=== PATIENT | female | born 1970 | race Caucasian/White ===

== ENCOUNTER 2018-09-30 16:06 | Emergency (ER) | payer SELFPAY ==
[2018-09-30 16:09] VITALS: BP 135/90; PULSE 75; RESP 16; TEMP 36.2; O2SAT 100; BMI 31.1
[2018-09-30] MEDS: Meclizine HCl 25 MG Tablet PO (16:42)
--- NOTE | 2018-09-30 17:28 | ED.VISSUMM ---
- ER Visit Summary Date of Service: 09/30/18 Chief Complaint: Dizzy History of Present Illness: The patient is a 47 F with a history of peripheral vertigo. She states she started noting vertigo-like symptoms 8 days ago. Symptoms are worse by lying down and with head movement. She is also noted sinus pressure and some left ear pressure over the past couple of days. She has not had fever. Physical Examination: Vital signs are unremarkable. Patient sitting in a bedside chair. She is in no acute distress. Head neck examination reveals pupils to be equal and reactive. TMs are clear bilaterally. She does have reproducible tenderness of the frontal and maxillary sinuses bilaterally. Heart is regular rate and rhythm. Lung sounds are clear. Abdomen is soft nontender. Neuro exam reveals normal strength and sensation throughout. Test Results: [] Emergency Department Course and Treatment: Patient was given Antivert here. On repeat evaluation she does feel improved. We talked about the possibility of sinusitis contributing to her symptoms. We will write her a prescription for Zithromax, but she will wait 3 more days to see if her symptoms improve without requiring antibiotic. Treatment Plan: [] Disposition: Discharge Impression: 1. Benign positional vertigo 2. Sinusitis This note was generated with [employer] dictation software. It may contain incorrect words, spelling, and punctuation that were not noted in review of the chart prior to signing ED Disposition - Plan for ED Patient: Chief Complaint: Dizziness Referrals: Wendy Nieves, AIR TRAFFIC CONTROL MANAGER-C [Primary Care Provider] -
--- NOTE | 2018-09-30 17:30 | ED.DEP ---
ED Disposition - Plan for ED Patient: Disposition: Home or Assisted Living Chief Complaint: Dizziness Instructions: ED Vertigo Unspecified, ED Sinusitis Abx Tx Prescriptions: Azithromycin [Zithromax Z-Jake] 250 mg PO UD #1 box Meclizine HCl [Antivert] 25 mg PO 4X/DAY PRN PRN #20 tablet PRN Reason: Dizziness Referrals: Wendy Nieves, CLEARANCE COORDINATOR-C [Primary Care Provider] - 1 Week
--- NOTE | 2018-09-30 17:47 | ED.DEP ---
ED Disposition - Plan for ED Patient: Disposition: Home or Assisted Living Chief Complaint: Dizziness Instructions: ED Sinusitis Abx Tx, ED Vertigo Unspecified Prescriptions: proMETHazine tablet [Phenergan] 25 mg PO Q6H PRN PRN #10 tab PRN Reason: Nausea Azithromycin [Zithromax Z-Jake] 250 mg PO UD #1 box Meclizine HCl [Antivert] 25 mg PO 4X/DAY PRN PRN #20 tablet PRN Reason: Dizziness Referrals: Wendy Nieves NP-C [Primary Care Provider] - 1 Week
[2018-09-30 17:55] VITALS: RESP 18
== END 2018-09-30 17:56 | disposition home or self-care (01) ==
PROVIDERS: Emergency Provider Emergency Medicine; Family Provider Nurse Practitioner; PCP Nurse Practitioner
DX: H81.10 Benign paroxysmal vertigo, unspecified ear (principal); J32.9 Chronic sinusitis, unspecified; K21.9 Gastro-esophageal reflux disease without esophagitis
CPT/HCPCS: 99282

== ENCOUNTER → 2019-06-18 16:39 | Outpatient (CLI) | payer SELFPAY ==
--- NOTE | 2019-06-18 16:43 | RAD_ITS ---
STUDY: X-RAY - LEFT ELBOW REASON FOR EXAM: Female, 48 years old. Elbow injury 6 weeks ago, now complains of pain and swelling TECHNIQUE: 3 view(s) of the elbow. COMPARISON: None. FINDINGS: Normal visualized humerus, radius and ulna. Normal radiocapitellar and ulnotrochlear articulations. There is soft tissue swelling posterior to the olecranon process. RAD/Elbow min 3 Views IMPRESSION: The osseous structures and articular surfaces appear normal. There is soft tissue swelling posterior to the olecranon process consistent with olecranon bursitis. Electronically Signed: Cal Lau MD at 23:59 EDT , Service support ,
== END ==
LOC: MTLAB 16:41 → MTRAD 17:19
PROVIDERS: Family Provider Nurse Practitioner; PCP Nurse Practitioner; Referring Provider Nurse Practitioner; Visit Provider Nurse Practitioner
DX: M25.522 Pain in left elbow (principal)
CPT/HCPCS: 73080

== ENCOUNTER → 2019-06-19 11:52 | Outpatient (CLI) | payer SELFPAY ==
[2019-06-20 16:42] LABS: HPV Reflexed? NOT INDICATED
== END ==
PROVIDERS: Family Provider Nurse Practitioner; PCP Nurse Practitioner; Referring Provider Nurse Practitioner; Visit Provider Nurse Practitioner
DX: Z01.419 Encounter for gynecological examination (general) (routine) without abnormal findings (principal)
CPT/HCPCS: 88175; G0145

== ENCOUNTER 2019-10-09 18:30 | Outpatient (RCR) | payer SELFPAY ==
--- NOTE | 2019-10-02 19:19 | HP.PTEVAL ---
Patient's Visit Information TARA HATHAWAY is a 48 year old F referred to Physical Therapy by DEREK Goldberg with a diagnosis of vertigo. Date of Evaluation: 10/02/19 Physical Therapist: BRIANNA Cordero - Visit Plan Frequency: 1x/Week Duration: 6 Weeks Plan: 1X/ week for 6 weeks for habituation exercises, VOR exercises, possible re-test of hallpike with HEP and balance exercises - Subjective Findings: Pt reportst that last year at this time she woke up super dizzy and she was throwing up a lot. She was told that it was vertigo from a slight ear infection. It got a little better but not completely and she can not lay on her L side. If she is on her R side she can slowly roll to her L side by laying on her back first. If she was to lay on her L side she would have the room spin for about 10 seconds. It is also that she can not look up.... she can not move her head up but she can move her eyes up. Looking down is ok... No sudden movments. When it happens if she lets it settle it is ok. At time she has episodes where she wakes up really dizzy..... Laying to standing position she is unbalanced. 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 Pt states that sometimes she has episodes where the room will spin for a long time and she gets sick.... she has not seen a neurologist. SHe reports that her father of a brain tumor and wonders if she should get a scan since this has been a year.... instructed her to talk to Wendy Nieves about it. - Pain RIOS Pain Intensity (Out of 10): 6 - Objective -Hallpike to the R for nystagmus and dizziness. -Hallpike for nystagmus to the L but pt did feel a slight dizzy feeling and there fore we treated with L Eply. Pt felt a little better with the L Hallpike on second attempt and tried L Eply one additional time..... Gait: Walks with a normal gait pattern. VOR X 1 horizontal ( good pursuit but did make her feel stomach flip and a little off). VOR X 1 vertical ( good pursuit and no dizziness and not stomach flip). smooth pursuit was normal vertical and horizotnal. CATSIB 90. FGA: 23 - Balance Scores Functional Gait Assessment Score: 22 % Disability: 26.6700 CATSIB Score (Max score 120 seconds): 90 - Goals Goal 1:: I HEP Goal Time Frame: 2 Weeks Goal 2:: Increase CATSIB by 20 points to increase balance Goal Time Frame: 4-6 Weeks Goal 3:: Be able to complete 60 seconds of VOR X 1 horizontal and vertical in standing without dizziness or stomach flips Goal Time Frame: 4-6 Weeks Goal 4:: Decrease subjective dizziness by 50% Goal Time Frame: 4-6 Weeks Goal 5:: Be able to roll to L side in bed without having dizziness Goal Time Frame: 4-6 Weeks - Rehabilitation Potential Rehabilitation Potential: Good - Anticipated Interventions Patient/Client Instruction: Educate patient on: Condition, Plan of Care For the Purpose of:: To improve muscle performance and motor function, To improve ability to perform ADL's, To increase tolerance to activity/condition/position, To improve performance and independence with ADL's, To improve ability of physical actions for home/community/work/leisure Therapeutic Exercise to Include: Strength training, Balance training, Coordination, Body mechanics, Gait and locomotor training, Neuromotor development For the Purpose of:: To improve nutrient delivery to tissue, To improve muscle performance and motor function, To improve ability to perform ADL's, To increase tolerance to activity/condition/position, To improve performance and independence with ADL's, To decrease level of supervision to perform tasks, To improve ability of physical actions for home/community/work/leisure, To improve balance, To improve safety with gait Functional Training to Include: Gait training For the Purpose of:: To improve gait and locomotor functions, To improve balance, To improve safety with gait Thank you for the opportunity to evaluate your patient. For Medicare and Medicare HMO plans, please review the plan of care and approve it. It will need to be FAXED BACK to us at [phone] for Medicare purposes. For Medicare only, by signing this I certify the plan of care. Please let me know if there are questions or concerns regarding this plan of care. Physician Signature: Date:
--- NOTE | 2019-12-16 16:26 | HP.PT.NRP ---
ATRA HATHAWAY was seen in my office for initial evaluation on 10/02/19. The following Plan of Care was established for this patient: Initial Frequency: 1x/Week Initial Duration: 6 Weeks Patient/Client Instruction: Educate patient on: Condition, Plan of Care For the Purpose of:: To improve muscle performance and motor function, To improve ability to perform ADL's, To increase tolerance to activity/condition/position, To improve performance and independence with ADL's, To improve ability of physical actions for home/community/work/leisure Therapeutic Exercise to Include: Strength training, Balance training, Coordination, Body mechanics, Gait and locomotor training, Neuromotor development For the Purpose of:: To improve nutrient delivery to tissue, To improve muscle performance and motor function, To improve ability to perform ADL's, To increase tolerance to activity/condition/position, To improve performance and independence with ADL's, To decrease level of supervision to perform tasks, To improve ability of physical actions for home/community/work/leisure, To improve balance, To improve safety with gait Functional Training to Include: Gait training For the Purpose of:: To improve gait and locomotor functions, To improve balance, To improve safety with gait This patient was last seen in our office 10/09/19. Pertinent comments regarding their Physical therapy will appear below: DC PT At this point I will be discontinuing this patient from physical therapy. I would be happy to see this patient again in the future if found appropriate by the physician. Thank you! BRIANNA Cordero
== END 2019-10-09 19:00 | disposition home or self-care (01) ==
LOC: PT 18:30
PROVIDERS: Family Provider Nurse Practitioner; PCP Nurse Practitioner; Referring Provider Nurse Practitioner; Visit Provider Nurse Practitioner
DX: R42 Dizziness and giddiness (principal)
CPT/HCPCS: 97110; 97162

== ENCOUNTER → 2019-11-22 17:53 | Outpatient (CLI) | payer SELFPAY ==
--- NOTE | 2019-11-22 18:00 | CT_ITS ---
HISTORY: Migraine and vertigo 1 year COMPARISON: None. TECHNIQUE: Helical CT axial images are obtained from the base of skull through the vertex without and with 50mL [id number]-370 intravenous contrast. Multiplanar reconstruction. A radiation dose optimization technique was used for this scan. # of images incl. paperwork: [id number] FINDINGS: BRAIN: No parenchymal hemorrhage, infarct, intra-axial mass, mass effect, or midline shift. No abnormal extra-axial fluid collections. No abnormal enhancing parenchymal or dural based masses. VENTRICLES: Ventricles are normal in size and configuration. No hydrocephalus. CALVARIUM: Bone windows show no skull fracture or calvarial lesions. PARANASAL SINUSES AND MASTOIDS: Visualized paranasal sinuses are clear. Visualized mastoid air cells are clear. CT/Brain/Head W/WO Contrast IMPRESSION: 1. Negative pre- and postcontrast CT examination of brain. Individualized dose optimization techniques were used for this CT. at 1635 Reported and signed by: Stalin Khan MD Electronically Signed: Stalin Khan MD at 16:33 EST Tel , Service support ,
== END ==
PROVIDERS: PCP Nurse Practitioner; Referring Provider Nurse Practitioner; Visit Provider Nurse Practitioner
DX: G43.109 Migraine with aura, not intractable, without status migrainosus (principal)
CPT/HCPCS: 70470; Q9967

== ENCOUNTER → 2020-03-05 17:44 | Outpatient (CLI) | payer SELFPAY ==
[2020-03-05 15:33] VITALS: BMI 34.2
--- NOTE | 2020-03-05 17:49 | US_ITS ---
STUDY: ULTRASOUND OF THE FEMALE PELVIS - COMPLETE REASON FOR EXAM: Female, 49 years old. IRREG MENSES LMP: 01/20/2020 TECHNIQUE: Transabdominal and Transvaginal TECHNICAL QUALITY: Adequate. COMPARISON: None. FINDINGS: The uterus is anteverted and is in a midline position. The uterus measures 9.9 x 7.3 x 5.4 cm. There is a Nabothian cyst of the cervix. The endometrium measures 6 mm in thickness, and is hyperechoic. There is no demonstrated endometrial mass. Multiple uterine fibroids. This includes a posterior lesion measuring 2.5 x 2.3 x 1.9 cm, a right-sided lesion measuring 2.3 x 1.9 x 1.8 cm, and an anterior lesion measuring 1.2 x 1.1 x 0.9 cm. I.U.D. - The patient does not have an I.U.D. The right ovary is not seen. The left ovary is visualized. The left ovary measures 4.1 x 2.9 x 2.2 cm. Left ovary cyst measuring 2.8 x 2.4 x 1.9 cm. There is no visualized left adnexal mass or complex lesion. There is normal arterial and normal venous vascularity. There is no fluid in the cul-de-sac. The pre void volume of the bladder was 78.26 ml. US/Pelvic (Non ) IMPRESSION: Multiple uterine fibroids. Left ovary cyst measuring 2.8 x 2.4 x 1.9 cm. Electronically Signed: [place] Blanc MD at 19:13 EDT Tel , Service support ,
--- NOTE | 2020-03-05 18:20 | US_ITS ---
STUDY: ULTRASOUND OF THE FEMALE PELVIS - COMPLETE REASON FOR EXAM: Female, 49 years old. IRREG MENSES LMP: 01/20/2020 TECHNIQUE: Transabdominal and Transvaginal TECHNICAL QUALITY: Adequate. COMPARISON: None. FINDINGS: The uterus is anteverted and is in a midline position. The uterus measures 9.9 x 7.3 x 5.4 cm. There is a Nabothian cyst of the cervix. The endometrium measures 6 mm in thickness, and is hyperechoic. There is no demonstrated endometrial mass. Multiple uterine fibroids. This includes a posterior lesion measuring 2.5 x 2.3 x 1.9 cm, a right-sided lesion measuring 2.3 x 1.9 x 1.8 cm, and an anterior lesion measuring 1.2 x 1.1 x 0.9 cm. I.U.D. - The patient does not have an I.U.D. The right ovary is not seen. The left ovary is visualized. The left ovary measures 4.1 x 2.9 x 2.2 cm. Left ovary cyst measuring 2.8 x 2.4 x 1.9 cm. There is no visualized left adnexal mass or complex lesion. There is normal arterial and normal venous vascularity. There is no fluid in the cul-de-sac. The pre void volume of the bladder was 78.26 ml. US/Transvaginal Non- IMPRESSION: Multiple uterine fibroids. Left ovary cyst measuring 2.8 x 2.4 x 1.9 cm. Electronically Signed: Bay Blanc MD at 19:13 EDT Tel , Service support ,
== END ==
PROVIDERS: PCP Nurse Practitioner; Referring Provider Nurse Practitioner Women's Health; Visit Provider Nurse Practitioner Women's Health
DX: N92.6 Irregular menstruation, unspecified (principal)
CPT/HCPCS: 76830; 76856

== ENCOUNTER → 2020-03-05 | Outpatient (CLI) | payer SELFPAY ==
--- NOTE | 2020-03-05 | EMB_PTH ---
PATIENT: TARA HATHAWAY LOC: [facility] U#:[id number] AGE/SX: 49/F ROOM: RE03/05/[address]: DEREK Singleton : 1970 BED: DIS: 03/05/2020 SPEC #: [id number] RECD: 03/05/20 15:00 STATUS: RAYRAY RALF #: [id number] DILAN: 03/05/20 00:[address]: Quyen Kilpatrick NP DEPT: SURGICAL PATHOLOGY RECD BY: Kathy Mancera ENTERED: 03/06/20 09:27 SP TYPE: ENDOM BX/C SARTHAK DR: DEREK Goldberg Tissues: Endometrium, NOS Procedures: Surgery Specimen Level IV HEADER OPERATION: Endometrial biopsy PRE-OP DIAGNOSIS: Abnormal uterine bleeding TISSUE SUBMITTED: Endometrial lining MICROSCOPIC DIAGNOSIS Endometrial biopsy: Dyssynchronous endometrium consisting predominantly of disordered proliferative endometrium and focal area of secretory endometrium with extensive glandular and stromal breakdown. FAYE:mayi 03/09/20 COMMENT Case has been reviewed in consultation with Dr. Craig who concurs with the above diagnosis. IDC:AM MICROSCOPIC DESCRIPTION Slides are reviewed. GROSS DESCRIPTION Received is one container labeled with the patient's name and not further designated. The specimen consists of multiple fragments of hemorrhagic soft tissue that in aggregate measure 3 x 2.5 x 0.3 cm. The entire specimen is submitted in one cassette. / FAYE:mayi 03/06/20 TC:5 CPT: 97270
[2020-03-05 15:33] VITALS: BMI 34.2
[2020-03-05 16:40] LABS: Absolute Lymphocyte Count 2.71 X10^3/uL (0.83-4.51); Absolute Neutrophil Count 6.6 X10^3/uL (2.0-7.7); Basophil# 0.04 X10^3/uL; Basophil% 0.4 % (0-1); Eosinophils% 1.9 % (0-5); Hematocrit 35.8 % (37-47); Hemoglobin 11.2 g/dL (12.0-15.0); Lymphocyte # 2.71 X10^3/ul (4.0); Mean Corp Hgb Conc 31.3 g/dL (32-36); Mean Corpuscular Hgb 29.2 pg (27.0-32.0); Mean Corpuscular Volume 93.5 fL (81-99); Mean Platelet Vol. 10.7 fl (6.2-12.0); Monocyte# 0.81 X10^3/uL; Monocyte% 7.8 % (0-10); NRBC Flagged by Analyzer 0 % (0-5); Neutrophil # 6.61 X10^3/uL (2.7-7.7); Neutrophil % 63.5 % (47-70); Platelet Count 354 K/mm3 (150-450); RBC Distribution Width CV 13.8 % (11.6-14.6); RBC Distribution Width SD 46.5 fl (35.1-43.9); Red Blood Count 3.83 M/mm3 (4.2-5.4); White Blood Count 10.4 K/mm3 (4.4-11.0)
[2020-03-05 17:10] LABS: Thyroid Stim Hormone (TSH) 2.24 uIU/mL (0.358-3.74)
== END | disposition home or self-care (01) ==
PROVIDERS: PCP Nurse Practitioner; Referring Provider Nurse Practitioner Women's Health; Visit Provider Nurse Practitioner Women's Health
DX: N93.9 Abnormal uterine and vaginal bleeding, unspecified (principal)
CPT/HCPCS: 36415; 84443; 85025; 88305

== ENCOUNTER 2020-04-14 10:18 | Day surgery (SDC) | payer SELFPAY ==
[2020-03-11 11:03] VITALS: BMI 34.2
[2020-03-30 08:03] VITALS: BMI 34.5
--- NOTE | 2020-04-06 03:41 | HP.PCM_ITS ---
- Problem List (1) Abnormal uterine bleeding Status: Acute Comment: enlarged 10 cm multiple fibroid uterus. recommend [facility] BS combo case with Jasson for sling. nl EMB (2) Enlarged uterus Status: Acute History and Physical Date of Admission: 04/14/20 Intake Vital Signs 03/30/20 Height 5 ft 2 in 03/30/20 Weight: 189 lb 03/30/20 BMI 34.5 03/30/20 BP 116/70 03/30/20 BMI 34.2 Intake Visit Reasons: pre op Oncology Physician Required: No Is patient in pain?: No Allergies Penicillins [PCN] Adverse Reaction (Verified 03/30/20 08:03) Hives CILLINS Adverse Reaction (Uncoded 03/11/20 10:34) Hives Medications cholecalciferol (vitamin D3) 50 mcg (2,000 unit) capsule 50 mcg PO DAILY 03/05/20 [History Confirmed 03/30/20] evening primrose oil 500 mg capsule 500 mg PO TID 03/05/20 [History Confirmed 03/30/20] ferrous sulfate 325 mg (65 mg iron) tablet 325 mg PO DAILY 03/05/20 [History Confirmed 03/30/20] multivitamin 1 tab PO DAILY 03/05/20 [History Confirmed 03/30/20] norethindrone acetate 5 mg tablet 5 mg PO .COMPLEX #45 tab 03/05/20 [Rx Confirmed 03/30/20] omeprazole 20 mg capsule,delayed release 20 mg PO DAILY 03/05/20 [History Confirmed 03/30/20] Is last menstrual period known: No Post menopausal: No Patient : No : No PFSH Surgical History Admission for tubal ligation (Acute) H/O LEEP (Acute) Family History Father Cancer brain tumor Unknown Diabetes Social History (Updated 03/31/20 @ 05:[address] Kathy Robles MD) Smoking Status: Never smoker alcohol intake: never substance use type: does not use caffeine: Yes what type of physical activity do you participate in: walking seatbelt use: always do you feel safe at home: Yes HPI pre op: Details: TARA HATHAWAY is a 49 year old who presents for preoperative visit. she is going to have an LAV BS for enlarged uterus with AUB, combo case with Dr Spaulding for sling for KELBY. Female Reproductive History Cycle Length: 21-35 Bleeding Duration: 14 Questions: Metorrhagia: No, Sexually active: Yes, Dyspareunia: No Menopausal Symptoms: Yes hot flashes, Yes night sweats Pregancy History 3 Elective abortions Hx Para 3 Spontaneous abortions Hx # Term Pregnancies Ectopic pregnancies Hx # Pregnancies Multiple births # of living children Past Pregnancies Del. Date Name GA/Weeks Outcome Route Bth Weight Infant Gen Labor Lgth Anesthesia Del Locatn Provider FOB Unknown 1989 Erasmo Unknown 1993 Alba Unknown 1997 Anisha ROS Const Constitutional: Reports night sweats; denies fatigue, fever(s), headache(s), increased appetite, poor appetite, weight gain or weight loss ENT ENT: Denies dizziness or dry mouth Cardio Card: Denies chest pain Resp Resp: Denies cough or dyspnea GI GI: Reports as per HPI; denies abdominal pain, constipation, nausea or vomiting : Reports as per HPI, hot flashes and urinary incontinence (KELBY); denies difficulty urinating, painful urination, nipple discharge, urinary frequency, urinary hesitancy, urinary urgency, vaginal discharge, vaginal dryness, vaginal odor or vaginal itching Musc Musc: Denies joint pain, back pain or muscle weakness Skin Skin/Breast: Denies nipple discharge Neuro Neuro: Denies dizziness Psych Psych: Denies anxiety or depression Endo Endo: Denies cold intolerance, excessive sweating, heat intolerance or increased thirst Manjeet/Lymph Hematologic/Lymphatic: Denies easy bleeding, Denies easy bruising, Denies enlarged lymph nodes Exam Const General: cooperative, healthy appearing, comfortable, no acute distress, well developed Nutritional Appearance: average body habitus Orientation: alert [facility] Head: normal to inspection, normocephalic Ears: hearing grossly normal bilaterally, external ears normal Nose: external nose normal, nares normal Face and sinus: normal facial exam Neck Neck: normal visual inspection, trachea midline Thyroid: thyroid normal Chest Chest palpation & inspection: normal inspection of the chest Resp Effort & Inspection: normal respiratory effort Auscultation: clear to auscultation bilaterally Cardio Rate: regular rate Rhythm: regular rhythm Heart Sounds: S1 normal, S2 normal GI Inspection: normal to inspection, non-distended Palpation: soft, no hepatosplenomegaly General: bladder normal to palpation External Female Exam: normal external appearance, normal appearance of the urethra Urethra: normal appearance of the urethra Speculum Exam - Vagina: normal appearance of the vagina, normal vaginal discharge Speculum Exam - Cervix: normal appearance of the cervix, nontender Bimanual Exam- Vagina & Uterus: bladder normal to palpation, No cervical tenderness Bimanual Exam- Adnexa, other: normal adnexae, adnexae mobile, no adnexal masses, pelvic support normal (redundant posterior tissue at introitus) Pelvic Support: normal (redundant posterior tissue at introitus) Musc Cervical Spine: other Other: gross motor intact no deficits, full bilateral strength Skin General: no rashes or lesions noted Neuro General: alert, awake, moves all extremities, no focal motor deficits Motor: muscle tone normal throughout Extrem General: normal to inspection, no pedal edema Psych Appearance: grossly normal Mental Status: mental status grossly normal Affect: normal affect Speech and Movement: speech and movement normal Assessment & Plan Problems 1. Abnormal uterine bleeding N93.9 enlarged 10 cm multiple fibroid uterus. recommend [facility] combo case with Jasson for sling. nl EMB 2. Enlarged uterus N85.2 Plan After discussing the patient's diagnosis and treatment plan options, patient wishes to proceed with surgical management. I have discussed with the patient the risks, benefits, and alternatives of the procedure which include but are not limited to risks of anesthesia, bleeding, infection, possible damage to bowel, bladder, or surrounding vasculature which could lead to additional surgery to evaluate any complications. Patient agrees to procedure and wishes to proceed. ACOG/uptodate references given for additional information regarding procedure. Coding Level of Care Code No Charge Diagnoses Abnormal uterine bleeding N93.9 Enlarged uterus N85.2
[2020-04-09 17:22] LABS: Hematocrit 40.2 % (37-47); Hemoglobin 12.8 g/dL (12.0-15.0); Mean Corp Hgb Conc 31.8 g/dL (32-36); Mean Corpuscular Hgb 28.7 pg (27.0-32.0); Mean Corpuscular Volume 90.1 fL (81-99); Mean Platelet Vol. 10.8 fl (6.2-12.0); Platelet Count 328 K/mm3 (150-450); RBC Distribution Width SD 42.5 fl (35.1-43.9); Red Blood Count 4.46 M/mm3 (4.2-5.4); White Blood Count 10.2 K/mm3 (4.4-11.0)
--- NOTE | 2020-04-09 17:41 | EKG12_ITS ---
Test Reason : PRE OP Blood Pressure : / mmHG Vent. Rate : 078 BPM Atrial Rate : 078 BPM P-R Int : 130 ms QRS Dur : 086 ms QT Int : 404 ms P-R-T Axes : 068 052 064 degrees QTc Int : 460 ms Normal sinus rhythm Septal infarct , age undetermined Abnormal ECG Confirmed by FAHAD JOHNS, ANNA ([id number]), research editor COLLIN RHOADES ([id number] on 04/14/2020 12:43:34 PM Referred By: Kathy Robles Confirmed By:ANNA VÁSQUEZ MD
[2020-04-09 17:44] LABS: Partial Thromboplast Time 29.6 Seconds (24.1-36.2); Prothrombin Time (Protime)PT. 12.6 SECONDS (11.7-14.9)
[2020-04-14] VITALS (14 sets, daily range): BP systolic 100–142; BP diastolic 55–81; PULSE 71–87; RESP 15–18; TEMP 36.3–37.2; O2SAT 95–100; BMI 33.9; BMI 33.8
--- NOTE | 2020-04-14 | HYST_PTH ---
PATIENT: TARA HATHAWAY LOC: [facility] U#:[id number] AGE/SX: 49/F ROOM: RE04/14/[address]: Dr. Kathy Robles MD : [id number] BED: DIS: 04/15/2020 SPEC #: [id number] RECD: 04/14/20 14:58 STATUS: RAYRAY REDajuan #: [id number] DILAN: 04/14/20 00:[address]: Kathy Robles DEPT: SURGICAL PATHOLOGY RECD BY: Fermin Fernández ENTERED: 04/15/20 08:12 SP TYPE: HYSTERECT OTHR DR: MD Wendy Guerrero, J2EE ARCHITECT-C Tissues: Uterus, NOS Procedures: Surgery Specimen Level V HEADER OPERATION: Hysterectomy, LAVH, salpingectomy PRE-OP DIAGNOSIS: Abnormal uterine bleeding; enlarged uterus TISSUE SUBMITTED: Uterus, cervix and bilateral fallopian tubes MICROSCOPIC DIAGNOSIS Uterus, hysterectomy: Cervix - nabothian cysts and mild chronic inflammation. Endometrium - secretory endometrium with breakdown and exogenous hormonal change. Myometrium - leiomyomas and adenomyosis. Right and left fallopian tube - endometriosis. AM:mayi 04/16/20 COMMENT Case has been reviewed in consultation with Dr. Deutsch who concurs with the above diagnosis. IDC:SJ MICROSCOPIC DESCRIPTION Slides are reviewed. GROSS DESCRIPTION Received in fixative is one container labeled with the patient's name and designated uterus, cervix and bilateral fallopian tubes. The specimen consists of a hysterectomy specimen consisting of uterus with cervix, attached portion of left fallopian tube and detached portion of fallopian tube, most likely portion of left fallopian tube and detached right fallopian tube. The uterus with cervix weighs 250 gm and measures 11.5 x 8 x 6 cm. The serosal surface is castillo, glistening. The ectocervical mucosa is unremarkable. The external os is oval in contour. The endocervical canal measures 4 cm in length and the endocervical mucosa is unremarkable. The triangular endometrial cavity measures 5.5 cm in length and up to 4 cm in width. The endometrium is castillo, glistening without any mass lesion and measures up to 0.5 cm in thickness. Sections of the uterine wall reveal multiple intramural nodular masses. The largest mass measures 2.5 cm in greatest dimension. Sections of these masses reveal castillo whorled cut surfaces without areas of hemorrhage, necrosis or cystic degeneration. The uninvolved uterine wall measures up to 3 cm in thickness. The detached right fallopian tube measures 8 cm in length and 0.5 cm in diameter. The proximal portion of the fallopian tube is dilated and measures up to 1 cm in diameter. A Filshie clip is noted at the proximal end which appears intact. The fimbrial end is identified. Sections of the right fallopian tube proximal to Filshie clip reveal thickened fallopian tube wall. The attached portion of left fallopian tube measures 3.5 cm in length and 0.5 to 0.7 cm in diameter. It is interrupted in the middle consistent with previous tubal occlusion. Section of the proximal portion of the fallopian tube shows the lumen filled with a small amount of clot and bloody fluid. The smaller detached portion of the fallopian tube, most likely portion of left fallopian tube measures 1.5 cm in length and 0.5 cm in diameter. The fimbrial end is identified. Sections reveal unremarkable cut surfaces. Chair Installer sections are submitted in 12 cassettes as follows: 1 - anterior cervix, 2 - posterior cervix, 3 & 4 - anterior uterine wall, 5 & 6 - posterior uterine wall, 7 - largest nodular mass, 8 - second largest nodular mass, 9 - smaller nodular masses, 10 - right fallopian tube, 11 - right fallopian tube proximal to the Filshie clip with thickened fallopian tube wall, 12 - left fallopian tube. / FAYE:mayi 04/15/20 TC:5 CPT: 70452
[2020-04-14] MEDS: Lactated Ringers 1,000 ML 70 ML IV (10:44)
[2020-04-14 10:50] LABS: Bedside Glucose 72 mg/dL (70-110)
[2020-04-14 10:56] LABS: Internal QC Validated? YES +Cl - CLEAR BKGD
[2020-04-14] MEDS: Acetaminophen 500 MG Tablet 1000 MG PO ×2 (10:57→17:13)
[2020-04-14] MEDS: Scopolamine 1mg/72hr Patch 1 PATCH TRANSDERM. (10:58)
--- NOTE | 2020-04-14 10:58 | OP.PCM_ITS ---
Problem List (1) Abnormal uterine bleeding Status: Acute Comment: enlarged 10 cm multiple fibroid uterus. recommend LAVH BS combo case with Jasson for sling. 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 Patient was taken back to the operating room and placed in the dorsal lithotomy position. General anesthesia was induced and patient was prepped and draped in normal sterile fashion. Uterine manipulator was placed inside the uterus and Kaplan catheter placed in the bladder. The umbilicus was grasped with towel clamps and an intraumbilical incision was made after injecting with quarter percent Marcaine and a Veress needle entered into the abdomen confirmed to be intra-abdominal with a low opening pressure. Abdomen was insufflated with CO2 gas and the Veress needle removed and the 5 mm trocar was placed under direct visualization without complication. Right and left lower quadrants were transilluminated and injected with quarter percent Marcaine and 5 mm ports placed under direct visualization. Pelvis was well visualized see operative findings for additional information. Bilateral fallopian tubes were identified and transected with the LigaSure device across the mesosalpinx to the level of the utero-ovarian ligament which was also transected with the LigaSure device. The broad ligament was opened up by transecting the round ligament bilaterally and skeletonizing the uterine vessels bilaterally and creating a bladder flap using the LigaSure device. The uterine arteries were transected bilaterally with good visualization of the bladder and the ureters were seen to be inferior lateral to the operative area. Attention was then paid to the vaginal portion of the procedure and the cervix was grasped with Maurice clamps and circumferentially injected with dilute vasopressin. A circumferential incision was made and the vaginal mucosa was mobilized off posteriorly and the cul-de-sac entered into sharply and a longneck speculum placed. The anterior cul-de-sac was then identified and entered into sharply. The uterosacral ligaments were clamped cut and suture ligated with 0 Monocryl bilaterally followed by the cardinal ligaments which were clamped cut and suture ligated bilaterally with 0 Monocryl. The uterus serially descended and was removed without difficulty with minimal morcellation. Pelvic sidewall pedicles were checked and noted to have excellent hemostasis. The vaginal mucosa was reapproximated incorporating the posterior peritoneum. This was reapproximated using 0 Vicryl [id number] sutures. Excellent hemostasis was noted. The cystoscopy was then performed and bilateral ureteral strong spray was noted and the bladder was noted to have no abnormality or lesions seen. Kaplan catheter was replaced and then attention paid to the abdominal portion of the procedure again. The pelvis and cul-de-sac was well visualized and no significant active bleeding noted but some raw areas were seen on the peritoneum and therefore Juan Carlos was applied. Pressure was taken down and the areas visualized and noted of excellent hemostasis. All ports were removed under direct visualization without complication and the abdomen was desufflated of air. The instruments removed from the abdomen and the vagina vaginal sweep was negative. Port sites on the abdomen were closed with 4-0 Monocryl interrupted sutures and Steri's and windows were applied. see dr munoz's note regarding additional operative procedure. She was awoken and taken recovery in stable condition. Grafts/Implants Used: see urogyn note - Complications none - Admit VTE Documentation VTE Present on Admission: No VTE Mechan Device Prophylaxis: SCD's Multi Select Codes - Urinary/Genital Urinary/Genital CPT Codes: 74672 LAVH+BS/O <250gr Uterus
[2020-04-14] MEDS: Gabapentin 600 MG Tablet PO (10:59)
[2020-04-14 11:01] LABS: Pregnancy, Urine Negative Negative
[2020-04-14] MEDS: Celecoxib 200 MG Capsule 400 MG PO (11:01)
[2020-04-14] MEDS: Lactated Ringers 1,000 ML 40 ML IV (11:01)
[2020-04-14 11:03] LABS: Anion Gap 3 (5-15); BUN 10 mg/dL (7-18); BUN/Creat Ratio 11.9 RATIO (10-20); Calcium,Total 8.5 mg/dL (8.5-10.1); Chloride 109 mmol/L (98-107); Creatinine, Serum 0.84 mg/dL (0.55-1.02); EST Glomerular Filtration Rate 76 mL/min (>60); Est Glom Filt Rate - Afr Amer 92 mL/min (>60); Estimated Creatinine Clearance 62.67 ml/min; Glucose 82 mg/dL (74-106); Magnesium 2.3 mg/dL (1.6-2.6); Potassium 3.7 mmol/L (3.5-5.1); Sodium Level 140 mmol/L (136-145)
--- NOTE | 2020-04-14 11:03 | DCINST_ITS ---
Discharge Diet: No Restrictions Discharge Activity: Return to Normal Activity, May Not Drive, May Shower May resume sexual activity in: 6-8 weeks Call your doctor if your incision/area has: Continuous Slow Oozing, Sudden Increased Bleeding, Increased Pain/ Swelling, Increased Redness, Foul Smelling Discharge Call your doctor if you observe: Fever of 101 or Higher, Inability to urinate, Inability to have a bowel movement, Using more than one pad per hour Allergies/Adverse Reactions: Allergies Penicillins [PCN] Adverse Reaction (Verified 04/14/20 10:23) Hives CILLINS Adverse Reaction (Uncoded 04/14/20 10:23) Hives Medications to take at Discharge cholecalciferol (vitamin D3) 50 mcg (2,000 unit) capsule 50 mcg PO DAILY 03/05/20 ferrous sulfate 325 mg (65 mg iron) tablet 325 mg PO DAILY 03/05/20 multivitamin 1 tab PO QWEEK 03/05/20 omeprazole 20 mg capsule,delayed release 20 mg PO DAILY 03/05/20 Naproxen [Naprosyn] 250 - 500 mg PO Q8H PRN PRN #30 tab 04/14/20 Oxycodone HCl/Acetaminophen [Percocet 5-325] 1 - 2 tablet PO Q6H PRN PRN 7 Days #15 tablet 04/14/20 The following prescriptions were given: Naproxen [Naprosyn] 250 - 500 mg PO Q8H PRN PRN #30 tab PRN Reason: MILD PAIN Transmission Status: Pending to [facility] Oxycodone HCl/Acetaminophen [Percocet 5-325] 1 - 2 tablet PO Q6H PRN PRN 7 Days #15 tablet PRN Reason: Pain Transmission Status: Sent to [facility] Orders to be completed after discharge: Type & Screen - PAT ONLY Time Frame: 04/14/20, Facility: [facility], Location: Laboratory 12 Lead EKG [CVS] Time Frame: 04/07/20, Facility: [facility], Location: Cardiovascular Services Basic Metabolic Profile (BMP) Time Frame: 04/14/20, Facility: [facility], Location: Laboratory CBC-Complete Blood Cnt No Diff Time Frame: 04/07/20, Facility: [facility], Location: Laboratory CORONAVIRUS 19, DAREK SCREEN Time Frame: 04/09/20, Facility: [facility], Location: Laboratory Magnesium Time Frame: 04/14/20, Facility: [facility], Location: Laboratory Partial Thromboplast Time Time Frame: 04/07/20, Facility: [facility], Location: Laboratory Prothrombin Time w/INR Time Frame: 04/07/20, Facility: [facility], Location: Laboratory Primary Care Physician: Wendy Nieves NP-C [Primary Care Provider] - Test Results: Test results from this visit will be discussed in further detail at your follow- up appointment, if applicable. Please Follow Up With: Kathy Robles MD - [phone]
[2020-04-14] MEDS: dexAMETHasone 10 MG/ML Vial 8 MG IV (11:06)
[2020-04-14] MEDS: Enoxaparin 40 MG/0.4 ML Syringe SC (11:07)
--- NOTE | 2020-04-14 12:25 | HP.PCM_ITS ---
Problem List (1) Stress incontinence Status: Acute (2) Urethral hypermobility Status: Acute History of Present Illness Date of Admission: 04/14/20 Chief Complaint: stress leakage The patient is a 49 year old F undergoing a hysterectomy for abnormal uterine bleeding. She came to me for concomitant mid urethral sling insertion for her stress urinary incontinence, sent to me by Dr. Robles. She was evaluated with urodynamics and office cystoscopy. After discussing the procedure and the risks associated with it, she desired to proceed. Informed consent was obtained. Past Medical History Allergies Penicillins [PCN] Adverse Reaction (Verified 04/14/20 10:23) Hives CILLINS Adverse Reaction (Uncoded 04/14/20 10:23) Hives Home Medications: Ambulatory Orders Medication Instructions Recorded cholecalciferol (vitamin D3) 50 50 mcg PO DAILY 03/05/20 mcg (2,000 unit) capsule ferrous sulfate 325 mg (65 mg 325 mg PO DAILY 03/05/20 iron) tablet multivitamin 1 tab PO QWEEK 03/05/20 omeprazole 20 mg capsule,delayed 20 mg PO DAILY 03/05/20 release Naproxen [Naprosyn] 250 - 500 mg PO Q8H PRN PRN #30 tab 04/14/20 Oxycodone HCl/Acetaminophen 1 - 2 tab PO Q6H PRN PRN 7 Days 04/14/20 [Percocet 5-325] #15 tab Surgical History: Surgical History (Last Reviewed 04/14/20 @ 12:[address] Mine Spaulding MD) Admission for tubal ligation Z30.2 H/O LEEP Z98.890 1997 Smoking Status: Never smoker Tobacco Use: Non-smoker Review of Systems Constitutional: Denies: Anorexia, Chills, Fever Eyes: Denies: Vision Change HEENT: Denies: Difficulty Swallowing, Visual Changes Cardiovascular: Denies: Chest Pain, Chest Pressure, Chest Tightness Respiratory: Denies: Cough, Shortness of Breath Gastrointestinal: Denies: Abdominal Pain, Nausea, Vomiting Genitourinary: Reports: Incontinence, Urgency. Denies: Hematuria, Retention Gynecological: Reports: Excessively long or heavy periods. Denies: Sexual concerns Musculoskeletal: Denies: Muscle pain Skin: Denies: Wounds Neurological: Denies: Difficulty swallowing VTE Information - Inpt Only VTE Present on Admission: Yes VTE Mechan Device Prophylaxis: SCD's VTE Pharm Prophylaxis ordered?: Yes Patient Problems: Active and Suspected Problems (Last Reviewed 03/30/20 @ 08:03 by Dionne Calloway) Stress incontinence (Acute) Urethral hypermobility (Acute) - Physical Exam Vitals/I&O's: Vital Signs Temp Pulse Resp BP Pulse Ox 97.4 F L 75 15 128/80 H 100 04/14/20 10:51 04/14/20 10:51 04/14/20 10:51 04/14/20 10:51 04/14/20 10:51 Oxygen Delivery Method Room Air Weight: 84.1 kg Body Mass Index (BMI) 33.9 General: Alert, Oriented x3, Cooperative, No apparent distress HEENT: Atraumatic, Normocephalic Oral: Moist Mucosa Neck: Supple, Trachea Midline Lungs: Normal air movement, No wheeze Cardiovascular: Regular rate, Regular Rhythm Abdomen: Soft, Non Tender, Non-Distended Extremities: No cyanosis Skin: No rashes Musculoskeletal: No Muscle Wasting Neurological: Cranial nerves II-XII grossly intact, Neuro grossly intact Psych/Mental Status: Normal Affect, Alert and oriented to time, place, person, mood and affect Laboratory Results 04/14/20 10:40: Sodium 140, Potassium 3.7, Chloride 109 H, Carbon Dioxide 28.0, Anion Gap 3 L, BUN 10, Creatinine 0.84, Estim Creat Clear Calc 62.67, Est GFR (MDRD) Af Amer 92, Est GFR (MDRD) Non-Af 76, BUN/Creatinine Ratio 11.9, Glucose 82, Calcium 8.5, Magnesium 2.3 04/14/20 10:40: Blood Type A POSITIVE, Antibody Screen NEGATIVE 04/14/20 10:47: POC Glucose 72 04/14/20 10:53: Urine Test Negative Current Medications Lactated Ringer's () 1,000 mls @ 40 mls/hr IV .Q25H LANDY Last Admin: 04/14/20 11:01 Dose: 40 mls/hr Documented by: Lactated Ringer's () 1,000 mls @ 70 mls/hr IV .[id number] [facility] Insulin Human Lispro (Humalog Kwikpen (Bkc)) 0 unit SC Q4H PRN PRN; Protocol PRN Reason: BG >/= 180, SEE PROTOCOL Assessment/Plan All Active Problems (Last Reviewed 03/30/20 @ 08:03 by Dionne Calloway) Stress incontinence (Acute) Urethral hypermobility (Acute) Enlarged uterus (Acute) Abnormal uterine bleeding (Acute) midurethral sling insertion, cystoscopy
--- NOTE | 2020-04-14 12:29 | DCINST_ITS ---
Discharge Diet: No Restrictions Discharge Activity: May Not Drive, May Shower May resume sexual activity in: 6-8 weeks Additional Activity Instructions:: No exercise, no strenuous activity, no vacuuming, no lifting over 5 pounds, no intercourse, no swimming, no tub bathing, no hot tubs. Call your doctor if your incision/area has: Continuous Slow Oozing, Sudden Increased Bleeding, Increased Pain/ Swelling, Increased Redness, Foul Smelling Discharge Call your doctor if you observe: Fever of 101 or Higher, Inability to urinate, Inability to have a bowel movement, Using more than one pad per hour Allergies/Adverse Reactions: Allergies Penicillins [PCN] Adverse Reaction (Verified 04/14/20 10:23) Hives CILLINS Adverse Reaction (Uncoded 04/14/20 10:23) Hives Medications to take at Discharge cholecalciferol (vitamin D3) 50 mcg (2,000 unit) capsule 50 mcg PO DAILY 03/05/20 ferrous sulfate 325 mg (65 mg iron) tablet 325 mg PO DAILY 03/05/20 multivitamin 1 tab PO QWEEK 03/05/20 omeprazole 20 mg capsule,delayed release 20 mg PO DAILY 03/05/20 Naproxen [Naprosyn] 250 - 500 mg PO Q8H PRN PRN #30 tab 04/14/20 Oxycodone HCl/Acetaminophen [Percocet 5-325] 1 - 2 tab PO Q6H PRN PRN 7 Days #15 tab 04/14/20 The following prescriptions were given: Naproxen [Naprosyn] 250 - 500 mg PO Q8H PRN PRN #30 tab PRN Reason: MILD PAIN Transmission Status: Received by [facility] Oxycodone HCl/Acetaminophen [Percocet 5-325] 1 - 2 tab PO Q6H PRN PRN 7 Days #15 tab PRN Reason: Pain Transmission Status: Received by [facility] Orders to be completed after discharge: 12 Lead EKG [CVS] Time Frame: 04/07/20, Facility: [facility], Location: Cardiovascular Services CBC-Complete Blood Cnt No Diff Time Frame: 04/07/20, Facility: [facility], Location: Laboratory CORONAVIRUS 19, DAREK SCREEN Time Frame: 04/09/20, Facility: [facility], Location: Laboratory Partial Thromboplast Time Time Frame: 04/07/20, Facility: [facility], Location: Laboratory Prothrombin Time w/INR Time Frame: 04/07/20, Facility: [facility], Location: Laboratory Primary Care Physician: Wendy Nieves NP-C [Primary Care Provider] - Test Results: Test results from this visit will be discussed in further detail at your follow- up appointment, if applicable. Please Follow Up With: Mine Spaulding MD When: call office for appt
--- NOTE | 2020-04-14 12:37 | PCM.OPRPT ---
Problem List (1) Stress incontinence Status: Acute (2) Urethral hypermobility Status: Acute Report of Operation Date of Procedure: 04/14/20 Pre-Operative Diagnosis: Stress incontinence and urethral hypermobility Post-Operative Diagnosis: Same Surgery/Procedure Performed:: Mid urethral sling insertion, cystoscopy Type of Anesthesia:: General Estimated Blood Loss (mL): 25cc Description of Procedure: The patient is a 49-year-old female undergoing a hysterectomy for abnormal uterine bleeding. She presented to the office requesting management for her stress urinary incontinence. She was evaluated with urodynamics and cystoscopy and informed consent was obtained. Patient was taken to the operating room and placed on the operating room table. Anesthesia monitored the head, neck, airway, IV access and vital signs throughout the case. Once anesthesia was apparently administered the patient was prepped and draped in usual sterile fashion and Dr. Trino Fox performed her portion of the case. At this time she is placed into dorsal lithotomy position and Trendelenburg. Her mid urethra was identified and the submucosa was injected with vasopressin for hydrostatic dissection and hemostatic control. A midline vertical incision was made and sharp and blunt dissection was performed on either side of the urethra with care being taken to avoid entrance into the urethra itself. At this time using the trochars, the alto's mid urethral sling was inserted into the trans-obturator complexes bilaterally. The sling lay flat against the urethra without tension. The tensioning suture was cut. The incision was closed using running interlocking 2-0 Vicryl. A cystourethroscopy was performed by inserting the cystoscope through the urethra under direct visualization. There were no injuries to the urinary bladder or the urethra. There were no foreign objects within the bladder or urethra. Bilateral ureteral jets were observed. Patient's bladder was then emptied, the kaplan catheter was replaced, and vaginal packing was inserted. She was awakened and taken to the recovery room in good condition. Grafts/Implants Used: Altis midurethral sling - Complications none - Admit VTE Documentation VTE Present on Admission: Yes VTE Mechan Device Prophylaxis: SCD's VTE Pharm Prophylaxis ordered?: Yes
[2020-04-14] MEDS: Bupivacaine 0.25% 30 ML Vial (12:40)
[2020-04-14] MEDS: Vasopressin 20 UNITS/ML Vial (13:07)
[2020-04-14] MEDS: Ondansetron 4 MG/2 ML Vial IV (13:30)
[2020-04-14] MEDS: Ketorolac 30 MG/ML Syringe IV (15:47)
[2020-04-14] MEDS: oxyCODONE 5 MG Tablet PO (17:13)
[2020-04-14] MEDS: Docusate Sodium 100 MG Capsule PO (20:53)
[2020-04-15] MEDS: Ketorolac 30 MG/ML Syringe IV ×3 (00:39→11:59)
[2020-04-15] MEDS: Acetaminophen 500 MG Tablet 1000 MG PO ×3 (00:40→11:59)
[2020-04-15 00:44] VITALS: BP 105/66; PULSE 87; RESP 18; TEMP 36.9; O2SAT 97
[2020-04-15 05:24] VITALS: BP 111/68; PULSE 84; RESP 18; TEMP 37.1; O2SAT 97
[2020-04-15 05:39] LABS: Hemoglobin 11.9 g/dL (12.0-15.0); Mean Corp Hgb Conc 32.2 g/dL (32-36); Mean Corpuscular Hgb 28.5 pg (27.0-32.0); Mean Corpuscular Volume 88.5 fL (81-99); Mean Platelet Vol. 11.1 fl (6.2-12.0); Platelet Count 316 K/mm3 (150-450); RBC Distribution Width CV 13.1 % (11.6-14.6); RBC Distribution Width SD 42.3 fl (35.1-43.9); Red Blood Count 4.18 M/mm3 (4.2-5.4); White Blood Count 13.1 K/mm3 (4.4-11.0)
[2020-04-15 06:50] VITALS: RESP 16; O2SAT 97
--- NOTE | 2020-04-15 07:51 | PCM.PN.OB ---
Patient Problems: Active and Suspected Problems (Last Reviewed 03/30/20 @ 08:03 by Dionne Calloway) Stress incontinence (Acute) Urethral hypermobility (Acute) Subjective: Pain controlled. No CP, SOB. Doing well. Taking PO well. Has been up at bedside. - Physical Exam Vitals/I&O's: Vital Signs Temp Pulse Resp BP Pulse Ox 98.7 F 84 16 111/68 97 04/15/20 05:24 04/15/20 05:24 04/15/20 06:50 04/15/20 05:24 04/15/20 06:50 Oxygen Flow Rate (L/min) 6 Oxygen Delivery Method Room Air Weight: 185 lb Body Mass Index (BMI) 33.8 Intake and Output for Last 24 Hours 04/13/20 04/14/20 04/15/20 23:59 23:59 23:59 Intake Total 1269 / 1269 1522.67 / 1522.67 Output Total 650 / 650 2750 / 2750 Balance 619 / 619 -1227.33 / -1227.33 General: Alert, Oriented x3 Abdomen: Soft, Non-Distended, - - Dressings dry and intact. Laboratory Results 04/14/20 10:40: Sodium 140, Potassium 3.7, Chloride 109 H, Carbon Dioxide 28.0, Anion Gap 3 L, BUN 10, Creatinine 0.84, Estim Creat Clear Calc 62.67, Est GFR (MDRD) Af Amer 92, Est GFR (MDRD) Non-Af 76, BUN/Creatinine Ratio 11.9, Glucose 82, Calcium 8.5, Magnesium 2.3 04/14/20 10:40: Blood Type A POSITIVE, Antibody Screen NEGATIVE 04/14/20 10:47: POC Glucose 72 04/14/20 10:53: Urine Test Negative 04/15/20 05:24: WBC 13.1 H, RBC 4.18 L, Hgb 11.9 L, Hct 37.0, MCV 88.5, MCH 28.5, MCHC 32.2, RDW Std Deviation 42.3, RDW Coeff of Lian 13.1, Plt Count 316, MPV 11.1 Current Medications Acetaminophen (Tylenol) 1,000 mg PO Q6 LANDY Last Admin: 04/15/20 05:13 Dose: 1,000 mg Documented by: Docusate Sodium (Colace) 100 mg PO BID [facility] Last Admin: 04/14/20 20:53 Dose: 100 mg Documented by: Enoxaparin Sodium (Lovenox) 40 mg SC DAILY [facility] Ketorolac Tromethamine (Toradol (Bkc)) 30 mg IV Q6 LANDY Stop: 04/16/20 00:01 Last Admin: 04/15/20 05:13 Dose: 30 mg Documented by: Magnesium Oxide (Mag-Ox 400) 400 mg PO DAILY PRN PRN PRN Reason: Constipation Nutritional Formula (Lactose Free) (Ensure Enlive) 120 ml PO TIDCM [facility] Ondansetron HCl (Zofran Odt) 4 mg PO Q6H PRN PRN PRN Reason: NAUSEA Oxycodone HCl (Oxyir) 5 - 10 mg PO Q4H PRN PRN PRN Reason: Pain Score 4-10/10 Last Admin: 04/14/20 17:13 Dose: 5 mg Documented by: Pantoprazole Sodium (Protonix) 20 mg PO DAILY [facility] Sodium Chloride () 10 - 40 ml IV UD PRN PRN Reason: SALINE FLUSH Medical Necessity - Tobacco Use Smoking Status: Never smoker Tobacco Use: Non-smoker Assessment/Plan All Active Problems (Last Reviewed 03/30/20 @ 08:03 by Dionne Calloway) Stress incontinence (Acute) Urethral hypermobility (Acute) Enlarged uterus (Acute) Abnormal uterine bleeding (Acute) ALFREDO BS cyto with combination case Dr. Spaulding. Postop day #1 Routine care. See visit note and orders per Dr. Spaulding for further management Plans home today
--- NOTE | 2020-04-15 08:16 | PCM.PN.BLA ---
Progress Note Patient is post-op day #1 from hysterectomy and sling. Up in bed, no issues over night. Vitals are good. Abdomen soft, urine clear. Jones and packing removed. Trial of void, ambulate, home later today. STROKE Vital Signs/Narrative: Vital Signs Temp Pulse Resp BP Pulse Ox 04/15/20 06:50 16 97 04/15/20 05:24 98.7 F 84 18 111/68 97
[2020-04-15 08:45] VITALS: BP 119/76; PULSE 88; RESP 16; TEMP 36.8; O2SAT 99
[2020-04-15] MEDS: Enoxaparin 40 MG/0.4 ML Syringe SC (08:46)
[2020-04-15] MEDS: Pantoprazole Sodium 20 MG Tablet PO (08:46)
[2020-04-15] MEDS: Docusate Sodium 100 MG Capsule PO (08:47)
[2020-04-15] MEDS: 0.9% Saline Lock 10 ML Syringe IV (11:59)
== END 2020-04-15 13:20 | disposition home or self-care (01) ==
LOC: SDC 10:20 → AC 10:22 → MS3 13:13
PROVIDERS: Urology; PCP Nurse Practitioner; Referring Provider Obstetrics & Gynecology; Visit Provider Obstetrics & Gynecology
PROC: 0UT9FZZ Resection of Uterus, Via Natural or Artificial Opening With Percutaneous Endoscopic Assistance (ICD-10-PCS; CPT 58552; principal; 2020-04-14 12:05)
PROC: 0TJB8ZZ Inspection of Bladder, Via Natural or Artificial Opening Endoscopic (ICD-10-PCS; CPT 57288; 2020-04-14 12:05)
DX: D25.9 Leiomyoma of uterus, unspecified (principal); N39.46 Mixed incontinence; N36.41 Hypermobility of urethra; N80.0 Endometriosis of uterus; N80.2 Endometriosis of fallopian tube; N88.8 Other specified noninflammatory disorders of cervix uteri; N72 Inflammatory disease of cervix uteri; D64.9 Anemia, unspecified; Z79.1 Long term (current) use of non-steroidal anti-inflammatories (NSAID); Z79.3 Long term (current) use of hormonal contraceptives; Z79.899 Other long term (current) drug therapy; Z88.0 Allergy status to penicillin
CPT/HCPCS: 00860; 57288; 58552; 36415; 80048; 81025; 82962; 83735; 85027; 85610; 85730; 86850; 86900; 86901; 87635; 88307; 93005; 99251; G2023; J7050; J7120; A4216; G0463; J2405; U0003

== ENCOUNTER → 2020-05-12 08:57 | Outpatient (CLI) | payer SELFPAY ==
[2020-04-30 11:03] VITALS: BMI 33.8
--- NOTE | 2020-05-12 08:58 | VDLE_ITS ---
Reason For Study: Left knee pain Procedure LEFT Exam performed in department. GSV is normal. A preliminary report was called and/or faxed CFV is compressible, spontaneous, phasic, to Margaret. competent, and demonstrates normal augmentation. FV is compressible, spontaneous, phasic, competent and demonstrates normal augmentation. POP V is compressible, spontaneous, phasic, competent and demonstrates normal augmentation. T/P Trunk is compressible. PTV is compressible. LT PerV is compressible. Interpretation Summary There is no evidence of left lower extremity deep vein thrombosis. Left great saphenous vein appears patent and compressible segmentally. Ordering Physician: Kathy Robles Referring Physician: Wendy Nieves Performed By: Sindy Chen RVT
== END ==
PROVIDERS: PCP Nurse Practitioner; Referring Provider Obstetrics & Gynecology; Visit Provider Obstetrics & Gynecology
DX: M25.562 Pain in left knee (principal)
CPT/HCPCS: 93971

== ENCOUNTER → 2020-06-09 15:19 | Outpatient (CLI) | payer SELFPAY ==
[2020-04-30 11:03] VITALS: BMI 33.8
--- NOTE | 2020-06-09 15:24 | RAD_ITS ---
STUDY: X-RAY - LEFT KNEE REASON FOR EXAM: Female, 49 years old. Left knee pain, patient states her patella feels as if it dislocates TECHNIQUE: 4 view(s) of the knee. COMPARISON: None. FINDINGS: Normal visualized distal femur. Normal visualized proximal tibia and fibula. Normal proximal tibiofibular articulation. Normal medial femorotibial compartment. Normal lateral femorotibial compartment. Normal patellofemoral articulation. Small joint effusion. RAD/Knee 4 or More Views IMPRESSION: Small joint effusion. Electronically Signed: Slade Rosa, at 15:25 EDT , Service support ,
== END ==
PROVIDERS: PCP Nurse Practitioner; Referring Provider Nurse Practitioner; Visit Provider Nurse Practitioner
DX: M25.562 Pain in left knee (principal)
CPT/HCPCS: 73564

== ENCOUNTER → 2020-06-12 15:09 | Outpatient (CLI) | payer SELFPAY ==
[2020-04-30 11:03] VITALS: BMI 33.8
--- NOTE | 2020-06-12 15:18 | VDLE_ITS ---
Reason For Study: Pain RIGHT LEFT GSV is normal. GSV is normal. CFV is compressible, spontaneous, phasic, CFV is compressible, spontaneous, phasic, competent and demonstrates normal competent, and demonstrates normal augmentation. augmentation. FV is compressible, spontaneous, phasic, FV is compressible, spontaneous, phasic, competent and demonstrates normal competent and demonstrates normal augmentation. augmentation. POP V is compressible, spontaneous, phasic, POP V is compressible, spontaneous, phasic, competent and demonstrates normal competent and demonstrates normal augmentation. augmentation. T/P Trunk is compressible. T/P Trunk is compressible. PTV is compressible. PTV is compressible. RT PerV is compressible. LT PerV is compressible. Procedure Exam performed in department. A preliminary report was called and/or faxed to [facility]. Interpretation Summary Deep veins of the lower extremities are bilaterally patent and compressible segmentally. There is no evidence of deep vein thrombosis on either side. Valvular competence appears intact within the proximal deep venous systems bilaterally. The great saphenous veins appear bilaterally patent and compressible segmentally. Ordering Physician: Wendy Nieves Referring Physician: Wendy Nieves Performed By: Sindy Chen RVT
== END ==
PROVIDERS: PCP Nurse Practitioner; Referring Provider Nurse Practitioner; Visit Provider Nurse Practitioner
DX: M79.606 Pain in leg, unspecified (principal)
CPT/HCPCS: 93970

== ENCOUNTER → 2020-07-02 16:55 | Outpatient (CLI) | payer SELFPAY ==
[2020-04-30 11:03] VITALS: BMI 33.8
--- NOTE | 2020-07-02 17:04 | US_ITS ---
HISTORY: THYROMEGALY COMPARISON: 09/12/2011 TECHNIQUE: Grayscale and color Doppler sonography of the thyroid gland. FINDINGS: RIGHT LOBE: 5.7 x 1.7 x 2.4 cm LEFT LOBE: 7.3 x 2.1 x 2.9 cm ISTHMUS: 1.6 mm Diffusely heterogeneous thyroid. Unremarkable vascularity. Multiple bilateral thyroid nodules, largest as follows: Right mid thyroid lobe mixed solid and cystic nodule measuring 2.2 x 1.6 x 1.2 cm, previously 1.6 x 0.8 x 1.3 cm and appeared spongiform on previous. Solid components are primarily isoechoic, margins are smooth, wider than tall and no calcifications. Nodule is borderline spongiform on current exam. TIRADS 2. Right mid thyroid lobe nodule measuring 1.0 x 0.8 x 0.8 cm (previously 5 x 3 x 5 mm) is spongiform. Left mid thyroid lobe nodule measures 2.3 x 2.2 x 2.5 cm (previously 1.0 x 0.7 x 1.0 cm and is mixed solid and cystic with solid components being primarily isoechoic, smooth margins, wider than tall in no calcifications. TIRADS 2. Mixed solid and cystic, slightly hypoechoic area along the posterior aspect of the left thyroid lobe measuring 1.5 x 1.3 x 1.6 cm. This appears to represent exophytic thyroid nodule rather than parathyroid nodule on the provided images. TIRADS 3. US/Thyroid IMPRESSION: Multiple thyroid nodules, as described. Follow-up thyroid ultrasound recommended in 1 year. at 2300 Reported and signed by: Kathrine Michelle MD Electronically Signed: Kathrine Michelle MD at 23:00 EDT Tel , Service support ,
== END ==
PROVIDERS: PCP Nurse Practitioner; Referring Provider Nurse Practitioner; Visit Provider Nurse Practitioner
DX: E04.9 Nontoxic goiter, unspecified (principal)
CPT/HCPCS: 76536

== ENCOUNTER → 2020-07-07 09:16 | Outpatient (CLI) | payer SELFPAY ==
[2020-04-30 11:03] VITALS: BMI 33.8
[2020-07-07 11:02] LABS: Lyme Ab Screen Interpretation REF LAB
[2020-07-07 12:42] LABS: Color, Urine Yellow (Yellow); Glucose, Dipstick Normal (Normal); Ketone-Dipstick Negative (Negative); Leukocyte Esterase-Dipstick 25 /ul (Negative); Nitrite-Dipstick Negative (Negative); Occult Blood-Urine Negative /ul (Negative); Protein-Dipstick Negative (Negative); Specific Gravity, Urine 1.015 (1.002-1.030); Urine Bilirubin Dipstick Negative (Negative); Urine Clarity Clear (Clear); Urine Urobilinogen Normal (Normal); Urine pH 6.5 (5.0 - 8.0)
[2020-07-08 16:11] LABS: Lyme Scn Total Ab w/Rflx <0.91 ISR (0.00-0.90)
== END ==
PROVIDERS: PCP Nurse Practitioner; Referring Provider Internal Medicine; Visit Provider Internal Medicine
DX: R60.0 Localized edema (principal); R42 Dizziness and giddiness
CPT/HCPCS: 36415; 81002; 83880; 86618

== ENCOUNTER → 2020-07-14 14:00 | Outpatient (CLI) | payer SELFPAY ==
[2020-04-30 11:03] VITALS: BMI 33.8
--- NOTE | 2020-07-14 14:03 | ECHOD_ITS ---
Reason For Study: SOB Procedure This was a 2D Doppler, Color Flow transthoracic echocardiogram. The study was technically difficult. Exam performed in department. Left Ventricle Normal LV size. Left ventricular systolic function is normal. The estimated ejection fraction is 60 %. Diastolic function is indeterminate. No regional wall motion abnormalities noted. Right Ventricle Normal RV size. Normal systolic function. Atria Normal left atrium. Normal right atrium. No doppler evidence for ASD. Mitral Valve There is no mitral annular calcification. Normal mitral valve. Trivial mitral valve insufficiency. Tricuspid Valve Normal tricuspid valve. Trivial tricuspid valve insufficiency. Unable to estimate RV systolic pressure/pulmonary artery pressure due to technically difficult study. Aortic Valve The aortic valve is not well visualized. Pulmonic Valve The pulmonic valve is not well visualized. Great Vessels Normal sized aortic root. Pericardium/Pleural No pericardial effusion. MMode/2D Measurements & Calculations LVIDd: 4.2 cm IVSd: 1.1 cm Ao root diam: 3.3 cm LVIDs: 2.7 cm LVPWd: 1.1 cm RVDd: 2.6 cm FS: 36.1 % LAV(MOD-bp): 41.4 ml LA A4 area: 14.1 cm2 LA dimension(2D): 3.5 cm LAV(MOD-bp) Indexed: 23.0 ml/m2 LAV(MOD-sp2): 42.2 ml LAV(MOD-sp4): 36.6 ml RA A4 area: 10.9 cm2 Time Measurements MV dec time: 0.21 sec Doppler Measurements & Calculations MV E max mani: 87.3 cm/sec Lat Peak E' Mani: 8.2 cm/sec Med Peak E' Mani: 5.7 cm/sec MV A max mani: 68.5 cm/sec E/E' lat: 10.6 E/E' med: 15.4 MV E/A: 1.3 Ao V2 max: 143.1 cm/sec LV V1 max: 111.0 cm/sec PA V2 max: 89.9 cm/sec Ao max P.2 mmHg LV V1 max P.9 mmHg Interpretation Summary The study was technically difficult. Left ventricular systolic function is normal. The estimated ejection fraction is 60 %. Trivial mitral valve insufficiency. Trivial tricuspid valve insufficiency. Unable to estimate RV systolic pressure/pulmonary artery pressure due to technically difficult study. Diastolic function is indeterminate. Ordering Physician: Mdadie Gallegos Referring Physician: Maddie Gallegos Performed By: Mercy Lau, NICHOLAS, RVT
--- NOTE | 2020-07-14 14:03 | CDU_ITS ---
Reason For Study: Dizziness Rt. Velocities/BP Lt. Velocities/BP Prox CCA 93/23.9 cm/sec. Prox CCA 109.7/29.8 cm/sec. Mid CCA 83.9/27.8 cm/sec. Mid CCA 92.5/29.8 cm/sec. Dist CCA 72.1/27.8 cm/sec. Dist CCA 71.6/24.9 cm/sec. Prox ICA 64.3/20 cm/sec. Prox ICA 54.4/24.9 cm/sec. Mid ICA 78.6/27.8 cm/sec. Mid ICA 82.7/36 cm/sec. Dist ICA 83.8/38.2 cm/sec. Dist ICA 70.4/31.1 cm/sec. Rt. ICA/CCA = 1.00. Lt. ICA/CCA = 0.89. Prox ECA 94.3/14.7 cm/sec. Prox ECA 71.6/12.6 cm/sec. Rt. Vert. 35.2/13.5 cm/sec. Lt. Vert. 54.4/23.7 cm/sec. Right Extracranial There is intimal thickening but no significant atherosclerotic plaque noted in the right common carotid artery. There is intimal thickening but no significant atherosclerotic plaque noted in the right internal carotid artery. There is no significant atherosclerotic plaque noted in the right external carotid artery. Antegrade flow is noted in the right vertebral artery. Left Extracranial There is intimal thickening but no significant atherosclerotic plaque noted in the left common carotid artery. There is intimal thickening but no significant atherosclerotic plaque noted in the left internal carotid artery. There is intimal thickening but no significant atherosclerotic plaque noted in the left external carotid artery. Antegrade flow is noted in the left vertebral artery. Procedure Carotid Duplex 75057. This is a Carotid Duplex examination using B-mode, color flow and specral Doppler. Exam performed in department. Interpretation Summary No significant atherosclerotic plaque or stenosis noted in the internal carotid arteries bilaterally. Flow within the vertebral arteries is antegrade bilaterally. Ordering Physician: Maddie Gallegos Referring Physician: Wendy Nieves Performed By: Sindy Chen RVT
== END ==
PROVIDERS: PCP Nurse Practitioner; Referring Provider Internal Medicine; Visit Provider Internal Medicine
DX: R42 Dizziness and giddiness (principal); R06.02 Shortness of breath; R35.8 Other polyuria
CPT/HCPCS: 87086; 87088; 93306; 93880

== ENCOUNTER → 2020-07-24 07:42 | Outpatient (CLI) | payer SELFPAY ==
[2020-07-17 08:12] VITALS: BMI 34.4
--- NOTE | 2020-07-24 07:50 | RAD_ITS ---
STUDY: X-RAY CHEST REASON FOR EXAM: Female, 49 years old. Pt. having SOB, Swelling in legs TECHNIQUE: PA and lateral views of the chest. COMPARISON: None. FINDINGS: The lungs are clear and expanded. Scattered calcified granulomas. There is no demonstrated pleural abnormality. Normal size heart. Normal mediastinum and ellyn. Normal visualized pulmonary arteries. Normal visualized aortic arch and descending thoracic aorta. Normal visualized thoracic spine. Normal visualized ribs, clavicles, and shoulders. There is no demonstrated abnormality of the visualized soft tissue structures of the upper abdomen. RAD/Chest PA and Lateral IMPRESSION: Normal x-ray examination of the chest. Electronically Signed: Slade Rosa, at 8:05 EDT , Service support ,
--- NOTE | 2020-07-24 08:00 | ASPS_PTH ---
PATIENT: TARA HATHAWAY LOC: [facility] U#:[id number] AGE/SX: 54/F ROOM: RE07/24/[address]: Dr. Maddie Gallegos DO : 1970 BED: DIS: SPEC #: [id number] RECD: 07/24/20 10:15 STATUS: RAYRAY REDajuan #: [id number] DILAN: 07/24/20 08:[address]: Carlton Naranjo DEPT: CYTOLOGY RECD BY: Kathy Mancera ENTERED: 07/24/20 10:32 SP TYPE: ASPIRATION OTHR DR: Dr. Maddie Gallegos [facility], [facility] Tissues: A - Thyroid gland, NOS B - Thyroid gland, NOS Procedures: Special Stain Group II Cytology Other Comments: @ Ordering doctor for SSII edited from to DR.DPEABO Michelle by KIRK at 07/24/20 1208 @ Ordering doctor for CYOTHER edited from to DR.DPEABO Michelle by KIRK at 07/24/20 1208 @ Submitting doctor edited from to DR.DPEABO Michelle by KIRK at 07/24/20 1208 HEADER OPERATION: Ultrasound guided fine needle aspiration, bilateral thyroid PRE-OP DIAGNOSIS: Non-toxic multinodular goiter, E04.2 TISSUE SUBMITTED: A. Fine needle aspiration, left thyroid, B. Fine needle aspiration, right thyroid DIAGNOSIS CYTOLOGY A. Left thyroid nodule, ultrasound-guided FNA (smears): Consistent with benign follicular/colloid nodule with cystic changes. Adequate for evaluation. B. Right thyroid nodule, ultrasound-guided FNA (smears): Consistent with benign follicular/colloid nodule. Adequate for evaluation. FAYE:mayi 07/24/20 COMMENT Immediate cytologic evaluation to determine adequacy is not applicable. Correlation with clinical, radiologic findings and appropriate follow up are necessary. CYTOLOGY STUDY Slides are reviewed. CYTOLOGY GROSS A. Received are 12 smears labeled with the patient's name and designated per the requisition as left thyroid. Submitted for staining. B. Received are 12 smears labeled with the patient's name and designated per the requisition as right thyroid. Submitted for staining. / cc 07/24/20 TC:5 CPT: 56529 x2
== END ==
PROVIDERS: PCP Nurse Practitioner; Referring Provider Internal Medicine; Visit Provider Internal Medicine
DX: R06.02 Shortness of breath (principal); E04.2 Nontoxic multinodular goiter
CPT/HCPCS: 71046; 88161; 88313

== ENCOUNTER → 2020-08-13 06:58 | Outpatient (CLI) | payer SELFPAY ==
[2020-08-04 13:51] VITALS: BMI 34.2
--- NOTE | 2020-08-14 15:55 | STRESSREP ---
Stress Test Report Date: 08/13/2020 Procedure: Exercise tolerance test/imaging study Indications: Chest pain Consent: Per the patient Procedure: The patient exercised on a Soy protocol for 5 minutes and 30 seconds achieving a peak heart rate of 155 bpm (91% predicted maximal heart rate) with a peak blood pressure 150/72 mmHg and a peak MET capacity of 7 METs. The baseline ECG demonstrated normal sinus rhythm, possible prior anteroseptal CO. The peak exercise ECG demonstrated tachycardia with no significant ischemic changes. EKG during recovery revealed no significant ischemic changes [There were no cardiac dysrhythmias pretest, during exercise, or recovery]. The functional capacity was considered borderline for age. There was [no complaint of chest discomfort during exercise or recovery]. The examination was discontinued secondary to dyspnea. Impression: 1. Technically adequate (percent predicted maximal heart rate greater than 85%) exercise tolerance test 2. Stress test is negative for exercise-induced EKG changes of ischemia 3. The test test is negative for exercise-induced chest pain 4. Functional capacity is borderline for age 5. Nuclear images pending Myocardial perfusion imaging study: Technique: The patient was injected with 14.8 mCi of technetium 99m Cardiolite and subsequently rest SPECT Cardiolite nuclear imaging was obtained in the horizontal long, vertical long, and short axis views. The patient exercised on a Soy protocol. Please see above for details. The patient was injected with 44.3 mCi of technetium 99m Cardiolite and subsequently stress SPECT Cardiolite nuclear imaging was obtained in the horizontal long, vertical long, and short axis views. A gated Cardiolite study at peak stress was obtained. Interpretation: Rest and stress SPECT Cardiolite nuclear imaging status post realignment, normalization, and attenuation correction, demonstrates mildly decreased radioisotope uptake in the anterior wall prior to attenuation correction. After intervention correction there is normal myocardial radioisotope uptake. These findings are suggestive of breast attenuation artifact. There is no evidence of significant ischemia or infarction. The gated Cardiolite study demonstrates no significant regional wall motion abnormalities. The reported LVEF is 61%. Impression: 1. There is no evidence of significant ischemia or infarction. 2. The gated Cardiolite study reports an LVEF of 61%. This note was generated with [employer] software. It may contain incorrect words, spelling, and punctuation that were not noted in checking the note before signing.
== END ==
PROVIDERS: PCP Nurse Practitioner; Referring Provider Internal Medicine; Visit Provider Internal Medicine
DX: R07.9 Chest pain, unspecified (principal)
CPT/HCPCS: 78452; 93017; A9500; A4216

== ENCOUNTER → 2020-11-09 15:19 | Outpatient (CLI) | payer SELFPAY ==
[2020-08-04 13:51] VITALS: BMI 34.2
== END ==
PROVIDERS: PCP Nurse Practitioner; Referring Provider Internal Medicine Gastroenterology; Visit Provider Internal Medicine Gastroenterology
DX: Z11.59 Encounter for screening for other viral diseases (principal)
CPT/HCPCS: 87635; C9803; U0005; U0003

== ENCOUNTER → 2020-12-25 09:34 | Outpatient (CLI) | payer SELFPAY ==
[2020-08-04 13:51] VITALS: BMI 34.2
--- NOTE | 2020-12-25 09:37 | US_ITS ---
STUDY: ABDOMINAL ULTRASOUND - RIGHT UPPER QUADRANT REASON FOR VISIT: Female, 50 years old NAUSEA . Intermittent nausea and right upper quadrant pain. TECHNIQUE: Ultrasound evaluation of the right upper quadrant was performed with real-time and static tao-scale imaging. TECHNICAL QUALITY: Adequate. COMPARISON: None. FINDINGS: Liver: The liver is enlarged and measures 19.8 cm. There is increased echogenicity consistent with fatty infiltration. The bile ducts are within normal limits. There is hepatic color flow. The direction of portal flow is hepatopetal. There is no demonstrated mass lesion. Gallbladder: Normal distended gallbladder. The gallbladder wall measures 1 mm. There is a negative sonographic King''s sign. There is no pericholecystic fluid. There are no gallstones. Common Bile Duct (C.B.D.): The common bile duct measures 4 mm. Pancreas: Normal size of the head, body and tail of the pancreas. There is normal echogenicity of the pancreas. There is no demonstrated pancreatic mass or cyst. Right Kidney: Normal size of the right kidney. The right kidney measures 4.8 cm x 4.8 cm x 4.3 cm. Normal renal cortex. The right cortex measures 1.5 cm. There is no demonstrated renal mass or cyst. There is no right hydronephrosis. US/Gallbladder IMPRESSION: Hepatomegaly and fatty infiltration of the liver. Electronically Signed: Slade Rosa MD at 14:40 EDT , Service support ,
== END ==
PROVIDERS: PCP Nurse Practitioner; Referring Provider Nurse Practitioner; Visit Provider Nurse Practitioner
DX: R11.0 Nausea (principal)
CPT/HCPCS: 76705

== ENCOUNTER → 2021-06-22 08:09 | Outpatient (CLI) | payer SELFPAY ==
[2021-06-22 09:54] LABS: Absolute Lymphocyte Count 1.67 X10^3/uL (0.83-4.51); Absolute Neutrophil Count 5.8 X10^3/uL (2.0-7.7); Basophil# 0.04 X10^3/uL; Basophil% 0.5 % (0-1); Eosinophil# 0.16 X10^3/uL; Eosinophils% 1.9 % (0-5); Hematocrit 39.9 % (37-47); Hemoglobin 12.7 g/dL (12.0-15.0); Lymphocyte # 1.67 X10^3/ul (0.83-4.51); Lymphocyte % 20.3 % (19-41); Mean Corp Hgb Conc 31.8 g/dL (32-36); Mean Corpuscular Hgb 29.3 pg (27.0-32.0); Mean Corpuscular Volume 91.9 fL (81-99); Mean Platelet Vol. 11.2 fl (6.2-12.0); Monocyte# 0.55 X10^3/uL; Monocyte% 6.7 % (0-10); NRBC Flagged by Analyzer 0 % (0-5); Neutrophil % 70.4 % (47-70); Platelet Count 308 K/mm3 (150-450); RBC Distribution Width CV 13.4 % (11.6-14.6); RBC Distribution Width SD 45.3 fl (35.1-43.9); Red Blood Count 4.34 M/mm3 (4.2-5.4); White Blood Count 8.2 K/mm3 (4.4-11.0)
[2021-06-22 10:28] LABS: Anion Gap 10 (5-15); BUN 9 mg/dL (7-18); BUN/Creat Ratio 11.8 RATIO (10-20); Calcium,Total 8.8 mg/dL (8.5-10.1); Chloride 102 mmol/L (98-107); Creatinine, Serum 0.76 mg/dL (0.55-1.02); EST Glomerular Filtration Rate 84 mL/min (>60); Est Glom Filt Rate - Afr Amer 102 mL/min (>60); Glucose 88 mg/dL (74-106); Sodium Level 139 mmol/L (136-145)
== END ==
PROVIDERS: PCP Nurse Practitioner; Referring Provider Student in an Organized Health Care Education/Training Program; Visit Provider Student in an Organized Health Care Education/Training Program
DX: Z01.818 Encounter for other preprocedural examination (principal)
CPT/HCPCS: 36415; 80048; 85025

== ENCOUNTER → 2022-06-24 | Outpatient (CLI) | payer SELFPAY ==
--- NOTE | 2022-06-24 07:23 | BI_ITS ---
MAMMOGRAPHY - BILATERAL SCREENING REASON FOR EXAM: Female, 51 years old. Routine annual screening examination. PERTINENT HISTORY: Non-contributory. TECHNIQUE: Digital bilateral breast bautista (3D mammographic acquisition) in the CC and MLO projections. 2-D mediolateral oblique (MLO) and craniocaudad (CC) views of both breasts were obtained. CAD: Full Field Digital Mammography with Computer Added Detection was performed. COMPARISON: Comparison is made with prior chest examination dated 06/19/2019. FINDINGS: Breast Composition: The breasts are heterogeneously dense, which may obscure small masses. There are no dominant masses or suspicious calcifications. Stable small benign-appearing bilateral axillary lymph nodes. No other significant abnormalities are identified. There has been no significant change since the prior study. BI/SCRN MAMM (CAD)W/BAUTISTA BILAT IMPRESSION: Stable bilateral screening mammogram. Yearly follow-up mammogram recommended. (A) ASSESSMENT CATEGORY: BIRADS Category 2: Benign. A letter regarding these results will be sent to the patient by the facility within 30 days. Approximately 10% of breast cancers are not detected by mammography. A normal mammogram should not delay biopsy of a clinically suspicious abnormality. [id number] Electronically Signed: Slade Rosa MD at 9:05 EDT ,
--- NOTE | 2022-06-24 07:43 | US_ITS ---
STUDY: ABDOMINAL ULTRASOUND - RIGHT UPPER QUADRANT REASON FOR VISIT: Female, 51 years old fatty liver TECHNIQUE: Ultrasound evaluation of the right upper quadrant was performed with real-time and static tao-scale imaging. TECHNICAL QUALITY: Adequate. COMPARISON: Comparison is made with prior study 12/25/2020. FINDINGS: Liver: The liver is mildly enlarged and measures 17.9 cm. There is increased echogenicity consistent with fatty infiltration. The bile ducts are within normal limits. There is hepatic color flow. The direction of portal flow is hepatopetal. There is no demonstrated mass lesion. Gallbladder: Normal distended gallbladder. The gallbladder wall measures 1 mm. There is a negative sonographic King''s sign. There is no pericholecystic fluid. There are no gallstones. Common Bile Duct (C.B.D.): The common bile duct measures 4 mm. Pancreas: Normal size of the head, body and tail of the pancreas. There is normal echogenicity of the pancreas. There is no demonstrated pancreatic mass or cyst. Right Kidney: Normal size of the right kidney. The right kidney measures 12.1 cm x 5.8 cm x 4.1 cm. Normal renal cortex. The right cortex measures 1.3 cm. There is no demonstrated renal mass or cyst. There is no right hydronephrosis. US/Abdomen Limited IMPRESSION: Mild hepatomegaly and fatty infiltration of the liver. Electronically Signed: Slade Rosa MD at 12:34 EDT ,
--- NOTE | 2022-06-24 07:48 | US_ITS ---
STUDY: ABDOMINAL ULTRASOUND - ELASTOGRAPHY REASON FOR VISIT: Female, 51 years old. Fatty infiltration of the liver. TECHNIQUE: Liver stiffness measurements were obtained on a [employer] RS 85 ultrasound machine using a CA 1-7 probe following the SRU guidelines. 3 measurements were obtained using a 2-D-SWE method. The IQR/M was 11% suggesting a quality data set. TECHNICAL QUALITY: Adequate. COMPARISON: Comparison is made with prior study done earlier in the day. FINDINGS: Liver: Fatty infiltration of the liver. Median liver stiffness measured 9.8 kPa. US/Elastography Parenchyma/Organ IMPRESSION: Liver stiffness measures 9.8 kPa compatible with F2-F3 (Mild to moderate liver fibrosis) Metavir score. Electronically Signed: Slade Rosa MD at 12:35 EDT ,
--- NOTE | 2022-06-24 07:54 | US_ITS ---
STUDY: THYROID ULTRASOUND REASON FOR EXAM: Female, 51 years old. MULTIPLE THYROID NODULES TECHNIQUE: Ultrasound evaluation of the thyroid was performed with real-time and static tao-scale imaging. COMPARISON: Comparison is made with prior examination dated 07/02/2020. FINDINGS: RIGHT LOBE: The right lobe of the thyroid gland is enlarged and measures 5.1 cm x 2 cm x 1.6 cm. There is a heterogeneous echotexture. There is a 2 cm x 1.4 cm x 1.2 cm complex and solid nodule in the inferior pole of the right lobe. This is essentially unchanged. Smaller hypoechoic nodules are once again seen as well. LEFT LOBE: The left lobe of the thyroid gland is enlarged and measures 5.9 cm x 2.7 cm x 2.3 cm. There is a heterogeneous echotexture. There is a dominant 2.4 cm x 2.2 cm x 1.9 cm solid and cystic nodule in the midpole. This is essentially unchanged. There is also evidence of several small isoechoic nodules. ISTHMUS: The isthmus measures 2 mm. The regional lymph nodes are normal. US/Thyroid IMPRESSION: Thyroid enlargement. Diffuse bilateral heterogeneous echotexture with the dominant nodules in both lobes. There has been essentially no change. Electronically Signed: Slade Rosa MD at 12:17 EDT ,
== END | disposition home or self-care (01) ==
PROVIDERS: PCP Internal Medicine; Referring Provider Internal Medicine; Visit Provider Internal Medicine
DX: Z12.31 Encounter for screening mammogram for malignant neoplasm of breast (principal); K76.0 Fatty (change of) liver, not elsewhere classified; E04.2 Nontoxic multinodular goiter
CPT/HCPCS: 76536; 76705; 76981; 77063; 77067

== ENCOUNTER → 2024-11-11 | Outpatient (CLI) | payer SELFPAY ==
--- NOTE | 2024-11-11 09:11 | NM_ITS ---
PROCEDURE: HEPATOBILLIARY IMG W/PHARM INT REASON FOR EXAM: Right upper quadrant pain. TECHNIQUE: Intravenous Choletec with planar imaging of the abdomen. 1.46 mcg Kinevac intravenously approximately 60 minutes after the radiopharmaceutical with additional anterior imaging and a region of interest drawn around the gallbladder to calculate a time-activity curve. RADIOPHARMACEUTICAL: 5.5 mCi of technetium labeled mebrofenin COMPARISON: None. FINDINGS: There is good uptake of the radiopharmaceutical by the liver. Normal gallbladder visualization with the gallbladder identified by 30 minutes. Gallbladder Ejection Fraction: 12 % (Normal is >35%) NM/Hepatobilliary Img w/Pharm Int IMPRESSION: Abnormal gallbladder ejection fraction. Reading Location: [place] [id number]
--- NOTE | 2024-11-11 09:19 | US_ITS ---
PROCEDURE: TRANSVAGINAL NON- REASON FOR EXAM: Pelvic pain. TECHNIQUE: Transabdominal and transvaginal pelvic ultrasound COMPARISON: None. FINDINGS: The patient is status post hysterectomy. The ovaries were not visualized. TRANSVAGINAL: The patient is status post hysterectomy. Right ovary: Not visualized. Left ovary: Not visualized. Other adnexal findings: None. Cul-de-sac: No free intraperitoneal fluid identified. No tenderness. US/Transvaginal Non- IMPRESSION: Status post hysterectomy. The ovaries were not visualized. Reading Location: [id number]
== END | disposition home or self-care (01) ==
PROVIDERS: PCP Internal Medicine; Referring Provider Internal Medicine; Visit Provider Internal Medicine
DX: R10.11 Right upper quadrant pain (principal)
CPT/HCPCS: 76830; 78227; A9537; J2805

== ENCOUNTER → 2025-01-10 | Outpatient (CLI) | payer SELFPAY ==
--- NOTE | 2025-01-10 15:08 | CT_ITS ---
PROCEDURE: ABDOMEN/PELVIS W IV CONT ONLY 01/10/2025 REASON FOR EXAM: ABDOMINAL PAIN TECHNIQUE: Abdomen and pelvis CT with intravenous contrast. Coronal and Sagittal reconstruction series were provided. PATIENT PREPARATION: Per protocol ORAL CONTRAST TYPE: None. AMOUNT: mL CONTRAST: Isovue-300 VOLUME: 98 mL One or more dose reduction techniques were used (e.g., Automated exposure control, adjustment of the mA and/or kV according to patient size, use of iterative reconstruction technique. RADIATION DOSE SUMMARY: CTDlvol: 9.97+ 12.10 mGy DLP: 602.07 mGycm COMPARISON: 11/11/2024 FINDINGS: Lung bases: 4 mm posterior subpleural LEFT lower lobe nodule. Additional 2 mm bilateral lower lobe nodules. Fissural intrapulmonary lymph node in the RIGHT lung base. Liver: Single surgical clip interposed between the anterior LEFT hepatic lobe and anterior abdominal wall. Spleen: Unremarkable. Gallbladder: Interval cholecystectomy. Trace ill-defined fluid and stranding in the gallbladder fossa. No organized fluid collection. Pancreas: Unremarkable. Adrenals: Indeterminate 2.3 x 1.4 cm LEFT adrenal nodule.. Kidneys: Unremarkable. Bowel: Unremarkable. Normal caliber appendix. Lymph nodes: Unremarkable. Vasculature: Unremarkable. Peritoneum: As above. Bladder: Unremarkable. Reproductive Organs: Hysterectomy. Body Wall: Tiny fat containing umbilical hernia.. Bones: Bilateral L5 pars defects with mild grade [address]/Abdomen/Pelvis W IV Cont ONLY IMPRESSION: 1. Interval cholecystectomy with trace ill-defined fluid and stranding in the g allbladder fossa, nonspecific and potentially postoperative. Correlate for early surgical site infection. No organized flui d collection. 2. Indeterminate 2.3 cm LEFT adrenal nodule. Recommend adrenal protocol CT per ACR recommendations. 3. Tiny bibasilar pulmonary nodules up to 4 mm, statistically benign and requir ing no specific follow-up in a low risk patient. Otherwise, recommend follow-up CT chest in one year per the Fleischner society recommendations for pulmonary nodule follow-up, presuming no history of malignancy or known immunosuppression. 4. Additional description as above. Note comparison with any available outside imaging may be helpful to establish stability of indeterminate findings in #2-3 above. Reading Location: [id number]
--- NOTE | 2025-01-10 15:15 | RAD_ITS ---
PROCEDURE: LUMBAR SPINE 2 OR 3 VIEWS 01/10/2025 REASON FOR EXAM: CHRONIC LOWER BACK PAIN RIGHT SIDE TECHNIQUE: 3 view(s) of the lumbar spine COMPARISON: None FINDINGS: Vertebrae: Lumbar vertebral body heights are preserved. No acute fracture. Discs: Severe narrowing of L5-S1 intervertebral disc space. Suspected anterolisthesis of L5 on S1. Alignment: Unremarkable Other: RAD/Lumbar Spine 2 or 3 Views IMPRESSION: No acute fracture. Suspected anterolisthesis of L5 on S1. Severe narrowing of L5-S1 intervertebral disc space. MRI of the lumbar spine may be helpful for further characterization. Reading Location: [facility]
== END | disposition home or self-care (01) ==
LOC: CT 15:07
PROVIDERS: PCP Internal Medicine
DX: R10.9 Unspecified abdominal pain (principal); M54.50 Low back pain, unspecified; G89.29 Other chronic pain
CPT/HCPCS: 72100; 74177; Q9967

== ENCOUNTER → 2025-02-19 | Outpatient (CLI) | payer SELFPAY ==
--- NOTE | 2025-02-19 17:56 | CT_ITS ---
PROCEDURE: ABDOMEN W/WO IV CONTRAST 02/19/2025 REASON FOR EXAM: LEFT ADRENAL GLAND NODULE TECHNIQUE: Abdomen CT with intravenous contrast. Multiplanar and multisequence images were obtained. One or more dose reduction techniques were used (e.g., Automated exposure control, adjustment of the mA and/or kV according to patient size, use of iterative reconstruction technique. PATIENT PREPARATION: Per protocol ORAL CONTRAST TYPE: None. CONTRAST: Isovue 350 VOLUME: 100 mL Gauge IV RADIATION DOSE SUMMARY: CTDlvol: 23.6 mGy DLP: 2139 mGycm COMPARISON: CT scan on 01/10/2025. FINDINGS: Technique: Axial CT scan images with intravenous contrast. Reformatted coronal and sagittal images. One or more dose reduction techniques were used (e.g., Automated exposure control, adjustment of the mA and/or kV according to patient size, use of iterative reconstruction technique. Findings: Prior cholecystectomy. Well-defined 2.3 cm left adrenal nodule. Precontrast density 9 Hounsfield units. Early postcontrast density 60 Hounsfield units. Delayed post contrast density 21 Hounsfield units. Absolute washout 76.5%. Relative washout 65%. Findings are suggestive of benign adenoma. Unchanged bilateral scattered pulmonary nodules with the largest measuring 4 mm. Mild diffuse spondylosis. Grade 1 anterolisthesis of L5 on S1. Fat containing umbilical hernia without incarceration. Normal liver. Normal extrahepatic biliary system. Normal spleen. Normal pancreas. Normal right adrenal glands. Normal size of the right kidney. There is no right renal mass. There are no right renal calculi. There is no right hydronephrosis. Normal visualized right ureter. Normal size of the left kidney. There is no left renal mass. There are no left renal calculi. There is no left hydronephrosis. Normal visualized left ureter. Normal visualized stomach. Normal small intestine. Normal colon. There is no demonstrated peritoneal fluid. Normal abdominal aorta. Normal inferior vena cava. Normal retroperitoneum. CT/Abdomen W/WO IV Contrast IMPRESSION: 1. Prior cholecystectomy. 2. Well-defined 2.3 cm left adrenal nodule. Precontrast density 9 Hounsfield u nits. Early postcontrast density 60 Hounsfield units. Delayed post contrast density 21 Hounsfield units. Absolute washout 76 .5%. Relative washout 65%. Findings are suggestive of benign adenoma. 3. Unchanged bilateral scattered pulmonary nodules with the largest measuring 4 mm. 4. Mild diffuse spondylosis. 5. Grade 1 anterolisthesis of L5 on S1. 6. Fat containing umbilical hernia without incarceration. Reading Location[facility]
== END | disposition home or self-care (01) ==
LOC: CT 17:53
PROVIDERS: PCP Internal Medicine
DX: D35.02 Benign neoplasm of left adrenal gland (principal)
CPT/HCPCS: 74170; Q9967

== ENCOUNTER → 2025-05-21 | Outpatient (CLI) | payer SELFPAY | END | disposition home or self-care (01) | LOC: SL 20:14 | PROVIDERS: PCP Internal Medicine | DX: G47.10 Hypersomnia, unspecified (principal); R06.83 Snoring | CPT/HCPCS: 95810 ==

== ENCOUNTER → 2025-06-10 | Outpatient (CLI) | payer SELFPAY ==
[2025-06-10 18:05] LABS: Barbiturate Urine NEGATIVE (< 200 ng/mL); Benzodiazepine Urine NEGATIVE (< 200 ng/mL); PCP Urine NEGATIVE (< 25 ng/mL); THC Urine NEGATIVE (< 50 ng/mL)
--- OUTSIDE RECORDS SUMMARY | 2025-06-10 22:58 | XMS RPT_ITS | CCD ---
Author Organization [facility] Care Team Providers Care Publication Manager Name Role Phone Finesse CLINICAL PSYCHOLOGIST LICENSED, Quyen Rod Unavailable Mamta Castaneda Unavailable Unavailable Finesse RUIZ, Quyen Rod Unavailable Wendy Vega Unavailable Carlton Serna Unavailable Yan Bruce Unavailable Michelle Gant Unavailable Unavailable Jonathon Montez Unavailable Unavailable Slacaryn, Yaquelin Unavailable Unavailable Unavailable Unavailable Alexys Verde Unavailable Angus Gillis Unavailable Jonathon Montez Unavailable Unavailable Unavailable Unavailable Deon Santana Unavailable Jonathon Andrew Unavailable Unavailable Samantha Tilley Unavailable Unavailable Carlton Naranjo III Unavailable ManLorrie morrisonsea Unavailable Unavailable Fast, Maddie A Unavailable Unavailable Unavailable Carlton Naranjo III Unavailable Carlton Serna Unavailable Wendy Vega CNP Unavailable Jose A JAQUEZ MD Carlton Unavailable Carlton Serna MD Unavailable Deon Santana Unavailable Dr. Yan Bruce Unavailable Angus Gillis MD Unavailable Dr. Alexys Verde MD Unavailable Ross JOHNS, Dr. Johanna Almanza Unavailable Jarek BOILING HOUSE OILER, Samantha Unavailable Unavailable Vasiliyius CONTRACT DESIGN AGENT, Radha Unavailable Unavailable Kamran BOILING HOUSE OILER, Jonathon Unavailable Unavailable Mali Jeffries DO Unavailable Ashli CONTRACT DESIGN AGENT, Christy Unavailable Unavailable Unavailable Unavailable Mali Jeffries DO Unavailable Ciesa 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, Faby Unavailable Daphne JOHNS, Carlton Devine Unavailable Slarb BOILING HOUSE OILER, Yaquelin Unavailable Unavailable Unavailable Unavailable [facility] Primary Care Physician [phone] Mali Jeffries DO Unavailable Ciesa, Wendy Unavailable Fast DO, Maddie A Referring Unavailable Mali Jeffries DO Attending Unavailable Mali Jeffries DO Consulting Unavailable Robotham, Esther Unavailable [place] CONTRACT DESIGN AGENT, Kayela Unavailable Unavailable Christine BOILING HOUSE OILER, Mony Unavailable Unavailable Ciesa Wendy Unavailable Dr. Cam Story Attending Provider Dr. Mali Jeffries Primary Care Provider [phone] DO Mali Jeffries Referring Provider Unavailab reyes Friend, Dr. Amado Unavailable [facility] Unavailable NESHA SHERMAN, DR SAMSON Attending Unavailab reyes [facility] Unavailable REFERRING, NIKO FLYNN Attending Unavailable Nesha SHERMAN, Dr. Samson Primary Care Provider Dr. Mali Jeffries DO Referring Provider [phone] Tonya Becerra CNM Attending Provider Dr. Mali Jeffries DO Attending Provider RUDY LIMA Attending Provider RUDY LIMA Referring Provider [phone] MALI JEFFRIES Primary Care Unavailable RUDY LIMA Attending Unavailable MALI JEFFRIES Primary Care Unavailable SYSTEM, PROVIDER NOT IN Referring Unavaila ble SYSTEM, PROVIDER NOT IN Attending Unavaila ble MALI JEFFRIES Primary Care Unavailable SYSTEM, PROVIDER NOT IN Referring Unavaila ble SYSTEM, PROVIDER NOT IN Attending Unavaila ble CALVIN KNOX Attending Provider [phone] CALVIN KNOX Referring Provider Dr. Mali Jeffries DO Primary Care Provider [phone] CALVIN KNOX Attending Provider CALVIN KNOX Referring Provider DE LA CRUZ, TONEY Referring Unavailable Nesha, Mali Primary Care Unavailable DE LA CRUZ, TONEY Attending Unavailable Nesha, Mali Primary Care Unavailable Nesha, Mali Attending Unavailable Nesha, Mali Referring Unavailable Bashir, Tonya Attending Unavailable BashirTonya Referring Unavailable Nesha, Mali Primary Care Unavailable DE LA CRUZ, TONEY Referring Unavailable Nesha, Mali Primary Care Unavailable DE LA CRUZ, TONEY Attending Unavailable Nesha, Mail Primary Care Unavailable Tonya Becerra Attending Unavailable Nesha, Mali Referring Unavailable DE LA CRUZ, TONEY Referring Unavailable Nesha, Mali Primary Care Unavailable DE LA CRUZ, TONEY Attending Unavailable Nesha, Mali Primary Care Unavailable Nesha, Mali Attending Unavailable Nesha, Mali Referring Unavailable Allergies Allergy Classification Reported Allergen(s) Allergy Type Date of Onset Reaction(s) Facility Penicillins (antibiotic) (2 sources) Penicillins; Translations: [Penicillins] Drug Allergy Rash [facility]; [facility] Work Phone: Comment on above: Hives (6 sources) penicillin v; Translations: [penicillin] drug allergy [address] [facility] (20 sources) Penicillins; Translations: [Penicillins] allergy to substance 6 Rash [facility] Work Phone: (20 sources) Penicillins; Translations: [Allergy to Penicillins (Renamed from Penicillins)] allergy to substance [facility] Work Phone: Comment on above: Hives (1 source) CILLINS Propensity to adverse reactions [facility] Work Phone: Medications Current Medications Medication Drug Class(es) Dates Sig (Normalized) Sig (Original) benzonatate 100 mg oral capsule (1 source) Non-narcotic Antitussive Start: 12-30-2021 benzonatate 100 mg oral capsule Dose : 100 mg = 1 cap(s), Oral, TID, PRN as needed for cough Start Date: 12/30/21 Status: Ordered cetirizine hydrochloride 10 mg oral tablet (1 source) Histamine-1 Receptor Antagonist Start: 12-30-2021 cetirizine 10 mg oral tablet Dose : 10 mg = 1 tab(s), Oral, qDay Start Date: 12/30/21 Status: Ordered furosemide 20 mg oral tablet (16 sources) Loop Diuretic Start: 11-08-2024 take 1 tablet by mouth once daily Furosemide 20 mg tablet Active 20 mg PO daily November 08, 2024 1:00am Start: 12-30-2020 End: 01-09-2021 take 1 tablet by mouth once daily Lasix 20 MG Oral Tablet 1 (one) Tablet daily for 10 days Quantity: 30 {Tablet} Refills: 0 Ordered: 30-Dec-2020 Wendy Vega Start : 30-Dec-2020 End : 09-Jan-2021 Inactive ipratropium bromide 0.042 mg/actuat metered dose nasal spray (1 source) Anticholinergic Start: 12-30-2021 ipratropium 42 mcg/inh (0.06%) nasal spray Dose = 1 spray(s), Nasal, TID Start Date: 12/30/21 Status: Ordered Multivitamin preparation (20 sources) Start: 03-05-2020 take 1 tablet by mouth every week Multivitamin Active 1 TABLET PO EVERY WEEK March 05, 2020 12:00am take 1 tablet by mouth once zaid y MULTIVITAMIN (PO Tab) 1 tab qd for 0 days Refills: 0 Ordered: 27-Aug-2009 Harriet Linares Active Multivitamin tablet (3 sources) Start: 03-05-2020 Multivitamin t ablet Active 1 {tbl} PO EVERY WEEK March 05, 2020 12:00am ondansetron 4 mg oral tablet (1 source) Serotonin-3 Receptor Antagonist Start: 12-30-2021 End: 01-02-2022 Zofran 4 mg oral tablet Dose : 4 mg = 1 tab(s), Oral, q6h, PRN As needed for nausea and vomiting, X 3 day(s), # 12 tab(s), 0 Refill(s), 01/02/22 11:01:00 EDT Start Date: 12/30/21 Stop Date: 01/02/22 Status: Ordered SUMAtriptan 100 mg oral tablet (20 sources) Serotonin-1b and Serotonin-1d Receptor Agonist Start: 08-02-2021 Imitrex 100 MG Oral Tablet 1 (one) Tablet at onset of corbin for 0 days Quantity: 30 {Tablet} Refills: 0 Ordered: 02-Aug-2021 Wendy Vega Start : 02-Aug-2021 Active Comments: january repeat x1 Start: 07-17-2020 End: 11-08-2024 take 1 tablet by mouth once as needed Sumatriptan Succinate (Imitrex) 100 mg tablet Active 100 mg PO ONCE as needed November 08, 2024 2:57pm Start: 06-24-2020 Imitrex 100 MG Oral Tablet 1 (one) Tablet at onset of corbin for 0 days Quantity: 30 {Tablet} Refills: 3 Ordered: 24-Jun-2020 Jonathon Andrew LPN Start : 24-Jun-2020 Active Comments: january repeat x1 Start: 03-24-2020 Imitrex 100 MG Oral Tablet 1 (one) Tablet at onset of corbin for 0 days Quantity: 30 {Tablet} Refills: 3 Ordered: 24-Mar-2020 Wendy Vega CNP, CNP, Mary E Start : 24-Mar-2020 Active Comments: january repeat x1 Start: 05-01-2017 IMITREX 50 MG TABS Take one tablet by mouth at onset of headache SUMATRIPTAN SUCCINATE [id number] Quyen Kilpatrick CLINICAL PSYCHOLOGIST LICENSED Start: 04-25-2017 Imitrex 100 MG Oral Tablet 1 (one) Tablet at onset of corbin for 0 days Quantity: 30 {Tablet} Refills: 3 Ordered: 18-Jun-2019 Wendy Vega CNP, CNP, Mary E Start : 18-Jun-2019 Active Comments: january repeat x1 Comment on above: january repeat x1 thyroid (long term) 60 mg oral tablet (3 sources) Start: 11-08-2024 take 1 tablet by mouth once daily Thyroid (Pork) (Last Ironer Thyroid) 60 mg tablet Active 60 mg PO daily November 08, 2024 1:00am Completed/Discontinued Medications Medication Drug Class(es) Dates Sig (Normalized) Sig (Original) acetaminophen 325 mg / oxyCODONE hydrochloride 5 mg oral tablet (4 sources) Opioid Agonist Start: 04-14-2020 End: 04-21-2020 Oxycodone-Acetaminoph en 1 TABLET tablet Discontinued 1 - 2 {tbl} PO EVERY 6 HOURS NEEDED as needed for Pain April 14, 2020 April 20, 2020 12:00am April 21, 2020 12:03am Other acute postprocedural pain Start: 04-14-2020 End: 04-21-2020 take 1 tablet by mouth every six hours as needed Oxycodone-Acetaminophen Discontinued 1 - 2 TABLET PO EVERY 6 HOURS NEEDED 08 04April 14, 2020 April 21, 2020 12:03am amitriptyline hydrochloride 10 mg oral tablet (20 sources) Tricyclic Antidepressant Start: 06-24-2020 End: 11-08-2024 take 1 tablet by mouth at bedtime Amitriptyline 10 mg tablet Discontinued 10 mg PO AT BEDTIME July 17, 2020 12:00am November 08, 2024 2:58pm Start: 03-24-2020 take 1 tablet by geraldo th once daily at bedtime as needed Amitriptyline HCl 10 MG Oral Tablet 1 (one) Tablet qhs, prn for 0 days Quantity: 90 {Tablet} Refills: 3 Ordered: 24-Mar-2020 Wendy Vega CNP, CNP, Mary E Start : 24-Mar-2020 Active Start: 05-01-2017 AMITRIPTYLINE HCL 25 MG TABS Take one tablet by mouth as needed AMITRIPTYLINE HCL [id number] Quyen Kilpatrick CLINICAL PSYCHOLOGIST LICENSED Start: 04-25-2017 take 1 tablet by geraldo th once daily at bedtime as needed Amitriptyline HCl 10 MG Oral Tablet 1 (one) Tablet qhs, prn for 0 days Quantity: 90 {Tablet} Refills: 3 Ordered: 18-Jun-2019 Wendy Vega CNP, CNP, Mary E Start : 18-Jun-2019 Active azithromycin 250 mg oral tablet (20 sources) Macrolide Antimicrobial Start: 09-30-2018 End: 03-05-2020 take 2 tablets by mouth once daily, then take 1 tablet by mouth once daily Azithromycin 250 MG tablet Discontinued 250 mg PO DIRECTED September 30, 2018 1:00am March 05, 2020 8:55am TAKE 2 TABLETS 1ST DAY THEN 1 TABLET DAILY FOR NEXT 4 DAYS. Start: 04-16-2013 End: 06-11-2014 ZITHROMAX Z-PRITESH, 250MG (Oral Tablet) 1 Tablet TAD for 0 days Quantity: 1 {Package(s)} Refills: 0 Ordered: 11-Jun-2014 Kristin Campuzano RN Start : 16-Apr-2013 End : 11-Jun-2014 Inactive b complex (20 sources) b complex 1 QD Inactive cholecalciferol 0.05 mg oral capsule (4 sources) Vitamin D Start: End: take 1 capsule by mouth once daily Cholecalciferol (Vitamin D3) 50 mcg (2,000 unit) capsule Discontinued 50 ug PO DAILY March 05, 2020 12:00am April 30, 2020 11:02am cidar vigar (20 sources) cidar vigar 1 [place] N Inactive clarithromycin 500 mg oral tablet (20 sources) Macrolide Antimicrobial Start: End: take 1 tablet by mouth twice daily Clarithromycin 500 MG Oral Tablet 1 (one) Tablet bid for 0 days Quantity: 20 {Tablet} Refills: 0 Ordered: 21-Dec-2020 Jonathon Andrew LPN Start : 06-Aug-2020 End : 21-Dec-2020 Inactive Start: 08-04-2020 take 1 tablet by geraldo twice daily Clarithromycin 500 MG Oral Tablet 1 (one) Tablet bid for 0 days Quantity: 20 {Tablet} Refills: 0 Ordered: 04-Aug-2020 Maddie Gallegos DO Start : 04-Aug-2020 Active cyclobenzaprine hydrochloride 10 mg oral tablet (15 sources) Muscle Relaxant Start: 12-22-2020 take 1 tablet by mouth three times daily as needed for muscle spasms Cyclobenzaprine HCl 10 MG Oral Tablet 1 (one) Tablet tid prn muscle spasm for 0 days Quantity: 30 {Tablet} Refills: 0 Ordered: 22-Dec-2020 Jonathon Andrew LPN Start : 22-Dec-2020 Active ergocalciferol 1.25 mg oral capsule (20 sources) Provitamin D2 Compound Start: 03-01-2012 End: 04-16-2013 take 1 capsule by mouth two times weekly ERGOCALCIFEROL, [id number] (Oral Capsule) 1 Capsule twice weekly for 0 days Quantity: 24 {Capsule} Refills: 0 Ordered: 16-Apr-2013 Kristine Bhatia LPN Start : 01-Mar-2012 End : 16-Apr-2013 Inactive ferrous sulfate 325 mg oral tablet (4 sources) Start: 03-05-2020 End: 04-30-2020 take 1 tablet by mouth once daily Ferrous Sulfate 325 mg (65 mg iron) tablet Discontinued 325 mg PO DAILY March 05, 2020 12:00am April 30, 2020 11:02am fexofenadine hydrochloride 180 mg oral tablet (20 sources) Histamine-1 Receptor Antagonist Start: 06-11-2014 End: 02-15-2016 take 1 tablet by mouth once daily PAULINE ALLERGY, 180MG (Oral Tablet) 1 Tablet daily for 0 days Quantity: 30 {Tablet} Refills: 0 Ordered: 15-Feb-2016 Yaquelin Deleon LPN Start : 11-Jun-2014 End : 15-Feb-2016 Discontinued fluticasone propionate 0.05 mg/actuat metered dose nasal spray (20 sources) Corticosteroid Start: 07-17-2020 End: 11-08-2024 take 50 ug nasal route once daily Fluticasone Propionate (Flonase Allergy Relief) 50 mcg/actuation spray,suspension Discontinued 1 NMA INTRANASAL DAILY July 17, 2020 12:00am November 08, 2024 2:57pm administer into each nostril Start: 07-17-2020 take 1 spray(s) nasa l route once daily Fluticasone Propionate (Flonase Allergy Relief) 50 mcg/actuation spray,suspension Active 1 SPRAY INTRANASAL DAILY July 17, 2020 12:00am administer into each nostril Start: 06-18-2019 take 2 puff(s) by in halation once daily Flonase Allergy Relief 50 MCG/ACT Nasal Suspension 2 (two) Puff daily as directed for 0 days Quantity: 1 {Inhalation} Refills: 0 Ordered: 20-Nov-2019 Jonathon Andrew LPN Start : 18-Jun-2019 Active meclizine hydrochloride 25 mg chewable tablet (20 sources) Antiemetic Start: 08-02-2021 take 1 tablet by mouth every eight hours as needed Meclizine HCl 25 MG Oral Tablet Chewable 1 (one) Tablet q8hr prn for 0 days Quantity: 30 {Tablet} Refills: 3 Ordered: 02-Aug-2021 Mali Jeffries DO, DO Mali Start : 02-Aug-2021 Active Start: 07-17-2020 End: 11-08-2024 take 1 tablet by mouth once daily Meclizine 25 mg tablet Discontinued 25 mg PO DAILY July 17, 2020 12:00am November 08, 2024 2:57pm Start: 06-24-2020 take 1 tablet by geraldo th every eight hours as needed Meclizine HCl 25 MG Oral Tablet Chewable 1 (one) Tablet q8hr prn for 0 days Quantity: 30 {Tablet} Refills: 3 Ordered: 24-Jun-2020 Jonathon Andrew LPN Start : 24-Jun-2020 Active Start: 11-20-2019 take 1 tablet by geraldo th every eight hours as needed Meclizine HCl 25 MG Oral Tablet Chewable 1 (one) Tablet q8hr prn for 0 days Quantity: 30 {Tablet} Refills: 3 Ordered: 20-Nov-2019 Jonathon Andrew LPN Start : 20-Nov-2019 Active Start: 09-30-2018 End: 03-05-2020 take 1 tablet by mouth four times daily as needed for dizziness Meclizine 25 MG tablet Discontinued 25 mg PO 4 TIMES DAILY NEEDED as needed for Dizziness September 30, 2018 1:00am March 05, 2020 8:55am meloxicam 15 mg oral tablet (12 sources) Nonsteroidal Anti-inflammatory Drug Start: 04-01-2021 take 1 tablet by mouth once daily Meloxicam 15 MG Oral Tablet 1 (one) Tablet qd for 0 days Quantity: 30 {Tablet} Refills: 1 Ordered: 01-Apr-2021 Mony King LPN Start : 01-Apr-2021 Active naproxen 250 mg oral tablet (4 sources) Nonsteroidal Anti-inflammatory Drug Start: 04-14-2020 End: 04-30-2020 take 250-500 mg by mouth every eight hours as needed for pain Naproxen 250 MG tablet Discontinued 250 - 500 mg PO EVERY 8 HOURS NEEDED as needed for MILD PAIN 24 10April 14, 2020 12:00am April 30, 2020 11:02am omeprazole 40 mg delayed release oral capsule (20 sources) Proton Pump Inhibitor Start: 06-13-2022 Omeprazole 40 MG Oral Capsule Delayed Release [address] daily for 90 days Quantity: 90 {Tablet} Refills: 3 Ordered: 13-Jun-2022 Mali Jeffries DO, DO, Kathleen Start : 13-Jun-2022 Active Start: 12-30-2021 omeprazole 40 mg oral delayed release capsule Dose : 40 mg = 1 cap(s), Oral, qDay Start Date: 12/30/21 Status: Ordered Start: 08-02-2021 Omeprazole 40 MG Oral Capsule Delayed Release [address] daily for 90 days Quantity: 90 {Tablet} Refills: 3 Ordered: 02-Aug-2021 Mali Jeffries DO, DO, Kathleen Start : 02-Aug-2021 Active Start: 06-24-2020 Omeprazole 40 MG Oral Capsule Delayed Release [address] daily for 90 days Quantity: 90 {Tablet} Refills: 3 Ordered: 24-Jun-2020 Jonathon Andrew LPN Start : 24-Jun-2020 Active Start: 03-24-2020 Omeprazole 40 MG Oral Capsule Delayed Release [address] daily for 30 days Quantity: 90 {Tablet} Refills: 3 Ordered: 24-Mar-2020 Wendy Vega CNP, CNP, Mary E Start : 24-Mar-2020 Active Start: 03-05-2020 take 1 capsule by mo [facility] once daily Omeprazole 20 mg capsule,delayed release(DR/EC) Active 20 mg PO DAILY March 05, 2020 12:00am Start: 06-18-2019 Omeprazole 40 MG Oral Capsule Delayed Release [address] daily for 30 days Quantity: 90 {Tablet} Refills: 3 Ordered: 18-Jun-2019 Wendy Vega CNP, CNP, Mary E Start : 18-Jun-2019 Active Start: 04-25-2017 take 1 tablet by geraldo once daily OMEPRAZOLE 40 MG CPDR One tablet by mouth daily OMEPRAZOLE [id number] Quyen Kilpatrick NP Start: 06-22-2015 End: 07-22-2015 take 1 tablet by mouth once daily OMEPRAZOLE, 20MG (Oral Tablet Delayed Release) 1 (one) Tablet DR qd for 30 days Quantity: 30 {Tablet} Refills: 0 Ordered: 22-Jun-2015 Maddie Gallegos DO Start : 22-Jun-2015 End : 22-Jul-2015 Inactive Comments: no more till apt Start: 08-14-2010 End: 05-26-2017 OMEPRAZOLE TBEC OMEPRAZOLE TBEC [id number] Mamta Castaneda Start: 08-14-2010 OMEPRAZOLE TBE C OMEPRAZOLE TBEC [id number] Tonya Mendez CNP Comment on above: no more till apt pantoprazole 40 mg delayed release oral tablet (20 sources) Proton Pump Inhibitor Start: 09-14-20 11 End: 04-16-20 13 PROTONIX, 40MG (Oral Tablet Delayed Release) [address] daily for 0 days Quantity: 30 {Tablet_DR} Refills: 3 Ordered: 16-Apr-2013 Kristine Bhatia LPN Start : 14-Sep-2011 End : 16-Apr-2013 Inactive parsley leaf (20 sources) parsley leaf 1 t ab QD Inactive phentermine hydrochloride 37.5 mg oral tablet (13 sources) Sympathomimetic Amine Anorectic Start: 07-01-20 take 1 tablet by mouth once daily Phentermine HCl 37.5 MG Oral Tablet 1 (one) Tablet qd for 0 days Quantity: 30 {Tablet} Refills: 0 Ordered: 01-Jul-2022 Mali Jeffries DO, DO, Kathleen Start : 01-Jul-2022 Active Comments: BMI 31wt 171.5dx fatty liver- K760.0pull oars and reviewedwt 167.8BMI 30 Start: 06-13-2022 take 1 tablet by geraldo th once daily Phentermine HCl 37.5 MG Oral Tablet 1 (one) Tablet qd for 0 days Quantity: 30 {Tablet} Refills: 0 Ordered: 13-Jun-2022 Mali Jeffries DO, DO, Kathleen Start : 13-Jun-2022 Active Comments: BMI 29wt 160 dx fatty liver- K760.0pull oars and reviewedjgravius, rag shredder called to [facility] 06/13/22 Start: 12-30-2021 phentermine 37 .5 mg oral tablet Dose : 37.5 mg = 1 tab(s), Oral, Daily, 68.2 Start Date: 12/30/21 Status: Ordered Start: 05-13-2021 End: 12-22-2021 take 1 tablet by mouth once daily Phentermine HCl 37.5 MG Oral Tablet 1 (one) Tablet qd for 0 days Quantity: 30 {Tablet} Refills: 0 Ordered: 22-Dec-2021 Jonathon Andrew LPN Start : 13-May-2021 End : 22-Dec-2021 Inactive Comments: BMI 29wt 160 dx fatty liver- K760.0pull oars and reviewedjgravius, rag shredder called to [facility] 05/13/21 Start: 04-01-2021 take 1 tablet by geraldo once daily Phentermine HCl 37.5 MG Oral Tablet 1 (one) Tablet qd for 0 days Quantity: 30 {Tablet} Refills: 0 Ordered: 01-Apr-2021 Mali Jeffries DO Start : 01-Apr-2021 Active Comments: BMI 31wt 170 dx fatty liver- K760.0pull oars and reviewed Comment on above: BMI 31wt 170 dx fatt y liver- K760.0pull oars and reviewed BMI 29wt 160 dx fatt y liver- K760.0pull oars and reviewedjgravius, rag shredder called to [facility] 05/13/21 BMI 29wt 160 dx fatt y liver- K760.0pull oars and reviewedjgravius, rag shredder called to [facility] 06/13/22 BMI 31wt 171.5dx fat ty liver- K760.0pull oars and reviewedwt 167.8BMI 30 potassium chloride 20 meq extended release oral tablet (13 sources) Start: 12-30-2020 take 7 tablets by mouth once daily Potassium Chloride ER 20 MEQ Oral Tablet Extended Release 1 (one) Tablet daily while on lasix for 0 days Quantity: 30 {Tablet} Refills: 0 Ordered: 30-Dec-2020 Samantha Tilley LPN Start : 30-Dec-2020 Active predniSONE 20 mg oral tablet (20 sources) Start: 05-13-2021 End: 12-22-2021 take 1 tablet by mouth once daily in the morning predniSONE 20 MG Oral Tablet 1 (one) Tablet qam for 0 days Quantity: 4 {Tablet} Refills: 0 Ordered: 22-Dec-2021 Jonathon Andrew LPN Start : 13-May-2021 End : 22-Dec-2021 Inactive Start: 02-15-2016 End: 02-22-2016 take 3 tablets by mouth once daily at mealtime PREDNISONE, 10MG (Oral Tablet) 3 (three) Tablet daily for 7 days Quantity: 21 {Tablet} Refills: 0 Ordered: 15-Feb-2016 Wendy Vega Start : 15-Feb-2016 End : 22-Feb-2016 Inactive Comments: with food Comment on above: with food promethazine hydrochloride 25 mg oral tablet (4 sources) Phenothiazine Start: 09-30-19 End: 03-05-20 20 take 1 tablet by mouth every six hours as needed for nausea Promethazine 25 MG tablet Discontinued 25 mg PO EVERY 6 HOURS NEEDED as needed for Nausea 10 0 September 30, 2018 1:00am March 05, 2020 8:55am [facility] (20 sources) [facility] 1 tab QD Inactive sulfamethoxazole 800 mg / trimethoprim 160 mg oral tablet (20 sources) Dihydrofolate Reductase Inhibitor Antibacterial, Sulfonamide Antimicrobial Start: 02-15-20 16 End: 02-22-20 16 take 1 tablet by mouth twice daily BACTRIM DS, 800-160MG (Oral Tablet) 1 (one) Tablet bid for 7 days Quantity: 14 {Tablet} Refills: 0 Ordered: 15-Feb-2016 Wendy Vega Start : 15-Feb-2016 End : 22-Feb-2016 Inactive Start: 08-14-2010 End: 08-24-2010 take 1 tablet by mouth twice daily BACTRIM DS 800-160 MG TABS take one tabl et po twice daily for 10 days SULFAMETHOXAZOLE-TRIMETHOPRIM [id number] Tonya Mendez CNP Start: 08-14-2010 End: 08-24-2010 take 1 tablet by mouth twice daily BACTRIM DS 800-160 MG TABS take one tabl et po twice daily for 10 days SULFAMETHOXAZOLE-TRIMETHOPRIM [id number] Tonya Mendez 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 Problems Active Problems Problem Classification Problem Date Documented Da te Episodic/Chronic Administrative/social admission (20 sources) Patient encounter status; Translations: [Nutritional counseling] 04-01-2021 Episodic Biliary tract disease (2 sources) Other specified diseases of gallbladder; Translations: [Other specified diseases of gallbladder] Onset: 5 Episodic Conditions associated with dizziness or vertigo (20 sources) Vertigo; Translations: [Dizziness] 06-18-2019 Episodic Comment on above: has tried PT not hel ping > 1yr she has seen ent and chiroractor -had carotiddoppler an dhead scan- we encouraged her to do the exercises she was given more routinely and if not help back to ent Esophageal disorders (20 sources) Gastroesophageal reflux disease; Translations: [Gastro-esophageal reflux disease without esophagitis] 08-14-2010 Chronic Comment on above: chronic stable-susan nue present regimen Gastroduodenal ulcer (except hemorrhage) (20 sources) Peptic ulcer; Translations: [Peptic ulcer disease] 04-25-2017 Chronic Gastrointestinal hemorrhage (20 sources) Rectal hemorrhage; Translations: [Rectal bleeding] Resolved: 1 08-11-2015 Episodic Genitourinary symptoms and ill-defined conditions (4 sources) Genuine stress incontinence; Translations: [Stress incontinence (female) (male)] 07-17-2020 Chronic Genitourinary symptoms and ill-defined conditions (20 sources) Polyuria; Translations: [Polyuria] 07-08-2020 Episodic Headache; including migraine (20 sources) Migraine with aura; Translations: [Migraine with aura and without status migrainosus, not intractable] 04-25-2017 Chronic Comment on above: chronic stable-susan nue present regimen these are better but has what sounds more like sinus headahce she will bump up her amityrptyline to 10 mg to see how does Headache; including migraine (20 sources) Tension-type headache; Translations: [Tension headache] 04-25-2017 Episodic Comment on above: chronic stable-susan nue present regimen try the amitryptylin e- i think she may be triggering migraine with tension- and also discussed rebound headache better with amitrypt yline these are better but has what sounds more like sinus headahce she will bump up her amityrptyline to 10 mg to see how does Malaise and fatigue (20 sources) Fatigue; Translations: [Fatigue] 04-25-2017 Episodic Comment on above: Sister has Alice s disease Menopausal disorders (20 sources) Menopausal flushing; Translations: [Hot flashes, menopausal] 12-22-2021 Chronic Comment on above: did get better with hrt- pellets Mood disorders (20 sources) Dysthymia; Translations: [Dysthymic] 04-25-2017 Chronic Comment on above: chronic stable-susan nue present regimen Mood disorders (20 sources) Mood disorders Nausea and vomiting (20 sources) Nausea and vomiting; Translations: [Nausea] Resolved: 1 04-25-2017 Episodic Comment on above: after a meal after a meal will co ntinue omeprazole Nonspecific chest pain (20 sources) Chest pain; Translations: [Chest pain] 08-04-2020 Episodic Nutritional deficiencies (20 sources) Vitamin D deficiency; Translations: [Vitamin D deficiency, unspecified] 04-25-2017 Chronic Other connective tissue disease (20 sources) Pain in lower limb; Translations: [Leg pain] 06-12-2020 Episodic Comment on above: bilateral Other connective tissue disease (20 sources) Swelling of lower limb; Translations: [Leg swelling symptom] 12-28-2020 Episodic Other connective tissue disease (20 sources) Pain in bilateral legs; Translations: [Leg pain, bilateral] Resolved: 2 04-01-2021 Episodic Other diseases of bladder and urethra (4 sources) Urethral hypermobility; Translations: [Hypermobility of urethra] 07-17-2020 Episodic Other eye disorders (20 sources) Eye / vision finding; Translations: [Visual changes] 11-20-2019 Episodic Other female genital disorders (19 sources) Dysfunctional uterine bleeding; Translations: [Uterine bleeding, dysfunctional] 06-18-2019 Chronic Other female genital disorders (20 sources) Abnormal uterine bleeding; Translations: [Uterine bleeding, dysfunctional] 11-20-2019 Chronic Comment on above: enlarged 10 cm multi ple fibroid uterus. recommend ALFREDO HENRY combo case with Jasson for sling. nl EMB Other female genital disorders (4 sources) Enlarged uterus; Translations: [Hypertrophy of uterus] 07-17-2020 Episodic Other gastrointestinal disorders (20 sources) Heartburn; Translations: [Heartburn] 11-20-2019 Episodic Other liver diseases (20 sources) Steatosis of liver; Translations: [Fatty liver] 04-01-2021 Chronic Comment on above: fibrosis F2-F3- seei ng GI Other lower respiratory disease (20 sources) Dyspnea; Translations: [SOB (shortness of breath)] 07-07-2020 Episodic Comment on above: btnp normal ekg and echo normal- will have her do chest xray get stress test has had echo and cxr ok Other non-traumatic joint disorders (20 sources) Pain in elbow; Translations: [Elbow pain, left] 06-18-2019 Episodic Other non-traumatic joint disorders (20 sources) Pain in right knee; Translations: [Knee pain, bilateral] 04-01-2021 Episodic Comment on above: one that got drained is doing great. the opposiste knee is popping /locking etc Other non-traumatic joint disorders (3 sources) Pain in left knee; Translations: [Knee pain, left] 04-01-2021 Episodic Comment on above: 3 weeks after hyster ectomy developed left knee pain and bilateral leg pain and swelling. Had doppler and neg, points to one spot in knee Other non-traumatic joint disorders (20 sources) Pain of right wrist; Translations: [Wrist pain, right] 04-01-2021 Episodic Comment on above: try cock up splint Other non-traumatic joint disorders (20 sources) Effusion of joint of left knee; Translations: [Effusion of left knee] 05-13-2021 Episodic Other non-traumatic joint disorders (19 sources) Pain in left knee; Translations: [Knee pain, left] 12-22-2021 Episodic Comment on above: 3 weeks after hyster ectomy developed left knee pain and bilateral leg pain and swelling. Had doppler and neg, points to one spot in knee Other nutritional; endocrine; and metabolic disorders (20 sources) Body mass index 30+ - obesity; Translations: [BMI 31.0-31.9,adult] Resolved: 1 06-18-2019 Chronic Other nutritional; endocrine; and metabolic disorders (7 sources) Body mass index 25-29 - overweight; Translations: [BMI 29.0-29.9,adult] Resolved: 2 05-13-2021 Episodic Other nutritional; endocrine; and metabolic disorders (20 sources) Weight gain; Translations: [Weight gain] 06-13-2022 Episodic Comment on above: reviewed giovany intake and IF, Other nutritional; endocrine; and metabolic disorders (20 sources) Overweight in adulthood with body mass index of 25 or more but less than 30; Translations: [BMI 29.0-29.9,adult] Resolved: 2 06-13-2022 Episodic Other screening for suspected conditions (not mental disorders or infectious disease) (20 sources) Electrocardiogram abnormal; Translations: [Elevated C-reactive protein] Resolved: 9 08-10-2015 Episodic Comment on above: Echo mild segmental systolic dysfunction, EF 40% Other skin disorders (20 sources) Eruption; Translations: [Facial rash] 04-25-2017 Episodic Comment on above: ? insect vs poison i vy triple Other upper respiratory disease (20 sources) Allergic rhinitis; Translations: [Allergic rhinitis] 04-25-2017 Chronic Other upper respiratory infections (20 sources) Chronic maxillary sinusitis; Translations: [Sinusitis] Onset: 0 08-14-2010 Chronic Other upper respiratory infections (20 sources) Sinusitis; Translations: [Acute sinusitis] 04-25-2017 Episodic Collette-; endo-; and myocarditis; cardiomyopathy (except that caused by tuberculosis or sexually transmitted disease) (20 sources) Primary cardiomyopathy; Translations: [Other primary cardiomyopathies] 04-25-2017 Chronic Comment on above: chronic stable-susan nue present regimen get echo echo looked good echo looked good, st ress test done EF 61% on 08-14-20 no ischemia Residual codes; unclassified (1 source) Hypersomnia, unspecified; Translations: [Hypersomnia, unspecified] Onset: 5 Chronic Residual codes; unclassified (20 sources) Edema; Translations: [Edema] Episodic Comment on above: support hose Residual codes; unclassified (20 sources) Swelling - edema - symptom; Translations: [Edema] 04-25-2017 Episodic Comment on above: support hose Residual codes; unclassified (20 sources) Insomnia; Translations: [Insomnia] 04-25-2017 Episodic Residual codes; unclassified (20 sources) Family history of neoplasm of brain; Translations: [Family history of brain tumor] 11-20-2019 Episodic Comment on above: Father Residual codes; unclassified (20 sources) Edema of lower extremity; Translations: [Leg edema] 07-07-2020 Episodic Comment on above: heart kidney liver w orkup all negative- and electrolytens normal thyroid function normal not anemic- asked her to get support hose and do food diary so we can identify if overdoing the salt - better venous insufficiency -- varicose vieinssuport stocking swt lss venous insufficiency -- varicose vieinssuport stockingswt lss Residual codes; unclassified (20 sources) Body mass index 20-24 - normal; Translations: [BMI 22.0-22.9, adult] 04-01-2021 Episodic Residual codes; unclassified (20 sources) Non-smoker; Translations: [Nonsmoker] 04-01-2021 Episodic Skin and subcutaneous tissue infections (20 sources) Cellulitis; Translations: [Cellulitis] 04-25-2017 Episodic Comment on above: of rt arm, ? seconda ry to infection from rash from plant or insect will treat antibiotic Spondylosis; intervertebral disc disorders; other back problems (20 sources) Backache; Translations: [Back pain] 12-22-2020 Episodic Thyroid disorders (20 sources) Thyroid nodule; Translations: [Goiter] 04-25-2017 Chronic Comment on above: 1.6cm x1.3 cm on rt , 1cm x.7cm left sister has alice s' requesting further work up for herself getting biopsy biopsy negative repe at us 1 year us 07-16- stable Unclassified (2 sources) Gynecologic examination ; Translations: [Encounter for gynecological examination (general) (routine) without abnormal findings] Onset: 7 05-01-2017 Unclassified (2 sources) Screening mammography ; Translations: [Encounter for screening mammogram for malignant neoplasm of breast] Onset: 7 05-01-2017 Unclassified (20 sources) Wrist pain, right Unclassified (20 sources) Unclassified (20 sources) Cardiomyopathies (425.4) Unclassified (20 sources) Facial rash Unclassified (20 sources) Headache,Migraine (346.00) Unclassified (5 sources) Depression/Anxiety (300.4) Urinary tract infections (5 sources) Recurrent urinary tract infection; Translations: [Urinary tract infection, site not specified] 11-08-2024 Episodic Varicose veins of lower extremity (20 sources) Varicose veins of lower extremity; Translations: [Varicose vein of leg] 04-01-2021 Episodic Comment on above: dopplers done couple yrs ago and had varicose and venous insufficiency Past or Other Problems Problem Classification Problem Date Documented Date Episodic/Chronic Abdominal pain (10 sources) Pain in pelvis; Translations: [Pelvic and perineal pain] Onset: 10-21-2024 11-08-2024 Episodic Conditions associated with dizziness or vertigo (20 sources) Conditions associated with dizziness or vertigo Headache; including migraine (20 sources) Headache; including migraine Other and unspecified benign neoplasm (1 source) Benign neoplasm of left adrenal gland; Translations: [Benign neoplasm of left adrenal gland] Onset: 02-24-2025 Episodic Other connective tissue disease (1 source) Pain in bilateral legs; Translations: [Leg pain, bilateral] 12-30-2020 Other non-traumatic joint disorders (20 sources) Pain of right wrist; Translations: [Wrist pain, right] 04-25-2017 Comment on above: try cock up splint Other non-traumatic joint disorders (17 sources) Pain in left knee; Translations: [Knee pain, left] 06-09-2020 Comment on above: 3 weeks after hyster ectomy developed left knee pain and bilateral leg pain and swelling. Had doppler and neg, points to one spot in knee Other screening for suspected conditions (not mental disorders or infectious disease) (20 sources) Elevated C-reactive protein; Translations: [CRP elevated] 04-25-2017 Residual codes; unclassified (4 sources) History of vaginal hysterectomy; Translations: [Acquired absence of both cervix and uterus] Onset: 09-25-2019 07-17-2020 Episodic Comment on above: w/sling Unclassified (20 sources) Abnormal EKG(794.31) Unclassified (20 sources) Deliveries (Parity); Translations: [Deliveries (Parity)] 06-18-2019 Comment on above: 3, Term Unclassified (20 sources) Non-smoker; Translations: [Nonsmoker] 06-18-2019 Unclassified (20 sources) Not Currently (Renamed from Status): Not Currently ; Translations: [Not Currently (Renamed from Status): Not Currently ] 06-18-2019 Unclassified (20 sources) Pregnancies (); Translations: [Pregnancies ()] 06-18-2019 Comment on above: 3 Unclassified (20 sources) rectal tear (Renamed from Cholecystectomy (Gall Bladder Removal)); Translations: [rectal tear (Renamed from Cholecystectomy (Gall Bladder Removal))] 04-25-2017 Unclassified (20 sources) Thyromegaly (240.9) Unclassified (20 sources) DEFICIENCY, VITAMIN D NOS (268.9) Unclassified (20 sources) Elevated CRP (790.95) Unclassified (20 sources) Tubal Ligation - Laproscopic; Translations: [Tubal Ligation - Laproscopic] 04-25-2017 Unclassified (20 sources) Unspecified Diagnosis 04-25-2017 Unclassified (20 sources) Patient encounter status; Translations: [Well woman exam (Renamed from Encounter for well woman exam)] 06-18-2019 Unclassified (20 sources) Allergy to Penicillins (Renamed from Penicillins); Translations: [Allergy to Penicillins (Renamed from Penicillins)] Resolved: 03-21-2011 03-21-2011 Unclassified (20 sources) BMI 22.0-22.9, adult; Translations: [Body mass index 20-24 - normal] 06-18-2019 Unclassified (20 sources) Migraine with aura and without status migrainosus, not intractable Unclassified (20 sources) Rash Unclassified (20 sources) BMI 32.0-32.9,adult Unclassified (20 sources) Uterine bleeding, dysfunctional Unclassified (20 sources) Elbow pain, left Unclassified (20 sources) Encounter for screening mammogram for breast cancer (Renamed from Encounter for screening mammogram for malignant neoplasm of breast) Unclassified (20 sources) Encounter for screening for lipid disorder (Renamed from Screening for lipid disorders) Unclassified (20 sources) BMI 33.0-33.9,adult Unclassified (20 sources) Visual changes Unclassified (20 sources) Family history of brain tumor Unclassified (20 sources) BMI 34.0-34.9,adult Unclassified (20 sources) Knee pain, left Unclassified (19 sources) Thyromegaly Unclassified (20 sources) Multiple thyroid nodules Unclassified (4 sources) Leg pain, bilateral Unclassified (5 sources) BMI 31.0-31.9,adult Unclassified (3 sources) Varicose vein of leg Unclassified (7 sources) Knee pain, bilateral Unclassified (3 sources) Nutritional counseling Unclassified (2 sources) BMI 29.0-29.9,adult Unclassified (3 sources) Non-smoker Unclassified (2 sources) Effusion of joint of left knee Unclassified (1 source) BMI 28.0-28.9,adult Unclassified (1 source) Hot flashes, menopausal Unclassified (4 sources) follicular/colloid thyroid nodule 04-20-2022 Unclassified (4 sources) history thyroid biopsy Onset: 06-25-2020 04-20-2022 Results Test Name Value Interpretation Reference Range Facility Abdomen W/WO IV Contraston 0 02-19-2025 Abdomen W/WO IV Contrast [facility] [address] [place] [address] Abdomen W/WO IV Contrast MR#: [id number] Acct: [id number] Name: TRACEY HATHAWAY Rep #: [id number] : 1970 F 54 From: Juni roberts MD PCP: Dr. Mali Jeffries, DO Status: REG CLI Study: Abdomen W/WO IV Contrast Date of Exam: 5 Exam# [id number] Ordering Dr: Ilia Strauss,Out o. PROCEDURE: ABDOMEN W/WO IV CONTRAST 02/19/2025 REASON FOR EXAM: LEFT ADRENAL GLAND NODULE TECHNIQUE: Abdomen CT with intravenous contrast. Multiplanar and multisequence images were obtained. One or more dose reduction techniques were used (e.g., Automated exposure control, adjustment of the mA and/or kV according to patient size, use of iterative reconstruction technique. PATIENT PREPARATION: Per protocol ORAL CONTRAST TYPE: None. CONTRAST: Isovue 350 VOLUME: 100 mL Gauge IV RADIATION DOSE SUMMARY: CTDlvol: 23.6 mGy DLP: 2139 mGycm COMPARISON: CT scan on 01/10/2025. FINDINGS: Technique: Axial CT scan images with intravenous contrast. Reformatted coronal and sagittal images. One or more dose reduction techniques were used (e.g., Automated exposure control, adjustment of the mA and/or kV according to patient size, use of iterative reconstruction technique. Findings: Prior cholecystectomy. Well-defined 2.3 cm left adrenal nodule. Precontrast density 9 Hounsfield units. Early postcontrast density 60 Hounsfield units. Delayed post contrast density 21 Hounsfield units. Absolute washout 76.5%. Relative washout 65%. Findings are suggestive of benign adenoma. Unchanged bilateral scattered pulmonary nodules with the largest measuring 4 mm. Mild diffuse spondylosis. Grade 1 anterolisthesis of L5 on S1. Fat containing umbilical hernia without incarceration. Normal liver. Normal extrahepatic biliary system. Normal spleen. Normal pancreas. Normal right adrenal glands. Normal size of the right kidney. There is no right renal mass. There are no right renal calculi. There is no right hydronephrosis. Normal visualized right ureter. Normal size of the left kidney. There is no left renal mass. There are no left renal calculi. There is no left hydronephrosis. Normal visualized left ureter. Normal visualized stomach. Normal small intestine. Normal colon. There is no demonstrated peritoneal fluid. Normal abdominal aorta. Normal inferior vena cava. Normal retroperitoneum. CT/Abdomen W/WO IV Contrast IMPRESSION: 1. Prior cholecystectomy. 2. Well-defined 2.3 cm left adrenal nodule. Precontrast density 9 Hounsfield units. Early postcontrast density 60 Hounsfield units. Delayed post contrast density 21 Hounsfield units. Absolute washout 76.5%. Relative washout 65%. Findings are suggestive of benign adenoma. 3. Unchanged bilateral scattered pulmonary nodules with the largest measuring 4 mm. 4. Mild diffuse spondylosis. 5. Grade 1 anterolisthesis of L5 on S1. 6. Fat containing umbilical hernia without incarceration. Reading Location: [place] [address] CC: CALVIN KNOX; Dr. Mali Jeffries DO Director Of Nuclear Medicine: Signed Normal [facility] Abdomen/Pelvis W IV Cont ONL Yon 01-10-2025 Abdomen/Pelvis W IV Cont ONLY [facility] [place], [place] [id number] Abdomen/Pelvis W IV Cont ONLY MR#: [id number] Acct: [id number] Name: TRACEY HATHAWAY Rep #: [id number] : 1970 F 54 From: Trino Payne MD PCP: Dr. Mali Jeffries DO Status: REG CLI Study: Abdomen/Pelvis W IV Cont ONLY Date of Exam: Exam# [id number] Ordering Dr: RUDY LIMA PROCEDURE: ABDOMEN/PELVIS W IV CONT ONLY 01/10/2025 REASON FOR EXAM: ABDOMINAL PAIN TECHNIQUE: Abdomen and pelvis CT with intravenous contrast. Coronal and Sagittal reconstruction series were provided. PATIENT PREPARATION: Per protocol ORAL CONTRAST TYPE: None. AMOUNT: mL CONTRAST: Isovue-300 VOLUME: 98 mL One or more dose reduction techniques were used (e.g., Automated exposure control, adjustment of the mA and/or kV according to patient size, use of iterative reconstruction technique. RADIATION DOSE SUMMARY: CTDlvol: 9.97+ 12.10 mGy DLP: 602.07 mGycm COMPARISON: 11/11/2024 FINDINGS: Lung bases: 4 mm posterior subpleural LEFT lower lobe nodule. Additional 2 mm bilateral lower lobe nodules. Fissural intrapulmonary lymph node in the RIGHT lung base. Liver: Single surgical clip interposed between the anterior LEFT hepatic lobe and anterior abdominal wall. Spleen: Unremarkable. Gallbladder: Interval cholecystectomy. Trace ill-defined fluid and stranding in the gallbladder fossa. No organized fluid collection. Pancreas: Unremarkable. Adrenals: Indeterminate 2.3 x 1.4 cm LEFT adrenal nodule.. Kidneys: Unremarkable. Bowel: Unremarkable. Normal caliber appendix. Lymph nodes: Unremarkable. Vasculature: Unremarkable. Peritoneum: As above. Bladder: Unremarkable. Reproductive Organs: Hysterectomy. Body Wall: Tiny fat containing umbilical hernia.. Bones: Bilateral L5 pars defects with mild grade [address]/Abdomen/Pelvis W IV Cont ONLY IMPRESSION: 1. Interval cholecystectomy with trace ill-defined fluid and stranding in the gallbladder fossa, nonspecific and potentially postoperative. Correlate for early surgical site infection. No organized fluid collection. 2. Indeterminate 2.3 cm LEFT adrenal nodule. Recommend adrenal protocol CT per ACR recommendations. 3. Tiny bibasilar pulmonary nodules up to 4 mm, statistically benign and requiring no specific follow-up in a low risk patient. Otherwise, recommend follow-up CT chest in one year per the Fleischner society recommendations for pulmonary nodule follow-up, presuming no history of malignancy or known immunosuppression. 4. Additional description as above. Note comparison with any available outside imaging may be helpful to establish stability of indeterminate findings in #2-3 above. Reading Location: [id number] CC: RUDY LIMA; Dr. Mali Jeffries DO Director Of Nuclear Medicine: Signed Normal [facility] Lumbar Spine 2 or 3 Viewson 01-10-2025 Lumbar Spine 2 or 3 Views [facility] [address] [place] [address] Lumbar Spine 2 or 3 Views MR#: [id number] Acct: [id number] Name: TRACEY HATHAWAY Rep #: [id number] : 1970 F 54 From: Zoraida Reed DO PCP: Dr. Mali Jeffries DO Status: REG CLI Study: Lumbar Spine 2 or 3 Views Date of Exam: Exam# [id number] Ordering Dr: CALVIN KNOX PROCEDURE: LUMBAR SPINE 2 OR 3 VIEWS 01/10/2025 REASON FOR EXAM: CHRONIC LOWER BACK PAIN RIGHT SIDE TECHNIQUE: 3 view(s) of the lumbar spine COMPARISON: None FINDINGS: Vertebrae: Lumbar vertebral body heights are preserved. No acute fracture. Discs: Severe narrowing of L5-S1 intervertebral disc space. Suspected anterolisthesis of L5 on S1. Alignment: Unremarkable Other: RAD/Lumbar Spine 2 or 3 Views IMPRESSION: No acute fracture. Suspected anterolisthesis of L5 on S1. Severe narrowing of L5-S1 intervertebral disc space. MRI of the lumbar spine may be helpful for further characterization. [facility] CC: CALVIN KNOX; Dr. Mali Jeffries DO Director Of Nuclear Medicine: Signed Normal [facility] .Auto Diffon 12-23-2024 Basophil, Absolute 0.1 10 3/mcL Normal 0.0-0.2 [facility] [place] Comment on above: Performed By: #### A DIFF, GFR, ANEU, CMP, MARIELY, CBC #### [place] [address] [place], [place] [address] Basophils/100 WBC (Bld) 0.8 % Normal 0.0-2.5 [facility] Comment on above: Performed By: #### A DIFF, GFR, ANEU, CMP, MARIELY, CBC #### [place] [address] [place], [place] [address] Eosinophil, Absolute 0.2 10 3/mcL Normal 0.0-0.7 [facility] Comment on above: Performed By: #### A DIFF, GFR, ANEU, CMP, MARIELY, CBC #### [address] [address] Eosinophils/100 WBC (Bld) 3.0 % Normal 0.0-7.0 [facility] Comment on above: Performed By: #### A DIFF, GFR, ANEU, CMP, MARIELY, CBC #### [address] [address] Lymphocyte, Absolute 1.4 10 3/mcL Normal 0.9-4.3 [facility] Comment on above: Performed By: #### A DIFF, GFR, ANEU, CMP, MARIELY, CBC #### [address] [address] Lymphocytes/100 WBC (Bld) 21.0 % Normal 20.0-40.0 [facility] Comment on above: Performed By: #### A DIFF, GFR, ANEU, CMP, MARIELY, CBC #### [address] [address] Monocyte, Absolute 0.5 10 3/mcL Normal 0.1-1.4 [facility] Comment on above: Performed By: #### A DIFF, GFR, ANEU, CMP, MARIELY, CBC #### [address] [address] Monocytes/100 WBC (Bld) 6.7 % Normal 2.0-13.0 [facility] Comment on above: Performed By: #### A DIFF, GFR, ANEU, CMP, MARIELY, CBC #### [address] [address] Neutrophils/100 WBC (Bld) 68.5 % Normal 50.0-75.0 [facility] Comment on above: Performed By: #### A DIFF, GFR, ANEU, CMP, MARIELY, CBC #### [address] [address] .GFRon 12-23-2024 Estimated Glomerular Filtration Rate 76 ml/min/1.73sqm Normal [facility] Comment on above: Result Comment: Stages of Chronic Kidney Disease (CKD) Stage Description eGFR(ml/min/1.73 sq.m.) CKD 1 Normal kidney function or >=90 normal kindney function with possible kidney damage (ex. Proteinuria) CKD 2 Kidney damage with mild loss 60-89 of kidney function CKD 3a Mild to moderate loss of kidney 45-59 function CKD 3b Moderate to severe loss of 30-44 of kindey function CKD 4 Severe loss of kidney function 15-29 CKD 5 Kidney failure <15 Note: (go live 2024) the eGFR calculation was updated to the 2020 CKD-EPI creatinine equation without a race factor to calculate the eGFR results. Performed By: #### A DIFF, GFR, ANEU, CMP, MARIELY, CBC #### [address] [address] .NEUABSon 12-23-2024 Neutrophil, Absolute 4.7 10 3/mcL Normal 2.3-8.1 [facility] Comment on above: Performed By: #### A DIFF, GFR, ANEU, CMP, MARIELY, CBC #### [address] [address] AMYon 12-23-2024 Amylase [Catalytic activity/Vol] 71 U/L Normal 25-115 [facility] Comment on above: Performed By: #### A DIFF, GFR, ANEU, CMP, MARIELY, CBC #### [address] [address] CBCon 12-23-2024 Erythrocyte distribution width (RBC) [Ratio] 13.6 % Normal 11.5-15.5 [facility] Comment on above: Performed By: #### A DIFF, GFR, ANEU, CMP, MARIELY, CBC #### [address] [address] Hematocrit (Bld) [Volume fraction] 43.5 % Normal 34.0-46.0 [facility] Comment on above: Performed By: #### A DIFF, GFR, ANEU, CMP, MARIELY, CBC #### [address] [address] Hgb 14.6 G/dL Normal 12.0-16.0 [facility] Comment on above: Performed By: #### A DIFF, GFR, ANEU, CMP, MARIELY, CBC #### [address] [address] MCH (RBC) [Entitic mass] 29.7 pg Normal 27.0-33.0 [facility] Comment on above: Performed By: #### A DIFF, GFR, ANEU, CMP, MARIELY, CBC #### [place] [address] MCHC 33.6 G/dL Normal 32.0-36.0 [facility] Comment on above: Performed By: #### A DIFF, GFR, ANEU, CMP, MARIELY, CBC #### [address] [address] MCV (RBC) [Entitic vol] 88.4 fL Normal 80.0-99.0 [facility] Comment on above: Performed By: #### A DIFF, GFR, ANEU, CMP, MARIELY, CBC #### [place] [address] Platelet 293 10 3/mcL Normal 150-450 [facility] Comment on above: Performed By: #### A DIFF, GFR, ANEU, CMP, MARIELY, CBC #### [address] [address] Platelet mean volume (Bld) [Entitic vol] 9.6 fL Normal 6.6-10.5 [facility] Comment on above: Performed By: #### A DIFF, GFR, ANEU, CMP, MARIELY, CBC #### [address] [address] RBC 4.93 10 6/mcL Normal 4.10-5.30 [facility] Comment on above: Performed By: #### A DIFF, GFR, ANEU, CMP, MARIELY, CBC #### [address] [address] WBC 6.8 10 3/mcL Normal 4.5-10.8 [facility] Comment on above: Performed By: #### A DIFF, GFR, ANEU, CMP, MARIELY, CBC #### [address] [address] CMPon 12-23-2024 Albumin Level 4.0 G/dL Normal 3.5-5.0 [facility] Comment on above: Performed By: #### A DIFF, GFR, ANEU, CMP, MARIELY, CBC #### [address] [address] Albumin/Globulin [Mass ratio] 1.2 {ratio} Normal 1.1-2.5 [facility] Comment on above: Performed By: #### A DIFF, GFR, ANEU, CMP, MARIELY, CBC #### [place] [id number] ALP [Catalytic activity/Vol] 72 U/L Normal 40-135 [facility] Comment on above: Performed By: #### A DIFF, GFR, ANEU, CMP, MARIELY, CBC #### [place] [address] ALT [Catalytic activity/Vol] 23 U/L Normal 14-59 [facility] Comment on above: Performed By: #### A DIFF, GFR, ANEU, CMP, MARIELY, CBC #### [place] [address] AST [Catalytic activity/Vol] 16 U/L Normal 10-40 [facility] Comment on above: Performed By: #### A DIFF, GFR, ANEU, CMP, MARIELY, CBC #### [address] [address] Bili Total 0.3 mg/dL Normal 0.2-1.0 [facility] Comment on above: Result Comment: Use of this assay is not recommended for patients undergoing treatment with eltrombopag due to the potential for falsely elevated results. Performed By: #### A DIFF, GFR, ANEU, CMP, MARIELY, CBC #### [address] [address] BUN/Creatinine Ratio 11 ratio Normal 7-27 [facility] Comment on above: Performed By: #### A DIFF, GFR, ANEU, CMP, MARIELY, CBC #### [place] [address] Calcium [Mass/Vol] 9.0 mg/dL Normal 8.4-10.2 [facility] Comment on above: Performed By: #### A DIFF, GFR, ANEU, CMP, MARIELY, CBC #### [place] [address] Chloride [Moles/Vol] 103 mmol/L Normal 98-107 [facility] [place] Comment on above: Performed By: #### A DIFF, GFR, ANEU, CMP, MARIELY, CBC #### [place] [address] CO2 [Moles/Vol] 31 mmol/L High 22-29 [facility] Comment on above: Performed By: #### A DIFF, GFR, ANEU, CMP, MARIELY, CBC #### [place] [address] Creatinine [Mass/Vol] 0.89 mg/dL Normal 0.55-1.02 [facility] Comment on above: Result Comment: Test ing performed on Siemens Dimension EXL analyzer using a modified kinetic Jessee technique. Performed By: #### A DIFF, GFR, ANEU, CMP, MARIELY, CBC #### [place] [address] Electrolyte Balance 7.0 mEq/L Normal 4.0-15.0 [facility] Comment on above: Performed By: #### A DIFF, GFR, ANEU, CMP, MARIELY, CBC #### [place] [address] Globulin 3.2 G/dL Normal 1.5-3.8 [facility] Comment on above: Performed By: #### A DIFF, GFR, ANEU, CMP, MARIELY, CBC #### [place] [address] Glucose [Mass/Vol] 94 mg/dL Normal 70-105 [facility] Comment on above: Performed By: #### A DIFF, GFR, ANEU, CMP, MARIELY, CBC #### [place] [address] Potassium [Moles/Vol] 4.6 mmol/L Normal 3.5-5.1 [facility] Comment on above: Performed By: #### A DIFF, GFR, ANEU, CMP, MARIELY, CBC #### [place] [address] [place], [place] [address] Sodium [Moles/Vol] 141 mmol/L Normal 136-145 [facility] Comment on above: Performed By: #### A DIFF, GFR, ANEU, CMP, MARIELY, CBC #### [place] [address] [place], [place] [address] Total Protein 7.2 G/dL Normal 6.4-8.2 [facility] Comment on above: Performed By: #### A DIFF, GFR, ANEU, CMP, MARIELY, CBC #### [place] [address] [place], [place] [address] Urea nitrogen [Mass/Vol] 10 mg/dL Normal 7-18 [facility] Comment on above: Performed By: #### A DIFF, GFR, ANEU, CMP, MARIELY, CBC #### [place] [address] [place], [place] [address] TISSUE EXAMon 12-06-2024 TISSUE EXAM Surgical Pathology R eport Case: [id number] Authorizing Provider: Rudy Lima MD Collected: 12/06/2024 01:00 PM Ordering Location: [facility] Received: 12/06/2024 10:25 PM Hospital Lab Pathologist: Jos Hwang MD Specimen: Gallbladder Gallbladder, cholecystectomy: - Chronic cholecystitis. at 1516 EDT K82.8 Received in formalin labeled Tracey Hathaway and designated gallbladder is an intact gallbladder, measuring 7.7 x 2.5 x 2.4 cm. Serosa is smooth castillo bile-stained green. Cystic duct is patent. Lumen contents reveal dark green viscous bile. No calculi are identified. Mucosa is castillo bile-stained green and velvety. Cystic wall measures 0.1 to 0.2 cm. Cassette Summary: A1- three customer loyalty representative sections of the gallbladder along with the cystic duct margin 4/1. ARJ/NLS Gross examination performed at: [facility] - [address] [place] [address] Microscopic examination is performed. Normal [facility] Comment on above: Performed By: #### 4 7015 #### [facility] [address] [place] [address] King Baxter M.D. [id number] [facility] [address] [place] [address] Chacho Torres M.D. [id number] Hepatobilliary Img w/Pharm I nton 11-11-2024 Hepatobilliary Img w/Pharm Int [facility] [address] [place], [place] [id number] Hepatobilliary Img w/Pharm Int MR#: [id number] Acct: [id number] Name: TRACEY HATHAWAY Rep #: [id number] : 1970 F 54 From: Slade kauffman MD PCP: Dr. Mali Jeffries DO Status: REG CLI Study: Hepatobilliary Img w/Pharm Int Date of Exam: 0 11/11/24 Exam# [id number] Ordering Dr: Mali Jeffries DO PROCEDURE: HEPATOBILLIARY IMG W/PHARM INT REASON FOR EXAM: Right upper quadrant pain. TECHNIQUE: Intravenous Choletec with planar imaging of the abdomen. 1.46 mcg Kinevac intravenously approximately 60 minutes after the radiopharmaceutical with additional anterior imaging and a region of interest drawn around the gallbladder to calculate a time-activity curve. RADIOPHARMACEUTICAL: 5.5 mCi of technetium labeled mebrofenin COMPARISON: None. FINDINGS: There is good uptake of the radiopharmaceutical by the liver. Normal gallbladder visualization with the gallbladder identified by 30 minutes. Gallbladder Ejection Fraction: 12 % (Normal is >35%) NM/Hepatobilliary Img w/Pharm Int IMPRESSION: Abnormal gallbladder ejection fraction. Reading Location: [place] [address] CC: Dr. Mali Jeffries DO Director Of Nuclear Medicine: Signed Normal [facility] Transvaginal Non-on 11-11-2024 Transvaginal Non- [facility] [address] [place] [address] Transvaginal Non- MR#: [id number] Acct: [id number] Name: TRACEY HATHAWAY Rep #: [id number] : 1970 F 54 From: Slade kauffman MD PCP: Dr. Mali Jeffries DO Status: REG CLI Study: Transvaginal Non- Date of Exam: Exam# [id number] Ordering Dr: Tonya Becerra CNM PROCEDURE: TRANSVAGINAL NON- REASON FOR EXAM: Pelvic pain. TECHNIQUE: Transabdominal and transvaginal pelvic ultrasound COMPARISON: None. FINDINGS: The patient is status post hysterectomy. The ovaries were not visualized. TRANSVAGINAL: The patient is status post hysterectomy. Right ovary: Not visualized. Left ovary: Not visualized. Other adnexal findings: None. Cul-de-sac: No free intraperitoneal fluid identified. No tenderness. US/Transvaginal Non- IMPRESSION: Status post hysterectomy. The ovaries were not visualized. Reading Location: [id number] CC: CARLY Bceerra; Dr. Mali Jeffries DO Director Of Nuclear Medicine: Signed Normal [facility] Laboratory - Chemistry and C hemistry - challengeOrdered By: Tonya Becerra on 11-08-2024 Bilirubin Ql (U) Negative [facility] Glucose Ql (U) Negative [facility] Ketones Ql (U) Moderate (40+) [facility] pH (U) 5 [pH] [facility] Specific gravity (U) [Rel density] 1.[address] [facility] Urobilinogen (U) [Mass/Vol] Negative [facility] Laboratory - Hematology and Cell countsOrdered By: Tonya Becerra on 11-08-2024 Hemoglobin Ql (U) Trace [facility] Laboratory - Specimen inform ationOrdered By: Tonya Becerra on 11-08-2024 Clarity (U) Clear [facility] Color (U) YELLOW [facility] Laboratory - UrinalysisOrder ed By: Tonya Becerra on 11-08-2024 Nitrite Ql (U) Negative [facility] Protein Ql (U) Negative [facility] No Panel InformationOrdered By: Tonya Becerra on 11-08-2024 Urine Leukocytes Negatve [facility] Urine Non-Hemolyzed Blood [facility] [employer] Office Visit Reporton 11-08-2024 Seafood [employer]man Office Visit Report [facility] [address], [address] [place] [address] OFFICE VISIT Date of Service: 11/08/24 MR#: [id number] Acct: [id number] Name: TRACEY HATHAWAY Rep #: [id number] : 1970 Provider: CARLY Carpenter ams Age/Sex: 54/F Location: [facility] Status: Signed Intake Vital Signs 08/04/20 13:51 11/08/24 13:50 Height 5 ft 2 in 5 ft 2 in Weight: 168 lb BMI 30.7 BP 139/76 H Intake Visit Reasons: ABN BLOATING AND CRAMPING Chief Complaint: ABD pain, cramping, bloating Is patient in pain?: No Allergies Penicillins (PCN) Adverse Reaction (Verified 11/08/24 14:05) Hives Medications ???Medication ???Instructions ???Recorded ???Confirmed ???Type multivitamin 1 tab PO QWEEK 03/05/20 11/08/24 H istory omeprazole 20 mg capsule,delayed 20 mg PO DAILY 03/05/20 11/08/24 H istory release amitriptyline 10 mg tablet 10 mg PO QHS PRN 11/08/24 11/08/24 History furosemide 20 mg tablet 20 mg PO QDAY 11/08/24 11/08/24 Hi story sumatriptan succinate 100 mg 100 mg PO ONCE PRN 11/08/24 History tablet (Imitrex) thyroid (pork) 60 mg tablet (CLINICAL PSYCHOLOGIST LICENSED 60 mg PO QDAY 11/08/24 11/08/24 Hi story Thyroid) PFSH Medical History Fatty liver follicular/colloid thyroid nodule GERD (gastroesophageal reflux disease) Migraines Tinnitus Urethral hypermobility Stress incontinence Enlarged uterus Abnormal uterine bleeding Surgical History history thyroid biopsy ( 07/24/20) History of LAVH H/O bilateral salpingectomy ( 03/2020) History of LAVH ( 03/2020) H/O LEEP Admission for tubal ligation Family History Father Cancer brain tumor Unknown Diabetes Social History Smoking Status: Never smoker alcohol intake: never substance use type: does not use caffeine: Yes what type of physical activity do you participate in: walking seatbelt use: always do you feel safe at home: Yes additional social history: S/O [place] HPI ABN BLOATING AND CRAMPING Details: TRACEY HATHAWAY is a 54 year old who presents for abdominal cramping and bloating and pressure in vagina. Started in july. Has had hysterectomy by and bladder sling by Dr Jasson nunez 4 years ago. Had 2 UTIs recently. One in JUL and one in SEP that were treated by [facility]. denies discharge and odor and concerns with STIs. Cousin was just dx with stage 3 cancer. Female Reproductive History Questions: sexually active: Yes, dyspareunia: No and PCB: No History 3 Elective abortions Hx Para 3 Spontaneous abortions Hx # Term Pregnancies Ectopic pregnancies Hx # Pregnancies Multiple births # of living children Past Pregnancies Del. Date Name GA/Weeks Outcome Route Bth Weight Gen [facility] FOB Unknown 1989 Erasmo Unknown 1993 Alba Unknown 1997 Anisha ROS Const Constitutional: Reports system reviewed and no additional complaints, except as documented Cardio Card: Reports system reviewed and no additional complaints, except as documented Resp Resp: Reports system reviewed and no additional complaints, except as documented GI GI: Reports system reviewed and no additional complaints, except as documented; Denies abdominal pain, change in stool character or fecal incontinence : Reports system reviewed and no additional complaints, except as documented; Denies difficulty voiding, dysuria, urinary frequency, urinary incontinence or vaginal discharge Skin Skin/Breast: Reports system reviewed and no additional complaints, except as documented Neuro Neuro: Reports system reviewed and no additional complaints, except as documented Psych Psych: Reports system reviewed and no additional complaints, except as documented; Denies suicidal ideation Endo Endo: Reports system reviewed and no additional complaints, except as documented Exam Const General: cooperative, healthy appearing, comfortable and no acute distress Orientation: alert, awake and oriented x3 Neck Neck: normal visual inspection and full ROM Resp Effort Inspection: normal respiratory effort and able to speak in complete sentences GI Inspection: normal to inspection Palpation: soft Rectal Exam: visual inspection normal and normal sphincter tone External Female Exam: normal external appearance and normal appearance of the urethra Urethra: normal appearance of the urethra Speculum Exam - Vagina: normal appearance of the vagina Speculum Exam - Cervix: absent Bimanual Exam- Vagina Uterus: uterus absent Bimanual Exam- Adnexa, other: normal Pelvic Support: normal (more content not included)... Normal [facility] [id number] ([id number])Ordered By: Administrative Support Technician on 06-13-2022 AFP.tumor marker [Mass/Vol] 1.9 ng/mL Normal 0.0-9.2 [facility]; [facility] Work Phone: Comment on above: [facility] El ectrochemiluminescence Immunoassay (ECLIA) .Values obtained with different assay methods or kits cannot beused interchangeably. Results cannot be interpreted as absoluteevidence of the presence or absence of malignant disease. .This test is not interpretable in females. PATIENT NOT FASTINGP ERFORMED BY: [id number] [employer] [place] [id number] BNTP ([id number])Ordered By: Syst em Coupler on 06-13-2022 Natriuretic peptide B (Bld) [Mass/Vol] 25.9 pg/mL Normal 0.0-100.0 [facility]; [facility] Work Phone: Comment on above: PATIENT NOT FASTINGP ERFORMED BY: [id number] [employer] [place] [id number] CALCIFEDIOL ([id number])Ordered B y: Administrative Support Technician on 06-13-2022 25-hydroxyvitamin D [Mass/Vol] 38.3 ng/mL Normal 30.0-100.0 [facility]; [facility] Work Phone: Comment on above: Vitamin D deficiency has been defined by the [place] and an Endocrine Society practice guideline as alevel of serum 25-OH vitamin D less than 20 ng/mL (1,2).The Endocrine Society went on to further define vitamin Dinsufficiency as a level between 21 and 29 ng/mL (2).1. IOM ([place] of [employer]). 2010. Dietary reference intakes for calcium and D. [place]: The National Academies Press.2. She MF, Willie YEH, Romelia CORBIN, et al. Evaluation, treatment, and prevention of vitamin D deficiency: an Endocrine Society clinical practice guideline. JCEM. 2010; 96(7):1911-30. PATIENT NOT FASTINGP ERFORMED BY: CB [facility] Hqyctm[address] [place] [id number] LIPID PANEL (18210)Ordered B y: Administrative Support Technician on 06-13-2022 Cholesterol [Mass/Vol] 208 mg/dL Abnormal 100-199 [facility]; [facility] Work Phone: Comment on above: PATIENT NOT FASTINGP ERFORMED BY: CB [facility] [id number] [place] [id number] Cholesterol in HDL [Mass/Vol] 57 mg/dL Normal [facility]; [facility] Work Phone: Comment on above: PATIENT NOT FASTINGP ERFORMED BY: CB [facility] Tuvaws67[address] [place] [id number] Triglyceride [Mass/Vol] 88 mg/dL Normal 0-149 [facility]; [facility] Work Phone: Comment on above: PATIENT NOT FASTINGP ERFORMED BY: CB [facility] [id number] [address] [place] [id number] LIPID PANEL (42582) 16 mg/dL Normal 5-40 [facility]pr [facility]; [facility] Work Phone: Comment on above: PATIENT NOT FASTINGP ERFORMED BY: CB [facility] Glqqgu9838 [address] [place] [id number] LIPID PANEL (77195) 135 mg/dL Abnormal 0-99 [facility]pr [facility]; [facility] Work Phone: Comment on above: PATIENT NOT FASTINGP ERFORMED BY: [employer] Dist[employer] CoNew Bridge Medical CenterGfvlsc3937 [facility] [id number] LIPID PANEL (50170) 2.4 {ratio} Normal 0.0-3.2 [facility]; [facility] Work Phone: Comment on above: LDL/HDL Ratio Men Wo men 1/2 Avg.Risk 1.0 1.5 Avg.Risk 3.6 3.2 2X Avg.Risk 6.2 5.0 3X Avg.Risk 8.0 6.1 PATIENT NOT FASTINGP ERFORMED BY: [employer] Dist[employer] CoNew Bridge Medical CenterAmbdra7189 [facility] [id number] T3, FREE (TRIDOTHYRONINE) ([id number] [id number])Ordered By: Administrative Support Technician on 06-13-2022 Free T3 [Mass/Vol] 4.1 pg/mL Normal 2.0-4.4 [facility]; [facility] Work Phone: Comment on above: PATIENT NOT FASTINGP ERFORMED BY: [employer] Dist[employer] CoNew Bridge Medical CenterVvwzzt9981 [facility] [id number] T4, FREE (THYROXINE) ([id number]) Ordered By: Administrative Support Technician on 06-13-2022 Free T4 [Mass/Vol] 1.12 ng/dL Normal 0.82-1.77 [facility]; [facility] Work Phone: Comment on above: PATIENT NOT FASTINGP ERFORMED BY: [employer] Dist[employer] CoNew Bridge Medical CenterLkbjzb8464 [facility] [id number] TSH ([id number])Ordered By: [employer] Coupler on 06-13-2022 TSH Qn 0.349 {uIU/mL} Abnormal 0.450-4.50 0 [facility]; [facility] Work Phone: Comment on above: PATIENT NOT FASTINGP ERFORMED BY: [employer] Dist[employer] CoNew Bridge Medical CenterQinykw5338 [facility] [id number] CBC & PLATELETS (AUTO) ([id number])Ordered By: Administrative Support Technician on 12-22-2021 Erythrocyte distribution width (RBC) [Ratio] 13.2 % Normal 11.7-15.4 [facility]; [facility] Work Phone: Comment on above: PATIENT NOT FASTINGP ERFORMED BY: CB [facility] Snjjsl9700 [address]Dublin [place] [id number] Hematocrit (Bld) [Volume fraction] 43.4 % Normal 34.0-46.6 [facility]; [facility] Work Phone: Comment on above: PATIENT NOT FASTINGP ERFORMED BY: CB [facility] Eahkky8[address] [place] [id number] Hemoglobin (Bld) [Mass/Vol] 14.0 g/dL Normal 11.1-15.9 [facility]; [facility] Work Phone: Comment on above: PATIENT NOT FASTINGP ERFORMED BY: CB [facility] Sjzugg8314 [address] [place] [id number] MCH (RBC) [Entitic mass] 29.5 pg Normal 26.6-33.0 [facility]; [facility] Work Phone: Comment on above: PATIENT NOT FASTINGP ERFORMED BY: CB [facility] Dwthnc6604 [address] [place] [id number] MCHC (RBC) [Mass/Vol] 32.3 g/dL Normal 31.5-35.7 [facility]; [facility] Work Phone: Comment on above: PATIENT NOT FASTINGP ERFORMED BY: CB [facility] Iutzza90[address] [place] [id number] MCV (RBC) [Entitic vol] 92 fL Normal 79-97 [facility]; [facility] Work Phone: Comment on above: PATIENT NOT FASTINGP ERFORMED BY: CB [facility] Fzuhkr1088 [address]Dublin [place] [id number] Platelets (Bld) [#/Vol] 356 10*3/uL Normal 150-450 [facility]; [facility] Work Phone: Comment on above: PATIENT NOT FASTINGP ERFORMED BY: CB [facility] Efhftx4133 [address]Dublin [place] [id number] RBC (Bld) [#/Vol] 4.74 10*6/uL Normal 3.77-5.28 Compr ehens[facility]; [facility] Work Phone: Comment on above: PATIENT NOT FASTINGP ERFORMED BY: JG [facility] Ffdzay2482 [facility] [id number] WBC (Bld) [#/Vol] 8.6 10*3/uL Normal 3.4-10.8 Compre hens[facility]; [facility] Work Phone: Comment on above: PATIENT NOT FASTINGP ERFORMED BY: JG [facility] Ibvmgk1337 [facility] [id number] GONADOTROPIN-FSH ([id number])Orde red By: Administrative Support Technician on 12-22-2021 Follitropin Qn 66.8 m[IU]/mL Normal Compreh ensive [facility]; [facility] Work Phone: Comment on above: Adult Female: Follic ular phase 3.5 - 12.5 Ovulation phase 4.7 - 21.5 Luteal phase 1.7 - 7.7 Postmenopausal 25.8 - 134.8 PATIENT NOT FASTINGP ERFORMED BY: JG [facility] Vilwgq4853 [facility] [id number] GONADOTROPIN-LH ([id number])Order ed By: Administrative Support Technician on 12-22-2021 Lutropin Qn 38.3 m[IU]/mL Normal Comprehens [facility]; [facility] Work Phone: Comment on above: Adult Female: Follic ular phase 2.4 - 12.6 Ovulation phase 14.0 - 95.6 Luteal phase 1.0 - 11.4 Postmenopausal 7.7 - 58.5 PATIENT NOT FASTINGP ERFORMED BY: JG [facility] [id number] [facility] [id number] TSH (THYROID STIMULATING HOR BRETT) ([id number])Ordered By: Administrative Support Technician on 12-22-2021 TSH Qn 2.230 {uIU/mL} Normal 0.450-4.50 0 [facility]; [facility] Work Phone: Comment on above: PATIENT NOT FASTINGP ERFORMED BY: JG [facility] [address] [place] [id number] XR FOOT MINIMUM 3 VIEWS LEFT on 06-04-2021 XR FOOT MINIMUM 3 VIEWS LEFT ORIGINAL EXAMINATION: THREE XRAY VIEWS OF THE LEFT FOOT 06/04/2021 5:44 pm COMPARISON: None. HISTORY: ORDERING SYSTEM PROVIDED HISTORY: Reason for Exam: puncture wound pain FINDINGS: The underlying osseous structures appear well mineralized without evidence of fracture or dislocation. The ankle mortise is well maintained. There is no significant soft tissue swelling. No radiopaque foreign body is seen. IMPRESSION: No acute process visualized. No radiopaque foreign body is noted. Interpreted by: Cj Rodriguez Preliminary Report By: Cj Rodriguez Electronically signed By Cj Rodriguez Dictated Date: 06/04/2021 5:48:28 PM Prelim Date: 06/04/2021 5:49:23 PM Sign Date: 06/04/2021 5:49:23 PM Ordering Provider: PILAR CAMACHO [facility], [facility] ([place]) CNOVon 04-20-2021 CNOV Office Visit (AGCARD VEIN) ----- TRACEY HATHAWAY ([id number]) 1970 F NFR Date Time Provider Department 04/20/21 3:15 PM JEROME HAWKINSVECHEL During your visit today, we recorded the following information about you: Weight 74.8 kg Deepthi Tristan RDMS, RVT 04/20/2021 3:34 PM Signed Patient is here today with concerns of pain and swelling in the legs. Patient has tried over the counter compression stockings. Patient walk regularly. Deepthi Tristan RDMS, RVT Jerome Hawkins MD 04/20/2021 3:57 PM Signed Tracey Hathaway is a 50 year old female here for bilateral lower extremity leg swelling. HPI: This is a very pleasant 50-year-old female who presents with several years of bilateral lower extremity leg swelling. She states that she noticed that it began to get worse after she had her hysterectomy done a year or so ago. At this point in time the patient has complaints of bilateral lower extremity swelling with heaviness and occasional cramping in the lower extremities as well. She has no evidence of any significant varicosities but she does complain of discomfort and pain in the legs in general. She does have a lot of spider varicosities but none of these in particular painful is more the lower part of the leg but gets heavy and swollen and as she says feels like she is carrying around a ton of bricks. She has had no sores or ulcerations although she does state that the skin does get dry in the lower extremity and cracks. She does not really have any claudication symptoms. She has no other arterial insufficiency symptomatology such as rest pain or tissue loss. Primarily the patient's situation is one of bilateral lower extremity leg swelling with discomfort heaviness and pain. MEDICATIONS: Current Outpatient Medications Medication Sig Dispense Refill - Omeprazole 40 mg capsule - oxyCODONE-acetaminophen (PERCOCET) 5-325 mg tablet Take 1 tablet by mouth every 4 hours as needed. 45 tablet 0 - COMPOUNDED PRESCRIPTION 1 application by RECTAL route as directed. Nifedipine 2% in 60grams vaseline 1 Container 2 No current facility-administered medications for this visit. ALLERGIES Allergen Reactions - Amoxicillin Rash - Penicillins Rash Wt 165 lb (74.8kg) LMP 06/17/2015 PHYSICAL EXAM: Well-developed well-nourished female alert and oriented person place and time in no acute distress the time of the examination. Bilaterally her legs are mildly swollen at the level of the mid calf to ankle level. Above the mid calf by palpation there is minimal swelling of the tissues. She does have spider varicosities in the lower extremities bilaterally the worst being laterally in the left thigh. None of these in particular are tender or sore. She has palpable pulses in the lower extremities bilaterally that are 1+ and good capillary refill. On palpation of the superficial venous system medially in the thigh to the calf to the ankle there are no palpable cords or phlebitic veins. ASSESSMENT: I feel this lady has primary chronic venous insufficiency and at this point in time really do not feel the need for testing. The testing is going to be somewhat irrelevant in terms of the fact that if it is positive we will recommend the same therapy as it we will recommend if it is not positive. Overall she still shows evidence of bilateral chronic venous insufficiency and with the stigmata of swelling and spider varicosities it is most likely that this is the etiology for her problem. At this point in time I go through a discussion with her as to how to treat this stating that compression is the primary component of treatment and discussing other treatment modalities. PLAN: My plan for the patient is to have her get into knee-high voos-uqe-bwlmzuu compression. I would like to see if she will tolerate this first before ordering any type of prescription compression and if she does tolerate it well I tell her that she can call and we can prescribe her low level prescription stockings that might help even more. I need to get her into compression first and make sure that she will tolerate it before we give her a prescription for stockings that she may not tolerate. In addition to this we talked about the dryness of the skin that it can occur with this type of issue and I talk about a good moisturizing cream that she should use 1-2 times a day especially once after shower. We also talked about leg elevation and trying to do this a couple times a day to try to get the weight of gravity off of the lower legs so that she can decompress them. Finally we talked about exercise and walking being a great exercise for venous disease. We talked about the fact that she should do this in her compression stockings and that she should try to elevate the legs for about 5 minutes at the end of any type of walk. Don (more content not included)... Normal [facility] Treva 04-02-2021 ALANNA Telephone (AGCBENJAMINI Tj) ----- TRACEY HATHAWAY ([id number]) 1970 F NFR Date Time Provider Department 04/02/21 JEROME HAWKINS During your visit today, we recorded the following information about you: Hodan Bashir Dickerson 04/02/2021 9:32 AM Signed April 02, 2021 9:31 AM Received a referral from Dr. Gallegos for venous insufficiency. Called patient to schedule and left message on machine to giovany back. Hodan Bashir Dickerson Allergies As of Date: 04/02/2021 Noted Allergy Reaction AMOXICILLIN 02/03/2006 2 - Rash PENICILLINS 02/03/2006 2 - Rash Date Reviewed: 07/15/2015 Reviewed by: Cooper Adams LPN - Fully Assessed Reason for Visit: Appointment [186] Prescriptions as of 04/02/2021 - oxyCODONE-acetaminophen (PERCOCET) 5-325 mg tablet Take 1 tablet by mouth every 4 hours as needed. - Omeprazole 40 mg capsule - COMPOUNDED PRESCRIPTION 1 application by RECTAL route as directed. 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 Fissure in ano [K60.2] 05/20/2015 PONV (postoperative nausea and vomiting) [R11.2*07/06/2015 Obese [E66.9] 07/06/2015 Rectal bleeding [K62.5] 07/15/2015 Encounter Status:Closed by HODAN BECERRA CMA on 04/02/21 Normal [facility] CBC, Platelets & Auto Diff ( [id number])Ordered By: Administrative Support Technician on 12-21-2020 Basophils (Bld) [#/Vol] 0.1 {x10E3/uL} Normal 0.0-0.2 [facility]; [facility] Work Phone: Comment on above: PATIENT NOT FASTINGP ERFORMED BY: [employer]70 [facility] [id number] Basophils (Bld) [#/Vol] 0.1 10*3/uL Normal 0.0-0.2 [facility]; [facility] Work Phone: Comment on above: PATIENT NOT FASTINGP ERFORMED BY: [employer] [place] [id number] Basophils/100 WBC (Bld) 1 % Normal [facility]; [facility] Work Phone: Comment on above: PATIENT NOT FASTINGP ERFORMED BY: CB [facility] Khjgdq6734 [address] RoadDublin [place] [id number] Eosinophils (Bld) [#/Vol] 0.3 {x10E3/uL} Normal 0.0-0.4 [facility]; [facility] Work Phone: Comment on above: PATIENT NOT FASTINGP ERFORMED BY: CB [facility] Vsaego6960 [address] RoadDublin [place] [id number] Eosinophils (Bld) [#/Vol] 0.3 10*3/uL Normal 0.0-0.4 [facility]; [facility] Work Phone: Comment on above: PATIENT NOT FASTINGP ERFORMED BY: CB [facility] Zrpmeo1574 [address] RoadDublin [place] [id number] Eosinophils/100 WBC (Bld) 3 % Normal [facility]; [facility] Work Phone: Comment on above: PATIENT NOT FASTINGP ERFORMED BY: CB [facility] Imjzqo4995 [address] RoadDublin [place] [id number] Erythrocyte distribution width (RBC) [Ratio] 13.1 % Normal 11.7-15.4 [facility]; [facility] Work Phone: Comment on above: PATIENT NOT FASTINGP ERFORMED BY: CB [facility] Ykiuzr28[address] RoadDublin [place] [id number] Hematocrit (Bld) [Volume fraction] 40.8 % Normal 34.0-46.6 [facility]; [facility] Work Phone: Comment on above: PATIENT NOT FASTINGP ERFORMED BY: CB [facility] Xzjoxh1644 [address] RoadDublin [place] [id number] Hemoglobin (Bld) [Mass/Vol] 13.6 g/dL Normal 11.1-15.9 [facility]; [facility] Work Phone: Comment on above: PATIENT NOT FASTINGP ERFORMED BY: CB [facility] Jscmkg1003 [address] RoadD[address] [place] [id number] Immature granulocytes (Bld) [#/Vol] 0.0 {x10E3/uL} Normal 0.0-0.1 [facility]; [facility] Work Phone: Comment on above: PATIENT NOT FASTINGP ERFORMED BY: JG Edgarzach BrayGmnuey3257 [address] RoadDublin [place] [id number] Immature granulocytes (Bld) [#/Vol] 0.0 10*3/uL Normal 0.0-0.1 [facility]; [facility] Work Phone: Comment on above: PATIENT NOT FASTINGP ERFORMED BY: JG JenniferVictor M BrayUveieq9524 [address] Roadblin [place] [id number] Immature granulocytes/100 WBC (Bld) 0 % Normal [facility]; [facility] Work Phone: Comment on above: PATIENT NOT FASTINGP ERFORMED BY: JG Braylin[address] [facility] [id number] Lymphocytes (Bld) [#/Vol] 2.1 {x10E3/uL} Normal 0.7-3.1 [facility]; [facility] Work Phone: Comment on above: PATIENT NOT FASTINGP ERFORMED BY: JG JenniferVictor M BrayMkwvqj[address] [facility] [place] [id number] Lymphocytes (Bld) [#/Vol] 2.1 10*3/uL Normal 0.7-3.1 [facility]; [facility] Work Phone: Comment on above: PATIENT NOT FASTINGP ERFORMED BY: JG JenniferVictor M BraySfyxuj[address] [facility] [place] [id number] Lymphocytes/100 WBC (Bld) 21 % Normal [facility]; [facility] Work Phone: Comment on above: PATIENT NOT FASTINGP ERFORMED BY: JG JenniferVictor M Pulliam6[address] [place] [id number] MCH (RBC) [Entitic mass] 29.6 pg Normal 26.6-33.0 [facility]; [facility] Work Phone: Comment on above: PATIENT NOT FASTINGP ERFORMED BY: JG Pulliam6370 [facility] [id number] MCHC (RBC) [Mass/Vol] 33.3 g/dL Normal 31.5-35.7 [facility] prehensive Internal Medicine; [facility] Work Phone: Comment on above: PATIENT NOT FASTINGP ERFORMED BY: JG Pulliam6370 [facility] [id number] MCV (RBC) [Entitic vol] 89 fL Normal 79-97 [facility]; [facility] Work Phone: Comment on above: PATIENT NOT FASTINGP ERFORMED BY: JG Braylin6370 [facility] [id number] Monocytes (Bld) [#/Vol] 1.0 {x10E3/uL} Abnormal 0.1-0.9 [facility]; [facility] Work Phone: Comment on above: PATIENT NOT FASTINGP ERFORMED BY: JG Pulliam6370 [facility] [id number] Monocytes (Bld) [#/Vol] 1.0 10*3/uL Abnormal 0.1-0.9 [facility]; [facility] Work Phone: Comment on above: PATIENT NOT FASTINGP ERFORMED BY: JG Braylin6370 [facility] [id number] Monocytes/100 WBC (Bld) 10 % Normal [facility]; [facility] Work Phone: Comment on above: PATIENT NOT FASTINGP ERFORMED BY: JG Braylin6370 [facility] [id number] Neutrophils (Bld) [#/Vol] 6.5 {x10E3/uL} Normal 1.4-7.0 [facility]; [facility] Work Phone: Comment on above: PATIENT NOT FASTINGP ERFORMED BY: JG Braylin[address] [facility] [id number] Neutrophils (Bld) [#/Vol] 6.5 10*3/uL Normal 1.4-7.0 [facility]; [facility] Work Phone: Comment on above: PATIENT NOT FASTINGP ERFORMED BY: CB [facility] Ockajg2828 [address] RoadDublin [place] [id number] Neutrophils/100 WBC (Bld) 65 % Normal [facility]; [facility] Work Phone: Comment on above: PATIENT NOT FASTINGP ERFORMED BY: CB [facility] Ilgrnk2529 [address] [place] [id number] Platelets (Bld) [#/Vol] 339 {x10E3/uL} Normal 150-450 [facility]; [facility] Work Phone: Comment on above: PATIENT NOT FASTINGP ERFORMED BY: CB [facility] Lzqpnx8[address] RoadD[address] [place] [id number] Platelets (Bld) [#/Vol] 339 10*3/uL Normal 150-450 [facility]; [facility] Work Phone: Comment on above: PATIENT NOT FASTINGP ERFORMED BY: CB [facility] Kmytiu4692 [address] RoadDublin [place] [id number] RBC (Bld) [#/Vol] 4.59 {x10E6/uL} Normal 3.77-5.[address] [facility]; [facility] Work Phone: Comment on above: PATIENT NOT FASTINGP ERFORMED BY: CB [facility] Qszkuy3686 [address] RoadDublin [place] [id number] RBC (Bld) [#/Vol] 4.59 10*6/uL Normal 3.77-5.28 [facility]; [facility] Work Phone: Comment on above: PATIENT NOT FASTINGP ERFORMED BY: CB [facility] Tnmrjl9948 [address] RoadDublin [place] [id number] WBC (Bld) [#/Vol] 9.9 {x10E3/uL} Normal 3.4-10.8 [facility]; [facility] Work Phone: Comment on above: PATIENT NOT FASTINGP ERFORMED BY: CB [facility] Mszyoc4002 [address] [place] [id number] WBC (Bld) [#/Vol] 9.9 10*3/uL Normal 3.4-10.8 [facility]; [facility] Work Phone: Comment on above: PATIENT NOT FASTINGP ERFORMED BY: JG [facility] Bjjmio10[address] RoadDublin [place] [id number] MICROALBUMINOrdered By: Syst em Coupler on 12-21-2020 Albumin DL <= 20 mg/L (U) [Mass/Vol] mg/dL Normal [facility]; [facility] Work Phone: Comment on above: Verified by repeat analysis PATIENT NOT FASTINGP ERFORMED BY: JG [facility] Nsnbql[address] [facility] [place] [id number] Albumin DL <= 20 mg/L (U) [Mass/Vol] mg/dL Normal [facility]; [facility] Work Phone: Comment on above: Verified by repeat analysis PATIENT NOT FASTINGP ERFORMED BY: JG [facility] Jujzyy[address] [facility]in [place] [id number] Albumin/Creatinine (U) [Mass ratio] <17 Normal 0-29 [facility]; [facility] Work Phone: Comment on above: Normal: 0 - 29 Moder ately increased: 30 - 300 Severely increased: >300 PATIENT NOT FASTINGP ERFORMED BY: JG [facility] Xzfzsh[address] [facility]in [place] [id number] Creatinine (U) [Mass/Vol] 17.7 mg/dL Normal [facility]; [facility] Work Phone: Comment on above: PATIENT NOT FASTINGP ERFORMED BY: JG [facility] Xzkcmu[address] [facility] [place] [id number] Metabolic Panel, Comprehensi ve ([id number])Ordered By: Administrative Support Technician on 12-21-2020 Albumin [Mass/Vol] 4.1 g/dL Normal 3.8-4.9 [facility]; [facility] Work Phone: Comment on above: PATIENT NOT FASTINGP ERFORMED BY: JG [facility] Owdsbg3637 [address] RoadDublin [place] [id number] Albumin/Globulin [Mass ratio] 1.4 {ratio} Normal 1.2-2.2 [facility]; [facility] Work Phone: Comment on above: PATIENT NOT FASTINGP ERFORMED BY: CB [facility] Gjphdy6895 [address] RoadD[address] [place] [id number] ALP [Catalytic activity/Vol] 83 [iU]/L Normal 39-117 [facility]; [facility] Work Phone: Comment on above: PATIENT NOT FASTINGP ERFORMED BY: CB [facility] Lebeby5[address] RoadDublin [place] [id number] ALP [Catalytic activity/Vol] 83 U/L Normal 39-117 [facility]; [facility] Work Phone: Comment on above: PATIENT NOT FASTINGP ERFORMED BY: JG LabCozach Gfcvhe0078 [address] RoadDublin [place] [id number] ALT [Catalytic activity/Vol] 21 [iU]/L Normal 0-32 [facility]; [facility] Work Phone: Comment on above: PATIENT NOT FASTINGP ERFORMED BY: JG [facility] Ticjiy2170 [address] RoadDublin [place] [id number] ALT [Catalytic activity/Vol] 21 U/L Normal 0-32 [facility]; [facility] Work Phone: Comment on above: PATIENT NOT FASTINGP ERFORMED BY: CB [facility] Qbzixg7512 [address] RoadDublin [place] [id number] AST [Catalytic activity/Vol] 16 [iU]/L Normal 0-40 [facility]; [facility] Work Phone: Comment on above: PATIENT NOT FASTINGP ERFORMED BY: CB [facility] Sgyjtk0452 [address] RoadD[address] [place] [id number] AST [Catalytic activity/Vol] 16 U/L Normal 0-40 [facility]; [facility] Work Phone: Comment on above: PATIENT NOT FASTINGP ERFORMED BY: CB [facility] Abuadj7563 [address]Dublin [place] [id number] Bilirubin [Mass/Vol] mg/dL Normal 0.0-1.2 Comp rehensive [facility]; [facility] Work Phone: Comment on above: PATIENT NOT FASTINGP ERFORMED BY: JG LabCozach BrayGunzxj6168 [address] RoadDublin [place] [id number] Bilirubin [Mass/Vol] mg/dL Normal 0.0-1.2 Comp rehensive [facility]; [facility] Work Phone: Comment on above: PATIENT NOT FASTINGP ERFORMED BY: CB [facility] Fdfrpn6307 [address] RoadD[address] [place] [id number] Calcium [Mass/Vol] 9.4 mg/dL Normal 8.7-10.2 [facility]; [facility] Work Phone: Comment on above: PATIENT NOT FASTINGP ERFORMED BY: [facility] Ylztww0422 [address] RoadNovant [facility] Centerin [place] [id number] Chloride [Moles/Vol] 103 mmol/L Normal 96-106 Comp rehensive [facility]; [facility] Work Phone: Comment on above: PATIENT NOT FASTINGP ERFORMED BY: CB [facility] Acpxuu2642 [address]blin [place] [id number] CO2 [Moles/Vol] 25 mmol/L Normal 20-29 [facility]; [facility] Work Phone: Comment on above: PATIENT NOT FASTINGP ERFORMED BY: CB [facility] Fyypkn1012 [address] RoadNovant [facility] Centerin [place] [id number] Creatinine [Mass/Vol] 0.84 mg/dL Normal 0.57-1.00 [facility] prehensive Internal Medicine; [facility] Work Phone: Comment on above: PATIENT NOT FASTINGP ERFORMED BY: CB [facility] Wmebfi5928 [address] Roadbl[address] [place] [id number] GFR/1.73 sq M predicted among blacks CKD-EPI (S/P/Bld) [Vol rate/Area] 92 mL/min/1.73 Normal [facility]; [facility] Work Phone: Comment on above: PATIENT NOT FASTINGP ERFORMED BY: CB [facility] Bwyjwn7414 [address] RoadDublin [place] [id number] GFR/1.73 sq M predicted among non-blacks CKD-EPI (S/P/Bld) [Vol rate/Area] 80 mL/min/1.73 Normal [facility]; [facility] Work Phone: Comment on above: PATIENT NOT FASTINGP ERFORMED BY: CB [facility] Ibnrso4786 [address] RoadDublin [place] [id number] Globulin (S) [Mass/Vol] 2.9 g/dL Normal 1.5-4.5 [facility]; [facility] Work Phone: Comment on above: PATIENT NOT FASTINGP ERFORMED BY: CB [facility] Ojitlw3054 [address] RoadDublin [place] [id number] Glucose [Mass/Vol] 94 mg/dL Normal 65-99 [facility]; [facility] Work Phone: Comment on above: PATIENT NOT FASTINGP ERFORMED BY: CB [facility] Edjriq2084 [address] RoadDublin [place] [id number] Potassium [Moles/Vol] 4.6 mmol/L Normal 3.5-5.2 [facility] prehensive Internal Medicine; [facility] Work Phone: Comment on above: PATIENT NOT FASTINGP ERFORMED BY: CB [facility] Xnkybt4138 [address] RoadDublin [place] [id number] Protein [Mass/Vol] 7.0 g/dL Normal 6.0-8.5 [facility]; [facility] Work Phone: Comment on above: PATIENT NOT FASTINGP ERFORMED BY: CB [facility] Ipxejv2583 [address] RoadDublin [place] [id number] Sodium [Moles/Vol] 139 mmol/L Normal 134-144 [facility]; [facility] Work Phone: Comment on above: PATIENT NOT FASTINGP ERFORMED BY: CB [facility] Lkmkme1351 [address] RoadDublin [place] [id number] Urea nitrogen [Mass/Vol] 13 mg/dL Normal 6-24 [facility]; [facility] Work Phone: Comment on above: PATIENT NOT FASTINGP ERFORMED BY: JG Pulliam6370 [facility] [id number] Urea nitrogen/Creatinine [Mass ratio] 15 mg/mg Normal 9-23 [facility]; [facility] Work Phone: Comment on above: PATIENT NOT FASTINGP ERFORMED BY: JG Hernández Hmofkj6146 [facility] [id number] TSH ([id number])Ordered By: [employer] Coupler on 12-21-2020 TSH Qn 2.590 {uIU/mL} Normal 0.450-4.50 0 [facility]; [facility] Work Phone: Comment on above: PATIENT NOT FASTINGP ERFORMED BY: JG Edgar Xwounq0393 [facility] [id number] Anti TPO Antibody (02212)Ord ered By: Administrative Support Technician on 06-24-2020 TPO Ab Qn [IU]/mL Normal 0-34 [facility] Work Phone: Comment on above: PATIENT NOT FASTINGP ERFORMED BY: JG Hernández Pfqfvb3872 [facility] [id number] TPO Ab Qn [IU]/mL Normal 0-34 [facility]; [facility] Work Phone: Comment on above: PATIENT NOT FASTINGP ERFORMED BY: JG [facility] Yghllx9184 [facility] [id number] T3, FREE (TRIDOTHYRONINE) (8 1966)Ordered By: Administrative Support Technician on 06-24-2020 Free T3 [Mass/Vol] 2.4 pg/mL Normal 2.0-4.4 [facility] Work Phone: Comment on above: PATIENT NOT FASTINGP ERFORMED BY: JG [facility] Xbnysx1825 [facility] [id number] T4, FREE (THYROXINE) (04001) Ordered By: Administrative Support Technician on 06-24-2020 Free T4 [Mass/Vol] 1.24 ng/dL Normal 0.82-1.77 [facility] Internal [facility] Work Phone: Comment on above: PATIENT NOT FASTINGP ERFORMED BY: JG CloudPhysicsMclaren [facility]ape[facility] Region6370 [facility] [id number] TSH ([id number])Ordered By: Justin m Coupler on 06-24-2020 TSH Qn 1.790 {uIU/mL} Normal 0.450-4.50 0 [facility] Work Phone: Comment on above: PATIENT NOT FASTINGP ERFORMED BY: JG CloudPhysicsMclaren Lape[facility] Region6370 [facility] [id number] CALCIFEDIOL ([id number])Ordered B y: Administrative Support Technician on 06-09-2020 25-Hydroxyvitamin D2+25-Hydroxyvitamin D3 [Mass/Vol] 36.3 ng/mL Normal 30.0-100.0 [facility] Work Phone: Comment on above: Vitamin D deficiency has been defined by the [place] of[place]icine and an Endocrine Society practice guideline as alevel of serum 25-OH vitamin D less than 20 ng/mL (1,2).The Endocrine Society went on to further define vitamin Dinsufficiency as a level between 21 and 29 ng/mL (2).1. IOM ([place] of [employer]). 2010. Dietary reference intakes for calcium and D. [place]: The National Academies Press.2. She MF, Willie NC, Romelia CORBIN, et al. Evaluation, treatment, and prevention of vitamin D deficiency: an Endocrine Society clinical practice guideline. JCEM. 2010; 96(7):1911-30. Test(s) 482351-Aejcj obin, Urinewas developed and its performance characteristics determinedby [employer]. It has not been cleared or approved by the Foodand Drug Administration.PATIENT WAS FASTINGPERFORMED BY: CloudPhysicsMclaren L[facility] Region6370 [facility] [id number] BY: [address] [id number] CBC, Platelets & Auto Diff ( [id number])Ordered By: Administrative Support Technician on 06-09-2020 Basophils (Bld) [#/Vol] 0.1 {x10E3/uL} Normal 0.0-0.2 [facility] Work Phone: Comment on above: Test(s) 998605-Mbypm obin, Urinewas developed and its performance characteristics determinedby [employer]. It has not been cleared or approved by the Foodand Drug Administration.PATIENT WAS FASTINGPERFORMED BY: [employer] Axupqc9016 [facility] [id number] BY: [employer] [id number] Basophils (Bld) [#/Vol] 0.1 10*3/uL Normal 0.0-0.2 [facility]; [facility] Work Phone: Comment on above: Test(s) 039763-Pvhwf obin, Urinewas developed and its performance characteristics determinedby [employer]. It has not been cleared or approved by the Foodand Drug Administration.PATIENT WAS FASTINGPERFORMED BY: ConcernTrakNew Bridge Medical CenterHngshk4966 [facility] [id number] BY: [employer] [id number] Basophils/100 WBC (Bld) 1 % Normal [facility] Work Phone: Comment on above: Test(s) 685160-Kjanv obin, Urinewas developed and its performance characteristics determinedby [employer]. It has not been cleared or approved by the Foodand Drug Administration.PATIENT WAS FASTINGPERFORMED BY: ConcernTrakNew Bridge Medical CenterTieszf4285 [facility] [id number] BY: [employer] [id number] Eosinophils (Bld) [#/Vol] 0.2 {x10E3/uL} Normal 0.0-0.4 [facility] Work Phone: Comment on above: Test(s) 743305-Xexmj obin, Urinewas developed and its performance characteristics determinedby [employer]. It has not been cleared or approved by the Foodand Drug Administration.PATIENT WAS FASTINGPERFORMED BY: [employer] [address] [facility] [id number] BY: [employer] [address] [id number] Eosinophils (Bld) [#/Vol] 0.2 10*3/uL Normal 0.0-0.4 [facility]; [facility] Work Phone: Comment on above: Test(s) 455747-Ollsb obin, Urinewas developed and its performance characteristics determinedby [employer]. It has not been cleared or approved by the Foodand Drug Administration.PATIENT WAS FASTINGPERFORMED BY: [employer]70 [facility] [id number] BY: Digly [address] [id number] Eosinophils/100 WBC (Bld) 3 % Normal [facility] Work Phone: Comment on above: Test(s) 076171-Mmnjc obin, Urinewas developed and its performance characteristics determinedby [employer]. It has not been cleared or approved by the Foodand Drug Administration.PATIENT WAS FASTINGPERFORMED BY: [employer]70 [facility] [id number] BY: Diagonal View[address] [id number] Erythrocyte distribution width (RBC) [Ratio] 13.3 % Normal 11.7-15.4 [facility] Work Phone: Comment on above: Test(s) 869517-Flxuw obin, Urinewas developed and its performance characteristics determinedby [employer]. It has not been cleared or approved by the Foodand Drug Administration.PATIENT WAS FASTINGPERFORMED BY: [employer] Jnngqa0089 [facility] [id number] BY: ConcernTrak[address] [id number] Hematocrit (Bld) [Volume fraction] 40.1 % Normal 34.0-46.6 [facility] Work Phone: Comment on above: Test(s) 332562-Ybvqe obin, Urinewas developed and its performance characteristics determinedby [employer]. It has not been cleared or approved by the Foodand Drug Administration.PATIENT WAS FASTINGPERFORMED BY: LabCo[address] [id number] BY: [place] [id number] Hemoglobin (Bld) [Mass/Vol] 13.0 g/dL Normal 11.1-15.9 [facility] Work Phone: Comment on above: Test(s) 896116-Ghnwr obin, Urinewas developed and its performance characteristics determinedby [employer]. It has not been cleared or approved by the Foodand Drug Administration.PATIENT WAS FASTINGPERFORMED BY: ConcernTrak[address] [id number] BY: [place] [id number] Immature granulocytes (Bld) [#/Vol] 0.0 {x10E3/uL} Normal 0.0-0.1 [facility] Work Phone: Comment on above: Test(s) 107049-Oyqnd obin, Urinewas developed and its performance characteristics determinedby [facility]. It has not been cleared or approved by the Foodand Drug Administration.PATIENT WAS FASTINGPERFORMED BY: ConcernTrak[address] [id number] BY: [address] [id number] Immature granulocytes (Bld) [#/Vol] 0.0 10*3/uL Normal 0.0-0.1 [facility]; [facility] Work Phone: Comment on above: Test(s) 291247-Sxprv obin, Urinewas developed and its performance characteristics determinedby [employer]. It has not been cleared or approved by the Foodand Drug Administration.PATIENT WAS FASTINGPERFORMED BY: [employer] [id number] BY: ConcernTrak[address] [id number] Immature granulocytes/100 WBC (Bld) 0 % Normal [facility] Work Phone: Comment on above: Test(s) 485920-Pykrl obin, Urinewas developed and its performance characteristics determinedby [employer]. It has not been cleared or approved by the Foodand Drug Administration.PATIENT WAS FASTINGPERFORMED BY: [employer] [address] [place] [address] [id number] BY: ConcernTrak[address] [id number] Lymphocytes (Bld) [#/Vol] 2.1 {x10E3/uL} Normal 0.7-3.1 [facility] Work Phone: Comment on above: Test(s) 788023-Kcvay obin, Urinewas developed and its performance characteristics determinedby [employer]. It has not been cleared or approved by the Foodand Drug Administration.PATIENT WAS FASTINGPERFORMED BY: ConcernTrak[address] [id number] BY: ConcernTrak[address] [id number] Lymphocytes (Bld) [#/Vol] 2.1 10*3/uL Normal 0.7-3.1 [facility]; [facility] Work Phone: Comment on above: Test(s) 441201-Yakfb obin, Urinewas developed and its performance characteristics determinedby [employer]. It has not been cleared or approved by the Foodand Drug Administration.PATIENT WAS FASTINGPERFORMED BY: Source4StyleJessica [place]ille 4791470 [facility] [id number] BY: ConcernTrak[address] [id number] Lymphocytes/100 WBC (Bld) 26 % Normal [facility] Work Phone: Comment on above: Test(s) 898922-Opxep obin, Urinewas developed and its performance characteristics determinedby [employer]. It has not been cleared or approved by the Foodand Drug Administration.PATIENT WAS FASTINGPERFORMED BY: ConcernTrakNew Bridge Medical CenterVtmkty8033 [facility] [id number] BY: [employer] [id number] MCH (RBC) [Entitic mass] 28.0 pg Normal 26.6-33.0 [facility] Internal Medicine Work Phone: Comment on above: Test(s) 493648-Dojcp obin, Urinewas developed and its performance characteristics determinedby [employer]. It has not been cleared or approved by the Foodand Drug Administration.PATIENT WAS FASTINGPERFORMED BY: [employer]70 [facility] [id number] BY: ConcernTrak[address] [id number] MCHC (RBC) [Mass/Vol] 32.4 g/dL Normal 31.5-35.7 [facility] Internal Medicine Work Phone: Comment on above: Test(s) 178502-Wmezk obin, Urinewas developed and its performance characteristics determinedby [employer]. It has not been cleared or approved by the Foodand Drug Administration.PATIENT WAS FASTINGPERFORMED BY: ConcernTrakNew Bridge Medical CenterQsvric2588 [facility] [id number] BY: ConcernTrak[address] [id number] MCV (RBC) [Entitic vol] 86 fL Normal 79-97 [facility] Internal Medicine Work Phone: Comment on above: Test(s) 975430-Qdxxk obin, Urinewas developed and its performance characteristics determinedby [employer]. It has not been cleared or approved by the Foodand Drug Administration.PATIENT WAS FASTINGPERFORMED BY: ConcernTrakNew Bridge Medical CenterTlntmf6102 [facility] [id number] BY: ConcernTrak[address] [id number] Monocytes (Bld) [#/Vol] 0.7 {x10E3/uL} Normal 0.1-0.9 [facility] Work Phone: Comment on above: Test(s) 711354-Tynnx obin, Urinewas developed and its performance characteristics determinedby [employer]. It has not been cleared or approved by the Foodand Drug Administration.PATIENT WAS FASTINGPERFORMED BY: [employer] Koljnm8699 [facility] [id number] BY: ConcernTrak[address] [id number] Monocytes (Bld) [#/Vol] 0.7 10*3/uL Normal 0.1-0.9 [facility]; [facility] Work Phone: Comment on above: Test(s) 856319-Aiquh obin, Urinewas developed and its performance characteristics determinedby [employer]. It has not been cleared or approved by the Foodand Drug Administration.PATIENT WAS FASTINGPERFORMED BY: [employer] Wsaiyn3048 [facility] [id number] BY: ConcernTrak[address] [id number] Monocytes/100 WBC (Bld) 9 % Normal [facility] Work Phone: Comment on above: Test(s) 042755-Uuwpa obin, Urinewas developed and its performance characteristics determinedby [employer]. It has not been cleared or approved by the Foodand Drug Administration.PATIENT WAS FASTINGPERFORMED BY: [employer] Zdkvfs6817 [facility] [id number] BY: [employer] [id number] Neutrophils (Bld) [#/Vol] 5.0 {x10E3/uL} Normal 1.4-7.0 [facility] Work Phone: Comment on above: Test(s) 368339-Vrmod obin, Urinewas developed and its performance characteristics determinedby [employer]. It has not been cleared or approved by the Foodand Drug Administration.PATIENT WAS FASTINGPERFORMED BY: [employer] Ztelrs6824 [facility] [id number] BY: ConcernTrak[address] [id number] Neutrophils (Bld) [#/Vol] 5.0 10*3/uL Normal 1.4-7.0 [facility]; [facility] Work Phone: Comment on above: Test(s) 805938-Iypsl obin, Urinewas developed and its performance characteristics determinedby [employer]. It has not been cleared or approved by the Foodand Drug Administration.PATIENT WAS FASTINGPERFORMED BY: [employer]70 [facility] [id number] BY: Digly [address] [id number] Neutrophils/100 WBC (Bld) 61 % Normal [facility] Work Phone: Comment on above: Test(s) 502656-Quqfs obin, Urinewas developed and its performance characteristics determinedby [employer]. It has not been cleared or approved by the Foodand Drug Administration.PATIENT WAS FASTINGPERFORMED BY: AfterCollegelin6370 [facility] [id number] BY: Diagonal View[address] [id number] Platelets (Bld) [#/Vol] 331 {x10E3/uL} Normal 150-450 [facility] Work Phone: Comment on above: Test(s) 894288-Zyizg obin, Urinewas developed and its performance characteristics determinedby [employer]. It has not been cleared or approved by the Foodand Drug Administration.PATIENT WAS FASTINGPERFORMED BY: Source4StyleNew Bridge Medical CenterVdriou9645 [facility] [id number] BY: ConcernTrak[address] [id number] Platelets (Bld) [#/Vol] 331 10*3/uL Normal 150-450 [facility]; [facility] Work Phone: Comment on above: Test(s) 367224-Uicqe obin, Urinewas developed and its performance characteristics determinedby [facility]. It has not been cleared or approved by the Foodand Drug Administration.PATIENT WAS FASTINGPERFORMED BY: [facility] Qkoksy6976 [facility] [id number] BY: LabCo[address] [id number] RBC (Bld) [#/Vol] 4.64 {x10E6/uL} Normal 3.77-5.[address] [facility] Internal Medicine Work Phone: Comment on above: Test(s) 805118-Yuwan obin, Urinewas developed and its performance characteristics determinedby [facility]. It has not been cleared or approved by the Foodand Drug Administration.PATIENT WAS FASTINGPERFORMED BY: CB [facility] Ehehwg7537 [facility] [id number] BY: [employer]Co[address] [id number] RBC (Bld) [#/Vol] 4.64 10*6/uL Normal 3.77-5.28 [facility] Internal Medicine; [facility] Internal Medicine Work Phone: Comment on above: Test(s) 458078-Ovsfs obin, Urinewas developed and its performance characteristics determinedby [facility]. It has not been cleared or approved by the Foodand Drug Administration.PATIENT WAS FASTINGPERFORMED BY: [facility] Yextnb2449 [facility] [id number] BY: [employer]Co[address] [id number] WBC (Bld) [#/Vol] 8.1 {x10E3/uL} Normal 3.4-10.8 [facility] Internal Medicine Work Phone: Comment on above: Test(s) 520546-Jasog obin, Urinewas developed and its performance characteristics determinedby [facility]. It has not been cleared or approved by the Foodand Drug Administration.PATIENT WAS FASTINGPERFORMED BY: [facility] Tbamrt6291 [facility] [id number] BY: BN [employer] [id number] WBC (Bld) [#/Vol] 8.1 10*3/uL Normal 3.4-10.8 [facility]; [facility] Work Phone: Comment on above: Test(s) 923350-Oeglw obin, Urinewas developed and its performance characteristics determinedby [employer]. It has not been cleared or approved by the Foodand Drug Administration.PATIENT WAS FASTINGPERFORMED BY: [employer]70 [facility] HospitalBiosensiaNovant Health [facility] [id number] BY: Digly [address] [id number] MYOGLOBIN (96301)Ordered By: Administrative Support Technician on 06-09-2020 Myoglobin [Mass/Vol] ng/mL Abnormal 25-58 [facility] Internal Medicine Work Phone: Comment on above: Test(s) 693354-Tfqay obin, Urinewas developed and its performance characteristics determinedby [employer]. It has not been cleared or approved by the Foodand Drug Administration.PATIENT WAS FASTINGPERFORMED BY: [employer] Highlights6[address] [facility] [id number] BY: Diagonal View[address] [id number] Myoglobin [Mass/Vol] ng/mL Abnormal 25-58 [facility]; [facility] Work Phone: Comment on above: Test(s) 982327-Xdihu obin, Urinewas developed and its performance characteristics determinedby [employer]. It has not been cleared or approved by the Foodand Drug Administration.PATIENT WAS FASTINGPERFORMED BY: [employer] Highlights6[address] [facility] [id number] BY: ConcernTrak[address] [id number] MYOGLOBIN, URINE (89548)Orde red By: Administrative Support Technician on 06-09-2020 Myoglobin (U) [Mass/Vol] <2 Normal 0-13 [facility] Work Phone: Comment on above: Test(s) 657108-Fmjfl obin, Urinewas developed and its performance characteristics determinedby [employer]. It has not been cleared or approved by the Foodand Drug Administration.PATIENT WAS FASTINGPERFORMED BY: [employer]70 [facility] [id number] BY: ConcernTrak[address] [id number] Metabolic Panel, Comprehensi ve (15794)Ordered By: Administrative Support Technician on 06-09-2020 Albumin [Mass/Vol] 4.2 g/dL Normal 3.8-4.9 [facility] Internal [facility] Work Phone: Comment on above: Test(s) 432260-Hplrc obin, Urinewas developed and its performance characteristics determinedby [employer]. It has not been cleared or approved by the Foodand Drug Administration.PATIENT WAS FASTINGPERFORMED BY: [employer] [facility] [id number] BY: ConcernTrak[address] [id number] Albumin/Globulin [Mass ratio] 1.5 {ratio} Normal 1.2-2.2 [facility] Internal Medicine Work Phone: Comment on above: Test(s) 405935-Pmmsk obin, Urinewas developed and its performance characteristics determinedby [employer]. It has not been cleared or approved by the Foodand Drug Administration.PATIENT WAS FASTINGPERFORMED BY: [employer]70 [facility] [id number] BY: ConcernTrak[address] [id number] ALP [Catalytic activity/Vol] 80 [iU]/L Normal 39-117 [facility] Work Phone: Comment on above: Test(s) 738683-Zfuvo obin, Urinewas developed and its performance characteristics determinedby [employer]. It has not been cleared or approved by the Foodand Drug Administration.PATIENT WAS FASTINGPERFORMED BY: Hail Varsity [facility] [id number] BY: [facility] Children's HospitalSynergy Biomedical[address] [id number] ALP [Catalytic activity/Vol] 80 U/L Normal 39-117 [facility]; [facility] Work Phone: Comment on above: Test(s) 658344-Bumly obin, Urinewas developed and its performance characteristics determinedby [employer]. It has not been cleared or approved by the Foodand Drug Administration.PATIENT WAS FASTINGPERFORMED BY: ConcernTrakJessica [place] 4791470 [facility] [id number] BY: ConcernTrak[address] [id number] ALT [Catalytic activity/Vol] 23 [iU]/L Normal 0-32 [facility] Work Phone: Comment on above: Test(s) 875863-Joydo obin, Urinewas developed and its performance characteristics determinedby [employer]. It has not been cleared or approved by the Foodand Drug Administration.PATIENT WAS FASTINGPERFORMED BY: ConcernTrakJess[place] 4791470 [facility] [id number] BY: ConcernTrak[address] [id number] ALT [Catalytic activity/Vol] 23 U/L Normal 0-32 [facility]; [facility] Work Phone: Comment on above: Test(s) 427305-Fdupy obin, Urinewas developed and its performance characteristics determinedby [employer]. It has not been cleared or approved by the Foodand Drug Administration.PATIENT WAS FASTINGPERFORMED BY: ConcernTrakJess[place] 4791470 [facility] [id number] BY: [address] [id number] AST [Catalytic activity/Vol] 21 [iU]/L Normal 0-40 [facility] Work Phone: Comment on above: Test(s) 906944-Hlwlg obin, Urinewas developed and its performance characteristics determinedby [facility]. It has not been cleared or approved by the Foodand Drug Administration.PATIENT WAS FASTINGPERFORMED BY: [facility] Vaolkv0707 [facility] [id number] BY: Lab[address] [id number] AST [Catalytic activity/Vol] 21 U/L Normal 0-40 [facility] Internal Medicine; [facility] Work Phone: Comment on above: Test(s) 599774-Xkuas obin, Urinewas developed and its performance characteristics determinedby [employer]Sy[employer] Biomedicalrp. It has not been cleared or approved by the Foodand Drug Administration.PATIENT WAS FASTINGPERFORMED BY: [facility] Gtvoqc1182 [facility] [id number] BY: ConcernTrak[address] [id number] Bilirubin [Mass/Vol] mg/dL Normal 0.0-1.2 [facility] Internal Medicine Work Phone: Comment on above: Test(s) 193803-Xiqgj obin, Urinewas developed and its performance characteristics determinedby [employer]. It has not been cleared or approved by the Foodand Drug Administration.PATIENT WAS FASTINGPERFORMED BY: [facility] Slqdbl6013 [facility] [id number] BY: [facility]Co[address] [id number] Bilirubin [Mass/Vol] mg/dL Normal 0.0-1.2 [facility]; [facility] Internal Medicine Work Phone: Comment on above: Test(s) 854114-Uwvwq obin, Urinewas developed and its performance characteristics determinedby [employer]. It has not been cleared or approved by the Foodand Drug Administration.PATIENT WAS FASTINGPERFORMED BY: [facility] Lwzkoj3000 [facility] [id number] BY: Lab[address] [id number] Calcium [Mass/Vol] 9.1 mg/dL Normal 8.7-10.2 [facility] Internal Medicine Work Phone: Comment on above: Test(s) 687195-Xsbtf obin, Urinewas developed and its performance characteristics determinedby [employer]Sy[employer] Biomedicalrp. It has not been cleared or approved by the Foodand Drug Administration.PATIENT WAS FASTINGPERFORMED BY: [employer] [facility] Cetdku3831 [facility] [id number] BY: ConcernTrak[address] [id number] Chloride [Moles/Vol] 101 mmol/L Normal 96-106 [facility] Work Phone: Comment on above: Test(s) 325156-Aqevb obin, Urinewas developed and its performance characteristics determinedby [employer]. It has not been cleared or approved by the Foodand Drug Administration.PATIENT WAS FASTINGPERFORMED BY: Source4Stylerp Biwend2056 [facility] [id number] BY: ConcernTrak[address] [id number] CO2 [Moles/Vol] 25 mmol/L Normal 20-29 [facility] Internal Medicine Work Phone: Comment on above: Test(s) 099199-Iybxh obin, Urinewas developed and its performance characteristics determinedby [employer]. It has not been cleared or approved by the Foodand Drug Administration.PATIENT WAS FASTINGPERFORMED BY: [employer] [facility] Vdoigx7547 [facility] [id number] BY: [employer] [id number] Creatinine [Mass/Vol] 0.99 mg/dL Normal 0.57-1.00 [facility] Internal Medicine Work Phone: Comment on above: Test(s) 186481-Omsyl obin, Urinewas developed and its performance characteristics determinedby [employer]. It has not been cleared or approved by the Foodand Drug Administration.PATIENT WAS FASTINGPERFORMED BY: [employer] [facility] Rjpnnr0695 [facility] [id number] BY: BN [facility] [address] [id number] GFR/1.73 sq M predicted among blacks CKD-EPI (S/P/Bld) [Vol rate/Area] 76 mL/min/1.73 Normal [facility] Work Phone: Comment on above: Test(s) 197301-Gdgnt obin, Urinewas developed and its performance characteristics determinedby [facility]. It has not been cleared or approved by the Foodand Drug Administration.PATIENT WAS FASTINGPERFORMED BY: [employer]70 [facility] [id number] BY: Digly [address] [id number] GFR/1.73 sq M predicted among non-blacks CKD-EPI (S/P/Bld) [Vol rate/Area] 66 mL/min/1.73 Normal [facility] Internal Medicine Work Phone: Comment on above: Test(s) 825440-Ypfum obin, Urinewas developed and its performance characteristics determinedby [employer]. It has not been cleared or approved by the Foodand Drug Administration.PATIENT WAS FASTINGPERFORMED BY: [employer]70 [facility] [id number] BY: Digly [address] [id number] Globulin (S) [Mass/Vol] 2.8 g/dL Normal 1.5-4.5 [facility] Internal Medicine Work Phone: Comment on above: Test(s) 939468-Knsdv obin, Urinewas developed and its performance characteristics determinedby [employer]. It has not been cleared or approved by the Foodand Drug Administration.PATIENT WAS FASTINGPERFORMED BY: [employer]70 [facility] [id number] BY: ConcernTrak[address] [id number] Glucose [Mass/Vol] 87 mg/dL Normal 65-99 [facility] Internal Medicine Work Phone: Comment on above: Test(s) 946188-Peuhi obin, Urinewas developed and its performance characteristics determinedby [facility]. It has not been cleared or approved by the Foodand Drug Administration.PATIENT WAS FASTINGPERFORMED BY: LabCoNew Bridge Medical CenterXazomg4638 [facility] [id number] BY: [address] [id number] Potassium [Moles/Vol] 4.5 mmol/L Normal 3.5-5.2 [facility] Internal [facility] Work Phone: Comment on above: Test(s) 720701-Oyjam obin, Urinewas developed and its performance characteristics determinedby [facility]. It has not been cleared or approved by the Foodand Drug Administration.PATIENT WAS FASTINGPERFORMED BY: ConcernTrakNew Bridge Medical CenterOcgkgf6979 [facility] [id number] BY: ConcernTrak[address] [id number] Protein [Mass/Vol] 7.0 g/dL Normal 6.0-8.5 [facility] Internal Medicine Work Phone: Comment on above: Test(s) 491388-Kijut obin, Urinewas developed and its performance characteristics determinedby [facility]. It has not been cleared or approved by the Foodand Drug Administration.PATIENT WAS FASTINGPERFORMED BY: LabSynergy BiomedicalNew Bridge Medical CenterMcusub9875 [facility] [id number] BY: [address] [id number] Sodium [Moles/Vol] 139 mmol/L Normal 134-144 [facility] Internal Medicine Work Phone: Comment on above: Test(s) 090355-Facta obin, Urinewas developed and its performance characteristics determinedby [facility]. It has not been cleared or approved by the Foodand Drug Administration.PATIENT WAS FASTINGPERFORMED BY: LabCoJessica Ville 4791470 [facility] [id number] BY: [address] [id number] Urea nitrogen [Mass/Vol] 15 mg/dL Normal 6-24 [facility] Work Phone: Comment on above: Test(s) 074510-Yehbr obin, Urinewas developed and its performance characteristics determinedby [employer]. It has not been cleared or approved by the Foodand Drug Administration.PATIENT WAS FASTINGPERFORMED BY: [employer]70 [facility]lightened LifestyleNov[facility] [id number] BY: [employer] [address] [id number] Urea nitrogen/Creatinine [Mass ratio] 15 mg/mg Normal 9-23 [facility] Work Phone: Comment on above: Test(s) 474126-Dxrxl obin, Urinewas developed and its performance characteristics determinedby [employer]. It has not been cleared or approved by the Foodand Drug Administration.PATIENT WAS FASTINGPERFORMED BY: [employer]70 SharpVidFall.comNovant Health [facility] [id number] BY: [employer] [address] [id number] TSH ([id number])Ordered By: Justin Ayala on 06-09-2020 TSH Qn 2.160 {uIU/mL} Normal 0.450-4.50 0 [facility] Work Phone: Comment on above: Test(s) 471811-Xfxgl obin, Urinewas developed and its performance characteristics determinedby [employer]. It has not been cleared or approved by the Foodand Drug Administration.PATIENT WAS FASTINGPERFORMED BY: [employer]70 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 [place] HPV HC,HGH RISK Negative Negative [facility] Office Visit: est annualon 0 05-01-2017 Documentation of current medications (procedure) Done Invalid Interpretation Code [facility] Fall risk assessment No Invalid Interpretation Code [facility] Protein mass conc Done [facility] Tobacco smoking status NHIS Never Invalid Interpretation Code [facility] Tobacco smoking status NHIS Never smoker [facility] Tobacco use CPHS Never smoker Invalid Interpretation Code [facility] Office Visit: est annualon 0 12-24-2010 MG Breast screening Normal Bilateral Invalid Interpretation Code [facility] General categories Cyto stain Interp (Cervical or vaginal smear or scraping) Normal Invalid Interpretation Code [facility] Amylase (55120)Ordered By: S ystem Coupler on 11-30-2010 Amylase [Catalytic activity/Vol] 60 U/L Normal 31-124 [facility] Work Phone: Comment on above: PATIENT WAS FASTINGP ERFORMED BY: [employer]70 [facility] [id number] CBC WITH MANUAL DIFF (56816) Ordered By: Administrative Support Technician on 11-30-2010 Basophils (Bld) [#/Vol] 0.0 {x10E3/uL} Normal 0.0-0.2 [facility] Work Phone: Comment on above: PATIENT WAS FASTINGP ERFORMED BY: [employer]icalrp Cqhcfm2870 [facility] [id number] Information: [id number] Basophils (Bld) [#/Vol] 0.0 10*3/uL Normal 0.0-0.2 [facility] Work Phone: Comment on above: PATIENT WAS FASTINGP ERFORMED BY: Source4StyleNew Bridge Medical CenterKqumtp5708 [facility] [id number] Information: 548007,[id number] Basophils/100 WBC (Bld) 0 % Normal 0-3 [facility] Work Phone: Comment on above: PATIENT WAS FASTINGP ERFORMED BY: [facility]6370 [facility] [id number] Information: [id number] Eosinophils (Bld) [#/Vol] 0.1 {x10E3/uL} Normal 0.0-0.4 [facility] Work Phone: Comment on above: PATIENT WAS FASTINGP ERFORMED BY: [address] [id number] Information: [id number],[id number] Eosinophils (Bld) [#/Vol] 0.1 10*3/uL Normal 0.0-0.4 [facility] Work Phone: Comment on above: PATIENT WAS FASTINGP ERFORMED BY: [address] [id number] Information: [id number] Eosinophils/100 WBC (Bld) 2 % Normal 0-7 [facility] Work Phone: Comment on above: PATIENT WAS FASTINGP ERFORMED BY: [address] [id number] Information: [id number] Erythrocyte distribution width (RBC) [Ratio] 13.5 % Normal 11.7-15.0 [facility] Work Phone: Comment on above: PATIENT WAS FASTINGP ERFORMED BY: [address] [id number] Information: [id number],[id number] Hematocrit (Bld) [Volume fraction] 42.1 % Normal 34.0-44.0 [facility] Work Phone: Comment on above: PATIENT WAS FASTINGP ERFORMED BY: [place] [address] [facility] [id number] Information: [id number],[id number] Hemoglobin (Bld) [Mass/Vol] 14.1 g/dL Normal 11.5-15.0 [facility] Work Phone: Comment on above: PATIENT WAS FASTINGP ERFORMED BY: [facility] [facility] [id number] Information: [id number] Immature granulocytes (Bld) [#/Vol] 0.0 {x10E3/uL} Normal 0.0-0.1 [facility] Work Phone: Comment on above: PATIENT WAS FASTINGP ERFORMED BY: [address] [id number] Information: [id number] Immature granulocytes (Bld) [#/Vol] 0.0 10*3/uL Normal 0.0-0.1 [facility] Work Phone: Comment on above: PATIENT WAS FASTINGP ERFORMED BY: [address] [id number] Information: [id number],[id number] Immature granulocytes/100 WBC (Bld) 0 % Normal 0-1 [facility] Work Phone: Comment on above: PATIENT WAS FASTINGP ERFORMED BY: [address] [id number] Information: [id number] Lymphocytes (Bld) [#/Vol] 1.8 {x10E3/uL} Normal 0.7-4.5 [facility] Work Phone: Comment on above: PATIENT WAS FASTINGP ERFORMED BY: [address] [id number] Information: [id number],G91043 Lymphocytes (Bld) [#/Vol] 1.8 10*3/uL Normal 0.7-4.5 [facility] Work Phone: Comment on above: PATIENT WAS FASTINGP ERFORMED BY: [place] [address] [facility] [id number] Information: [id number],[id number] Lymphocytes/100 WBC (Bld) 22 % Normal 14-46 [facility] Work Phone: Comment on above: PATIENT WAS FASTINGP ERFORMED BY: [place] [address] [facility] [id number] Information: [id number],[id number] MCH (RBC) [Entitic mass] 29.4 pg Normal 27.0-34.0 [facility] Work Phone: Comment on above: PATIENT WAS FASTINGP ERFORMED BY: [address] [id number] Information: 534896,[id number] MCHC (RBC) [Mass/Vol] 33.5 g/dL Normal 32.0-36.0 [facility] Internal Medicine Work Phone: Comment on above: PATIENT WAS FASTINGP ERFORMED BY: [address] [id number] Information: [id number],[id number] MCV (RBC) [Entitic vol] 88 fL Normal 80-98 [facility] Work Phone: Comment on above: PATIENT WAS FASTINGP ERFORMED BY: [address] [id number] Information: [id number] Monocytes (Bld) [#/Vol] 0.6 {x10E3/uL} Normal 0.1-1.0 [facility] Work Phone: Comment on above: PATIENT WAS FASTINGP ERFORMED BY: [address] [id number] Information: [id number] Monocytes (Bld) [#/Vol] 0.6 10*3/uL Normal 0.1-1.0 [facility] Work Phone: Comment on above: PATIENT WAS FASTINGP ERFORMED BY: [facility]6[address] [facility] [id number] Information: [id number] Monocytes/100 WBC (Bld) 8 % Normal 4-13 [facility] Work Phone: Comment on above: PATIENT WAS FASTINGP ERFORMED BY: JG Pulliam6370 [facility] [id number] Information: [id number],[id number] Neutrophils (Bld) [#/Vol] 5.4 {x10E3/uL} Normal 1.8-7.8 [facility] Work Phone: Comment on above: PATIENT WAS FASTINGP ERFORMED BY: JG Hernández Latzsl2328 [facility] [id number] Information: [id number] Neutrophils (Bld) [#/Vol] 5.4 10*3/uL Normal 1.8-7.8 [facility] Work Phone: Comment on above: PATIENT WAS FASTINGP ERFORMED BY: JG Pulliam6370 [facility] [id number] Information: [id number],[id number] Neutrophils/100 WBC (Bld) 68 % Normal 40-74 [facility] Work Phone: Comment on above: PATIENT WAS FASTINGP ERFORMED BY: JG Alexia Braylin6370 [facility] [id number] Information: 656351,[id number] Platelets (Bld) [#/Vol] 289 {x10E3/uL} Normal 140-415 [facility] Work Phone: Comment on above: PATIENT WAS FASTINGP ERFORMED BY: JG Edgar Mqvzkd4119 [facility] [id number] Information: [id number] Platelets (Bld) [#/Vol] 289 10*3/uL Normal 140-415 [facility] Work Phone: Comment on above: PATIENT WAS FASTINGP ERFORMED BY: JG Hernández Owtktc1899 [facility] [id number] Information: 662165,[id number] RBC (Bld) [#/Vol] 4.80 {x10E6/uL} Normal 3.80-5.[address] [facility] Internal Medicine Work Phone: Comment on above: PATIENT WAS FASTINGP ERFORMED BY: JG Edgar Lieeew9078 [facility] [id number] Information: 372121,H01190 RBC (Bld) [#/Vol] 4.80 10*6/uL Normal 3.80-5.10 [facility] Internal Medicine Work Phone: Comment on above: PATIENT WAS FASTINGP ERFORMED BY: JG Edgar Nrdrun1575 [facility] [id number] Information: [id number] WBC (Bld) [#/Vol] 8.0 {x10E3/uL} Normal 4.0-10.5 [facility] Internal Medicine Work Phone: Comment on above: PATIENT WAS FASTINGP ERFORMED BY: JG Edgar Ftygoa5030 [facility] [id number] Information: [id number] WBC (Bld) [#/Vol] 8.0 10*3/uL Normal 4.0-10.5 [facility] Medicine Work Phone: Comment on above: PATIENT WAS FASTINGP ERFORMED BY: JG Edgarzach Nuexpa8738 [facility] [id number] Information: 469388,P22471 LIPID PANEL (81261)Ordered B y: Administrative Support Technician on 11-30-2010 Cholesterol [Mass/Vol] 193 mg/dL Normal 100-199 [facility] Internal Medicine Work Phone: Comment on above: PATIENT WAS FASTINGP ERFORMED BY: JG JenniferResearch [facility] Rivhar5700 [facility] [id number] Cholesterol in HDL [Mass/Vol] 54 mg/dL Normal [facility] Work Phone: Comment on above: According to ATP-III Guidelines, HDL-C >59 mg/dL is considered anegative risk factor for CHD. PATIENT WAS FASTINGP ERFORMED BY: JG LabResearch [facility] Ujmvjv2554 [facility] [id number] Cholesterol in LDL [Mass/Vol] 116 mg/dL Abnormal 0-99 [facility] Work Phone: Comment on above: PATIENT WAS FASTINGP ERFORMED BY: JG LabCozach Opvukh0507 [address] RoadDublin [place] [id number] Cholesterol in LDL/Cholesterol in HDL [Mass ratio] 2.1 {ratio_units} Normal 0.0-3.2 [facility] Work Phone: Comment on above: PATIENT WAS FASTINGP ERFORMED BY: JG [facility] Kwaoud8557 Sharp RoadDublin [place] [id number] Cholesterol in VLDL [Mass/Vol] 23 mg/dL Normal 5-40 [facility] Work Phone: Comment on above: PATIENT WAS FASTINGP ERFORMED BY: JG LabCozach BrayGpknwa7275 [address] RoadDublin [place] [id number] Triglyceride [Mass/Vol] 115 mg/dL Normal 0-149 [facility] Work Phone: Comment on above: PATIENT WAS FASTINGP ERFORMED BY: JG LabCo Soexec[address] [facility]in [place] [id number] Lipase (37201)Ordered By: Sy stem Coupler on 11-30-2010 Lipase [Catalytic activity/Vol] 37 U/L Normal 0-59 [facility] Work Phone: Comment on above: PATIENT WAS FASTINGP ERFORMED BY: JG [facility] Iutdzf[address] [facility] [place] [id number] METABOLIC PANEL, COMPREHENSI VE (49376)Ordered By: Administrative Support Technician on 11-30-2010 Albumin [Mass/Vol] 4.3 g/dL Normal 3.5-5.5 [facility] Internal [facility] Work Phone: Comment on above: PATIENT WAS FASTINGP ERFORMED BY: JG [facility] Cguubg0236 Sharp RoadDublin [place] [id number] Albumin/Globulin [Mass ratio] 1.7 {ratio} Normal 1.1-2.5 [facility] Work Phone: Comment on above: PATIENT WAS FASTINGP ERFORMED BY: JG [facility] Cpcfep4040 Sharp RoadDublin [place] [id number] ALP [Catalytic activity/Vol] 82 [iU]/L Normal 25-150 [facility] Work Phone: Comment on above: PATIENT WAS FASTINGP ERFORMED BY: JG [facility] Gzhokw9155 [address] RoadDublin [place] [id number] ALP [Catalytic activity/Vol] 82 U/L Normal 25-150 [facility] Work Phone: Comment on above: PATIENT WAS FASTINGP ERFORMED BY: Lab[facility] Qttlol4112 [address] RoadDublin [place] [id number] ALT [Catalytic activity/Vol] 34 [iU]/L Normal 0-40 [facility] Work Phone: Comment on above: PATIENT WAS FASTINGP ERFORMED BY: [facility] Divcsb0288 [address] RoadDublin [place] [id number] ALT [Catalytic activity/Vol] 34 U/L Normal 0-40 [facility] Work Phone: Comment on above: PATIENT WAS FASTINGP ERFORMED BY: [facility] Cxgvph6539 [address] RoadDublin [place] [id number] AST [Catalytic activity/Vol] 24 [iU]/L Normal 0-40 [facility] Work Phone: Comment on above: PATIENT WAS FASTINGP ERFORMED BY: [facility] Kxszoc1954 [address] RoadDublin [place] [id number] AST [Catalytic activity/Vol] 24 U/L Normal 0-40 [facility] Work Phone: Comment on above: PATIENT WAS FASTINGP ERFORMED BY: [facility] Mzawan19[address] RoadDublin [place] [id number] Bilirubin [Mass/Vol] 0.3 mg/dL Normal 0.0-1.2 Comp [facility] Internal Medicine Work Phone: Comment on above: PATIENT WAS FASTINGP ERFORMED BY: [facility] Tajcop8823 [address] RoadDublin [place] [id number] Calcium [Mass/Vol] 9.3 mg/dL Normal 8.7-10.2 [facility] Internal [facility] Work Phone: Comment on above: PATIENT WAS FASTINGP ERFORMED BY: CB [facility] Vpncfa2467 [address] RoadDublin [place] [id number] Chloride [Moles/Vol] 102 mmol/L Normal 97-108 Comp rehensive Internal Medicine Work Phone: Comment on above: PATIENT WAS FASTINGP ERFORMED BY: CB [facility] Cnjryl9020 [address] RoadDublin [place] [id number] CO2 [Moles/Vol] 24 mmol/L Normal 20-32 Com[facility] Internal [facility] Work Phone: Comment on above: PATIENT WAS FASTINGP ERFORMED BY: CB [facility] Ggfufi8522 [address] RoadDublin [place] [id number] Creatinine [Mass/Vol] 0.92 mg/dL Normal 0.57-1.00 [facility] Work Phone: Comment on above: PATIENT WAS FASTINGP ERFORMED BY: CB [facility] Hhiwno6688 Sharp RoadNovant [facility] [id number] GFR/1.73 sq M predicted among blacks MDRD (S/P/Bld) [Vol rate/Area] mL/min/{1.73_m2} Normal [facility] Work Phone: Comment on above: Note: Persistent red uction for 3 months or more in an eGFR<60 mL/min/1.73 m2 defines CKD. Patients with eGFR values>/=60 mL/min/1.73 m2 may also have CKD if evidence of persistentproteinuria is present. Additional information may be found [email or web address]. PATIENT WAS FASTINGP ERFORMED BY: CB [facility] Gxjqbk3061 Sharp RoadDuin [place] [id number] GFR/1.73 sq M.predicted MDRD (S/P/Bld) [Vol rate/Area] mL/min/{1.73_m2} Normal [facility] Work Phone: Comment on above: PATIENT WAS FASTINGP ERFORMED BY: CB [facility] Ysuton9668 [address] RoadDublin [place] [id number] Globulin (S) [Mass/Vol] 2.5 g/dL Normal 1.5-4.5 [facility] Internal Medicine Work Phone: Comment on above: PATIENT WAS FASTINGP ERFORMED BY: CB [facility] Nnqctb9890 [address] RoadDublin [place] [id number] Glucose [Mass/Vol] 91 mg/dL Normal 65-99 [facility] Internal Medicine Work Phone: Comment on above: PATIENT WAS FASTINGP ERFORMED BY: CB [facility] Prrjpw9359 [address] RoadDublin [place] [id number] Potassium [Moles/Vol] 4.5 mmol/L Normal 3.5-5.2 [facility] Internal Medicine Work Phone: Comment on above: PATIENT WAS FASTINGP ERFORMED BY: CB [facility] Toqlpb3083 [address] RoadDublin [place] [id number] Protein [Mass/Vol] 6.8 g/dL Normal 6.0-8.5 [facility] Internal Medicine Work Phone: Comment on above: PATIENT WAS FASTINGP ERFORMED BY: CB [facility] Vftxdf5400 [address] RoadDublin [place] [id number] Sodium [Moles/Vol] 139 mmol/L Normal 135-145 [facility] Internal Medicine Work Phone: Comment on above: PATIENT WAS FASTINGP ERFORMED BY: JG [facility] Bhzmsr8203 [address] RoadDublin [place] [id number] Urea nitrogen [Mass/Vol] 14 mg/dL Normal 6-24 [facility] Internal Medicine Work Phone: Comment on above: PATIENT WAS FASTINGP ERFORMED BY: CB [facility] Zlihye8559 [address] RoadDublin [place] [id number] Urea nitrogen/Creatinine [Mass ratio] 15 mg/mg Normal 9-23 [facility] Internal Medicine Work Phone: Comment on above: PATIENT WAS FASTINGP ERFORMED BY: CB [facility] Htiwut6824 [address] RoadDublin [place] [id number] TSH ([id number])Ordered By: Justin Ayala on 11-30-2010 TSH Qn 2.270 {uIU/mL} Normal 0.450-4.50 0 [facility] Work Phone: Comment on above: PATIENT WAS FASTINGP ERFORMED BY: [facility]6[address] [facility] [id number] CBC WITH MANUAL DIFF ([id number]) Ordered By: Administrative Support Technician on 10-05-2009 Basophils (Bld) [#/Vol] 0.0 {x10E3/uL} Normal 0.0-0.2 [facility] Work Phone: Comment on above: PATIENT WAS FASTINGP ERFORMED BY: [address] [id number] Information: [id number] Basophils (Bld) [#/Vol] 0.0 10*3/uL Normal 0.0-0.2 [facility] Work Phone: Comment on above: PATIENT WAS FASTINGP ERFORMED BY: [address] [id number] Information: 115186,[id number] Basophils/100 WBC (Bld) 0 % Normal 0-3 [facility] Work Phone: Comment on above: PATIENT WAS FASTINGP ERFORMED BY: [address] [id number] Information: 249326,[id number] Eosinophils (Bld) [#/Vol] 0.1 {x10E3/uL} Normal 0.0-0.4 [facility] Work Phone: Comment on above: PATIENT WAS FASTINGP ERFORMED BY: [address] [id number] Information: 160910,[id number] Eosinophils (Bld) [#/Vol] 0.1 10*3/uL Normal 0.0-0.4 [facility] Work Phone: Comment on above: PATIENT WAS FASTINGP ERFORMED BY: [address] [id number] Information: 467809,[id number] Eosinophils/100 WBC (Bld) 1 % Normal 0-7 [facility] Work Phone: Comment on above: PATIENT WAS FASTINGP ERFORMED BY: [place] [address] [facility] [id number] Information: 356163,[id number] Erythrocyte distribution width (RBC) [Ratio] 13.4 % Normal 11.7-15.0 [facility] Work Phone: Comment on above: PATIENT WAS FASTINGP ERFORMED BY: [address] [id number] Information: 084944,[id number] Hematocrit (Bld) [Volume fraction] 40.7 % Normal 34.0-44.0 [facility] Work Phone: Comment on above: PATIENT WAS FASTINGP ERFORMED BY: [address] [id number] Information: 745171,[id number] Hemoglobin (Bld) [Mass/Vol] 13.6 g/dL Normal 11.5-15.0 [facility] Work Phone: Comment on above: PATIENT WAS FASTINGP ERFORMED BY: [place] [address]70 [facility] [id number] Information: 354993,[id number] Lymphocytes (Bld) [#/Vol] 1.6 {x10E3/uL} Normal 0.7-4.5 [facility] Work Phone: Comment on above: PATIENT WAS FASTINGP ERFORMED BY: [place] [address]70 [facility] [id number] Information: 007574,[id number] Lymphocytes (Bld) [#/Vol] 1.6 10*3/uL Normal 0.7-4.5 [facility] Work Phone: Comment on above: PATIENT WAS FASTINGP ERFORMED BY: [place] [address]70 [facility] [id number] Information: 252859,[id number] Lymphocytes/100 WBC (Bld) 22 % Normal 14-46 [facility] Internal Medicine Work Phone: Comment on above: PATIENT WAS FASTINGP ERFORMED BY: [address] [id number] Information: [id number],[id number] MCH (RBC) [Entitic mass] 29.7 pg Normal 27.0-34.0 [facility] Internal Medicine Work Phone: Comment on above: PATIENT WAS FASTINGP ERFORMED BY: [address] [id number] Information: 528406,[id number] MCHC (RBC) [Mass/Vol] 33.3 g/dL Normal 32.0-36.0 [facility] Internal Medicine Work Phone: Comment on above: PATIENT WAS FASTINGP ERFORMED BY: [address] [id number] Information: [id number],[id number] MCV (RBC) [Entitic vol] 89 fL Normal 80-98 [facility] Internal Medicine Work Phone: Comment on above: PATIENT WAS FASTINGP ERFORMED BY: [address] [id number] Information: [id number] Monocytes (Bld) [#/Vol] 0.5 {x10E3/uL} Normal 0.1-1.0 [facility] Internal Medicine Work Phone: Comment on above: PATIENT WAS FASTINGP ERFORMED BY: [place] [address]70 [facility] [id number] Information: [id number] Monocytes (Bld) [#/Vol] 0.5 10*3/uL Normal 0.1-1.0 [facility] Internal Medicine Work Phone: Comment on above: PATIENT WAS FASTINGP ERFORMED BY: [address] [id number] Information: [id number] Monocytes/100 WBC (Bld) 7 % Normal 4-13 [facility] Work Phone: Comment on above: PATIENT WAS FASTINGP ERFORMED BY: JG Pulliam6370 [facility] [id number] Information: 780897,[id number] Neutrophils (Bld) [#/Vol] 5.2 {x10E3/uL} Normal 1.8-7.8 [facility] Work Phone: Comment on above: PATIENT WAS FASTINGP ERFORMED BY: JG Hernández Lrbovz7390 [facility] [id number] Information: [id number] Neutrophils (Bld) [#/Vol] 5.2 10*3/uL Normal 1.8-7.8 [facility] Work Phone: Comment on above: PATIENT WAS FASTINGP ERFORMED BY: JG Edgar Esspsg5199 [facility] [id number] Information: [id number] Neutrophils/100 WBC (Bld) 70 % Normal 40-74 [facility] Work Phone: Comment on above: PATIENT WAS FASTINGP ERFORMED BY: JG Hernández Bqfasr7709 [facility] [id number] Information: [id number] Platelets (Bld) [#/Vol] 260 {x10E3/uL} Normal 140-415 [facility] Work Phone: Comment on above: PATIENT WAS FASTINGP ERFORMED BY: JG RodriguezMclaren Lapeer Region6370 [facility] [id number] Information: [id number] Platelets (Bld) [#/Vol] 260 10*3/uL Normal 140-415 [facility] Work Phone: Comment on above: PATIENT WAS FASTINGP ERFORMED BY: JG LabResearch [facility] Omgrcs6294 [facility] [id number] Information: [id number] RBC (Bld) [#/Vol] 4.57 {x10E6/uL} Normal 3.80-5.[address] [facility] Internal Medicine Work Phone: Comment on above: PATIENT WAS FASTINGP ERFORMED BY: JG JenniferVictor M BrayJjcdqd7911 [facility] [id number] Information: [id number] RBC (Bld) [#/Vol] 4.57 10*6/uL Normal 3.80-5.10 [facility] Internal Medicine Work Phone: Comment on above: PATIENT WAS FASTINGP ERFORMED BY: JG LabCoNew Bridge Medical CenterJhnqng0886 [facility] [id number] Information: [id number] WBC (Bld) [#/Vol] 7.4 {x10E3/uL} Normal 4.0-10.5 [facility] Internal Medicine Work Phone: Comment on above: PATIENT WAS FASTINGP ERFORMED BY: JG RodriguezResearch [facility] Bctvsb7698 [facility] [id number] Information: [id number] WBC (Bld) [#/Vol] 7.4 10*3/uL Normal 4.0-10.5 [facility] Internal Medicine Work Phone: Comment on above: PATIENT WAS FASTINGP ERFORMED BY: JG [facility] Tumnvk8389 [facility] [id number] Information: [id number] METABOLIC PANEL, COMPREHENSI VE ([id number])Ordered By: Administrative Support Technician on 10-05-2009 Albumin [Mass/Vol] 4.3 g/dL Normal 3.5-5.5 [facility] Work Phone: Comment on above: PATIENT WAS FASTINGP ERFORMED BY: JG LabMcl[facility]6[address] [facility] [id number] Albumin/Globulin [Mass ratio] 1.7 {ratio} Normal 1.1-2.5 [facility] Internal Medicine Work Phone: Comment on above: PATIENT WAS FASTINGP ERFORMED BY: JG LabMclaren Lape[facility] Region[address] RoadDublin [place] [id number] ALP [Catalytic activity/Vol] 79 [iU]/L Normal 25-150 [facility] Work Phone: Comment on above: PATIENT WAS FASTINGP ERFORMED BY: JG [facility] Ysnfky7[address] RoadDublin [place] [id number] ALP [Catalytic activity/Vol] 79 U/L Normal 25-150 [facility] Work Phone: Comment on above: PATIENT WAS FASTINGP ERFORMED BY: [facility] Imqlwl8972 [address] RoadDublin [place] [id number] ALT [Catalytic activity/Vol] 25 [iU]/L Normal 0-40 [facility] Work Phone: Comment on above: PATIENT WAS FASTINGP ERFORMED BY: [facility] Ifptci0[address] RoadDublin [place] [id number] ALT [Catalytic activity/Vol] 25 U/L Normal 0-40 [facility] Work Phone: Comment on above: PATIENT WAS FASTINGP ERFORMED BY: [facility] Dtpwha90[address] RoadDublin [place] [id number] AST [Catalytic activity/Vol] 21 [iU]/L Normal 0-40 [facility] Work Phone: Comment on above: PATIENT WAS FASTINGP ERFORMED BY: [facility] Jpqnyj4[address] RoadDublin [place] [id number] AST [Catalytic activity/Vol] 21 U/L Normal 0-40 [facility] Work Phone: Comment on above: PATIENT WAS FASTINGP ERFORMED BY: [facility] Zrdavw2[address]Dublin [place] [id number] Bilirubin [Mass/Vol] 0.2 mg/dL Normal 0.1-1.2 [facility] Work Phone: Comment on above: PATIENT WAS FASTINGP ERFORMED BY: [facility] Nxqcho9723 [address] RoadDublin [place] [id number] Calcium [Mass/Vol] 9.1 mg/dL Normal 8.7-10.2 [facility] Work Phone: Comment on above: PATIENT WAS FASTINGP ERFORMED BY: CB [facility] Dzecaw33[address]Dublin [place] [id number] Chloride [Moles/Vol] 105 mmol/L Normal 97-108 Comp rehensive Internal Medicine Work Phone: Comment on above: PATIENT WAS FASTINGP ERFORMED BY: CB [facility] Xmnydg7441 [address] RoadDublin [place] [id number] CO2 [Moles/Vol] 22 mmol/L Normal 20-32 Com[facility] Internal Medicine Work Phone: Comment on above: PATIENT WAS FASTINGP ERFORMED BY: CB [facility] Bvfwhw5007 [address] RoadDublin [place] [id number] Creatinine [Mass/Vol] 0.86 mg/dL Normal 0.57-1.00 [facility] Work Phone: Comment on above: PATIENT WAS FASTINGP ERFORMED BY: CB [facility] Zqntpt6900 [address] RoadNov[facility] [id number] GFR/1.73 sq M predicted among blacks MDRD (S/P/Bld) [Vol rate/Area] mL/min/{1.73_m2} Normal [facility] Work Phone: Comment on above: Note: Persistent red uction for 3 months or more in an eGFR<60 mL/min/1.73 m2 defines CKD. Patients with eGFR values>/=60 mL/min/1.73 m2 may also have CKD if evidence of persistentproteinuria is present. Additional information may be found [email or web address]. PATIENT WAS FASTINGP ERFORMED BY: CB [facility] Coqflk5148 [address] RoadDuin [place] [id number] GFR/1.73 sq M.predicted MDRD (S/P/Bld) [Vol rate/Area] mL/min/{1.73_m2} Normal [facility] Work Phone: Comment on above: PATIENT WAS FASTINGP ERFORMED BY: CB [facility] Jmtbpc5086 [address] RoadDublin [place] [id number] Globulin (S) [Mass/Vol] 2.5 g/dL Normal 1.5-4.5 [facility] Internal Medicine Work Phone: Comment on above: PATIENT WAS FASTINGP ERFORMED BY: JG [facility] Vjbhgi57[address] RoadDublin [place] [id number] Glucose [Mass/Vol] 96 mg/dL Normal 65-99 [facility] Work Phone: Comment on above: PATIENT WAS FASTINGP ERFORMED BY: CB [facility] Ypdmne3882 [address] RoadDublin [place] [id number] Potassium [Moles/Vol] 4.4 mmol/L Normal 3.5-5.2 [facility] Internal Medicine Work Phone: Comment on above: PATIENT WAS FASTINGP ERFORMED BY: JG [facility] Hcamhg2959 [address] RoadDublin [place] [id number] Protein [Mass/Vol] 6.8 g/dL Normal 6.0-8.5 [facility] Work Phone: Comment on above: PATIENT WAS FASTINGP ERFORMED BY: JG [facility] Aehsmb8330 [address] RoadDublin [place] [id number] Sodium [Moles/Vol] 141 mmol/L Normal 135-145 [facility] Work Phone: Comment on above: PATIENT WAS FASTINGP ERFORMED BY: JG [facility] Ucbliu7068 [address]rap Asp[facility] Ironwood HospitalDuin [place] [id number] Urea nitrogen [Mass/Vol] 12 mg/dL Normal 5-26 [facility] Internal Medicine Work Phone: Comment on above: PATIENT WAS FASTINGP ERFORMED BY: CB [facility] Rczepd8347 [address] RoadDublin [place] [id number] Urea nitrogen/Creatinine [Mass ratio] 14 mg/mg Normal 8-27 [facility] Internal Medicine Work Phone: Comment on above: PATIENT WAS FASTINGP ERFORMED BY: CB [facility] Tciikn50[address] RoadDublin [place] [id number] TSH ([id number])Ordered By: Justin Ayala on 10-05-2009 TSH Qn 2.020 {uIU/mL} Normal 0.450-4.50 0 [facility] Work Phone: Comment on above: Effective October 19, 2009, TSH reference interval for11 - 19 years will be changing to: 0.450 - 4.500 uIU/mLReference interval for all other ages will NOT be affected. PATIENT WAS FASTINGP ERFORMED BY: JG LabCozach BrayOiybrh0059 [address] RoadDublin [place] [id number] URINALYSIS, W/ MICRO ([id number]) Ordered By: Administrative Support Technician on 10-05-2009 Appearance (U) Clear Normal Comprehens [facility] Internal Medicine Work Phone: Comment on above: PATIENT WAS FASTINGP ERFORMED BY: JG LabVictor M BrayXwtdvn3498 [address] RoadDublin [place] [id number] Bilirubin Ql (U) Negative Normal Comprehe nsive Internal Medicine Work Phone: Comment on above: PATIENT WAS FASTINGP ERFORMED BY: JG LabCozach BrayGlfamd2[address] RoadDublin [place] [id number] Bilirubin Ql (U) Negative Normal Comprehe nsive Internal Medicine Work Phone: Comment on above: PATIENT WAS FASTINGP ERFORMED BY: JG LabCozach BrayZwvdxg7265 [address] RoadDublin [place] [id number] Color (U) Yellow Normal [facility] Work Phone: Comment on above: PATIENT WAS FASTINGP ERFORMED BY: JG LabCozach BrayHiprrw0697 [address] RoadDublin [place] [id number] Glucose Ql (U) Negative Normal Com[facility] Internal Medicine Work Phone: Comment on above: PATIENT WAS FASTINGP ERFORMED BY: JG [facility] Urenjo6923 [address] RoadDublin [place] [id number] Glucose Ql (U) Negative Normal Com[facility] Work Phone: Comment on above: PATIENT WAS FASTINGP ERFORMED BY: JG [facility] Lbwydw3813 [address] RoadDublin [place] [id number] Hemoglobin Ql (U) Negative Normal Compreh ensive Internal Medicine Work Phone: Comment on above: PATIENT WAS FASTINGP ERFORMED BY: JG [facility] Etvhfg4125 [address] RoadDublin [place] [id number] Hemoglobin Ql (U) Negative Normal Compreh ensive Internal Medicine Work Phone: Comment on above: PATIENT WAS FASTINGP ERFORMED BY: JG [facility] Bizgpp5918 [address] RoadDublin [place] [id number] Ketones Ql (U) Negative Normal [facility] Work Phone: Comment on above: PATIENT WAS FASTINGP ERFORMED BY: JG [facility] Knunmx3656 [address] RoadDublin [place] [id number] Ketones Ql (U) Negative Normal [facility] Work Phone: Comment on above: PATIENT WAS FASTINGP ERFORMED BY: JG LabCozach BrayWyewls2327 [address] RoadDublin [place] [id number] Leukocyte esterase Test strip Ql (U) Negative Normal [facility] Work Phone: Comment on above: PATIENT WAS FASTINGP ERFORMED BY: JG LabCozach BrayYlhoad3[address] RoadDublin [place] [id number] Leukocyte esterase Test strip Ql (U) Negative Normal [facility] Work Phone: Comment on above: PATIENT WAS FASTINGP ERFORMED BY: JG Braylin6[address]Dublin [place] [id number] Microscopic observation LM Nom (Urine sed) See below: Normal [facility] Work Phone: Comment on above: PATIENT WAS FASTINGP ERFORMED BY: JG [facility] Wdoezb7718 [address] RoadDublin [place] [id number] Microscopic observation LM Nom (Urine sed) MICRON Normal [facility] Work Phone: Comment on above: Microscopic follows if indicated. PATIENT WAS FASTINGP ERFORMED BY: JG [facility] Zjhlnj8985 [address] RoadDublin [place] [id number] Nitrite Ql (U) Negative Normal [facility] Work Phone: Comment on above: PATIENT WAS FASTINGP ERFORMED BY: JG [facility] Zrhdbq9368 [address] RoadDublin [place] [id number] Nitrite Ql (U) Negative Normal [facility] Work Phone: Comment on above: PATIENT WAS FASTINGP ERFORMED BY: JG [facility] Imwnik4422 [address] RoadDublin [place] [id number] pH (U) 7.5 [pH] Normal 5.0-7.5 [facility] Work Phone: Comment on above: PATIENT WAS FASTINGP ERFORMED BY: JG [facility] Jcjvno5933 [address] RoadDublin [place] [id number] Protein Ql (U) Negative Normal [facility] Work Phone: Comment on above: PATIENT WAS FASTINGP ERFORMED BY: JG [facility] Mopddr0612 [address] RoadDublin [place] [id number] Protein Ql (U) Negative Normal [facility] Work Phone: Comment on above: PATIENT WAS FASTINGP ERFORMED BY: JG [facility] Tkckab5956 [address] RoadDublin [place] [id number] Specific gravity (U) [Rel density] 1.017 1 Normal 1.005-1.03 0 [facility] Internal Medicine Work Phone: Comment on above: PATIENT WAS FASTINGP ERFORMED BY: JG [facility] Jgqhcx5[address] RoadDublin [place] [id number] Urobilinogen (U) [Mass/Vol] 0.2 mg/dL Normal 0.0-1.9 [facility] Work Phone: Comment on above: PATIENT WAS FASTINGP ERFORMED BY: [facility] Yuyeuq5595 [address] RoadDublin [place] [id number] Urobilinogen Test strip (U) [Mass/Vol] 0.2 mg/dL Normal 0.0-1.9 Comprehensi Internal Medicine Work Phone: Comment on above: PATIENT WAS FASTINGP ERFORMED BY: [facility] Ayvnao9941 [address] RoadDublin [place] [id number] Urinalysis, Office ([id number])Or dered By: Mariely Tripp on 03-24-2008 Bilirubin Ql (U) Negative Normal Comprehe nsive [facility] Medicine Work Phone: Comment on above: Neg for protein in u rine Bilirubin Ql (U) Negative Normal Compre[facility] nsive [facility] Work Phone: Comment on above: Neg for protein in u rine Glucose Test strip (U) [Mass/Vol] Negative Normal [facility] Work Phone: Comment on above: Neg for protein in u rine Glucose Test strip (U) [Mass/Vol] Negative Normal [facility] Work Phone: Comment on above: Neg for protein in u rine Hemoglobin Ql (U) Non Hemolyzed Trace Normal [facility] Work Phone: Comment on above: Neg for protein in u rine Ketones Ql (U) Negative Normal [facility] Work Phone: Comment on above: Neg for protein in u rine Ketones Ql (U) Negative Normal [facility] Work Phone: Comment on above: Neg for protein in u rine Leukocyte esterase Test strip Ql (U) Negative Normal [facility] Work Phone: Comment on above: Neg for protein in u rine Leukocyte esterase Test strip Ql (U) Negative Normal [facility] Work Phone: Comment on above: Neg for protein in u rine Nitrite Ql (U) Negative Normal [facility] Work Phone: Comment on above: Neg for protein in u rine Nitrite Ql (U) Negative Normal [facility] Work Phone: Comment on above: Neg for protein in u rine pH (U) 6.0 [pH] Normal [facility] Work Phone: Comment on above: Neg for protein in u rine Protein Ql (U) Negative Normal [facility] Work Phone: Comment on above: Neg for protein in u rine Protein Ql (U) Negative Normal [facility] Work Phone: Comment on above: Neg for protein in u rine Specific gravity (U) [Rel density] 1.020 1 Normal [facility] Work Phone: Comment on above: Neg for protein in u rine Urobilinogen (24H U) [Mass/Time] Normal Normal [facility] Work Phone: Comment on above: Neg for protein in u rine Vital Signs Date Time Vital Sign Value Performing Clinician Facility 11-08-2024 13:50-0500 Body height 157.[address] Mali Jeffries DO Work Phone: [facility] 11-08-2024 13:50-0500 Body mass index (BMI) [Ratio] 30.7 kg/m2 Dr. Mali Jeffries DO Work Phone: [facility] 11-08-2024 13:50-0500 Body weight 76.[address] Mali Jeffries DO Work Phone: [facility] 11-08-2024 13:50-0500 Diastolic blood pressure 76 mm[Hg] Dr. Mali Jeffries DO Work Phone: [facility] 11-08-2024 13:50-0500 Systolic blood pressure 139 mm[Hg] Dr. Mali Jeffries DO Work Phone: [facility] 07-01-2022 08:11-0400 Body height 157.48 cm Jonathon Andrew LPN [facility]; [facility] Work Phone: 07-01-2022 08:11-0400 Body mass index (BMI) [Ratio] 30.69 kg/m2 Jonathon Andrew LPN [facility]; [facility] Work Phone: 07-01-2022 08:11-0400 Body surface area Derived from formula 1.77 m2 Jonathon Andrew LPN [facility]; [facility] Work Phone: 07-01-2022 08:11-0400 Body temperature 97.8 [degF] Jonathon Andrew LPN [facility]; [facility] Work Phone: Comment on above: Method: Infrared 07-01-2022 08:110400 Body weight 76.11 kg Jonathon Andrew LPN [facility]; [facility] Work Phone: 07-01-2022 08:11-0400 Diastolic blood pressure 80 mm[Hg] Jonathon Andrew LPN [facility]; [facility] Work Phone: Comment on above: Patient Position: Sitting; Cuff Location : Left Arm; Cuff Size: Standard 07-01-2022 08:11-0400 Heart rate 78 /min Jonathon Andrew LPN [facility]; [facility] Work Phone: Comment on above: Pattern: Regular 07-01-2022 08:11-0400 Respiratory rate 16 /min Jonathon Andrew LPN [facility]; [facility] Work Phone: Comment on above: Pattern: Unlabored 07-01-2022 08:11-0400 SaO2% (BldA) [Mass fraction] 97 % Jonathon Andrew LPN [facility]; [facility] Work Phone: Comment on above: Room air 07-01-2022 08:11-0400 Systolic blood pressure 128 mm[Hg] Jonathon Andrew LPN [facility]; [facility] Work Phone: Comment on above: Patient Position: Sitting; Cuff Location : Left Arm; Cuff Size: Standard 06-13-2022 11:27-0400 Body height 157.48 cm Jonah [place] [facility]; [facility] Work Phone: 06-13-2022 11:27-0400 Body mass index (BMI) [Ratio] 31.37 kg/m2 Jonah Matteo [facility]; [facility] Work Phone: 06-13-2022 11:27-0400 Body surface area Derived from formula 1.79 m2 Jonah Felipe [facility]; [facility] Work Phone: 06-13-2022 11:27-0400 Body temperature 97.3 [degF] Jonah Matteo [facility]; [facility] Work Phone: 06-13-2022 11:27-0400 Body weight 77.79 kg Jonah Felipe [facility]; [facility] Work Phone: 06-13-2022 11:27-0400 Diastolic blood pressure 80 mm[Hg] Jonah Felipe [facility]; [facility] Work Phone: Comment on above: Patient Position: Sitting; Cuff Location : Left Arm; Cuff Size: Standard 06-13-2022 11:27-0400 Heart rate 67 /min [facility]; [facility] Work Phone: Comment on above: Pattern: Regular 06-13-2022 11:27-0400 Respiratory rate 16 /min [facility]; [facility] Work Phone: Comment on above: Pattern: Unlabored 06-13-2022 11:27-0400 SaO2% (BldA) [Mass fraction] 99 % [facility]; [facility] Work Phone: Comment on above: Room air 06-13-2022 11:27-0400 Systolic blood pressure 118 mm[Hg] Jonah Felipe [facility]; [facility] Work Phone: Comment on above: Patient Position: Sitting; Cuff Location : Left Arm; Cuff Size: Standard 12-30-2021 12:19-0400 Diastolic blood pressure 78 mm[Hg] GHASSAN DEE MD [facility] 12-30-2021 12:19-0400 Heart rate 77 /min GHASSAN DEE MD [facility] 12-30-2021 12:19-0400 Respiratory rate 16 /min GHASSAN DEE MD [facility] 12-30-2021 12:19-0400 Systolic blood pressure 122 mm[Hg] GHASSAN DEE MD [facility] 12-30-2021 10:43-0400 Body height 157.5 cm GHASSAN DEE MD [facility] 12-30-2021 10:43-0400 Body temperature 98.06 [degF] GHASSAN DEE MD [facility] 12-30-2021 10:43-0400 Body weight 68.2 kg GHASSAN DEE MD [facility] 12-30-2021 10:43-0400 Diastolic blood pressure 94 mm[Hg] GHASSAN DEE MD [facility] 12-30-2021 10:43-0400 Heart rate 80 /min GHASSAN DEE MD [facility] 12-30-2021 10:43-0400 Respiratory rate 18 /min GHASSAN DEE MD [facility] 12-30-2021 10:43-0400 Systolic blood pressure 164 mm[Hg] GHASSAN DEE MD [facility] 12-22-2021 14:53-0400 Body height 157.48 cm Jonathon Andrew LPN [facility]; [facility] Work Phone: 12-22-2021 14:53-0400 Body mass index (BMI) [Ratio] 28.42 kg/m2 Jonathon Andrew LPN [facility]; [facility] Work Phone: 12-22-2021 14:53-0400 Body surface area Derived from formula 1.72 m2 Jonathon Andrew LPN [facility]; [facility] Work Phone: 12-22-2021 14:53-0400 Body temperature 97.8 [degF] Jonathon Andrew LPN [facility]; [facility] Work Phone: Comment on above: Method: Infrared 12-22-2021 14:53-0400 Body weight 70.49 kg Jonathon Andrew LPN [facility]; [facility] Work Phone: 12-22-2021 14:53-0400 Diastolic blood pressure 70 mm[Hg] Jonathon Andrew LPN [facility]; [facility] Work Phone: Comment on above: Patient Position: Sitting; Cuff Location : Left Arm; Cuff Size: Standard 12-22-2021 14:53-0400 Heart rate 100 /min Jonathon Andrew LPN [facility]; [facility] Work Phone: Comment on above: Pattern: Regular 12-22-2021 14:53-0400 Respiratory rate 16 /min Jonathon Andrew LPN [facility]; [facility] Work Phone: Comment on above: Pattern: Unlabored 12-22-2021 14:53-0400 SaO2% (BldA) [Mass fraction] 98 % Jonathon Andrew LPN [facility]; [facility] Work Phone: Comment on above: Room air 12-22-2021 14:53-0400 Systolic blood pressure 112 mm[Hg] Jonathon Andrew LPN [facility]; [facility] Work Phone: Comment on above: Patient Position: Sitting; Cuff Location : Left Arm; Cuff Size: Standard 05-13-2021 07:45-0400 Body height 157.48 cm Radha Choi [facility]; [facility] Work Phone: 05-13-2021 07:45-0400 Body mass index (BMI) [Ratio] 29.31 kg/m2 Radha Choi [facility]; [facility] Work Phone: 05-13-2021 07:45-0400 Body surface area Derived from formula 1.74 m2 Radha Choi [facility]; [facility] Work Phone: 05-13-2021 07:45-0400 Body temperature 97.3 [degF] Radha Choi [employer] DESIGN AG[employer] [facility]; [facility] Work Phone: Comment on above: Method: Infrared 05-13-2021 07:45-0400 Body weight 72.69 kg Radha Choi [facility]; [facility] Work Phone: 05-13-2021 07:45-0400 Diastolic blood pressure 78 mm[Hg] Radha Choi [facility]; [facility] Work Phone: Comment on above: Patient Position: Sitting; Cuff Location : Left Arm; Cuff Size: Standard 05-13-2021 07:45-0400 Heart rate 89 /min Radha Choi [facility]; [facility] Work Phone: Comment on above: Pattern: Regular 05-13-2021 07:45-0400 Respiratory rate 18 /min Radha Choi [facility]; [facility] Work Phone: Comment on above: Pattern: Unlabored 05-13-2021 07:45-0400 SaO2% (BldA) [Mass fraction] 98 % Radha Choi [facility]; [facility] Work Phone: Comment on above: Room air 05-13-2021 07:45-0400 Systolic blood pressure 111 mm[Hg] Radha Choi [facility]; [facility] Work Phone: Comment on above: Patient Position: Sitting; Cuff Location : Left Arm; Cuff Size: Standard 04-22-2021 07:48-0400 Body height 157.48 cm Mony King LPN [facility]; [facility] Work Phone: 04-22-2021 07:48-0400 Body mass index (BMI) [Ratio] 30.04 kg/m2 Mony King [facility]; [facility] Work Phone: 04-22-2021 07:48-0400 Body surface area Derived from formula 1.76 m2 Mony King LPN [facility]; [facility] Work Phone: 04-22-2021 07:48-0400 Body temperature 97 [degF] Mony King LPN [facility]; [facility] Work Phone: Comment on above: Method: Temporal 04-22-2021 07:48-0400 Body weight 74.5 kg Mony King LPN [facility]; [facility] Work Phone: 04-22-2021 07:48-0400 Diastolic blood pressure 80 mm[Hg] Mony King LPN [facility]; [facility] Work Phone: Comment on above: Patient Position: Sitting; Cuff Location : Left Arm; Cuff Size: Standard 04-22-2021 07:48-0400 Heart rate 77 /min Mony King LPN [facility]; [facility] Work Phone: Comment on above: Pattern: Regular 04-22-2021 07:48-0400 Respiratory rate 16 /min Mony King LPN [facility]; [facility] Work Phone: Comment on above: Pattern: Unlabored 04-22-2021 07:48-0400 SaO2% (BldA) [Mass fraction] 98 % Mony King LPN [facility]; [facility] Work Phone: Comment on above: Room air 04-22-2021 07:48-0400 Systolic blood pressure 118 mm[Hg] Mony King LPN [facility]; [facility] Work Phone: Comment on above: Patient Position: Sitting; Cuff Location : Left Arm; Cuff Size: Standard 04-01-2021 08:10-0400 Body height 157.48 cm Radhachel Choi [facility]; [facility] Work Phone: 04-01-2021 08:10-0400 Body mass index (BMI) [Ratio] 31.1 kg/m2 Radha [facility]; [facility] Internal Medicine Work Phone: 04-01-2021 08:10-0400 Body surface area Derived from formula 1.78 m2 Radha Choi [facility]; [facility] Work Phone: 04-01-2021 08:10-0400 Body temperature 97.3 [degF] Radha Choi CONTRACT DESIGN AGENT [facility]; [facility] Work Phone: Comment on above: Method: Infrared 04-01-2021 08:10-0400 Body weight 77.13 kg Radha Choi [facility]; [facility] Work Phone: 04-01-2021 08:10-0400 Diastolic blood pressure 80 mm[Hg] Radha Choi [facility]; [facility] Work Phone: Comment on above: Patient Position: Sitting; Cuff Location : Left Arm; Cuff Size: Standard 04-01-2021 08:10-0400 Heart rate 95 /min Radha Choi [facility]; [facility] Work Phone: Comment on above: Pattern: Regular 04-01-2021 08:10-0400 Respiratory rate 18 /min Radha Choi [facility]; [facility] Work Phone: Comment on above: Pattern: Unlabored 04-01-2021 08:10-0400 SaO2% (BldA) [Mass fraction] 99 % Radha Choi [facility]; [facility] Work Phone: Comment on above: Room air 04-01-2021 08:10-0400 Systolic blood pressure 120 mm[Hg] Radha Choi [facility]; [facility] Work Phone: Comment on above: Patient Position: Sitting; Cuff Location : Left Arm; Cuff Size: Standard 12-28-2020 09:01-0400 BMI (Body Mass Index) 36.04 kg/m2 Jonathon Andrew LPN [facility] Internal Medicine; [facility] Work Phone: 12-28-2020 09:01-0400 Body weight 89.38 kg Jonathon Andrew LPN [facility]; [facility] Work Phone: 12-28-2020 09:010400 BSA (Body Surface Area) 1.9 m2 Jonathon Andrew LPN [facility]; [facility] Work Phone: 12-28-2020 09:01-0400 Height 157.48 cm Jonathon Andrew LPN [facility]; [facility] Work Phone: 12-21-2020 12:51-0400 BMI (Body Mass Index) 34.39 kg/m2 Wendy Ezequiel [facility]; [facility] Work Phone: 12-21-2020 12:51-0400 BMI (Body Mass Index) 36.04 kg/m2 Jonathon Andrew LPN [facility] Internal Medicine; [facility] Work Phone: 12-21-2020 12:51-0400 Body Temperature 97.5 [degF] Jonathon Andrew LPN [facility]; [facility] Work Phone: Comment on above: Method: Infrared 12-21-2020 12:51-0400 Body weight 85.28 kg Wendy Ezequiel [facility] Medicine; [facility] Work Phone: 12-21-2020 12:51-0400 Body weight 89.38 kg Jonathon Andrew LPN [facility]; [facility] Work Phone: 12-21-2020 12:51-0400 BP Diastolic 78 mm[Hg] Jonathon Andrew LPN [facility]; [facility] Work Phone: Comment on above: Patient Position: Sitting; Cuff Location : Left Arm; Cuff Size: Standard 12-21-2020 12:51-0400 BP Systolic 122 mm[Hg] Jonathon Andrew LPN [facility]; [facility] Work Phone: Comment on above: Patient Position: Sitting; Cuff Location : Left Arm; Cuff Size: Standard 12-21-2020 12:51-0400 BSA (Body Surface Area) 1.86 m2 Wendy Downs [facility]; [facility] Work Phone: 12-21-2020 12:51-0400 BSA (Body Surface Area) 1.9 m2 Jnoathon Andrew LPN [facility]; [facility] Work Phone: 12-21-2020 12:51-0400 Height 157.48 cm Jonathon Andrew LPN [facility]; [facility] Work Phone: 12-21-2020 12:51-0400 Pulse (Heart Rate) 99 /min Jonathon Andrew LPN [facility] Medicine; [facility] Work Phone: Comment on above: Pattern: Regular 12-21-2020 12:51-0400 Pulse Oximetry 99 % Wendy Vega [facility] Internal Medicine; [facility] Work Phone: Comment on above: Room air 12-21-2020 12:51-0400 Respiratory Rate 17 /min Jonathon Andrew LPN [facility]; [facility] Work Phone: Comment on above: Pattern: Unlabored 12-21-2020 12:51-0400 SaO2% (BldA) [Mass fraction] 99 % Jonathon Andrew LPN [facility]; [facility] Work Phone: Comment on above: Room air 08-04-2020 08:10-0500 BMI (Body Mass Index) 34.39 kg/m2 Christy Sampsonmeagandomonique [facility] Work Phone: 08-04-2020 08:10-0500 Body Temperature 97.1 [degF] Christy Cornelius [facility] Work Phone: Comment on above: Method: Thermal Scan 08-04-2020 08:10-0500 Body weight 85.28 kg Christy Sampsonmeagandomonique [facility] Work Phone: 08-04-2020 08:10-0500 BP Diastolic 72 mm[Hg] Christy Sampsonmeagandomonique [facility] Work Phone: Comment on above: Patient Position: Sitting; Cuff Location : Left Arm; Cuff Size: Standard 08-04-2020 08:10-0500 BP Systolic 120 mm[Hg] Christy Cornelius [facility] Work Phone: Comment on above: Patient Position: Sitting; Cuff Location : Left Arm; Cuff Size: Standard 08-04-2020 08:10-0500 BSA (Body Surface Area) 1.86 m2 Christy Cornelius [facility] Work Phone: 08-04-2020 08:10-0500 Height 157.48 cm Christy Cornelius [facility] Internal Medicine Work Phone: 08-04-2020 08:10-0500 Pulse (Heart Rate) 78 /min Christy Cornelius [facility] Internal Medicine Work Phone: Comment on above: Pattern: Regular 08-04-2020 08:10-0500 Pulse Oximetry 98 % Wendy Vega [facility] Internal Medicine Work Phone: Comment on above: Room air 08-04-2020 08:10-0500 Respiratory Rate 16 /min Christy Cornelius [facility] Internal Medicine Work Phone: Comment on above: Pattern: Unlabored 08-04-2020 08:10-0500 SaO2% (BldA) [Mass fraction] 98 % Christy Cornelius [facility] Internal Medicine; [facility] Work Phone: Comment on above: Room air 07-20-2020 20:43-0400 BMI (Body Mass Index) 34.39 kg/m2 Maddie A Fast DO Work Phone: [facility] Internal Medicine Work Phone: 07-20-2020 20:43-0400 Body Temperature 98.3 [degF] Maddie A Fast DO Work Phone: [facility] Internal Medicine Work Phone: Comment on above: Method: Oral 07-20-2020 20:43-0400 Body weight 85.28 kg Maddie A Fast DO Work Phone: [facility] Internal Medicine Work Phone: 07-20-2020 20:43-0400 BP Diastolic 78 mm[Hg] Maddie A Fast DO Work Phone: [facility] Work Phone: Comment on above: Patient Position: Sitting 07-20-2020 20:43-0400 BP Systolic 122 mm[Hg] Maddie A Fast DO Work Phone: [facility] Work Phone: Comment on above: Patient Position: Sitting 07-20-2020 20:43-0400 BSA (Body Surface Area) 1.86 m2 Maddie A Fast DO Work Phone: [facility] Work Phone: 07-20-2020 20:43-0400 Height 157.48 cm Maddie A Fast DO Work Phone: [facility] Work Phone: 07-20-2020 20:43-0400 Pulse (Heart Rate) 66 /min Maddie A Fast DO Work Phone: [facility] Work Phone: Comment on above: Pattern: Regular 07-20-2020 20:43-0400 Pulse Oximetry 98 % Wendy Vega [facility] Work Phone: Comment on above: Room air 07-20-2020 20:43-0400 Respiratory Rate 16 /min Maddie A Fast DO Work Phone: [facility] Work Phone: 07-20-2020 20:43-0400 SaO2% (BldA) [Mass fraction] 98 % Maddie A Fast DO Work Phone: [facility] Internal Medicine; [facility] Work Phone: Comment on above: Room air 07-07-2020 08:110400 BMI (Body Mass Index) 34.39 kg/m2 Christy Mccalldomonique [facility] Work Phone: 07-07-2020 08:110400 Body Temperature 97.1 [degF] Christy Sampsontamiko [facility] Internal Medicine Work Phone: Comment on above: Method: Infrared 07-07-2020 08:110400 Body weight 85.29 kg Christy Sampsontamiko [facility] Internal Medicine Work Phone: 07-07-2020 08:11-0400 BP Diastolic 80 mm[Hg] Christy Cornelius [facility] Internal Medicine Work Phone: Comment on above: Patient Position: Sitting; Cuff Location : Left Arm; Cuff Size: Standard 07-07-2020 08:11-0400 BP Systolic 120 mm[Hg] Christy Cornelius [facility] Internal Medicine Work Phone: Comment on above: Patient Position: Sitting; Cuff Location : Left Arm; Cuff Size: Standard 07-07-2020 08:11-0400 BSA (Body Surface Area) 1.86 m2 Christy Cornelius [facility] Internal Medicine Work Phone: 07-07-2020 08:11-0400 Height 157.48 cm Christy Cornelius [facility] Internal Medicine Work Phone: 07-07-2020 08:11-0400 Pulse (Heart Rate) 86 /min Christy Cornelius [facility] Internal Medicine Work Phone: Comment on above: Pattern: Regular 07-07-2020 08:11-0400 Pulse Oximetry 98 % Wendy Vega [facility] Internal Medicine Work Phone: Comment on above: Room air 07-07-2020 08:11-0400 Respiratory Rate 16 /min Christy Cornelius [facility] Internal Medicine Work Phone: Comment on above: Pattern: Unlabored 07-07-2020 08:11-0400 SaO2% (BldA) [Mass fraction] 98 % Christy Cornelius [facility] Internal Medicine; [facility] Work Phone: Comment on above: Room air 06-24-2020 13:59-0400 BMI (Body Mass Index) 34.39 kg/m2 Jonathon Andrew LPN [facility] Internal Medicine Work Phone: 06-24-2020 13:59-0400 Body Temperature 97.9 [degF] Jonathon Andrew LPN [facility] Internal Medicine Work Phone: Comment on above: Method: Infrared 06-24-2020 13:59-0400 Body weight 85.29 kg Jonathon Andrew LPN [facility] Internal Medicine Work Phone: 06-24-2020 13:59-0400 BP Diastolic 70 mm[Hg] Jonathon Andrew LPN [facility] Work Phone: Comment on above: Patient Position: Sitting; Cuff Location : Left Arm; Cuff Size: Standard 06-24-2020 13:59-0400 BP Systolic 110 mm[Hg] Jonathon Andrew LPN [facility] Internal Medicine Work Phone: Comment on above: Patient Position: Sitting; Cuff Location : Left Arm; Cuff Size: Standard 06-24-2020 13:59-0400 BSA (Body Surface Area) 1.86 m2 Jonathon Andrew LPN [facility] Work Phone: 06-24-2020 13:59-0400 Height 157.48 cm Jonathon Andrew LPN [facility] Internal Medicine Work Phone: 06-24-2020 13:59-0400 Pulse (Heart Rate) 82 /min Jonathon Andrew LPN [facility] Internal Medicine Work Phone: Comment on above: Pattern: Regular 06-24-2020 13:59-0400 Pulse Oximetry 98 % Wendy Vega [facility] Internal Medicine Work Phone: Comment on above: Room air 06-24-2020 13:59-0400 Respiratory Rate 16 /min Jonathon Andrew LPN [facility] Internal Medicine Work Phone: Comment on above: Pattern: Unlabored 06-24-2020 13:59-0400 SaO2% (BldA) [Mass fraction] 98 % Jonathon Andrew LPN [facility] Internal Medicine; [facility] Work Phone: Comment on above: Room air 06-09-2020 11:19-0400 Body height 157.48 cm Jonathon Andrew LPN [facility] Work Phone: 06-09-2020 11:19-0400 Body mass index (BMI) [Ratio] 34.58 kg/m2 Jonathon Andrew LPN [facility] Internal Medicine Work Phone: 06-09-2020 11:19-0400 Body mass index (BMI) [Ratio] 33.66 kg/m2 Jonathon Andrew LPN [facility] Internal Medicine Work Phone: 06-09-2020 11:19-0400 Body surface area Derived from formula 1.87 m2 Jonathon Kamran [employer] [facility] Work Phone: 06-09-2020 11:190400 Body surface area Derived from formula 1.85 m2 Jonathon Kamran [employer] [facility] Internal Medicine Work Phone: 06-09-2020 11:19040 Body temperature 98.4 [degF] Jonathon Kamran [employer] [facility] Internal Medicine Work Phone: Comment on above: Method: Infrared 06-09-2020 11:040 Body weight 85.75 kg oJnathon Andrew LPN [facility] Internal Medicine Work Phone: 06-09-2020 11:040 Body weight 83.49 kg Jonathon Andrew LPN [facility] Internal Medicine Work Phone: 06-09-2020 11:19040 Diastolic blood pressure 74 mm[Hg] Jonathon Andrew LPN [facility] Internal Medicine Work Phone: Comment on above: Patient Position: Sitting; Cuff Location : Left Arm; Cuff Size: Standard 06-09-2020 11:19-0400 Heart rate 88 /min Jonathon Andrew LPN [facility] Internal Medicine Work Phone: Comment on above: Pattern: Regular 06-09-2020 11:19-0400 Pulse Oximetry 98 % Wendy Vega [facility] Internal Medicine Work Phone: Comment on above: Room air 06-09-2020 11:190400 Respiratory rate 16 /min Jonathon Andrew LPN [facility] Internal Medicine Work Phone: Comment on above: Pattern: Unlabored 06-09-2020 11:19-0400 SaO2% (BldA) [Mass fraction] 98 % Jonathon Andrew LPN [facility] Internal Medicine Work Phone: Comment on above: Room air 06-09-2020 11:19-0400 Systolic blood pressure 124 mm[Hg] Jonathon Andrew [facility] Internal Medicine Work Phone: Comment on above: Patient Position: Sitting; Cuff Location : Left Arm; Cuff Size: Standard 11-20-2019 10:18-0500 BMI (Body Mass Index) 33.66 kg/m2 [facility] Work Phone: 11-20-2019 10:18-0500 Body Temperature 97.1 [degF] Jonathon Andrew LPN [facility] Internal Medicine Work Phone: Comment on above: Method: Temporal 11-20-2019 10:18-0500 Body weight 83.49 kg Jonathon Andrew LPN [facility] Internal Medicine Work Phone: 11-20-2019 10:18-0500 BP Diastolic 76 mm[Hg] Jonathon Andrew LPN [facility] Internal Medicine Work Phone: Comment on above: Patient Position: Sitting; Cuff Location : Left Arm; Cuff Size: Standard 11-20-2019 10:18-0500 BP Systolic 122 mm[Hg] Jonathon Andrew LPN [facility] Internal Medicine Work Phone: Comment on above: Patient Position: Sitting; Cuff Location : Left Arm; Cuff Size: Standard 11-20-2019 10:18-0500 BSA (Body Surface Area) 1.85 m2 Jonathon Andrew LPN [facility] Internal Medicine Work Phone: 11-20-2019 10:18-0500 Height 157.48 cm Jonathon Andrew LPN [facility] Internal Medicine Work Phone: 11-20-2019 10:18-0500 Pulse (Heart Rate) 97 /min Jonathon Andrew LPN [facility] Internal Medicine Work Phone: Comment on above: Pattern: Regular 11-20-2019 10:18-0500 Pulse Oximetry 95 % Wendy Vega [facility] Internal Medicine Work Phone: Comment on above: Room air 11-20-2019 10:18-0500 Respiratory Rate 16 /min Jonathon Andrew LPN [facility] Internal Medicine Work Phone: Comment on above: Pattern: Unlabored 11-20-2019 10:18-0500 SaO2% (BldA) [Mass fraction] 95 % Jonathon Andrew LPN [facility] Internal Medicine Work Phone: Comment on above: Room air 06-18-2019 08:22-0400 BMI (Body Mass Index) 32.26 kg/m2 Wendy Vega [facility] Internal Medicine Work Phone: 06-18-2019 08:22-0400 BMI (Body Mass Index) 32.38 kg/m2 Jonathon Andrew LPN [facility] Internal Medicine Work Phone: 06-18-2019 08:22-0400 Body Temperature 98 [degF] Jonathon Andrew LPN [facility] Work Phone: Comment on above: Method: Temporal 06-18-2019 08:22-0400 Body weight 80 kg Wendy Vega [facility] Internal Medicine Work Phone: 06-18-2019 08:22-0400 Body weight 80.29 kg Jonathon Andrew LPN [facility] Work Phone: 06-18-2019 08:22-0400 BP Diastolic 76 mm[Hg] Jonathon Andrew LPN [facility] Work Phone: Comment on above: Patient Position: Sitting; Cuff Location : Left Arm; Cuff Size: Standard 06-18-2019 08:22-0400 BP Systolic 120 mm[Hg] Jonathon Andrew LPN [facility] Internal Medicine Work Phone: Comment on above: Patient Position: Sitting; Cuff Location : Left Arm; Cuff Size: Standard 06-18-2019 08:22-0400 BSA (Body Surface Area) 1.81 m2 Jonathon Andrew LPN [facility] Work Phone: 06-18-2019 08:22-0400 Height 157.48 cm Jonathon Andrew LPN [facility] Work Phone: 06-18-2019 08:22-0400 Pulse (Heart Rate) 58 /min Jonathon Andrew LPN [facility] Internal Medicine Work Phone: Comment on above: Pattern: Regular 06-18-2019 08:22-0400 Pulse Oximetry 98 % Wendy Vega [facility] Internal Medicine Work Phone: Comment on above: Room air 06-18-2019 08:22-0400 Respiratory Rate 16 /min Jonathon Andrew LPN [facility] Internal Medicine Work Phone: Comment on above: Pattern: Unlabored 06-18-2019 08:22-0400 SaO2% (BldA) [Mass fraction] 98 % Jonathon Andrew LPN [facility] Work Phone: Comment on above: Room air 08-07-2017 12:51-0400 BMI (Body Mass Index) 32.72 kg/m2 Quyen Kilpatrick NP [facility] 05-01-2017 12:51-0400 Body Temperature 98.4 [degF] Quyen Kilpatrick CLINICAL PSYCHOLOGIST LICENSED [facility] omen's Care 05-01-2017 12:51-0400 BP Diastolic 82 mm[Hg] Quyen Kilpatrick CLINICAL PSYCHOLOGIST LICENSED [facility] men's Care 05-01-2017 12:51-0400 BP Systolic 116 mm[Hg] Quyen Kilpatrick CLINICAL PSYCHOLOGIST LICENSED [facility] men's Care 05-01-2017 12:51-0400 Height 158.75 cm Quyen Kilpatrick CLINICAL PSYCHOLOGIST LICENSED [facility] men's Care 05-01-2017 12:51-0400 Pulse (Heart Rate) 102 /min Quyen Kilpatrick NP [facility]'s Care 05-01-2017 12:51-0400 Respiratory Rate 16 /min Quyen Kilpatrick CLINICAL PSYCHOLOGIST LICENSED [facility] omen's Care 05-01-2017 12:51-0400 Weight 82.46 kg Quyen Kilpatrick CLINICAL PSYCHOLOGIST LICENSED [facility]'s Care 04-25-2017 15:24-0400 BMI (Body Mass Index) 32.26 kg/m2 Michellealexander Gant [facility] Internal Medicine Work Phone: 04-25-2017 15:24-0400 Body weight 80 kg Michellealexander Gant [facility] Internal Medicine Work Phone: 04-25-2017 15:24-0400 BP Diastolic 64 mm[Hg] Michelle [facility] Internal Medicine Work Phone: Comment on above: Patient Position: Sitting; Cuff Location : Left Arm; Cuff Size: Standard 04-25-2017 15:24-0400 BP Systolic 122 mm[Hg] Michelle [facility] Internal Medicine Work Phone: Comment on above: Patient Position: Sitting; Cuff Location : Left Arm; Cuff Size: Standard 04-25-2017 15:24-0400 BSA (Body Surface Area) 1.81 m2 Michelle [facility] Internal Medicine Work Phone: 04-25-2017 15:24-0400 [facility]: 04-25-2017 15:24-0400 Pulse (Heart Rate) 88 /min Michelle Gant [facility] Internal Medicine Work Phone: Comment on above: Pattern: Regular 04-25-2017 15:24-0400 Pulse Oximetry 99 % Wendy Vega [facility] Internal Medicine Work Phone: Comment on above: Room air 04-25-2017 15:24-0400 Respiratory Rate 18 /min Michelle Gant [facility] Internal Medicine Work Phone: Comment on above: Pattern: Unlabored 04-25-2017 15:24-0400 SaO2% (BldA) [Mass fraction] 99 % Michelle Gant [facility] Internal Medicine Work Phone: Comment on above: Room air 02-15-2016 15:16-0400 BMI (Body Mass Index) 33.36 kg/m2 Yaquelin Slarb [employer] [facility] Internal Medicine Work Phone: 02-15-2016 15:16-0400 Body Temperature 98.1 [degF] Yaquelin Slarb [employer] [facility] Internal Medicine Work Phone: 02-15-2016 15:16-0400 Body weight 82.73 kg Yaquelin Slarb [employer] [facility] Internal Medicine Work Phone: 02-15-2016 15:16-0400 BP Diastolic 74 mm[Hg] Yaquelin Slarb [employer] [facility] Work Phone: Comment on above: Patient Position: Sitting; Cuff Location : Left Arm; Cuff Size: Standard 02-15-2016 15:16-0400 BP Systolic 114 mm[Hg] Yaquelin Slarb [employer] [facility] Internal Medicine Work Phone: Comment on above: Patient Position: Sitting; Cuff Location : Left Arm; Cuff Size: Standard 02-15-2016 15:16-0400 BSA (Body Surface Area) 1.84 m2 Yaquelin Slarb [employer] [facility] Internal Medicine Work Phone: 02-15-2016 15:16-0400 Height 157.48 cm Yaquelin Slarb [employer] [facility] Work Phone: 02-15-2016 15:16-0400 Pulse (Heart Rate) 88 /min Yaquelin Deleon LPN [facility] Internal Medicine Work Phone: Comment on above: Pattern: Regular 02-15-2016 15:16-0400 Pulse Oximetry 98 % Wendy Vega [facility] Work Phone: Comment on above: Room air 02-15-2016 15:16-0400 Respiratory Rate 16 /min Yaquelin Deleon LPN [facility] Work Phone: Comment on above: Pattern: Unlabored 02-15-2016 15:16-0400 SaO2% (BldA) [Mass fraction] 98 % Yaquelin Deleon LPN [facility] Work Phone: Comment on above: Room air 06-11-2014 15:15-0400 BMI (Body Mass Index) 31.7 kg/m2 Kristin Campuzano RN [facility] Medicine Work Phone: 06-11-2014 15:15-0400 Body Temperature 96.9 [degF] Kristni Campuzano RN [facility] Work Phone: Comment on above: Method: Temporal 06-11-2014 15:15-0400 Body weight 78.61 kg Kristin Campuzano RN [facility] Work Phone: 06-11-2014 15:15-0400 BP Diastolic 72 mm[Hg] Kristin Campuzano RN [facility] Work Phone: Comment on above: Patient Position: Sitting; Cuff Location : Left Arm; Cuff Size: Standard 06-11-2014 15:15-0400 BP Systolic 124 mm[Hg] Kristin Campuzano RN [facility] Work Phone: Comment on above: Patient Position: Sitting; Cuff Location : Left Arm; Cuff Size: Standard 06-11-2014 15:15-0400 BSA (Body Surface Area) 1.8 m2 Kristin Campuzano RN [facility] Work Phone: 06-11-2014 15:15-0400 Height 157.48 cm Kristin Campuzano RN [facility] Work Phone: 06-11-2014 15:15-0400 Pulse (Heart Rate) 72 /min Kristin Campuzano RN [facility] Work Phone: Comment on above: Pattern: Regular 06-11-2014 15:15-0400 Pulse Oximetry 96 % Wendy Vega [facility] Work Phone: Comment on above: Room air 06-11-2014 15:15-0400 Respiratory Rate 16 /min Kristin Campuzano RN [facility] Work Phone: Comment on above: Pattern: Unlabored 06-11-2014 15:15-0400 SaO2% (BldA) [Mass fraction] 96 % Kristin Campuzano RN [facility] Work Phone: Comment on above: Room air 04-16-2013 13:50-0400 BMI (Body Mass Index) 31.7 kg/m2 Kristine Sriram [employer] [facility] Work Phone: 04-16-2013 13:50-0400 Body Temperature 98 [degF] Kristine Sriram [employer] [facility] Work Phone: Comment on above: Method: Oral 04-16-2013 13:50-0400 Body weight 78.61 kg Kristine Sriram SWAP[employer] [facility] Internal Medicine Work Phone: 04-16-2013 13:50-0400 BP Diastolic 84 mm[Hg] Kristine Bhatia [employer] [facility] Internal Medicine Work Phone: Comment on above: Patient Position: Sitting; Cuff Location : Left Arm; Cuff Size: Standard 04-16-2013 13:50-0400 BP Systolic 130 mm[Hg] Kristine Bhatia SWAPNA [facility] Internal Medicine Work Phone: Comment on above: Patient Position: Sitting; Cuff Location : Left Arm; Cuff Size: Standard 04-16-2013 13:50-0400 BSA (Body Surface Area) 1.8 m2 Kristine Bhatia [employer] [facility] Work Phone: 04-16-2013 13:50-0400 Height 157.48 cm Kristine Sriram [employer] [facility] Internal Medicine Work Phone: 04-16-2013 13:50-0400 Pulse (Heart Rate) 80 /min Kristine Bhatia LPN [facility] Work Phone: Comment on above: Pattern: Regular 04-16-2013 13:50-0400 Pulse Oximetry 98 % Wendy Vega [facility] Work Phone: Comment on above: Room air 04-16-2013 13:50-0400 Respiratory Rate 16 /min Kristine Bhatia LPN [facility] Work Phone: 04-16-2013 13:50-0400 SaO2% (BldA) [Mass fraction] 98 % Kristine Bhatia LPN [facility] Work Phone: Comment on above: Room air 09-14-2011 15:55-0500 BMI (Body Mass Index) 31.47 kg/m2 Kristine Bhatia LPN [facility] Work Phone: 09-14-2011 15:55-0500 Body Temperature 97.1 [degF] Kristine Bhatia LPN [facility] Work Phone: Comment on above: Method: Oral 09-14-2011 15:55-0500 Body weight 78.05 kg Kristine Bhatia LPN [facility] Internal Medicine Work Phone: 09-14-2011 15:55-0500 BP Diastolic 78 mm[Hg] Kristine Bhatia LPN [facility] Work Phone: Comment on above: Patient Position: Sitting; Cuff Location : Left Arm; Cuff Size: Standard 09-14-2011 15:55-0500 BP Systolic 138 mm[Hg] Kristine Bhatia LPN [facility] Work Phone: Comment on above: Patient Position: Sitting; Cuff Location : Left Arm; Cuff Size: Standard 09-14-2011 15:55-0500 BSA (Body Surface Area) 1.79 m2 Kristine Bhatia LPN [facility] Work Phone: 09-14-2011 15:55-0500 Height 157.48 cm Kristine Bhatia LPN [facility] Medicine Work Phone: 09-14-2011 15:55-0500 Pulse (Heart Rate) 86 /min Kristine Bhatia LPN [facility] Work Phone: Comment on above: Pattern: Regular 09-14-2011 15:55-0500 Respiratory Rate 16 /min Kristine Bhatia LPN [facility] Work Phone: 09-09-2011 14:49-0500 BMI (Body Mass Index) 31.47 kg/m2 Kristine Bhatia LPN [facility] Work Phone: 09-09-2011 14:49-0500 Body Temperature 97.9 [degF] Kristine Bhatia LPN [facility] Work Phone: Comment on above: Method: Oral 09-09-2011 14:49-0500 Body weight 78.05 kg Kristine Bhatia LPN [facility] Work Phone: 09-09-2011 14:49-0500 BP Diastolic 78 mm[Hg] Kristine Bhatia LPN [facility] Work Phone: Comment on above: Patient Position: Sitting; Cuff Location : Left Arm; Cuff Size: Standard 09-09-2011 14:49-0500 BP Systolic 110 mm[Hg] Kristine Bhatia LPN [facility] Work Phone: Comment on above: Patient Position: Sitting; Cuff Location : Left Arm; Cuff Size: Standard 09-09-2011 14:49-0500 BSA (Body Surface Area) 1.79 m2 Kristine Bhatia LPN [facility] Work Phone: 09-09-2011 14:49-0500 Height 157.48 cm Kristine Bhatia LPN [facility] Work Phone: 09-09-2011 14:49-0500 Pulse (Heart Rate) 86 /min Kristine Bhatia LPN [facility] Work Phone: Comment on above: Pattern: Regular 09-09-2011 14:49-0500 Respiratory Rate 16 /min Kristine Bhatia LPN [facility] Work Phone: Comment on above: Pattern: Unlabored 03-21-2011 15:45-0400 BMI (Body Mass Index) 30.96 kg/m2 [facility] Work Phone: 03-21-2011 15:45-0400 Body Temperature 97.2 [degF] Harriet Linares [facility] Work Phone: 03-21-2011 15:45-0400 Body weight 78.02 kg Harriet Linares [facility] Work Phone: 03-21-2011 15:45-0400 BP Diastolic 72 mm[Hg] Harriet Linares [facility] Work Phone: Comment on above: Patient Position: Sitting; Cuff Location : Left Arm; Cuff Size: Large 03-21-2011 15:45-0400 BP Systolic 104 mm[Hg] Harriet Linares [facility] Work Phone: Comment on above: Patient Position: Sitting; Cuff Location : Left Arm; Cuff Size: Large 03-21-2011 15:45-0400 BSA (Body Surface Area) 1.8 m2 Harriet Linares [facility] Work Phone: 03-21-2011 15:45-0400 Height 158.75 cm Harriet Linares [facility] Work Phone: 03-21-2011 15:45-0400 Pulse (Heart Rate) 84 /min [facility] Work Phone: Comment on above: Pattern: Regular 03-21-2011 15:45-0400 Respiratory Rate 16 /min Harriet Linares [facility] Work Phone: Comment on above: Pattern: Unlabored 11-03-2010 15:57-0500 BMI (Body Mass Index) 31.86 kg/m2 Harriet Linares [facility] Internal Medicine Work Phone: 11-03-2010 15:57-0500 Body Temperature 99.2 [degF] [facility] Work Phone: 11-03-2010 15:57-0500 Body weight 80.29 kg Harriet Linares [facility] Medicine Work Phone: 11-03-2010 15:57-0500 BP Diastolic 72 mm[Hg] Harriet Linares [facility] Work Phone: Comment on above: Patient Position: Sitting; Cuff Location : Left Arm; Cuff Size: Large 11-03-2010 15:57-0500 BP Systolic 120 mm[Hg] Harriet Linares [facility] Work Phone: Comment on above: Patient Position: Sitting; Cuff Location : Left Arm; Cuff Size: Large 11-03-2010 15:57-0500 BSA (Body Surface Area) 1.83 m2 Harriet Linares [facility] Work Phone: 11-03-2010 15:57-0500 Height 158.75 cm Harriet Santostai [facility] Work Phone: 11-03-2010 15:57-0500 Pulse (Heart Rate) 88 /min Harriet Linares [facility] Internal Medicine Work Phone: Comment on above: Pattern: Regular 11-03-2010 15:57-0500 Respiratory Rate 16 /min Harriet Linares [facility] Work Phone: Comment on above: Pattern: Unlabored 10-07-2009 15:30-0500 Body Temperature 98.4 [degF] Harriet Moralessulma [facility] Medicine Work Phone: 10-07-2009 15:30-0500 Body weight 77.11 kg Harriet Linares [facility] Work Phone: 10-07-2009 15:30-0500 BP Diastolic 62 mm[Hg] Harriet Santoschelsulma [facility] Work Phone: Comment on above: Patient Position: Sitting; Cuff Location : Left Arm; Cuff Size: Large 10-07-2009 15:30-0500 BP Systolic 104 mm[Hg] Harriet Moralessulma [facility] Work Phone: Comment on above: Patient Position: Sitting; Cuff Location : Left Arm; Cuff Size: Large 10-07-2009 15:30-0500 Pulse (Heart Rate) 100 /min Harriet Linares [facility] Work Phone: Comment on above: Pattern: Regular 10-07-2009 15:30-0500 Respiratory Rate 18 /min Harriet Linares [facility] Work Phone: Comment on above: Pattern: Unlabored 08-26-2009 15:30-0500 Body weight 77.11 kg Harriet Linares [facility] Work Phone: 08-26-2009 15:30-0500 BP Diastolic 96 mm[Hg] Harriet Linares [facility] Work Phone: Comment on above: Patient Position: Sitting; Cuff Location : Left Arm; Cuff Size: Standard 08-26-2009 15:30-0500 BP Systolic 120 mm[Hg] Harriet Linares [facility] Work Phone: Comment on above: Patient Position: Sitting; Cuff Location : Left Arm; Cuff Size: Standard 08-26-2009 15:30-0500 Head Circumference 0 cm Wendy Vega [facility] Work Phone: 08-26-2009 15:30-0500 Head Occipital-frontal circumference 0 cm Harriet Linares [facility] Work Phone: 08-26-2009 15:30-0500 Height 0 cm Harriet Linares [facility] Work Phone: 08-26-2009 15:30-0500 Pulse (Heart Rate) 80 /min Harriet Linares [facility] Work Phone: Comment on above: Pattern: Regular 08-26-2009 15:30-0500 Respiratory Rate 18 /min Harriet Linares [facility] Work Phone: Comment on above: Pattern: Undefined 03-24-2008 15:23-0400 BMI (Body Mass Index) 26.97 kg/m2 Wendy Vega [facility] Work Phone: [facility] Work Phone: 03-24-2008 15:23-0400 Body Temperature 98.6 [degF] Wendy Vega CNP Work Phone: [facility] Work Phone: Comment on above: Method: Oral 03-24-2008 15:23-0400 Body weight 69.06 kg Wendy Vega CNP Work Phone: [facility] Work Phone: 03-24-2008 15:23-0400 BP Diastolic 62 mm[Hg] Wendy Vega CNP Work Phone: [facility] Work Phone: Comment on above: Patient Position: Sitting; Cuff Location : Right Arm; Cuff Size: Standard 03-24-2008 15:23-0400 BP Systolic 126 mm[Hg] Wendy Vega CNP Work Phone: [facility] Work Phone: Comment on above: Patient Position: Sitting; Cuff Location : Right Arm; Cuff Size: Standard 03-24-2008 15:23-0400 BSA (Body Surface Area) 1.72 m2 Wendy Vega CNP Work Phone: [facility] Work Phone: 03-24-2008 15:23-0400 Head Circumference 0 cm Wendy Vega [facility] Work Phone: 03-24-2008 15:23-0400 Head Occipital-frontal circumference 0 cm Wendy Vega CNP Work Phone: [facility] Work Phone: 03-24-2008 15:23-0400 Height 160.02 cm Wendy Vega CNP Work Phone: [facility] Work Phone: 03-24-2008 15:23-0400 Pulse (Heart Rate) 76 /min Wendy Vega CNP Work Phone: [facility] Work Phone: Comment on above: Pattern: Regular 03-24-2008 15:23-0400 Respiratory Rate 18 /min Wendy Vega CNP Work Phone: [facility] Work Phone: Comment on above: Pattern: Unlabored 03-13-2008 14:18-0400 BMI (Body Mass Index) 26.58 kg/m2 Kristine Bhatia LPN [facility] Work Phone: 03-13-2008 14:18-0400 Body Temperature 98.1 [degF] Kristine Bhatia LPN [facility] Work Phone: Comment on above: Method: Oral 03-13-2008 14:18-0400 Body weight 68.07 kg Kristine Bhatia LPN [facility] Work Phone: 03-13-2008 14:18-0400 BP Diastolic 84 mm[Hg] Kristine Bhatia LPN [facility] Work Phone: Comment on above: Patient Position: Sitting; Cuff Location : Left Arm; Cuff Size: Standard 03-13-2008 14:18-0400 BP Systolic 138 mm[Hg] Kristine Bhatia LPN [facility] Work Phone: Comment on above: Patient Position: Sitting; Cuff Location : Left Arm; Cuff Size: Standard 03-13-2008 14:18-0400 BSA (Body Surface Area) 1.71 m2 Kristine Bhatia LPN [facility] Work Phone: 03-13-2008 14:18-0400 Head Circumference 0 [facility] Work Phone: 03-13-2008 14:18-0400 Head Occipital-frontal circumference 0 cm Kirstine Bhatia LPN [facility] Work Phone: 03-13-2008 14:18-0400 Height 160.02 cm Kristine Bhatia LPN [facility] Work Phone: 03-13-2008 14:18-0400 Pulse (Heart Rate) 82 /min Kristine Bhatia LPN [facility] Work Phone: Comment on above: Pattern: Regular 03-13-2008 14:18-0400 Respiratory Rate 17 /min Kristine Bhatia LPN [facility] Work Phone: Comment on above: Pattern: Unlabored Encounters Encounter Date Encounter Type Care Provider Facility Start: 05-21-2025 End: 05-21-[address] Mali Jeffries DO Work Phone: -[facility] Lab Start: 05-21-2025 End: 05-21-[address] Mali Jeffries DO Work Phone: -[facility] Lab Work Phone: Start: 05-21-2025 End: 05-21-2025 ambulatory TONEY DE LA CRUZ Facility:[facility] Start: 02-19-2025 End: 02-19-[address] Mali Jeffries DO Work Phone: [facility] Work Phone: Start: 02-19-2025 End: 02-19-[address] Mali Jeffries DO Work Phone: -Cat Scan [facility] Work Phone: Start: 02-19-2025 End: 02-19-2025 ambulatory TONEY DE LA CRUZ Facility:[facility] Start: 01-16-2025 End: 01-16-2025 ambulatory [facility] Start: 01-10-2025 End: 01-10-[address] Mali Jeffries DO Work Phone: [facility] Work Phone: Start: 01-10-2025 End: 01-10-[address] Mali Jeffries DO Work Phone: -Cat Scan, [facility] Work Phone: Start: 01-10-2025 End: 01-10-2025 ambulatory TONEYCARLI DE LA CRUZ Facility:[facility] Start: 12-23-2024 End: 12-23-2024 ambulatory WENDY VEGA DOWEL POINTER Facility:[facility] Start: 12-06-2024 End: 12-06-2024 ambulatory [facility] Start: 11-11-2024 ambulatory Tonya Becerra Facility :[facility] Start: 11-11-2024 End: 11-11-[address] Mali Jeffries DO -Nuclear Medicine, [facility] Work Phone: Start: 11-11-2024 End: 11-11-2024 ambulatory Mali Jeffries Facility:[facility] Start: 11-08-2024 End: 11-08-2024 Patient encounter procedure Tonya Becerra [facility] Work Phone: Start: 11-08-2024 End: 11-08-2024 ambulatory Mali Jeffries Facility:[facility] [place] Start: 2024 ambulatory Mali Jeffries Facilit y:[facility] Start: 10-21-2024 ambulatory WENDY JONES Facility :[facility] Start: 07-08-2022 End: 07-08-2022 Annotation/Addendum Mali Jeffries DO Work Phone: [facility] Start: 07-01-2022 Review Mali roberts DO Work Phone: [facility] Start: 07-01-2022 End: 07-01-2022 Office outpatient visit 15 minutes Mali Jeffries DO Work Phone: [facility] Start: 06-24-2022 End: 06-24-[address] Mali Jeffries Work Phone: [facility] Work Phone: Start: 06-24-2022 End: 06-24-[address] Mali Jeffries Work Phone: [facility]-Outpatient Breast Imaging Start: 06-23-2022 ambulatory Maddie Gallegos DO [facility] Start: 06-14-2022 End: 06-14-2022 Annotation/Addendum Mali Jeffries DO Work Phone: [facility] Start: 06-13-2022 End: 06-13-[address] Mali Jeffries Work Phone: [facility] Radiology Start: 06-13-2022 End: 06-13-2022 Office outpatient visit 25 minutes Mali Nesha DO Work Phone: [facility] Start: 12-30-2021 End: 12-30-2021 Emergency department patient visit GHASSAN DEE MD [facility] Start: 12-22-2021 End: 12-22-2021 Office outpatient visit 15 minutes Mali Nesha DO Work Phone: [facility] Start: 05-13-2021 End: 05-13-2021 Office outpatient visit 15 minutes Mali Nesha DO Work Phone: [facility] Start: 04-22-2021 End: 04-22-2021 Office outpatient visit 10 minutes Mali Nesha DO Work Phone: [facility] Start: 04-01-2021 End: 04-02-2021 Office outpatient visit 15 minutes Wendy Ezequiel MAO Work Phone: [facility] Start: 12-30-2020 End: 12-30-2020 Annotation/Addendum Wendy Downs Senior [employer] Programmer al Medicine Start: 12-28-2020 End: 12-28-2020 Office outpatient visit 15 minutes Wendy Downs [facility] Start: 12-22-2020 End: 12-22-2020 Annotation/Addendum Wendy Vega [facility] Senior Statistical Programmer al Medicine Start: 12-21-2020 End: 12-21-2020 Office outpatient visit 15 minutes Wendy Downs [facility] Start: 12-21-2020 Review Wendy Cast ruth [facility] Start: 08-04-2020 End: 08-04-2020 Office outpatient visit 40 minutes Wendy Downs [facility] Start: 08-04-2020 Review Wendy Cast ruth [facility] Start: 07-20-2020 End: 07-20-2020 Office outpatient visit 25 minutes Wendy Downs [facility] Start: 07-08-2020 End: 07-20-2020 Phone Encounter eWndy Vega [facility] Start: 07-08-2020 Review Wendy Cast ruth [facility] Start: 07-07-2020 End: 07-09-2020 Office outpatient visit 25 minutes Wendy Downs [facility] Start: 07-07-2020 Review Wendy Qureshiens miranda [facility] Start: 06-24-2020 End: 06-24-2020 Office outpatient visit 15 minutes Wendy Downs [facility] Start: 06-12-2020 End: 06-12-2020 Annotation/Addendum Wendy Downs Senior Statistical Programmer al Medicine Start: 06-09-2020 End: 06-09-2020 Office outpatient visit 15 minutes Wendy Vega 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 Work Phone: [facility] Start: 06-09-2020 Review Wendy Ezequiel 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 Work Phone: [facility] Start: 11-20-2019 End: 11-20-2019 Office outpatient visit 25 minutes Wendy Downs [facility] Start: 07-08-2019 End: 07-08-2019 Annotation/Addendum Wendy Downs Senior Statistical Programmer al Medicine Start: 06-18-2019 End: 06-18-2019 Patient encounter procedure Mali Jeffries DO Work Phone: [facility] Start: 06-18-2019 End: 06-18-2019 Periodic preventive med est patient 40-64yrs Wendy Downs [facility] Start: 06-18-2019 Review Wendy Vega Serene [facility] Start: 04-25-2017 End: 04-25-2017 Office outpatient visit 15 minutes Wendy Downs [facility] Start: 02-15-2016 End: 02-15-2016 Office outpatient visit 15 minutes Wendy Downs [facility] Start: 06-11-2014 End: 06-11-2014 Office outpatient visit 25 minutes Wendy Downs [facility] Start: 04-16-2013 End: 04-16-2013 Office outpatient visit 25 minutes Wendy Downs [facility] Start: 03-01-2012 End: 03-01-2012 Phone Encounter Wendy Downs Senior Statistical Programmer al Medicine Start: 11-17-2011 End: 11-17-2011 Phone Encounter Wendy Downs Senior Statistical Programmer al Medicine Start: 09-14-2011 End: 09-14-2011 Office outpatient visit 25 minutes Wendy Downs [facility] Start: 09-09-2011 End: 09-09-2011 Office outpatient visit 25 minutes Wendy Johnsonradha [facility] Start: 03-21-2011 End: 03-21-2011 Patient encounter procedure Wendy Vega [facility] Start: 11-03-2010 End: 11-09-2010 Patient encounter procedure Wendy Vega [facility] Start: 10-07-2009 End: 10-07-2009 Patient encounter procedure Wendy Vega [facility] Start: 08-26-2009 End: 08-27-2009 Patient encounter procedure Wendy Vega [facility] Start: 03-24-2008 End: 03-24-2008 Office outpatient visit 25 minutes Wendy Vega [facility] Start: 03-13-2008 End: 03-13-2008 Office outpatient new 30 minutes Wendy Ezequiel [facility] Patient encounter procedure Samantha Tilley LPN [facility]; [facility] Work Phone: Patient encounter procedure Radha Choi [facility]; [facility] Work Phone: Patient encounter procedure Jonathon Andrew LPN [facility] Work Phone: Patient encounter procedure Jonathon Andrew [facility] Work Phone: Patient encounter procedure Jonathon Andrew LPN [facility]; [facility] Work Phone: Patient encounter procedure Chrissydevinradha [place] Silva[place] [facility]; [facility] Work Phone: Patient encounter procedure Jonathon Andrew [facility]; [facility] Work Phone: Procedures Date Procedure Procedure Detail Performing Clinician Start: 02-19-2025 CT of abdomen with contrast Dr. Mali Jeffries DO Work Phone: Start: 01-10-2025 X-ray of lumbar spine, two or three views Dr. Mali Jeffries DO Work Phone: Start: 01-10-2025 Computed tomography of abdomen and pelvis with intravenous contrast Dr. Mali Jeffries DO Work Phone: Start: 11-11-[address] Mali Jeffires DO Work Phone: Start: 11-11-2024 Radionuclide study of abdomen Dr. Mali Jeffries DO Work Phone: Start: 06-24-2022 End: 06-24-2022 Thyroid Procedure Note: See Note; NOTES: [facility] Imaging Services [address] [place] [address] Thyroid MR#: [id number] Acct: [id number] Name: TRACEY HATHAWAY Rep #: [id number] : 1970 F 51 From: Slade kaufmfan MD PCP: Dr. Mali Jeffries DO Status: REG CLI Study: Thyroid Date of Exam: 06/24/22 Exam# [id number] Ordering Dr: Mali Jeffries DO STUDY: THYROID ULTRASOUND REASON FOR EXAM: Female, 51 years old. MULTIPLE THYROID NODULES TECHNIQUE: Ultrasound evaluation of the thyroid was performed with real-time and static tao-scale imaging. COMPARISON: Comparison is made with prior examination dated 07/02/2020. FINDINGS: RIGHT LOBE: The right lobe of the thyroid gland is enlarged and measures 5.1 cm x 2 cm x 1.6 cm. There is a heterogeneous echotexture. There is a 2 cm x 1.4 cm x 1.2 cm complex and solid nodule in the inferior pole of the right lobe. This is essentially unchanged. Smaller hypoechoic nodules are once again seen as well. LEFT LOBE: The left lobe of the thyroid gland is enlarged and measures 5.9 cm x 2.7 cm x 2.3 cm. There is a heterogeneous echotexture. There is a dominant 2.4 cm x 2.2 cm x 1.9 cm solid and cystic nodule in the midpole. This is essentially unchanged. There is also evidence of several small isoechoic nodules. ISTHMUS: The isthmus measures 2 mm. The regional lymph nodes are normal. US/Thyroid IMPRESSION: Thyroid enlargement. Diffuse bilateral heterogeneous echotexture with the dominant nodules in both lobes. There has been essentially no change. Electronically Signed: Slade Rosa MD at 12:17 EDT , CC: Dr. Mali Jeffries DO Director Of Nuclear Medicine: Signed Mali Jeffries DO Work Phone: Start: 06-24-2022 US scan of thyroid Dr. Mali Jeffries Work Phone: Start: 06-24-2022 End: 06-24-2022 Elastography Parenchyma/Organ Procedure Note: See Note; NOTES: [facility] Imaging Services [address] [place] [address] Elastography Parenchyma/Organ MR#: [id number] Acct: [id number] Name: TRACEY HATHAWAY Rep #: [id number] : 1970 F 51 From: Slade kauffman MD PCP: Dr. Mali Jeffries DO Status: REG CLI Study: Elastography Parenchyma/Organ Date of Exam: Exam# [id number] Ordering Dr: Mali Jeffries DO STUDY: ABDOMINAL ULTRASOUND - ELASTOGRAPHY REASON FOR VISIT: Female, 51 years old. Fatty infiltration of the liver. TECHNIQUE: Liver stiffness measurements were obtained on a Solio RS 85 ultrasound machine using a CA 1-7 probe following the U guidelines. 3 measurements were obtained using a 2-D-SWE method. The IQR/M was 11% suggesting a quality data set. TECHNICAL QUALITY: Adequate. COMPARISON: Comparison is made with prior study done earlier in the day. FINDINGS: Liver: Fatty infiltration of the liver. Median liver stiffness measured 9.8 kPa. US/Elastography Parenchyma/Organ IMPRESSION: Liver stiffness measures 9.8 kPa compatible with F2-F3 (Mild to moderate liver fibrosis) Metavir score. Electronically Signed: Slade Rosa MD at 12:35 EDT , CC: Dr. Mali Jeffries DO Director Of Nuclear Medicine: Signed Mali Jeffries DO Work Phone: Start: 06-24-[address] Mali Jeffries Work Phone: Start: 06-24-[address] Mali Jeffries Work Phone: Start: 06-24-2022 End: 06-24-2022 Abdomen Limited Procedure Note: See Note; NOTES: [facility] Imaging Services [address] [place] [address] Abdomen Limited MR#: [id number] Acct: [id number] Name: TRACEY HATHAWAY Rep #: [id number] : 1970 F 51 From: Slade kauffman MD PCP: Dr. Mali Jeffries DO Status: REG CLI Study: Abdomen Limited Date of Exam: 06/24/22 Exam# [id number] Ordering Dr: Mali Jeffries DO STUDY: ABDOMINAL ULTRASOUND - RIGHT UPPER QUADRANT REASON FOR VISIT: Female, 51 years old fatty liver TECHNIQUE: Ultrasound evaluation of the right upper quadrant was performed with real-time and static tao-scale imaging. TECHNICAL QUALITY: Adequate. COMPARISON: Comparison is made with prior study 12/25/2020. FINDINGS: Liver: The liver is mildly enlarged and measures 17.9 cm. There is increased echogenicity consistent with fatty infiltration. The bile ducts are within normal limits. There is hepatic color flow. The direction of portal flow is hepatopetal. There is no demonstrated mass lesion. Gallbladder: Normal distended gallbladder. The gallbladder wall measures 1 mm. There is a negative sonographic King''s sign. There is no pericholecystic fluid. There are no gallstones. Common Bile Duct (C.B.D.): The common bile duct measures 4 mm. Pancreas: Normal size of the head, body and tail of the pancreas. There is normal echogenicity of the pancreas. There is no demonstrated pancreatic mass or cyst. Right Kidney: Normal size of the right kidney. The right kidney measures 12.1 cm x 5.8 cm x 4.1 cm. Normal renal cortex. The right cortex measures 1.3 cm. There is no demonstrated renal mass or cyst. There is no right hydronephrosis. US/Abdomen Limited IMPRESSION: Mild hepatomegaly and fatty infiltration of the liver. Electronically Signed: Slade Rosa MD at 12:34 EDT Reading Location ID and State: [facility] / [place] , Service support , CC: Dr. Mali Jeffries DO Director Of Nuclear Medicine: Signed Mali Jeffries DO Work Phone: Start: 06-24-[address] Mali Jeffries Work Phone: Start: 06-24-2022 End: 06-24-2022 SCRN MAMM (CAD)W/BAUTISTA BILAT Procedure Note: See Note; NOTES: [facility] Imaging Services [address] [place] [address] SCRN MAMM (CAD)W/BAUTISTA BILAT MR#: [id number] Acct: [id number] Name: TRACEY HATHAWAY Rep #: [id number] : 1970 F 51 From: Slade kauffman MD PCP: Dr. Mali Jeffries DO Status: REG CLI Study: SCRN MAMM (CAD)W/BAUTISTA BILAT Date of Exam: 05/28 Exam# [id number] Ordering Dr: Mali Jeffries DO MAMMOGRAPHY - BILATERAL SCREENING REASON FOR EXAM: Female, 51 years old. Routine annual screening examination. PERTINENT HISTORY: Non-contributory. TECHNIQUE: Digital bilateral breast bautista (3D mammographic acquisition) in the CC and MLO projections. 2-D mediolateral oblique (MLO) and craniocaudad (CC) views of both breasts were obtained. CAD: Full Field Digital Mammography with Computer Added Detection was performed. COMPARISON: Comparison is made with prior chest examination dated 06/19/2019. FINDINGS: Breast Composition: The breasts are heterogeneously dense, which may obscure small masses. There are no dominant masses or suspicious calcifications. Stable small benign-appearing bilateral axillary lymph nodes. No other significant abnormalities are identified. There has been no significant change since the prior study. BI/SCRN MAMM (CAD)W/BAUTISTA BILAT IMPRESSION: Stable bilateral screening mammogram. Yearly follow-up mammogram recommended. (A) ASSESSMENT CATEGORY: BIRADS Category 2: Benign. A letter regarding these results will be sent to the patient by the facility within 30 days. Approximately 10% of breast cancers are not detected by mammography. A normal mammogram should not delay biopsy of a clinically suspicious abnormality. [id number] Electronically Signed: Slade Rosa MD at 9:05 EDT Reading Location ID and State: [facility] / [place] , Service support , CC: Dr. Mali Jeffries DO Director Of Nuclear Medicine: Signed Mali Jeffries DO Work Phone: Start: 06-13-2022 End: 06-13-2022 Chest PA and Lateral Procedure Note: See Note; NOTES: [facility] Radiology [address] [place] [address] Chest PA and Lateral MR#: [id number] Acct: [id number] Name: TRACEY HATHAWAY Rep #: [id number] : 1970 F 51 From: Quentin Keenan MD PCP: Dr. Mali Jeffries DO Status: DEP AMB Study: Chest PA and Lateral Date of Exam: 06/13/22 Exam# [id number] Ordering Dr: Mali Jeffries DO INDICATION: Leg edema EXAMINATION/TECHNIQUE: X-RAY - XR Chest 2 Views COMPARISON: 07/24/2020. FINDINGS: LINES/DEVICES: None. LUNGS: No consolidation, edema or effusion. No pneumothorax. MEDIASTINUM AND CARDIOVASCULAR STRUCTURES: Cardiac silhouette not enlarged. Central airways and mediastinal contour are unremarkable. BONES AND SOFT TISSUES: Unremarkable. RAD/Chest PA and Lateral IMPRESSION: No radiographic evidence of acute cardiopulmonary disease. Electronically Signed: Quentin Keenan MD at 13:42 EDT Reading Location ID and State: [facility] / [place] Tel , Service support , CC: Dr. Mali Jeffries DO Director Of Nuclear Medicine: Signed Mali Jeffries DO Work Phone: Start: 06-13-2022 Plain chest X-ray Dr. Mali Jeffries Work Phone: Start: 04-01-2021 End: 04-01-2021 Knee 4 or More Views Comments: See Note; NOTES: [facility]iology [address] [place] [address] Knee 4 or More Views MR#: [id number] Acct: [id number] Name: TRACEY HATHAWAY Rep #: [id number] : 1970 F 50 From: Yovanny Morrison MD PCP: Wendy Vega CLINICAL PSYCHOLOGIST LICENSED-C Status: DEP AMB Study: Knee 4 or More Views Date of Exam: 04/01/21 Exam# [id number] Ordering Dr: Mali Jeffries DO STUDY: X-RAY - RIGHT KNEE REASON FOR EXAM: Female, 50 years old. BILAT KNEE PAIN TECHNIQUE: 4 view(s) of the knee. COMPARISON: None. FINDINGS: Normal visualized distal femur. Normal visualized proximal tibia and fibula. Normal proximal tibiofibular articulation. Normal medial femorotibial compartment. Normal lateral femorotibial compartment. Normal patellofemoral articulation. The soft tissue structures are unremarkable. RAD/Knee 4 or More Views IMPRESSION: Normal x-ray examination of the knee. Electronically Signed: Yovanny Morrison MD at 14:25 EDT Tel , Service support , CC: DEREK Vega; Dr. Mali Jeffries DO Director Of Nuclear Medicine: Signed Mali Jeffries DO Work Phone: Start: 12-25-2020 End: 12-25-2020 Gallbladder Comments: See Note; NOTES: [facility] Imaging Services [address] [place] [address] Gallbladder MR#: [id number] Acct: [id number] Name: TRACEY HATHAWAY Rep #: [id number] : 1970 F 50 From: Slade kauffman MD PCP: DEREK Goldberg Status: REG CLI Study: Gallbladder Date of Exam: 12/25/20 Exam# [id number] Ordering Dr: Wendy Vega NP STUDY: ABDOMINAL ULTRASOUND - RIGHT UPPER QUADRANT REASON FOR VISIT: Female, 50 years old NAUSEA . Intermittent nausea and right upper quadrant pain. TECHNIQUE: Ultrasound evaluation of the right upper quadrant was performed with real-time and static tao-scale imaging. TECHNICAL QUALITY: Adequate. COMPARISON: None. FINDINGS: Liver: The liver is enlarged and measures 19.8 cm. There is increased echogenicity consistent with fatty infiltration. The bile ducts are within normal limits. There is hepatic color flow. The direction of portal flow is hepatopetal. There is no demonstrated mass lesion. Gallbladder: Normal distended gallbladder. The gallbladder wall measures 1 mm. There is a negative sonographic King''s sign. There is no pericholecystic fluid. There are no gallstones. Common Bile Duct (C.B.D.): The common bile duct measures 4 mm. Pancreas: Normal size of the head, body and tail of the pancreas. There is normal echogenicity of the pancreas. There is no demonstrated pancreatic mass or cyst. Right Kidney: Normal size of the right kidney. The right kidney measures 4.8 cm x 4.8 cm x 4.3 cm. Normal renal cortex. The right cortex measures 1.5 cm. There is no demonstrated renal mass or cyst. There is no right hydronephrosis. US/Gallbladder IMPRESSION: Hepatomegaly and fatty infiltration of the liver. Electronically Signed: Slade Rosa MD at 14:40 EDT , Service support , CC: DEREK Vega Director Of Nuclear Medicine: Signed Wendy Vega Work Phone: Start: 08-14-2020 End: 08-14-2020 Stress Report Comments: See Note; NOTES: [facility] Services [address] [place] [address] MR#: [id number] Acct: [id number] Name: TRACEY HATHAWAY Rep #: [id number] : 1970 49 From: Javier Mock MD Primary Care: DEREK Goldberg Status: REG CLI Referring Dr: Maddie Gallegos DO Sex: F C Stress Test Report Date: 08/13/2020 Procedure: Exercise tolerance test/imaging study Indications: Chest pain Consent: Per the patient Procedure: The patient exercised on a Soy protocol for 5 minutes and 30 seconds achieving a peak heart rate of 155 bpm (91% predicted maximal heart rate) with a peak blood pressure 150/72 mmHg and a peak MET capacity of 7 METs. The baseline ECG demonstrated normal sinus rhythm, possible prior anteroseptal CA. The peak exercise ECG demonstrated tachycardia with no significant ischemic changes. EKG during recovery revealed no significant ischemic changes [There were no cardiac dysrhythmias pretest, during exercise, or recovery]. The functional capacity was considered borderline for age. There was [no complaint of chest discomfort during exercise or recovery]. The examination was discontinued secondary to dyspnea. Impression: 1. Technically adequate (percent predicted maximal heart rate greater than 85%) exercise tolerance test 2. Stress test is negative for exercise-induced EKG changes of ischemia 3. The test test is negative for exercise-induced chest pain 4. Functional capacity is borderline for age 5. Nuclear images pending Myocardial perfusion imaging study: Technique: The patient was injected with 14.8 mCi of technetium 99m Cardiolite and subsequently rest SPECT Cardiolite nuclear imaging was obtained in the horizontal long, vertical long, and short axis views. The patient exercised on a Soy protocol. Please see above for details. The patient was injected with 44.3 mCi of technetium 99m Cardiolite and subsequently stress SPECT Cardiolite nuclear imaging was obtained in the horizontal long, vertical long, and short axis views. A gated Cardiolite study at peak stress was obtained. Interpretation: Rest and stress SPECT Cardiolite nuclear imaging status post realignment, normalization, and attenuation correction, demonstrates mildly decreased radioisotope uptake in the anterior wall prior to attenuation correction. After intervention correction there is normal myocardial radioisotope uptake. These findings are suggestive of breast attenuation artifact. There is no evidence of significant ischemia or infarction. The gated Cardiolite study demonstrates no significant regional wall motion abnormalities. The reported LVEF is 61%. Impression: 1. There is no evidence of significant ischemia or infarction. 2. The gated Cardiolite study reports an LVEF of 61%. This note was generated with SiOnyxation software. It may contain incorrect words, spelling, and punctuation that were not noted in checking the note before signing. 08/14/20 1600 <Electronically signed by Javier Mock MD> Date Javier Mock MD CC: DEREK Vega; Dr. Maddie Gallegos, DO Date Dictated: 08/14/201554 Date Transcribed: 08/14/201554 Director Of Nuclear Medicine: CHRISTOPHER Signed Wendy Vega Start: 08-04-2020 End: 08-04-2020 [employer] Office Visit Report Comments: See Note; NOTES: [facility] [address] [place] [address] OFFICE VISIT Date of Service: 08/04/20 MR#: [id number] Acct: [id number] Name: TRACEY HATHAWAY Rep #: [id number] : 1970 Provider: DEREK avalos Age/Sex: 49/F Location: [facility] [place] Status: Signed Intake Vital Signs 08/04/20 Height 5 ft 2 in 08/04/20 Weight: 187 lb 8 oz 08/04/20 BMI 34.2 08/04/20 BP 120/82 H Intake Visit Reasons: vaginal issue Insurance Policy Clerk Required: No Accompanied by: self Is patient in pain?: No Allergies Penicillins [PCN] Adverse Reaction (Verified 08/04/20 13:54) Hives CILLINS Adverse Reaction (Uncoded 08/04/20 13:54) Hives Medications multivitamin 1 tab PO QWEEK 03/05/20 [History Confirmed 08/04/20] omeprazole 20 mg capsule,delayed release 20 mg PO DAILY 03/05/20 [History Confirmed 08/04/20] amitriptyline 10 mg tablet 10 mg PO QHS 07/17/20 [History Confirmed 08/04/20] fluticasone propionate 50 mcg/actuation nasal spray,suspension 1 spray INTRANASAL DAILY 07/17/20 [History Confirmed 08/04/20] meclizine 25 mg tablet 25 mg PO DAILY 07/17/20 [History Confirmed 08/04/20] sumatriptan succinate 100 mg tablet 100 mg PO ONCE 07/17/20 [History Confirmed 08/04/20] Is last menstrual period known: No Post menopausal: Yes Patient : No : No PFSH Medical History Stress incontinence (Acute) Urethral hypermobility (Acute) Enlarged uterus (Acute) Abnormal uterine bleeding (Acute) GERD (gastroesophageal reflux disease) (Acute) Migraines (Acute) Tinnitus (Acute) follicular/colloid thyroid nodule (Acute) Surgical History H/O bilateral salpingectomy (Acute 03/2020) History of LAVH (Acute 03/2020) Admission for tubal ligation (Acute) H/O LEEP (Acute) History of LAVH (Acute) history thyroid biopsy (Acute 07/24/20) Family History Father Cancer brain tumor Unknown Diabetes Social History (Updated 08/04/20 @ 14:14 by Quyen Kilpatrick NP, CLINICAL PSYCHOLOGIST LICENSED-C) Smoking Status: Never smoker alcohol intake: never substance use type: does not use caffeine: Yes what type of physical activity do you participate in: walking seatbelt use: always do you feel safe at home: Yes HPI vaginal issue: Details: TRACEY HATHAWAY is a 49 year old who presents for noted last several weeks having gas out of vagina. Denies discharge, odor or pain. She had LAVH with bladder mesh placement in March 2020 Margaret/Jasson. Pregancy History 3 Elective abortions Hx Para 3 Spontaneous abortions Hx # Term Pregnancies Ectopic pregnancies Hx # Pregnancies Multiple births # of living children Past Pregnancies Del. Date Name GA/Weeks Outcome Route Bth Weight Infant Gen Labor Lgth Anesthesia Del Locatn Provider FOB Unknown 1989 Erasmo Unknown 1993 Alba Unknown 1997 Anisha ROS Const Constitutional: Reports system reviewed and no additional complaints, except as docu Eyes Eyes: Reports system reviewed and no additional complaints, except as docu GI GI: Denies abdominal pain or change in bowel habits : Reports as per HPI Exam Const General: no acute distress Nutritional Appearance: well nourished Orientation: oriented x3 External Female Exam: normal external appearance Other: Slight relaxation of posterior vaginal wall. Friable polyp noted at top of vaginal cuff. Silver nitrate applied Assessment Plan Problems 1. Vaginal polyp N84.2 Plan Reasured concerning flatus from vagina Call with any vaginal bleeding, unusual discharge or odor RTO prn, annual exam Coding Level of Care Code Off vis,est,level 3 Diagnoses Vaginal polyp N84.2 08/04/20 1414 <Electronically signed by Quyen Kilpatrick NP CLINICAL PSYCHOLOGIST LICENSED-C> Date Quyen Kilpatrick NP CLINICAL PSYCHOLOGIST LICENSED-C Cosigner Signature: Date (if applicable) CC: Wendy Briehan Start: 07-29-2020 End: 07-29-2020 Surgery Visit Report Comments: See Note; NOTES: [facility] [address] [place] [address]. [address] [place] [address] OFFICE VISIT Date of Service: 07/29/20 MR#: [id number] Acct: [id number] Name: TRACEY HATHAWAY Rep #: [id number] : 1970 Provider: Dr. Carlton millan MD Age/Sex: 49/F Location: [facility] Status: Signed Intake Intake Visit Reasons: F/U THYROID BIOPSY 07/24 Chief Complaint: F/U Thyroid Biopsy 07/24 Insurance Policy Clerk Required: No Is patient in pain?: No Allergies Penicillins [PCN] Adverse Reaction (Verified 07/29/20 08:10) Hives CILLINS Adverse Reaction (Uncoded 04/30/20 11:02) Hives Medications multivitamin 1 tab PO QWEEK 03/05/20 [History Confirmed 07/29/20] omeprazole 20 mg capsule,delayed release 20 mg PO DAILY 03/05/20 [History Confirmed 07/29/20] amitriptyline 10 mg tablet 10 mg PO QHS 07/17/20 [History Confirmed 07/29/20] fluticasone propionate 50 mcg/actuation nasal spray,suspension 1 spray INTRANASAL DAILY 07/17/20 [History Confirmed 07/29/20] meclizine 25 mg tablet 25 mg PO DAILY 07/17/20 [History Confirmed 07/29/20] sumatriptan succinate 100 mg tablet 100 mg PO ONCE 07/17/20 [History Confirmed 07/29/20] Subjective Details: Patient is status post a an ultrasound-guided fine-needle aspiration of bilateral thyroid nodules completed on 07/24/2020. Pathology report came back as consistent with a benign follicular colloid nodule with cystic changes on the left side and on the right side came back with benign follicular colloid nodule. Both of these were adequate for evaluation. Patient is not experiencing any neck pain. She does complain a lot of brittle nails thinning hair occasional knee pain. Objective Details: Neck is soft nontender no hard palpable nodules are noted. Assessment Plan Problems 1. Non-toxic multinodular goiter E04.2 Plan I think would be gautam for her to continue to get yearly thyroid ultrasounds. If the nodules grow by more than 20% or new nodules develop that or suspicious and possible repeat fine-needle aspirations will need to be performed. She is concerned that she may have Alice's thyroiditis and although I did not get any path report back consistent with chronic lymphocytic thyroiditis it may behoove her to have repeat thyroid functions and/or possibly see endocrinology. Coding Level of Care Code Off vis,est,level 2 Diagnoses Non-toxic multinodular goiter E04.2 07/29/20 0842 <Electronically signed by Carlton Naranjo MD> Date Carlton Naranjo MD Cosigner Signature: Date (if applicable) CC: CLINICAL PSYCHOLOGIST LICENSEDKiah Wendy Vega Start: 07-24-2020 End: 07-24-2020 Surgery Visit Report Comments: See Note; NOTES: [facility] [address] [place] [address] OFFICE VISIT Date of Service: 07/24/20 MR#: [id number] Acct: [id number] Name: TRACEY HATHAWAY Rep #: [id number] : 1970 Provider: Dr. Carlton millan MD Age/Sex: 49/F Location: [facility] [place] Status: Signed Intake Intake Visit Reasons: FNA Bilateral Thyroid nodules Chief Complaint: FNA Bilateral Thyroid Insurance Policy Clerk Required: No Is patient in pain?: No Allergies Penicillins [PCN] Adverse Reaction (Verified 07/24/20 08:11) Hives CILLINS Adverse Reaction (Uncoded 04/30/20 11:02) Hives Medications multivitamin 1 tab PO QWEEK 03/05/20 [History Confirmed 07/24/20] omeprazole 20 mg capsule,delayed release 20 mg PO DAILY 03/05/20 [History Confirmed 07/24/20] amitriptyline 10 mg tablet 10 mg PO QHS 07/17/20 [History Confirmed 07/24/20] fluticasone propionate 50 mcg/actuation nasal spray,suspension 1 spray INTRANASAL DAILY 07/17/20 [History Confirmed 07/24/20] meclizine 25 mg tablet 25 mg PO DAILY 07/17/20 [History Confirmed 07/24/20] sumatriptan succinate 100 mg tablet 100 mg PO ONCE 07/17/20 [History Confirmed 07/24/20] PFSH Medical History Stress incontinence (Acute) Urethral hypermobility (Acute) Enlarged uterus (Acute) Abnormal uterine bleeding (Acute) GERD (gastroesophageal reflux disease) (Acute) Migraines (Acute) Tinnitus (Acute) Surgical History H/O bilateral salpingectomy (Acute 03/2020) History of LAVH (Acute 03/2020) Admission for tubal ligation (Acute) H/O LEEP (Acute) History of LAVH (Acute) Family History Father Cancer brain tumor Unknown Diabetes Social History (Updated 07/24/20 @ 08:[address] Carlton Naranjo MD) Smoking Status: Never smoker alcohol intake: never substance use type: does not use caffeine: Yes what type of physical activity do you participate in: walking seatbelt use: always do you feel safe at home: Yes HPI HPI HPI: TRACEY HATHAWAY, is a 49 F who presents to the office today for HPI HPI HPI: TRACEY HATHAWAY, is a 49 F who presents to the office today for ROS General General: Yes weight change and fatigue; no appetite, colon cancer, breast cancer or weakness HEENT HEENT: Yes difficulty swallowing and swollen glands; no eye injury, eye surgery or hoarseness Endo Endocrine: No thyroid disease, diabetes mellitus, thyroid cancer, Hair loss, heat intolerance or cold intolerance Skin Skin: No rash or changing moles Breast Breast: No left breast lump, right breast lump, nipple discharge, breast pain, abnormal mammogram, abnormal US or breast enlargement Musc Musculoskeletal: No back problems, arthritis, rheumatoid arthritis, gout or joint pain Cardio Cardiovascular: No murmur, pacemaker, heart disease, atrial fibrillation, high blood pressure, heart attack, heart stent, palpitations, shortness of breat with exertion or chest pain Psych Psychiatric: No depression, anxiety or hearing voices Resp Respiratory: Yes shortness of breath, Yes sleep apnea, No cough, No COPD, No asthma, No emphysema, No wheezing Gastro Gastrointestinal: No abdominal pain, No nausea or vomiting, No diarrhea, No constipation, No blood in stool, Yes acid reflux, No hemorrhoids, No ulcers, No gallbladder problem, No black,tarry stools Manjeet Hematologic: No blood thinners, No blood disorders, No bleeding, No anemia, No blood clots Neuro Neurologic: No system reviewed and no additional complaints, except as docu, No as per HPI, No abnormal walking, No abnormal hearing, No abnormal movements, No abnormal speech, No behavioral changes, No burning sensations, No confusion, No seizure-like activity, No unsteadiness, No dizziness, No localized weakness, No frequent falls, No headache(s), No lack of coordination, No loss of vision, No memory loss, No numbness, No other visual disturbances, No radiating pain, No restless legs, No sensory deficit, No fainting, No tingling, No tremor(s), No weakness, No other Exam Chest Breast Palpation: No nipple discharge Cardio Heart Sounds: no murmurs Office Procedures Fine Needle Aspiration Provider Documentation Details: Preoperative diagnosis: Multinodular goiter Postoperative diagnosis: The same Procedure: Ultrasound-guided fine-needle aspiration of dominant bilateral thyroid nodules Surgeon: Jose A Procedure: Ultrasound of the left thyroid gland revealed the nodule in question. Prepped the skin with alcohol. I injected 1% lidocaine plain. Under ultrasound guidance I took 3 passes with a 22- gauge needle and plated these on glass slides. Sterile dressings were applied and she tolerated the procedure well. On the right side similar fashion ultrasound was used to identify the dominant nodule I prepped the skin with alcohol. I injected 1% lidocaine plain. Under ultrasound guidance I took 3 passes with a 22-gauge needle. I plated these on glass slides. Sterile dressings were applied. The patient tolerated the procedure well. I will see her back in 1 week to go over the pathology report with her. Alert Cornel Alert Billing: Yes FNA 19898 Thyroid (Modifier 50) Procedure Time Out Time Out Informed consent given: Yes Consent signed: Yes Time out checklist: patient, procedure, site marked/identified, positioning of patient, supplies available, allergies confirmed, team agrees on procedure Time out staff in room: Yes Time out verified: Yes Time out date: 07/24/20 Time out time: 08:12 Assessment Plan Orders Orders: Fine Needle Aspiration Today E04.2 Coding Level of Care Code Attention Operational Communication Chief Additional Codes FNA - Fine Needle Aspiration: 25225 Thyroid (22257) 07/24/20 0828 <Electronically signed by Carlton Naranjo MD> Date Carlton Naranjo MD Cosigner Signature: Date (if applicable) CC: Wendy Vega Start: 07-24-2020 End: 07-24-2020 Chest PA and Lateral Comments: See Note; NOTES: [facility] [address] [place] [address] Chest PA and Lateral MR#: [id number] Acct: [id number] Name: TRACEY HATHAWAY Rep #: [id number] : 1970 F 49 From: Slade kauffman MD PCP: DEREK Goldberg Status: REG CLI Study: Chest PA and Lateral Date of Exam: 07/24/20 Exam# [id number] Ordering Dr: Maddie Gallegos DO STUDY: X-RAY CHEST REASON FOR EXAM: Female, 49 years old. Pt. having SOB, Swelling in legs TECHNIQUE: PA and lateral views of the chest. COMPARISON: None. FINDINGS: The lungs are clear and expanded. Scattered calcified granulomas. There is no demonstrated pleural abnormality. Normal size heart. Normal mediastinum and ellyn. Normal visualized pulmonary arteries. Normal visualized aortic arch and descending thoracic aorta. Normal visualized thoracic spine. Normal visualized ribs, clavicles, and shoulders. There is no demonstrated abnormality of the visualized soft tissue structures of the upper abdomen. RAD/Chest PA and Lateral IMPRESSION: Normal x-ray examination of the chest. Electronically Signed: Slade Rosa, at 8:05 EDT , Service support , CC: DEREK Vega; Dr. Maddie Gallegos DO Director Of Nuclear Medicine: Signed Maddie Gallegos Work Phone: Start: 07-17-2020 End: 07-17-2020 Surgery Visit Report Comments: See Note; NOTES: [facility] [employer] [employer] [place] [id number] OFFICE VISIT Date of Service: 07/17/20 MR#: [id number] Acct: [id number] Name: TRACEY HATHAWAY Rep #: [id number] : 1970 Provider: Dr. Carlton millan MD Age/Sex: 49/F Location: [facility] Status: Signed Intake Vital Signs 10/23/20 Height 5 ft 2 in 07/17/20 Weight: 188 lb 07/17/20 BMI 34.4 07/17/20 BP 118/81 H 07/17/20 Blood Pressure Location Rt brachial 07/17/20 Position Sitting 07/17/20 Respiration 18 Intake Visit Reasons: Thyroid Nodules Chief Complaint: thyroid Insurance Policy Clerk Required: No Is patient in pain?: Yes (left knee) Allergies Penicillins [PCN] Adverse Reaction (Verified 04/30/20 11:02) Hives CILLINS Adverse Reaction (Uncoded 04/30/20 11:02) Hives Medications multivitamin 1 tab PO QWEEK 03/05/20 [History Confirmed 04/30/20] omeprazole 20 mg capsule,delayed release 20 mg PO DAILY 03/05/20 [History Confirmed 04/30/20] amitriptyline 10 mg tablet 10 mg PO QHS 07/17/20 [History Confirmed 07/17/20] fluticasone propionate 50 mcg/actuation nasal spray,suspension 1 spray INTRANASAL DAILY 07/17/20 [History Confirmed 07/17/20] meclizine 25 mg tablet 25 mg PO DAILY 07/17/20 [History Confirmed 07/17/20] sumatriptan succinate 100 mg tablet 100 mg PO ONCE 07/17/20 [History Confirmed 07/17/20] PFSH Medical History Stress incontinence (Acute) Urethral hypermobility (Acute) Enlarged uterus (Acute) Abnormal uterine bleeding (Acute) GERD (gastroesophageal reflux disease) (Acute) Migraines (Acute) Tinnitus (Acute) Surgical History H/O bilateral salpingectomy (Acute 03/2020) History of LAVH (Acute 03/2020) Admission for tubal ligation (Acute) H/O LEEP (Acute) History of LAVH (Acute) Family History Father Cancer brain tumor Unknown Diabetes Social History (Updated 07/17/20 @ 08:[address] Carlton Naranjo MD) Smoking Status: Never smoker alcohol intake: never substance use type: does not use caffeine: Yes what type of physical activity do you participate in: walking seatbelt use: always do you feel safe at home: Yes HPI HPI HPI: TRACEY HATHAWAY, is a 49 F who presents to the office today for HPI HPI HPI: TRACEY HATHAWAY, is a 49 F who presents to the office today for Evaluation for multinodular goiter. Patient has had her thyroid ultrasound completed at [facility] on 07/02/2020. I have seen her in the past several years ago and did fine-needle aspirations on her which have been benign. Her right side showed a 2.2 cm nodule with the previous measurements being 1.6 cm nodule. She also had a another nodule that was not quite a centimeter cubed on the right side. On the left side she has a 2.5 cm nodule previously it was 1 cm was mixed solid and cystic on this ultrasound. Patient has not been having any neck tenderness but has had fatigue symptoms as well as brittle hair and brittle nails ROS General General: Yes weight change and fatigue; no appetite, colon cancer, breast cancer or weakness HEENT HEENT: Yes difficulty swallowing and swollen glands; no eye injury, eye surgery or hoarseness Endo Endocrine: No thyroid disease, diabetes mellitus, thyroid cancer, Hair loss, heat intolerance or cold intolerance Skin Skin: No rash or changing moles Breast Breast: No left breast lump, right breast lump, nipple discharge, breast pain, abnormal mammogram, abnormal US or breast enlargement Musc Musculoskeletal: No back problems, arthritis, rheumatoid arthritis, gout or joint pain Cardio Cardiovascular: No murmur, pacemaker, heart disease, atrial fibrillation, high blood pressure, heart attack, heart stent, palpitations, shortness of breat with exertion or chest pain Psych Psychiatric: No depression, anxiety or hearing voices Resp Respiratory: Yes shortness of breath, Yes sleep apnea, No cough, No COPD, No asthma, No emphysema, No wheezing Gastro Gastrointestinal: No abdominal pain, No nausea or vomiting, No diarrhea, No constipation, No blood in stool, Yes acid reflux, No hemorrhoids, No ulcers, No gallbladder problem, No black,tarry stools Manjeet Hematologic: No blood thinners, No blood disorders, No bleeding, No anemia, No blood clots Neuro Neurologic: No system reviewed and no additional complaints, except as docu, No as per HPI, No abnormal walking, No abnormal hearing, No abnormal movements, No abnormal speech, No behavioral changes, No burning sensations, No confusion, No seizure-like activity, No unsteadiness, No dizziness, No localized weakness, No frequent falls, No headache(s), No lack of coordination, No loss of vision, No memory loss, No numbness, No other visual disturbances, No radiating pain, No restless legs, No sensory deficit, No fainting, No tingling, No tremor(s), No weakness, No other Exam Const General: no acute distress, well developed, well hydrated Orientation: oriented to person, oriented to place, oriented to time [facility] Head: normocephalic, atraumatic Ears: external ears normal Mouth: moist mucous membranes Other: Thyroid Exam: No hard thyroid nodules are identified. Eyes Sclera: sclerae normal Pupils: normal by confrontation Neck Neck: no lymphadenopathy noted Neck mass: No Thyroid: thyroid normal, symmetrical Chest Chest palpation inspection: normal inspection of the chest Breast Palpation: No nipple discharge Resp Effort Inspection: normal respiratory effort Auscultation: clear to auscultation bilaterally Percussion: percussion normal Cardio Rate: regular rate Rhythm: regular rhythm Heart Sounds: no murmurs GI Palpation: soft, no hepatosplenomegaly, no masses, nontender Rectal Exam: other Other: Rectal exam deferred. Extrem General: normal to inspection, no clubbing, cyanosis or edema Assessment Plan Problems 1. Non-toxic multinodular goiter E04.2 Plan Plan will be perform a fine-needle aspiration of both the left and right thyroid lobes. There is benefits have been reviewed with the patient and the patient agrees to proceed. Coding Level of Care Code Off vis,new,level 3 Diagnoses Non-toxic multinodular goiter E04.2 07/17/20 0827 <Electronically signed by Carlton Naranjo MD> Date Carlton Naranjo MD Cosigner Signature: Date (if applicable) CC: CLINICAL PSYCHOLOGIST LICENSEDKiah Vega Start: 07-14-2020 End: 07-14-2020 Carotid Duplex Ultrasound Comments: See Note; NOTES: [facility] [address] [place] [address] Carotid Duplex Ultrasound 07/14/20 1408 MR#: [id number] Acct: [id number] Name: TRACEY HATHAWAY Rep #: [id number] : 1970 49 From: Elmo Carballo MD Attending Dr: Dr. Maddie Gallegos, Status: REG CL I Ordering Dr: Maddie Gallegos DO Date: 07/14/20 Location: [facility] Sex: F C Admitted: Reason For Study: Dizziness Rt. Velocities/BP Lt. Velocities/BP Prox CCA 93/23.9 cm/sec. Prox CCA 109.7/29.8 cm/sec. Mid CCA 83.9/27.8 cm/sec. Mid CCA 92.5/29.8 cm/sec. Dist CCA 72.1/27.8 cm/sec. Dist CCA 71.6/24.9 cm/sec. Prox ICA 64.3/20 cm/sec. Prox ICA 54.4/24.9 cm/sec. Mid ICA 78.6/27.8 cm/sec. Mid ICA 82.7/36 cm/sec. Dist ICA 83.8/38.2 cm/sec. Dist ICA 70.4/31.1 cm/sec. Rt. ICA/CCA = 1.00. Lt. ICA/CCA = 0.89. Prox ECA 94.3/14.7 cm/sec. Prox ECA 71.6/12.6 cm/sec. Rt. Vert. 35.2/13.5 cm/sec. Lt. Vert. 54.4/23.7 cm/sec. Right Extracranial There is intimal thickening but no significant atherosclerotic plaque noted in the right common carotid artery. There is intimal thickening but no significant atherosclerotic plaque noted in the right internal carotid artery. There is no significant atherosclerotic plaque noted in the right external carotid artery. Antegrade flow is noted in the right vertebral artery. Left Extracranial There is intimal thickening but no significant atherosclerotic plaque noted in the left common carotid artery. There is intimal thickening but no significant atherosclerotic plaque noted in the left internal carotid artery. There is intimal thickening but no significant atherosclerotic plaque noted in the left external carotid artery. Antegrade flow is noted in the left vertebral artery. Procedure Carotid Duplex 40714. This is a Carotid Duplex examination using B-mode, color flow and specral Doppler. Exam performed in department. Interpretation Summary No significant atherosclerotic plaque or stenosis noted in the internal carotid arteries bilaterally. Flow within the vertebral arteries is antegrade bilaterally. _ Ordering Physician: Maddie Gallegos Referring Physician: Wendy Vega Performed By: Sindy Chen, RVT 07/14/201904 Date Elmo Carballo MD CC: CLINICAL PSYCHOLOGIST LICENSED-C Wendy Vega; Dr. Maddie Gallegos DO Date Dictated: 07/14/20 1408 Date Transcribed: 07/14/201904 Director Of Nuclear Medicine: Signed Maddie Gallegos Work Phone: Start: 07-14-2020 End: 07-14-2020 Echo Complete Comments: See Note; NOTES: [facility] [address] [place] [address] Echo Complete 07/14/20 1514 MR#: [id number] Acct: [id number] Name: TRACEY HATHAWAY Rep #: [id number] : 1970 49 From: Ernesto Sanders MD Attending Dr: Dr. Maddie Gallegos, DO Status: REG CL I Ordering Dr: Maddie Gallegos DO Date: 07/14/20 Location: [facility] Sex: F C Admitted: Reason For Study: SOB Procedure This was a 2D Doppler, Color Flow transthoracic echocardiogram. The study was technically difficult. Exam performed in department. Left Ventricle Normal LV size. Left ventricular systolic function is normal. The estimated ejection fraction is 60 %. Diastolic function is indeterminate. No regional wall motion abnormalities noted. Right Ventricle Normal RV size. Normal systolic function. Atria Normal left atrium. Normal right atrium. No doppler evidence for ASD. Mitral Valve There is no mitral annular calcification. Normal mitral valve. Trivial mitral valve insufficiency. Tricuspid Valve Normal tricuspid valve. Trivial tricuspid valve insufficiency. Unable to estimate RV systolic pressure/pulmonary artery pressure due to technically difficult study. Aortic Valve The aortic valve is not well visualized. Pulmonic Valve The pulmonic valve is not well visualized. Great Vessels Normal sized aortic root. Pericardium/Pleural No pericardial effusion. MMode/2D Measurements Calculations LVIDd: 4.2 cm IVSd: 1.1 cm Ao root diam: 3.3 cm LVIDs: 2.7 cm LVPWd: 1.1 cm RVDd: 2.6 cm FS: 36.1 % LAV(MOD-bp): 41.4 ml LA A4 area: 14.1 cm2 LA dimension(2D): 3.5 cm LAV(MOD-bp) Indexed: 23.0 ml/m2 LAV(MOD-sp2): 42.2 ml LAV(MOD-sp4): 36.6 ml RA A4 area: 10.9 cm2 Time Measurements MV dec time: 0.21 sec Doppler Measurements Calculations MV E max gonzalo: 87.3 cm/sec Lat Peak E' Gonzalo: 8.2 cm/sec Med Peak E' Gonzalo: 5.7 cm/sec MV A max gonzalo: 68.5 cm/sec E/E' lat: 10.6 E/E' med: 15.4 MV E/A: 1.3 Ao V2 max: 143.1 cm/sec LV V1 max: 111.0 cm/sec PA V2 max: 89.9 cm/sec Ao max P.2 mmHg LV V1 max P.9 mmHg Interpretation Summary The study was technically difficult. Left ventricular systolic function is normal. The estimated ejection fraction is 60 %. Trivial mitral valve insufficiency. Trivial tricuspid valve insufficiency. Unable to estimate RV systolic pressure/pulmonary artery pressure due to technically difficult study. Diastolic function is indeterminate. _ Ordering Physician: Maddie Gallegos Referring Physician: Maddie Gallegos Performed By: Mercy Lau, NICHOLAS, RVT 07/14/201635 Date Ernesto Sanders MD CC: DEREK Vega; Dr. Maddie Gallegos DO Date Dictated: 07/14/20 151 Date Transcribed: 07/14/201635 Director Of Nuclear Medicine: Pan Gallegos Work Phone: Start: 07-02-2020 End: 07-02-2020 Thyroid Comments: See Note; NOTES: [facility] [address] [place] [address] Thyroid MR#: [id number] Acct: [id number] Name: TRACEY HATHAWAY Rep #: [id number] : 1970 F 49 From: Kathrine schaefer MD PCP: DEREK Goldberg Status: REG CLI Study: Thyroid Date of Exam: 07/02/20 Exam# [id number] Ordering Dr: Wendy Vega NP CLINICAL PSYCHOLOGIST LICENSED-C HISTORY: THYROMEGALY COMPARISON: 09/12/2011 TECHNIQUE: Grayscale and color Doppler sonography of the thyroid gland. FINDINGS: RIGHT LOBE: 5.7 x 1.7 x 2.4 cm LEFT LOBE: 7.3 x 2.1 x 2.9 cm ISTHMUS: 1.6 mm Diffusely heterogeneous thyroid. Unremarkable vascularity. Multiple bilateral thyroid nodules, largest as follows: Right mid thyroid lobe mixed solid and cystic nodule measuring 2.2 x 1.6 x 1.2 cm, previously 1.6 x 0.8 x 1.3 cm and appeared spongiform on previous. Solid components are primarily isoechoic, margins are smooth, wider than tall and no calcifications. Nodule is borderline spongiform on current exam. TIRADS 2. Right mid thyroid lobe nodule measuring 1.0 x 0.8 x 0.8 cm (previously 5 x 3 x 5 mm) is spongiform. Left mid thyroid lobe nodule measures 2.3 x 2.2 x 2.5 cm (previously 1.0 x 0.7 x 1.0 cm and is mixed solid and cystic with solid components being primarily isoechoic, smooth margins, wider than tall in no calcifications. TIRADS 2. Mixed solid and cystic, slightly hypoechoic area along the posterior aspect of the left thyroid lobe measuring 1.5 x 1.3 x 1.6 cm. This appears to represent exophytic thyroid nodule rather than parathyroid nodule on the provided images. TIRADS 3. US/Thyroid IMPRESSION: Multiple thyroid nodules, as described. Follow-up thyroid ultrasound recommended in 1 year. at 2300 Reported and signed by: Kathrine Michelle MD Electronically Signed: Kathirne Michelle MD at 23:00 EDT Tel , Service support , CC: DEREK Vega Director Of Nuclear Medicine: Signed Wendy Vega Work Phone: Start: 06-12-2020 End: 06-13-2020 Venous Duplex US - Xavier Extrem Comments: See Note; NOTES: [facility] [address] [place] [address] Venous Duplex US - Xavier Extrem 06/12/20 1527 MR#: [id number] Acct: [id number] Name: TRACEY HATHAWAY Rep #: [id number] : 1970 49 From: Elmo Carballo MD Attending Dr: DEREK Goldberg Status: REG CLI Ordering Dr: Wendy Vega NPC Date: 06/12/20 Location: [facility] Sex: F C Admitted: Reason For Study: Pain RIGHT LEFT GSV is normal. GSV is normal. CFV is compressible, spontaneous, phasic, CFV is compressible, spontaneous, phasic, competent and demonstrates normal competent, and demonstrates normal augmentation. augmentation. FV is compressible, spontaneous, phasic, FV is compressible, spontaneous, phasic, competent and demonstrates normal competent and demonstrates normal augmentation. augmentation. POP V is compressible, spontaneous, phasic, POP V is compressible, spontaneous, phasic, competent and demonstrates normal competent and demonstrates normal augmentation. augmentation. T/P Trunk is compressible. T/P Trunk is compressible. PTV is compressible. PTV is compressible. RT PerV is compressible. LT PerV is compressible. Procedure Exam performed in department. A preliminary report was called and/or faxed to [facility]. Interpretation Summary Deep veins of the lower extremities are bilaterally patent and compressible segmentally. There is no evidence of deep vein thrombosis on either side. Valvular competence appears intact within the proximal deep venous systems bilaterally. The great saphenous veins appear bilaterally patent and compressible segmentally. _ Ordering Physician: Wendy Vega Referring Physician: Wendy Vega Performed By: Sindy Chen, RVT 06/13/202128 Date Elmo Carballo MD CC: CLINICAL PSYCHOLOGIST LICENSED-C Wendy Vega Date Dictated: 06/12/20 1527 Date Transcribed: 06/13/202128 Director Of Nuclear Medicine: Signed Wendy Vega Work Phone: Start: 06-09-2020 End: 06-10-2020 Knee 4 or More Views Comments: See Note; NOTES: [facility] Imaging Services [address] [place] [address] Knee 4 or More Views MR#: [id number] Acct: [id number] Name: TRACEY HATHAWAY Rep #: [id number] : 1970 F 49 From: Slade kauffman MD PCP: DEREK Goldberg Status: REG CLI Study: Knee 4 or More Views Date of Exam: 06/09/20 Exam# [id number] Ordering Dr: Wendy Vega NP CLINICAL PSYCHOLOGIST LICENSED-C STUDY: X-RAY - LEFT KNEE REASON FOR EXAM: Female, 49 years old. Left knee pain, patient states her patella feels as if it dislocates TECHNIQUE: 4 view(s) of the knee. COMPARISON: None. FINDINGS: Normal visualized distal femur. Normal visualized proximal tibia and fibula. Normal proximal tibiofibular articulation. Normal medial femorotibial compartment. Normal lateral femorotibial compartment. Normal patellofemoral articulation. Small joint effusion. RAD/Knee 4 or More Views IMPRESSION: Small joint effusion. Electronically Signed: Slade Rosa, at 15:25 EDT , Service support , CC: DEREK Vega Director Of Nuclear Medicine: Signed Wendy Vega Work Phone: Start: 05-12-2020 End: 05-12-2020 Venous Duplex US, Unilateral Comments: See Note; NOTES: [facility] [address] [place] [address] Venous Duplex US, Unilateral 05/12/20 0903 MR#: [id number] Acct: [id number] Name: TRACEY HATHAWAY Rep #: [id number] : 1970 49 From: Hu Morton MD Attending Dr: Dr. Kathy Robles MD Status: REG I Ordering Dr: Kathy Robles MD Date: 05/12/20 Location: [facility] Sex: F C Admitted: Reason For Study: Left knee pain Procedure LEFT Exam performed in department. GSV is normal. A preliminary report was called and/or faxed CFV is compressible, spontaneous, phasic, to Margaret. competent, and demonstrates normal augmentation. FV is compressible, spontaneous, phasic, competent and demonstrates normal augmentation. POP V is compressible, spontaneous, phasic, competent and demonstrates normal augmentation. T/P Trunk is compressible. PTV is compressible. LT PerV is compressible. Interpretation Summary There is no evidence of left lower extremity deep vein thrombosis. Left great saphenous vein appears patent and compressible segmentally. _ Ordering Physician: Kathy Robles Referring Physician: Wendy Vega Performed By: Sindy Chen, RVT 05/12/20 1606 Date Hu Morton MD CC: CLINICAL PSYCHOLOGIST LICENSED-C Wendy Vega; Dr. Kathy Robles MD Date Dictated: 05/12/20 0903 Date Transcribed: 05/12/20 160 Director Of Nuclear Medicine: Signed Wendy Vega 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 Work Phone: Start: 04-30-2020 End: 04-30-2020 [employer] Office Visit Report Comments: See Note; NOTES: [facility] [address] [place] [address] OFFICE VISIT Date of Service: 04/30/20 MR#: [id number] Acct: [id number] Name: TRACEY HATHAWAY Rep #: [id number] : 1970 Provider: Dr. Kathy roldan MD Age/Sex: 49/F Location: [facility] Status: Signed Intake Vital Signs 04/30/20 BMI 33.8 04/30/20 Height 5 ft 2 in 04/30/20 Weight: 187 lb 04/30/20 BMI 34.2 04/30/20 BP 124/80 H Intake Visit Reasons: 2 post op Chief Complaint: 2w post op [facility] BS Insurance Policy Clerk Required: No Is patient in pain?: No Allergies Penicillins [PCN] Adverse Reaction (Verified 04/30/20 11:02) Hives CILLINS Adverse Reaction (Uncoded 04/30/20 11:02) Hives Medications multivitamin 1 tab PO QWEEK 03/05/20 [History Confirmed 04/30/20] omeprazole 20 mg capsule,delayed release 20 mg PO DAILY 03/05/20 [History Confirmed 04/30/20] Is last menstrual period known: No Post menopausal: No Patient : No : No [facility] Surgical History (Updated 04/30/20 @ 11:03 by Kathrine Perez) History of LAVH (Acute) Admission for tubal ligation (Acute) H/O LEEP (Acute) Family History Father Cancer brain tumor Unknown Diabetes Social History (Updated 04/30/20 @ 11:[address] Kathy Robles MD) Smoking Status: Never smoker alcohol intake: never substance use type: does not use caffeine: Yes what type of physical activity do you participate in: walking seatbelt use: always do you feel safe at home: Yes HPI 2 post op: Details: TRACEY HATHAWAY is a 49 year old who presents for postop she is doing well. Pregancy History 3 Elective abortions Hx Para 3 Spontaneous abortions Hx # Term Pregnancies Ectopic pregnancies Hx # Pregnancies Multiple births # of living children Past Pregnancies Del. Date Name GA/Weeks Outcome Route Bth Weight Infant Gen Labor Lgth Anesthesia Del Locat Provider FOB Unknown 1989 Erasmo Unknown 1993 Alba Unknown 1997 Anisha ROS Const Constitutional: Reports system reviewed and no additional complaints, except as docu GI GI: Denies abdominal pain, cramping, nausea or vomiting : Denies pelvic pain, urinary frequency, urinary incontinence, urinary urgency, vaginal discharge, vaginal dryness or vaginal odor Exam Const General: cooperative, healthy appearing, comfortable, no acute distress GI Inspection: normal to inspection Palpation: soft, nontender Other: Incisions: C/D/I Assessment Plan Problems 1. Abnormal uterine bleeding N93.9 enlarged 10 cm multiple fibroid uterus. recommend [facility] BS combo case with Jasson for sling. nl EMB Plan fu at 6 weeks Coding Level of Care Code No Charge Diagnoses Abnormal uterine bleeding N93.9 04/30/20 1122 <Electronically signed by Kathy Robles MD> Date Kathy Robles MD Cosigner Signature: Date (if applicable) CC: Wendy Vega 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 Work Phone: Start: 04-15-2020 End: 04-15-2020 Progress Note Comments: See Note; NOTES: [facility] Medical Records Department [address] [place] [address] Progress Note 04/15/20815 MR#: [id number] Acct: [id number] Name: TRACEY HATHAWAY Rep #: [id number] : 1970 49 From: Mine Spaulding MD PCP: CHRISTOPHER GoldbergC Status:REG [facility] Y Location: MS3 [id number] Progress Note Patient is post-op day #1 from hysterectomy and sling. Up in bed, no issues over night. Vitals are good. Abdomen soft, urine clear. Jones and packing removed. Trial of void, ambulate, home later today. STROKE Vital Signs/Narrative: Vital Signs Temp Pulse Resp BP Pulse Ox 04/15/20 06:50 16 97 04/15/20 05:24 98.7 F 84 18 111/68 97 04/15/20 0816 <Electronically signed by Mine Spaulding MD> Date Mine Spaulding MD Cosigner Signature (if applicable): Date CC: Signed Wendy Ezequiel Start: 04-15-2020 End: 04-15-2020 Progress Note - OBGYN Comments: See Note; NOTES: [facility] Medical Records Department [address] [place] [address] Progress Note - OBGYN 04/15/20750 MR#: [id number] Acct: [id number] Name: TRACEY HATHAWAY Rep #: [id number] : 1970 49 From: Quyen Kilpatrick NP-C PCP: Wendy Vega CLINICAL PSYCHOLOGIST LICENSED-C Status:REG SDC Y Location: MS3 [id number] Patient Problems: Active and Suspected Problems (Last Reviewed 03/30/20 @ 08:03 by Dionne Calloway) Stress incontinence (Acute) Urethral hypermobility (Acute) Subjective: Pain controlled. No CP, SOB. Doing well. Taking PO well. Has been up at bedside. - Physical Exam Vitals/I O's: Vital Signs Temp Pulse Resp BP Pulse Ox 98.7 F 84 16 111/68 97 04/15/20 05:24 04/15/20 05:24 04/15/20 06:50 04/15/20 05:24 04/15/20 06:50 Oxygen Flow Rate (L/min) 6 Oxygen Delivery Method Room Air Weight: 185 lb Body Mass Index (BMI) 33.8 Intake and Output for Last 24 Hours 04/13/20 04/14/20 04/15/20 23:59 23:59 23:59 Intake Total 1269 / 1269 1522.67 / 1522.67 Output Total 650 / 650 2750 / 2750 Balance 619 / 619 -1227.33 / -1227.33 General: Alert, Oriented x3 Abdomen: Soft, Non-Distended, - - Dressings dry and intact. Laboratory Results 04/14/20 10:40: Sodium 140, Potassium 3.7, Chloride 109 H, Carbon Dioxide 28.0, Anion Gap 3 L, BUN 10, Creatinine 0.84, Estim Creat Clear Calc 62.67, Est GFR (MDRD) Af Amer 92, Est GFR (MDRD) Non-Af 76, BUN/Creatinine Ratio 11.9, Glucose 82, Calcium 8.5, Magnesium 2.3 04/14/20 10:40: Blood Type A POSITIVE, Antibody Screen NEGATIVE 04/14/20 10:47: POC Glucose 72 04/14/20 10:53: Urine Test Negative 04/15/20 05:24: WBC 13.1 H, RBC 4.18 L, Hgb 11.9 L, Hct 37.0, MCV 88.5, MCH 28.5, MCHC 32.2, RDW Std Deviation 42.3, RDW Coeff of Lian 13.1, Plt Count 316, MPV 11.1 Current Medications Acetaminophen (Tylenol) 1,000 mg PO Q6 [facility] Last Admin: 04/15/20 05:13 Dose: 1,000 mg Documented by: Docusate Sodium (Colace) 100 mg PO BID [facility] Last Admin: 04/14/20 20:53 Dose: 100 mg Documented by: Enoxaparin Sodium (Lovenox) 40 mg SC DAILY [facility] Ketorolac Tromethamine (Toradol (Bkc)) 30 mg IV Q6 [facility] Stop: 04/16/20 00:01 Last Admin: 04/15/20 05:13 Dose: 30 mg Documented by: Magnesium Oxide (Mag-Ox 400) 400 mg PO DAILY PRN PRN PRN Reason: Constipation Nutritional Formula (Lactose Free) (Ensure Enlive) 120 ml PO TIDCM [facility] Ondansetron HCl (Zofran Odt) 4 mg PO Q6H PRN PRN PRN Reason: NAUSEA Oxycodone HCl (Oxyir) 5 - 10 mg PO Q4H PRN PRN PRN Reason: Pain Score 4-10/10 Last Admin: 04/14/20 17:13 Dose: 5 mg Documented by: Pantoprazole Sodium (Protonix) 20 mg PO DAILY [facility] Sodium Chloride () 10 - 40 ml IV UD PRN PRN Reason: SALINE FLUSH Medical Necessity - Tobacco Use Smoking Status: Never smoker Tobacco Use: Non-smoker Assessment/Plan All Active Problems (Last Reviewed 03/30/20 @ 08:03 by Dionne Calloway) Stress incontinence (Acute) Urethral hypermobility (Acute) Enlarged uterus (Acute) Abnormal uterine bleeding (Acute) ALFREDO HENRY cyto with combination case Dr. Spaulding. Postop day #1 Routine care. See visit note and orders per Dr. Spaulding for further management Plans home today 04/15/20 0754 <Electronically signed by Quyen REED> Date Quyen REED CC: Signed Wendy Bairdmadysonradha Start: 04-14-2020 End: 04-14-2020 Operative Report Comments: See Note; NOTES: [facility] Medical Records Department [address] [place] [address] Operative Report 04/14/20 1237 MR#: [id number] Acct: [id number] Name: TRACEY HATHAWAY Rep #: [id number] : 1970 49 From: Mine Spaulding MD PCP: DEREK Goldberg Status:REG [facility] Y Location: [place] [address] Problem List (1) Stress incontinence Status: Acute (2) Urethral hypermobility Status: Acute Report of Operation Date of Procedure: 04/14/20 Pre-Operative Diagnosis: Stress incontinence and urethral hypermobility Post-Operative Diagnosis: Same Surgery/Procedure Performed:: Mid urethral sling insertion, cystoscopy Type of Anesthesia:: General Estimated Blood Loss (mL): 25cc Description of Procedure: The patient is a 49-year-old female undergoing a hysterectomy for abnormal uterine bleeding. She presented to the office requesting management for her stress urinary incontinence. She was evalua vick with urodynamics and cystoscopy and informed consent was obtained. Patient was taken to the operating room and placed on the operating room table. Anesthesia monitored the head, neck, airway, IV access and vital signs throughout the case. Once anesthesia was apparently administered the patient was prepped and draped in usual sterile fashion and Dr. Trino Fox performed her portion of the case. At this time she is placed into dorsal lithotomy position and Trendelenburg. Her mid urethra was identified and the submucosa was injected with vasopressin for hydrostatic dissection and hemostatic control. A midline vertical incision was made and sharp and blunt dissection was performed on either side of the urethra with care being taken to avoid entrance into the urethra itself. At this time using the trochars, the alto's mid urethral sling was inserted into the trans-obturator complexes bilaterally. The sling lay flat against the urethra without tension. The tensioning suture was cut. The incision was closed using running interlocking 2-0 Vicryl. A cystourethroscopy was performed by inserting the cystoscope through the urethra under direct visualization. There were no injuries to the urinary bladder or the urethra. There were no foreign objects within the bladder or urethra. Bilateral ureteral jets were observed. Patient's bladder was then emptied, the jones catheter was replaced, and vaginal packing was inserted. She was awakened and taken to the recovery room in good condition. Grafts/Implants Used: Altis midurethral sling - Complications none - Admit VTE Documentation VTE Present on Admission: Yes VTE Mechan Device Prophylaxis: SCD's VTE Pharm Prophylaxis ordered?: Yes 04/14/20 1354 <Electronically signed by Mine Spaulding MD> Date Mine Spaulding MD CC: CLINICAL PSYCHOLOGIST LICENSED-C Wendy Vega; Dr. Mine Spaulding MD; Dr. Kathy Robles MD Signed Wendy Vega Start: 04-14-2020 End: 04-16-2020 Discharge Instruction Comments: See Note; NOTES: [facility] Medical Records Department [address] [place] [address] Instructions for Home/Discharge Instructions 04/14/20 1229 MR#: [id number] Acct: [id number] Name: TRACEY HATHAWAY Rep #: [id number] : 1970 49 From: Mine Spaulding MD PCP: DEREK Goldberg Status:DEP [facility] Discharge Diet: No Restrictions Discharge Activity: May Not Drive, May Shower May resume sexual activity in: 6-8 weeks Additional Activity Instructions:: No exercise, no strenuous activity, no vacuuming, no lifting over 5 pounds, no intercourse, no swimming, no tub bathing, no hot tubs. Call your doctor if your incision/area has: Continuous Slow Oozing, Sudden Increased Bleeding, Increased Pain/ Swelling, Increased Redness, Foul Smelling Discharge Call your doctor if you observe: Fever of 101 or Higher, Inability to urinate, Inability to have a bowel movement, Using more than one pad per hour Allergies/Adverse Reactions: Allergies Penicillins [PCN] Adverse Reaction (Verified 04/14/20 10:23) Hives CILLINS Adverse Reaction (Uncoded 04/14/20 10:23) Hives Medications to take at Discharge cholecalciferol (vitamin D3) 50 mcg (2,000 unit) capsule 50 mcg PO DAILY 03/05/20 ferrous sulfate 325 mg (65 mg iron) tablet 325 mg PO DAILY 03/05/20 multivitamin 1 tab PO QWEEK 03/05/20 omeprazole 20 mg capsule,delayed release 20 mg PO DAILY 03/05/20 Naproxen [Naprosyn] 250 - 500 mg PO Q8H PRN PRN #30 tab 04/14/20 Oxycodone HCl/Acetaminophen [Percocet 5-325] 1 - 2 tab PO Q6H PRN PRN 7 Days #15 tab 04/14/20 The following prescriptions were given: Naproxen [Naprosyn] 250 - 500 mg PO Q8H PRN PRN #30 tab PRN Reason: MILD PAIN Transmission Status: Received by [facility] Oxycodone HCl/Acetaminophen [Percocet 5-325] 1 - 2 tab PO Q6H PRN PRN 7 Days #15 tab PRN Reason: Pain Transmission Status: Received by [facility] Orders to be completed after discharge: 12 Lead EKG [[facility]] Time Frame: 04/07/20, Facility: [facility], Location: Cardiovascular Services CBC-Complete Blood Cnt No Diff Time Frame: 04/07/20, Facility: [facility], Location: Laboratory CORONAVIRUS 19, DAREK SCREEN Time Frame: 04/09/20, Facility: [facility], Location: Laboratory Partial Thromboplast Time Time Frame: 04/07/20, Facility: [facility], Location: Laboratory Prothrombin Time w/INR Time Frame: 04/07/20, Facility: [facility], Location: Laboratory Primary Care Physician: Wendy Vega NP-C [Primary Care Provider] - Test Results: Test results from this visit will be discussed in further detail at your follow-up appointment, if applicable. Please Follow Up With: Mine Spaulding MD When: call office for appt 04/16/20 0828 <Electronically signed by Mine Spaulding MD> Date Mine Spaulding MD CC: CHRISTOPHERC Wendy Vega; Dr. Mine Spaulding MD Signed Wendy Vega Start: 04-14-2020 End: 04-14-2020 History and Physical Exam Comments: See Note; NOTES: [facility] Medical Records Department [address] [place] [address] History and Physical 04/14/20 1225 MR#: [id number] Acct: [id number] Name: TRACEY HATHAWAY Rep #: [id number] : 1970 49 From: Mine Spaulding MD PCP: Wendy Vega CLINICAL PSYCHOLOGIST LICENSED-C Status:REG [facility] Y Location: [place] [address] Problem List (1) Stress incontinence Status: Acute (2) Urethral hypermobility Status: Acute History of Present Illness Date of Admission: 04/14/20 Chief Complaint: stress leakage The patient is a 49 year old F undergoing a hysterectomy for abnormal uterine bleeding. She came to me for concomitant mid urethral sling insertion for her stress urinary incontinence, sent to me by Dr. Robles. She was evaluated with urodynamics and office cystoscopy. After discussing the procedure and the risks associated with it, she desired to proceed. Informed consent was obtained. Past Medical History Allergies Penicillins [PCN] Adverse Reaction (Verified 04/14/20 10:23) Hives CILLINS Adverse Reaction (Uncoded 04/14/20 10:23) Hives Home Medications: Ambulatory Orders Medication Instructions Recorded cholecalciferol (vitamin D3) 50 50 mcg PO DAILY 03/05/20 mcg (2,000 unit) capsule ferrous sulfate 325 mg (65 mg 325 mg PO DAILY 03/05/20 iron) tablet multivitamin 1 tab PO QWEEK 03/05/20 omeprazole 20 mg capsule,delayed 20 mg PO DAILY 03/05/20 release Naproxen [Naprosyn] 250 - 500 mg PO Q8H PRN PRN #30 tab 04/14/20 Oxycodone HCl/Acetaminophen 1 - 2 tab PO Q6H PRN PRN 7 Days 04/14/20 [Percocet 5-325] #15 tab Surgical History: Surgical History (Last Reviewed 04/14/20 @ 12:[address] Mine Spaulding MD) Admission for tubal ligation Z30.2 H/O LEEP Z98.890 1998 Smoking Status: Never smoker Tobacco Use: Non-smoker Review of Systems Constitutional: Denies: Anorexia, Chills, Fever Eyes: Denies: Vision Change HEENT: Denies: Difficulty Swallowing, Visual Changes Cardiovascular: Denies: Chest Pain, Chest Pressure, Chest Tightness Respiratory: Denies: Cough, Shortness of Breath Gastrointestinal: Denies: Abdominal Pain, Nausea, Vomiting Genitourinary: Reports: Incontinence, Urgency. Denies: Hematuria, Retention Gynecological: Reports: Excessively long or heavy periods. Denies: Sexual concerns Musculoskeletal: Denies: Muscle pain Skin: Denies: Wounds Neurological: Denies: Difficulty swallowing VTE Information - Inpt Only VTE Present on Admission: Yes VTE Mechan Device Prophylaxis: SCD's VTE Pharm Prophylaxis ordered?: Yes Patient Problems: Active and Suspected Problems (Last Reviewed 03/30/20 @ 08:03 by Dionne Calloway) Stress incontinence (Acute) Urethral hypermobility (Acute) - Physical Exam Vitals/I O's: Vital Signs Temp Pulse Resp BP Pulse Ox 97.4 F L 75 15 128/80 H 100 04/14/20 10:51 04/14/20 10:51 04/14/20 10:51 04/14/20 10:51 04/14/20 10:51 Oxygen Delivery Method Room Air Weight: 84.1 kg Body Mass Index (BMI) 33.9 General: Alert, Oriented x3, Cooperative, No apparent distress HEENT: Atraumatic, Normocephalic Oral: Moist Mucosa Neck: Supple, Trachea Midline Lungs: Normal air movement, No wheeze Cardiovascular: Regular rate, Regular Rhythm Abdomen: Soft, Non Tender, Non-Distended Extremities: No cyanosis Skin: No rashes Musculoskeletal: No Muscle Wasting Neurological: Cranial nerves II-XII grossly intact, Neuro grossly intact Psych/Mental Status: Normal Affect, Alert and oriented to time, place, person, mood and affect Laboratory Results 04/14/20 10:40: Sodium 140, Potassium 3.7, Chloride 109 H, Carbon Dioxide 28.0, Anion Gap 3 L, BUN 10, Creatinine 0.84, Estim Creat Clear Calc 62.67, Est GFR (MDRD) Af Amer 92, Est GFR (MDRD) Non-Af 76, BUN/Creatinine Ratio 11.9, Glucose 82, Calcium 8.5, Magnesium 2.3 04/14/20 10:40: Blood Type A POSITIVE, Antibody Screen NEGATIVE 04/14/20 10:47: POC Glucose 72 04/14/20 10:53: Urine Test Negative Current Medications Lactated Ringer's () 1,000 mls @ 40 mls/hr IV .Q25H LANDY Last Admin: 04/14/20 11:01 Dose: 40 mls/hr Documented by: Lactated Ringer's () 1,000 mls @ 70 mls/hr IV .[id number] LANDY Insulin Human Lispro (Humalog Kwikpen (Bkc)) 0 unit SC Q4H PRN PRN; Protocol PRN Reason: BG >/= 180, SEE PROTOCOL Assessment/Plan All Active Problems (Last Reviewed 03/30/20 @ 08:03 by Dionne Calloway) Stress incontinence (Acute) Urethral hypermobility (Acute) Enlarged uterus (Acute) Abnormal uterine bleeding (Acute) midurethral sling insertion, cystoscopy 04/14/20 1229 <Electronically signed by Mine Spaulding MD> Date Mine Spaulding MD Cosign Signature: Date (if applicable) CC: DEREK Vega; Dr. Mine Spaulding MD Signed Wendy Vega Start: 04-14-2020 End: 04-14-2020 Discharge Instruction Comments: See Note; NOTES: [facility] Medical Records Department [address] [place] [address] Instructions for Home/Discharge Instructions 04/14/20 1103 MR#: [id number] Acct: [id number] Name: TRACEY HATHAWAY Rep #: [id number] : 1970 49 From: Kathy Robles MD PCP: DEREK Goldberg Status:REG [facility] Discharge Diet: No Restrictions Discharge Activity: Return to Normal Activity, May Not Drive, May Shower May resume sexual activity in: 6-8 weeks Call your doctor if your incision/area has: Continuous Slow Oozing, Sudden Increased Bleeding, Increased Pain/ Swelling, Increased Redness, Foul Smelling Discharge Call your doctor if you observe: Fever of 101 or Higher, Inability to urinate, Inability to have a bowel movement, Using more than one pad per hour Allergies/Adverse Reactions: Allergies Penicillins [PCN] Adverse Reaction (Verified 04/14/20 10:23) Hives CILLINS Adverse Reaction (Uncoded 04/14/20 10:23) Hives Medications to take at Discharge cholecalciferol (vitamin D3) 50 mcg (2,000 unit) capsule 50 mcg PO DAILY 03/05/20 ferrous sulfate 325 mg (65 mg iron) tablet 325 mg PO DAILY 03/05/20 multivitamin 1 tab PO QWEEK 03/05/20 omeprazole 20 mg capsule,delayed release 20 mg PO DAILY 03/05/20 Naproxen [Naprosyn] 250 - 500 mg PO Q8H PRN PRN #30 tab 04/14/20 Oxycodone HCl/Acetaminophen [Percocet 5-325] 1 - 2 tablet PO Q6H PRN PRN 7 Days #15 tablet 04/14/20 The following prescriptions were given: Naproxen [Naprosyn] 250 - 500 mg PO Q8H PRN PRN #30 tab PRN Reason: MILD PAIN Transmission Status: Pending to [facility] Oxycodone HCl/Acetaminophen [Percocet 5-325] 1 - 2 tablet PO Q6H PRN PRN 7 Days #15 tablet PRN Reason: Pain Transmission Status: Sent to [facility] Orders to be completed after discharge: Type Screen - PAT ONLY Time Frame: 04/14/20, Facility: [facility], Location: Laboratory 12 Lead EKG [[facility]] Time Frame: 04/07/20, Facility: [facility], Location: Cardiovascular Services Basic Metabolic Profile (BMP) Time Frame: 04/14/20, Facility: [facility], Location: Laboratory CBC-Complete Blood Cnt No Diff Time Frame: 04/07/20, Facility: [facility], Location: Laboratory CORONAVIRUS 19, DAREK SCREEN Time Frame: 04/09/20, Facility: [facility], Location: Laboratory Magnesium Time Frame: 04/14/20, Facility: [facility], Location: Laboratory Partial Thromboplast Time Time Frame: 04/07/20, Facility: [facility], Location: Laboratory Prothrombin Time w/INR Time Frame: 04/07/20, Facility: [facility], Location: Laboratory Primary Care Physician: Wendy Vega NP-C [Primary Care Provider] - Test Results: Test results from this visit will be discussed in further detail at your follow-up appointment, if applicable. Please Follow Up With: Kathy Robles MD - [phone] 04/14/20 1231 <Electronically signed by Kathy Robles MD> Date Kathy Robles MD CC: DEREK Vega; Dr. Mine Spaulding MD Signed Wendy Vega Start: 04-14-2020 End: 04-14-2020 Operative Report Comments: See Note; NOTES: [facility] Medical Records Department [address] [place] [address] Operative Report 04/14/20 1058 MR#: [id number] Acct: [id number] Name: TRACEY HATHAWAY Rep #: [id number] : 1970 49 From: Kathy Robles MD PCP: DEREK Goldberg Status:REG [facility] Y Location: [facility] [id number] Problem List (1) Abnormal uterine bleeding Status: Acute Comment: enlarged 10 cm multiple fibroid uterus. recommend ALFREDO BS combo case with Jasson for sling. nl EMB (2) Enlarged uterus Status: Acute Report of Operation Date of Procedure: 04/14/20 Pre-Operative Diagnosis: prolapse and KELBY Post-Operative Diagnosis: same Surgery/Procedure Performed:: alfredo henry Description of Surgical Findings:: enlarged fibroid uterus heat treat supervisor: Lola Jones Type of Anesthesia:: General Special Medications: none Specimen's removed: uterus tubes Drains: jones Estimated Blood Loss (mL): 150 Fluids Replaced: crystalloid Description of Procedure: Patient received preoperative antibiotics and SCDs were on preoperatively. Patient was taken back to the operating room and placed in the dorsal lithotomy position. General anesthesia was induced and patient was prepped and draped in normal sterile fashion. Uterine manipulator was placed inside the uterus and Jones catheter placed in the bladder. The umbilicus was grasped with towel clamps and an intraumbilical incision was made after injecting with quarter percent Marcaine and a Veress needle entered into the abdomen confirmed to be intra-abdominal with a low opening pressure. Abdomen was insufflated with CO2 gas and the Veress needle removed and the 5 mm trocar was placed under direct visualization without complication. Right and left lower quadrants were transilluminated and injected with quarter percent Marcaine and 5 mm ports placed under direct visualization. Pelvis was well visualized see operative findings for additional information. Bilateral fallopian tubes were identified and transected with the LigaSure device across the mesosalpinx to the level of the utero-ovarian ligament which was also transected with the LigaSure device. The broad ligament was opened up by transecting the round ligament bilaterally and skeletonizing the uterine vessels bilaterally and creating a bladder flap using the LigaSure device. The uterine arteries were transected bilaterally with good visualization of the bladder and the ureters were seen to be inferior lateral to the operative area. Attention was then paid to the vaginal portion of the procedure and the cervix was grasped with Maurice clamps and circumferentially injected with dilute vasopressin. A circumferential incision was made and the vaginal mucosa was mobilized off posteriorly and the cul-de-sac entered into sharply and a longneck speculum placed. The anterior cul-de-sac was then identified and entered into sharply. The uterosacral ligaments were clamped cut and suture ligated with 0 Monocryl bilaterally followed by the cardinal ligaments which were clamped cut and suture ligated bilaterally with 0 Monocryl. The uterus serially descended and was removed without difficulty with minimal morcellation. Pelvic sidewall pedicles were checked and noted to have excellent hemostasis. The vaginal mucosa was reapproximated incorporating the posterior peritoneum. This was reapproximated using 0 Vicryl [id number] sutures. Excellent hemostasis was noted. The cystoscopy was then performed and bilateral ureteral strong spray was noted and the bladder was noted to have no abnormality or lesions seen. Jones catheter was replaced and then attention paid to the abdominal portion of the procedure again. The pelvis and cul-de-sac was well visualized and no significant active bleeding noted but some raw areas were seen on the peritoneum and therefore Pooja was applied. Pressure was taken down and the areas visualized and noted of excellent hemostasis. All ports were removed under direct visualization without complication and the abdomen was desufflated of air. The instruments removed from the abdomen and the vagina vaginal sweep was negative. Port sites on the abdomen were closed with 4-0 Monocryl interrupted sutures and Steri's and windows were applied. see dr spaulding's note regarding additional operative procedure. She was awoken and taken recovery in stable condition. Grafts/Implants Used: see urogyn note - Complications none - Admit VTE Documentation VTE Present on Admission: No VTE Mechan Device Prophylaxis: SCD's Multi Select Codes - Urinary/Genital Urinary/Genital CPT Codes: 98404 LAVH+BS/O <250gr Uterus 04/14/20 1424 <Electronically signed by Kathy Robles MD> Date Kathy Robles MD CC: CLINICAL PSYCHOLOGIST LICENSED-C Wendy Vega; Dr. Mine Spaulding MD; Dr. Kathy Robles MD Signed Wendy Vega Start: 04-09-2020 End: 04-14-2020 12 Lead EKG Comments: See Note; NOTES: [facility] Cardiovascular Services [address] [place] [address] 12 Lead EKG 04/09/20 1741 MR#: [id number] Acct: [id number] Name: TRACEY HATHAWAY Rep #: [id number] : 1970 49 From: Cam Story MD Attending Dr: Dr. Kathy Robles MD Status: REG [facility] Ordering Dr: Peyman Hartman MD Date: 04/09/20 Location: [facility] Sex: F C Admitted: Test Reason : PRE OP Blood Pressure : / mmHG Vent. Rate : 078 BPM Atrial Rate : 078 BPM P-R Int : 130 ms QRS Dur : 086 ms QT Int : 404 ms P-R-T Axes : 068 052 064 degrees QTc Int : 460 ms Normal sinus rhythm Septal infarct , age undetermined Abnormal ECG Confirmed by FAHAD JOHNS, CAM ([id number]), commissioning editor COLLIN RHOADES ([id number]) on 04/14/2020 12:43:34 PM Referred By: Kathy Robles Confirmed By:CAM STORY MD 04/14/20 1243 Date Cam Story MD CC: CLINICAL PSYCHOLOGIST LICENSED-C Wendy Vega; Dr. Peyman Hartman MD; Dr. Kathy Robles MD Signed Wendy Vega Start: 04-06-2020 End: 04-14-2020 History and Physical Exam Comments: See Note; NOTES: [facility] Medical Records Department [address] [place] [address] History and Physical 04/06/20 0341 MR#: [id number] Acct: [id number] Name: TRACEY HATHAWAY Rep #: [id number] : 1970 49 From: Kathy Robles MD PCP: DEREK Goldberg Status:PRE [facility] Y Location: [facility] - Problem List (1) Abnormal uterine bleeding Status: Acute Comment: enlarged 10 cm multiple fibroid uterus. recommend [facility] combo case with Jasson for sling. nl EMB (2) Enlarged uterus Status: Acute History and Physical Date of Admission: 04/14/20 Intake Vital Signs 03/30/20 Height 5 ft 2 in 03/30/20 Weight: 189 lb 03/30/20 BMI 34.5 03/30/20 BP 116/70 03/30/20 BMI 34.2 Intake Visit Reasons: pre op Insurance Policy Clerk Required: No Is patient in pain?: No Allergies Penicillins [PCN] Adverse Reaction (Verified 03/30/20 08:03) Hives CILLINS Adverse Reaction (Uncoded 03/11/20 10:34) Hives Medications cholecalciferol (vitamin D3) 50 mcg (2,000 unit) capsule 50 mcg PO DAILY 03/05/20 [History Confirmed 03/30/20] evening primrose oil 500 mg capsule 500 mg PO TID 03/05/20 [History Confirmed 03/30/20] ferrous sulfate 325 mg (65 mg iron) tablet 325 mg PO DAILY 03/05/20 [History Confirmed 03/30/20] multivitamin 1 tab PO DAILY 03/05/20 [History Confirmed 03/30/20] norethindrone acetate 5 mg tablet 5 mg PO .COMPLEX #45 tab 03/05/20 [Rx Confirmed 03/30/20] omeprazole 20 mg capsule,delayed release 20 mg PO DAILY 03/05/20 [History Confirmed 03/30/20] Is last menstrual period known: No Post menopausal: No Patient : No : No PFSH Surgical History Admission for tubal ligation (Acute) H/O LEEP (Acute) Family History Father Cancer brain tumor Unknown Diabetes Social History (Updated 03/31/20 @ 05:[address] Kathy Robles MD) Smoking Status: Never smoker alcohol intake: never substance use type: does not use caffeine: Yes what type of physical activity do you participate in: walking seatbelt use: always do you feel safe at home: Yes HPI pre op: Details: TRACEY HATHAWAY is a 49 year old who presents for preoperative visit. she is going to have an [facility] BS for enlarged uterus with AUB, combo case with Dr Spaulding for sling for KELBY. Female Reproductive History Cycle Length: 21-35 Bleeding Duration: 14 Questions: Metorrhagia: No, Sexually active: Yes, Dyspareunia: No Menopausal Symptoms: Yes hot flashes, Yes night sweats Pregancy History 3 Elective abortions Hx Para 3 Spontaneous abortions Hx # Term Pregnancies Ectopic pregnancies Hx # Pregnancies Multiple births # of living children Past Pregnancies Del. Date Name GA/Weeks Outcome Route Bth Weight Gen Labor Lgth Anesthesia Del Locatn Provider FOB Unknown 1989 Erasmo Unknown 1993 Alba Unknown 1997 Anisha ROS Const Constitutional: Reports night sweats; denies fatigue, fever(s), headache(s), increased appetite, poor appetite, weight gain or weight loss ENT ENT: Denies dizziness or dry mouth Cardio Card: Denies chest pain Resp Resp: Denies cough or dyspnea GI GI: Reports as per HPI; denies abdominal pain, constipation, nausea or vomiting : Reports as per HPI, hot flashes and urinary incontinence (KELBY); denies difficulty urinating, painful urination, nipple discharge, urinary frequency, urinary hesitancy, urinary urgency, vaginal discharge, vaginal dryness, vaginal odor or vaginal itching Musc Musc: Denies joint pain, back pain or muscle weakness Skin Skin/Breast: Denies nipple discharge Neuro Neuro: Denies dizziness Psych Psych: Denies anxiety or depression Endo Endo: Denies cold intolerance, excessive sweating, heat intolerance or increased thirst Manjeet/Lymph Hematologic/Lymphatic: Denies easy bleeding, Denies easy bruising, Denies enlarged lymph nodes Exam Const General: cooperative, healthy appearing, comfortable, no acute distress, well developed Nutritional Appearance: average body habitus Orientation: alert [facility] Head: normal to inspection, normocephalic Ears: hearing grossly normal bilaterally, external ears normal Nose: external nose normal, nares normal Face and sinus: normal facial exam Neck Neck: normal visual inspection, trachea midline Thyroid: thyroid normal Chest Chest palpation inspection: normal inspection of the chest Resp Effort Inspection: normal respiratory effort Auscultation: clear to auscultation bilaterally Cardio Rate: regular rate Rhythm: regular rhythm Heart Sounds: S1 normal, S2 normal GI Inspection: normal to inspection, non-distended Palpation: soft, no hepatosplenomegaly General: bladder normal to palpation External Female Exam: normal external appearance, normal appearance of the urethra Urethra: normal appearance of the urethra Speculum Exam - Vagina: normal appearance of the vagina, normal vaginal discharge Speculum Exam - Cervix: normal appearance of the cervix, nontender Bimanual Exam- Vagina Uterus: bladder normal to palpation, No cervical tenderness Bimanual Exam- Adnexa, other: normal adnexae, adnexae mobile, no adnexal masses, pelvic support normal (redundant posterior tissue at introitus) Pelvic Support: normal (redundant posterior tissue at introitus) Musc Cervical Spine: other Other: gross motor intact no deficits, full bilateral strength Skin General: no rashes or lesions noted Neuro General: alert, awake, moves all extremities, no focal motor deficits Motor: muscle tone normal throughout Extrem General: normal to inspection, no pedal edema Psych Appearance: grossly normal Mental Status: mental status grossly normal Affect: normal affect Speech and Movement: speech and movement normal Assessment Plan Problems 1. Abnormal uterine bleeding N93.9 enlarged 10 cm multiple fibroid uterus. recommend [facility] combo case with Jasson for sling. nl EMB 2. Enlarged uterus N85.2 Plan After discussing the patient's diagnosis and treatment plan options, patient wishes to proceed with surgical management. I have discussed with the patient the risks, benefits, and alternatives of the procedure which include but are not limited to risks of anesthesia, bleeding, infection, possible damage to bowel, bladder, or surrounding vasculature which could lead to additional surgery to evaluate any complications. Patient agrees to procedure and wishes to proceed. ACOG/uptodate references given for additional information regarding procedure. Coding Level of Care Code No Charge Diagnoses Abnormal uterine bleeding N93.9 Enlarged uterus N85.2 04/08/20 0145 <Electronically signed by Kathy Robles MD> Date Kathy Robles MD Cosigner Signature: Date (if applicable) CC: CLINICAL PSYCHOLOGIST LICENSED-C Wendy Vega; Dr. Kathy Robles MD Signed Wendy Vega Start: 03-30-2020 End: 03-31-2020 Se[employer] Office Visit Report Comments: See Note; NOTES: [facility] [address] [place] [address] OFFICE VISIT Date of Service: 03/30/20 MR#: [id number] Acct: [id number] Name: TRACEY HATHAWAY Rep #: [id number] : 1970 Provider: Dr. Kathy roldan MD Age/Sex: 49/F Location: [facility] [place] [facility] Status: Signed Intake Vital Signs 03/30/20 Height 5 ft 2 in 03/30/20 Weight: 189 lb 03/30/20 BMI 34.5 03/30/20 BP 116/70 03/30/20 BMI 34.2 Intake Visit Reasons: pre op Insurance Policy Clerk Required: No Is patient in pain?: No Allergies Penicillins [PCN] Adverse Reaction (Verified 03/30/20 08:03) Hives CILLINS Adverse Reaction (Uncoded 03/11/20 10:34) Hives Medications cholecalciferol (vitamin D3) 50 mcg (2,000 unit) capsule 50 mcg PO DAILY 03/05/20 [History Confirmed 03/30/20] evening primrose oil 500 mg capsule 500 mg PO TID 03/05/20 [History Confirmed 03/30/20] ferrous sulfate 325 mg (65 mg iron) tablet 325 mg PO DAILY 03/05/20 [History Confirmed 03/30/20] multivitamin 1 tab PO DAILY 03/05/20 [History Confirmed 03/30/20] norethindrone acetate 5 mg tablet 5 mg PO .COMPLEX #45 tab 03/05/20 [Rx Confirmed 03/30/20] omeprazole 20 mg capsule,delayed release 20 mg PO DAILY 03/05/20 [History Confirmed 03/30/20] Is last menstrual period known: No Post menopausal: No Patient : No : No [facility] Surgical History Admission for tubal ligation (Acute) H/O LEEP (Acute) Family History Father Cancer brain tumor Unknown Diabetes Social History (Updated 03/31/20 @ 05:[address] Kathy Robles MD) Smoking Status: Never smoker alcohol intake: never substance use type: does not use caffeine: Yes what type of physical activity do you participate in: walking seatbelt use: always do you feel safe at home: Yes HPI pre op: Details: TRACEY HATHAWAY is a 49 year old who presents for preoperative visit. she is going to have an [facility] BS for enlarged uterus with AUB, combo case with Dr Spaulding for sling for KELBY. Female Reproductive History Cycle Length: 21-35 Bleeding Duration: 14 Questions: Metorrhagia: No, Sexually active: Yes, Dyspareunia: No Menopausal Symptoms: Yes hot flashes, Yes night sweats Pregancy History 3 Elective abortions Hx Para 3 Spontaneous abortions Hx # Term Pregnancies Ectopic pregnancies Hx # Pregnancies Multiple births # of living children Past Pregnancies Del. Date Name GA/Weeks Outcome Route Bth Weight Gen Labor Lgth Anesthesia Del Locatn Provider FOB Unknown 1989 Erasmo Unknown 1993 Alba Unknown 1997 Anisha ROS Const Constitutional: Reports night sweats; denies fatigue, fever(s), headache(s), increased appetite, poor appetite, weight gain or weight loss ENT ENT: Denies dizziness or dry mouth Cardio Card: Denies chest pain Resp Resp: Denies cough or dyspnea GI GI: Reports as per HPI; denies abdominal pain, constipation, nausea or vomiting : Reports as per HPI, hot flashes and urinary incontinence (KELBY); denies difficulty urinating, painful urination, nipple discharge, urinary frequency, urinary hesitancy, urinary urgency, vaginal discharge, vaginal dryness, vaginal odor or vaginal itching Musc Musc: Denies joint pain, back pain or muscle weakness Skin Skin/Breast: Denies nipple discharge Neuro Neuro: Denies dizziness Psych Psych: Denies anxiety or depression Endo Endo: Denies cold intolerance, excessive sweating, heat intolerance or increased thirst Manjeet/Lymph Hematologic/Lymphatic: Denies easy bleeding, Denies easy bruising, Denies enlarged lymph nodes Exam Const General: cooperative, healthy appearing, comfortable, no acute distress, well developed Nutritional Appearance: average body habitus Orientation: alert [facility] Head: normal to inspection, normocephalic Ears: hearing grossly normal bilaterally, external ears normal Nose: external nose normal, nares normal Face and sinus: normal facial exam Neck Neck: normal visual inspection, trachea midline Thyroid: thyroid normal Chest Chest palpation inspection: normal inspection of the chest Resp Effort Inspection: normal respiratory effort Auscultation: clear to auscultation bilaterally Cardio Rate: regular rate Rhythm: regular rhythm Heart Sounds: S1 normal, S2 normal GI Inspection: normal to inspection, non-distended Palpation: soft, no hepatosplenomegaly General: bladder normal to palpation External Female Exam: normal external appearance, normal appearance of the urethra Urethra: normal appearance of the urethra Speculum Exam - Vagina: normal appearance of the vagina, normal vaginal discharge Speculum Exam - Cervix: normal appearance of the cervix, nontender Bimanual Exam- Vagina Uterus: bladder normal to palpation, No cervical tenderness Bimanual Exam- Adnexa, other: normal adnexae, adnexae mobile, no adnexal masses, pelvic support normal (redundant posterior tissue at introitus) Pelvic Support: normal (redundant posterior tissue at introitus) Musc Cervical Spine: other Other: gross motor intact no deficits, full bilateral strength Skin General: no rashes or lesions noted Neuro General: alert, awake, moves all extremities, no focal motor deficits Motor: muscle tone normal throughout Extrem General: normal to inspection, no pedal edema Psych Appearance: grossly normal Mental Status: mental status grossly normal Affect: normal affect Speech and Movement: speech and movement normal Assessment Plan Problems 1. Abnormal uterine bleeding N93.9 enlarged 10 cm multiple fibroid uterus. recommend [facility] combo case with Jasson for sling. nl EMB 2. Enlarged uterus N85.2 Plan After discussing the patient's diagnosis and treatment plan options, patient wishes to proceed with surgical management. I have discussed with the patient the risks, benefits, and alternatives of the procedure which include but are not limited to risks of anesthesia, bleeding, infection, possible damage to bowel, bladder, or surrounding vasculature which could lead to additional surgery to evaluate any complications. Patient agrees to procedure and wishes to proceed. ACOG/uptodate references given for additional information regarding procedure. 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 [address] [place] [address] OFFICE VISIT Date of Service: 03/11/20 MR#: [id number] Acct: [id number] Name: TRACEY HATHAWAY Rep #: [id number] : 1970 Provider: Dr. Kathy roldan MD Age/Sex: 49/F Location: [facility] Status: Signed Intake Vital Signs 03/11/20 BMI 34.2 03/11/20 Height 5 ft 2 in 03/11/20 Weight: 187 lb 03/11/20 BMI 34.2 03/11/20 BP 116/82 H Intake Visit Reasons: Surgery consult Chief Complaint: surgical consult menorrhagia Insurance Policy Clerk Required: No Is patient in pain?: No Allergies Penicillins [PCN] Adverse Reaction (Verified 03/11/20 10:34) Hives CILLINS Adverse Reaction (Uncoded 03/11/20 10:34) Hives Medications cholecalciferol (vitamin D3) 50 mcg (2,000 unit) capsule 50 mcg PO DAILY 03/05/20 [History Confirmed 03/11/20] evening primrose oil 500 mg capsule 500 mg PO TID 03/05/20 [History Confirmed 03/11/20] ferrous sulfate 325 mg (65 mg iron) tablet 325 mg PO DAILY 03/05/20 [History Confirmed 03/11/20] multivitamin 1 tab PO DAILY 03/05/20 [History Confirmed 03/11/20] norethindrone acetate 5 mg tablet 5 mg PO .COMPLEX #45 tab 03/05/20 [Rx Confirmed 03/11/20] omeprazole 20 mg capsule,delayed release 20 mg PO DAILY 03/05/20 [History Confirmed 03/11/20] Post menopausal: No Patient : No : No PFSH Surgical History (Updated 03/11/20 @ 10:[address] Kathy Robles MD) Admission for tubal ligation (Acute) H/O LEEP (Acute) Family History (Updated 03/11/20 @ 10:35 by Kathrine Perez) Father Cancer brain tumor Unknown Diabetes Social History (Updated 03/11/20 @ 11:[address] Kathy Robles MD) Smoking Status: Never smoker alcohol intake: never substance use type: does not use caffeine: Yes what type of physical activity do you participate in: walking seatbelt use: always do you feel safe at home: Yes HPI Surgery consult: Details: TRACEY HATHAWAY is a 49 year old who presents for enlarged uterus, fibroids, heavy menses. she has had worsening bleeding increasing over the last few months. Female Reproductive History Cycle Length: 21-35 Bleeding Duration: 7 Frequency of changing protection: 1 1/2 hr associated symptoms: cramping, clots. Questions: Metorrhagia: No, Sexually active: Yes, Dyspareunia: No, PCB: No Menopausal Symptoms: Yes hot flashes, Yes night sweats Pregancy History 3 Elective abortions Hx Para 3 Spontaneous abortions Hx # Term Pregnancies Ectopic pregnancies Hx # Pregnancies Multiple births # of living children ROS Const Constitutional: Reports night sweats; denies fatigue, fever(s), headache(s), increased appetite, poor appetite, weight gain or weight loss Cardio Card: Denies chest pain Resp Resp: Denies cough or dyspnea GI GI: Reports as per HPI; denies abdominal pain, constipation, nausea or vomiting : Reports as per HPI and hot flashes; denies difficulty urinating, painful urination, nipple discharge, urinary frequency, urinary incontinence, urinary hesitancy, urinary urgency, vaginal discharge, vaginal dryness, vaginal odor or vaginal itching Skin Skin/Breast: Denies change in hair, breast lump, breast pain, breast skin changes or nipple discharge Exam Const General: cooperative, healthy appearing, comfortable, no acute distress, well developed Nutritional Appearance: average body habitus Orientation: alert [facility] Head: normal to inspection, normocephalic Neck Neck: normal visual inspection, trachea midline Thyroid: thyroid normal Resp Effort Inspection: normal respiratory effort GI Inspection: normal to inspection, non-distended Palpation: soft, no hepatosplenomegaly General: bladder normal to palpation External Female Exam: normal external appearance, normal appearance of the urethra Urethra: normal appearance of the urethra, normal palpation, no discharge Speculum Exam - Vagina: normal appearance of the vagina, normal vaginal discharge Speculum Exam - Cervix: normal appearance of the cervix, nontender Bimanual Exam- Vagina Uterus: No normal bimanual exam, abnormal uterine size, bladder normal to palpation, uterine shape abnormal, No cervical tenderness, uterine mobility normal, consistency abnormal, normal cervical palpation, uterus non-tender, uterus enlarged (12 week size nodular multiple fibroiids, good vaginal access.) Bimanual Exam- Adnexa, other: normal adnexae, adnexae mobile, no adnexal masses, pelvic support normal (redundant posterior tissue at introitus) Pelvic Support: normal (redundant posterior tissue at introitus) Skin General: no rashes or lesions noted Assessment Plan Problems 1. Abnormal uterine bleeding N93.9 enlarged 10 cm multiple fibroid uterus. recommend [facility] combo case with Jasson for sling Plan Problem list updated and treatment plans were reviewed with the patient and relevant educational handouts given. See problem list details for specific plan information. After discussing the patient's diagnosis and treatment plan options, patient wishes to proceed with surgical management. I have discussed with the patient the risks, benefits, and alternatives of the procedure which include but are not limited to risks of anesthesia, bleeding, infection, possible damage to bowel, bladder, or surrounding vasculature which could lead to additional surgery to evaluate any complications. Patient agrees to procedure and wishes to proceed. ACOG/uptodate references given for additional information regarding procedure. Coding Level of Care Code Off vis,est,level 4 Diagnoses Abnormal uterine bleeding N93.9 03/11/20 1103 <Electronically signed by Kathy Robles MD> Date Kathy Robles MD Cosign Signature: Date (if applicable) CC: Wendy Vega Start: 03-05-2020 End: 03-05-2020 Transvaginal Non- Comments: See Note; NOTES: [facility] [address] [place] [address] Transvaginal Non- MR#: [id number] Acct: [id number] Name: TRACEY HATHAWAY Rep #: [id number] : 1970 F 49 From: Bay pierce MD PCP: DEERK Goldberg Status: REG CLI Study: Transvaginal Non- Date of Exam: Exam# [id number] Ordering Dr: Quyen Kilpatrick STUDY: ULTRASOUND OF THE FEMALE PELVIS - COMPLETE REASON FOR EXAM: Female, 49 years old. IRREG MENSES LMP: 01/20/2020 TECHNIQUE: Transabdominal and Transvaginal TECHNICAL QUALITY: Adequate. COMPARISON: None. FINDINGS: The uterus is anteverted and is in a midline position. The uterus measures 9.9 x 7.3 x 5.4 cm. There is a Nabothian cyst of the cervix. The endometrium measures 6 mm in thickness, and is hyperechoic. There is no demonstrated endometrial mass. Multiple uterine fibroids. This includes a posterior lesion measuring 2.5 x 2.3 x 1.9 cm, a right-sided lesion measuring 2.3 x 1.9 x 1.8 cm, and an anterior lesion measuring 1.2 x 1.1 x 0.9 cm. I.U.D. - The patient does not have an I.U.D. The right ovary is not seen. The left ovary is visualized. The left ovary measures 4.1 x 2.9 x 2.2 cm. Left ovary cyst measuring 2.8 x 2.4 x 1.9 cm. There is no visualized left adnexal mass or complex lesion. There is normal arterial and normal venous vascularity. There is no fluid in the cul-de-sac. The pre void volume of the bladder was 78.26 ml. US/Transvaginal Non- IMPRESSION: Multiple uterine fibroids. Left ovary cyst measuring 2.8 x 2.4 x 1.9 cm. Electronically Signed: Bay Blanc MD at 19:13 EDT Tel , Service support , CC: DEREK Vega; DEREK Kilpatrick Director Of Nuclear Medicine: Signed Mali Jeffries DO Work Phone: Start: 03-05-2020 End: 03-05-2020 Pelvic (Non ) Comments: See Note; NOTES: [facility] [address] [place] [address] Pelvic (Non ) MR#: [id number] Acct: [id number] Name: TRACEY HATHAWAY Rep #: [id number] : 1970 F 49 From: Bay pierce MD PCP: DEREK Goldberg Status: REG CLI Study: Pelvic (Non ) Date of Exam: 03/05/20 Exam# [id number] Ordering Dr: Quyen Kilpatrick CLINICAL PSYCHOLOGIST LICENSED-Jovani STUDY: ULTRASOUND OF THE FEMALE PELVIS - COMPLETE REASON FOR EXAM: Female, 49 years old. IRREG MENSES LMP: 01/20/2020 TECHNIQUE: Transabdominal and Transvaginal TECHNICAL QUALITY: Adequate. COMPARISON: None. FINDINGS: The uterus is anteverted and is in a midline position. The uterus measures 9.9 x 7.3 x 5.4 cm. There is a Nabothian cyst of the cervix. The endometrium measures 6 mm in thickness, and is hyperechoic. There is no demonstrated endometrial mass. Multiple uterine fibroids. This includes a posterior lesion measuring 2.5 x 2.3 x 1.9 cm, a right-sided lesion measuring 2.3 x 1.9 x 1.8 cm, and an anterior lesion measuring 1.2 x 1.1 x 0.9 cm. I.U.D. - The patient does not have an I.U.D. The right ovary is not seen. The left ovary is visualized. The left ovary measures 4.1 x 2.9 x 2.2 cm. Left ovary cyst measuring 2.8 x 2.4 x 1.9 cm. There is no visualized left adnexal mass or complex lesion. There is normal arterial and normal venous vascularity. There is no fluid in the cul-de-sac. The pre void volume of the bladder was 78.26 ml. US/Pelvic (Non ) IMPRESSION: Multiple uterine fibroids. Left ovary cyst measuring 2.8 x 2.4 x 1.9 cm. 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 [place] [address] OFFICE VISIT Date of Service: 03/05/20 MR#: [id number] Acct: [id number] Name: TRACEY HATHAWAY Rep #: [id number] : 1970 Provider: DEREK avalos Age/Sex: 49/F Location: [facility] [place] Status: Signed Intake Vital Signs 03/05/20 Height 5 ft 2 in 03/05/20 Weight: 187 lb 4 oz 03/05/20 BMI 34.2 03/05/20 BP 120/90 H Intake Visit Reasons: AUB Insurance Policy Clerk Required: No Is patient in pain?: Yes Pain scale (1-10): 1 Allergies Penicillins [PCN] Adverse Reaction (Verified 03/05/20 15:27) Hives CILLINS Adverse Reaction (Uncoded 09/30/18 16:12) Hives Medications cholecalciferol (vitamin D3) 50 mcg (2,000 unit) capsule 50 mcg PO DAILY 03/05/20 [History Confirmed 03/05/20] evening primrose oil 500 mg capsule 500 mg PO TID 03/05/20 [History Confirmed 03/05/20] ferrous sulfate 325 mg (65 mg iron) tablet 325 mg PO DAILY 03/05/20 [History Confirmed 03/05/20] multivitamin 1 tab PO DAILY 03/05/20 [History Confirmed 03/05/20] norethindrone acetate 5 mg tablet 5 mg PO .COMPLEX #45 tab 03/05/20 [Rx Confirmed 03/05/20] omeprazole 20 mg capsule,delayed release 20 mg PO DAILY 03/05/20 [History Confirmed 03/05/20] Post menopausal: No Patient : No PFSH PFSH Social History (Updated 03/05/20 @ 15:58 by DEREK Singleton) Smoking Status: Never smoker HPI AUB : Details: TRACEY HATHAWAY is a 49 year old who presents for new patient with prolonged heavy menses. States over the last year they have gotten heavier and were still regular until 8 weeks ago and has had bleeding spotting every day and much heavier last 2 weeks. Has had tubal ligation. Denies pelvic surgeries. Cramping started 4-5 days ago. Was instructed to go to ED on March 02 but did not go. Has had some issues with feeling light headed. Is taking Fe supplement and increased fluid intake. Annual AUTOGRAPHER exam with Wendy Vega NP 05/2019 and negative pap. History of Leep procedure about [address] Colon. ROS Const Constitutional: Reports as per HPI : Reports as per HPI Exam Const General: cooperative, no acute distress External Female Exam: normal external appearance Speculum Exam - Vagina: normal appearance of the vagina Speculum Exam - Cervix: normal appearance of the cervix Bimanual Exam- Vagina Uterus: normal bimanual exam, uterine size normal Bimanual Exam- Adnexa, other: normal adnexae, no adnexal masses, adnexae non-tender Office Procedures Endometrial Biopsy Endometrial Biopsy Test: Yes Not Applicable Consent Signed: Yes Time out checklist: patient, procedure, site marked/identified, positioning of patient, supplies available, allergies confirmed, team agrees on procedure Time out time: 15:56 tenaculum used: No dilator used: No Details: Cervix prepped with betadine and syringe pipelle inserted 9cm into uterus without complication. Specimen obtained and sent to lab for analysis. All instruments removed from vagina w ithout complications. Excellent hemostasis noted. Assessment Plan Problems 1. Menorrhagia with irregular cycle N92.1 Plan Endometrial pathology pending CBC and TSH Ultrasound Rx aygestin. Management dependent on above Orders Orders: Endometrial Biopsy Today N93.9 Thyroid Stim Hormone (TSH) Today N93.9 CBC W/Diff, Automated Today N93.9 Pelvic (Non ) Today N92.1 Transvaginal Non- Today N92.1 Pelvic (Non ) Today N93.9 Transvaginal Non- Today N93.9 Medications New: norethindrone acetate (Aygestin) 5 mg PO tid until bleeding stops X 24 hr then bid to finish Rx 45 tabs 0RF Discontinued: azithromycin TAKE 2 TABLETS 1ST DAY THEN 1 TABLET DAILY FOR NEXT 4 DAYS. Discontinued Reason: Order Completed 250 mg PO UD #1 meclizine Discontinued Reason: Order Completed 25 mg PO 4X/DAY PRN PRN 20 tabs Dizziness promethazine Discontinued Reason: Order Completed 25 mg PO Q6H PRN PRN 10 tabs 0RF Nausea Coding Level of Care Code No Charge Diagnoses Menorrhagia with irregular cycle N92.1 Additional Codes Endometrial Biopsy (83392) 03/05/20 9773 <Electronically signed by Quyen REED> Date Quyen REED Cosigner Signature: Date (if applicable) CC: Wendy Vega Start: 11-22-2019 End: 11-23-2019 Brain/Head W/WO Contrast Comments: See Note; NOTES: [facility] [address] [place] [address] Brain/Head W/WO Contrast MR#: [id number] Acct: [id number] Name: TRACEY HATHAWAY Rep #: [id number] : 1970 F 49 From: Stalin Khan MD PCP: DEREK Goldberg Status: REG CLI Study: Brain/Head W/WO Contrast Date of Exam: 11/22/19 Exam# [id number] Ordering Dr: Wendy Vega HISTORY: Migraine and vertigo 1 year COMPARISON: None. TECHNIQUE: Helical CT axial images are obtained from the base of skull through the vertex without and with 50mL [id number]-370 intravenous contrast. Multiplanar reconstruction. A radiation dose optimization technique was used for this scan. # of images incl. paperwork: [id number] FINDINGS: BRAIN: No parenchymal hemorrhage, infarct, intra-axial mass, mass effect, or midline shift. No abnormal extra-axial fluid collections. No abnormal enhancing parenchymal or dural based masses. VENTRICLES: Ventricles are normal in size and configuration. No hydrocephalus. CALVARIUM: Bone windows show no skull fracture or calvarial lesions. PARANASAL SINUSES AND MASTOIDS: Visualized paranasal sinuses are clear. Visualized mastoid air cells are clear. CT/Brain/Head W/WO Contrast IMPRESSION: 1. Negative pre- and postcontrast CT examination of brain. Individualized dose optimization techniques were used for this CT. at 1635 Reported and signed by: Stalin Khan MD Electronically Signed: Stalin Khan MD at 16:33 EST Tel , Service support , CC: DEREK Vega Director Of Nuclear Medicine: Signed Wendy Vega Work Phone: Start: 10-07-2019 End: 10-07-2019 Inital Evaluation (1) - PT Comments: See Note; NOTES: [facility] [address] [place] [address] [address] [place] [address] / REHABILITATION SERVICES INITIAL EVALUATION MR#: [id number] Acct: [id number] Name: TRACEY HATHAWAY Rep #: [id number] : 1970 48 From: Yaquelin REED Referring Dr.: DEREK Vega Status: REG RCR Insurance: [facility] PACKAGE PLAN SELF PAY INSURANCE Patient's Visit Information TRACEY HATHAWAY is a 48 year old F referred to Physical Therapy by DEREK Goldberg with a diagnosis of vertigo. Date of Evaluation: 10/02/19 Physical Therapist: BRIANNA Cordero - Visit Plan Frequency: 1x/Week Duration: 6 Weeks Plan: 1X/ week for 6 weeks for habituation exercises, VOR exercises, possible re-test of hallpike with HEP and balance exercises - Subjective Findings: Pt reportst that last year at this time she woke up super dizzy and she was throwing up a lot. She was told that it was vertigo from a slight ear infection. It got a little better but not completely and she can not lay on her L side. If she is on her R side she can slowly roll to her L side by laying on her back first. If she was to lay on her L side she would have the room spin for about 10 seconds. It is also that she can not look up.... she can not move her head up but she can move her eyes up. Looking down is ok... No sudden movments. When it happens if she lets it settle it is ok. At time she has episodes where she wakes up really dizzy..... Laying to standing position she is unbalanced. 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 Pt states that sometimes she has episodes where the room will spin for a long time and she gets sick.... she has not seen a neurologist. SHe reports that her father of a brain tumor and wonders if she should get a scan since this has been a year.... instructed her to talk to Wendy Vega about it. - Pain CORBIN Pain Intensity (Out of 10): 6 - Objective -Hallpike to the R for nystagmus and dizziness. -Hallpike for nystagmus to the L but pt did feel a slight dizzy feeling and there fore we treated with L Eply. Pt felt a little better with the L Hallpike on second attempt and tried L Eply one additional time..... Gait: Walks with a normal gait pattern. VOR X 1 horizontal ( good pursuit but did make her feel stomach flip and a little off). VOR X 1 vertical ( good pursuit and no dizziness and not stomach flip). smooth pursuit was normal vertical and horizotnal. CATSIB 90. FGA: 23 - Balance Scores Functional Gait Assessment Score: 22 % Disability: 26.6700 CATSIB Score (Max score 120 seconds): 90 - Goals Goal 1:: I HEP Goal Time Frame: 2 Weeks Goal 2:: Increase CATSIB by 20 points to increase balance Goal Time Frame: 4-6 Weeks Goal 3:: Be able to complete 60 seconds of VOR X 1 horizontal and vertical in standing without dizziness or stomach flips Goal Time Frame: 4-6 Weeks Goal 4:: Decrease subjective dizziness by 50% Goal Time Frame: 4-6 Weeks Goal 5:: Be able to roll to L side in bed without having dizziness Goal Time Frame: 4-6 Weeks - Rehabilitation Potential Rehabilitation Potential: Good - Anticipated Interventions Patient/Client Instruction: Educate patient on: Condition, Plan of Care For the Purpose of:: To improve muscle performance and motor function, To improve ability to perform ADL's, To increase tolerance to activity/condition/position , To improve performance and independence with ADL's, To improve ability of physical actions for home/community/work/leisure Therapeutic Exercise to Include: Strength training, Balance training, Coordination, Body mechanics, Gait and locomotor training, Neuromotor development For the Purpose of:: To improve nutrient delivery to tissue, To improve muscle performance and motor function, To improve ability to perform ADL's, To increase tolerance to activity/condition/position , To improve performance and independence with ADL's, To decrease level of supervision to perform tasks, To improve ability of physical actions for home/community/work/leisure , To improve balance, To improve safety with gait Functional Training to Include: Gait training For the Purpose of:: To improve gait and locomotor functions, To improve balance, To improve safety with gait Thank you for the opportunity to evaluate your patient. For Medicare and Medicare HMO plans, please review the plan of care and approve it. It will need to be FAXED BACK to us at [phone] for Medicare purposes. For Medicare only, by signing this I certify the plan of care. Please let me know if there are questions or concerns regarding this plan of care. Physician Signature: Date: <Electronically signed by Yaquelin Betts MPT> 10/07/19 0818 CC: DEREK Vega Signed Wendy Vega Start: 09-25-2019 H/O: surgery H/O bilateral salpingectomy Dr. Mali Jeffries Work Phone: Start: 06-18-2019 End: 06-23-2019 Elbow min 3 Views Comments: See Note; NOTES: [facility] Imaging Services [address] [place] [address] Elbow min 3 Views MR#: [id number] Acct: [id number] Name: TRACEY HATHAWAY Rep #: [id number] : 1970 F 48 From: Cal Lau MD PCP: DEREK Goldberg Status: REG CLI Study: Elbow min 3 Views Date of Exam: 06/18/19 Exam# [id number] Ordering Dr: Wendy Vega STUDY: X-RAY - LEFT ELBOW REASON FOR EXAM: Female, 48 years old. Elbow injury 6 weeks ago, now complains of pain and swelling TECHNIQUE: 3 view(s) of the elbow. COMPARISON: None. FINDINGS: Normal visualized humerus, radius and ulna. Normal radiocapitellar and ulnotrochlear articulations. There is soft tissue swelling posterior to the olecranon process. RAD/Elbow min 3 Views IMPRESSION: The osseous structures and articular surfaces appear normal. There is soft tissue swelling posterior to the olecranon process consistent with olecranon bursitis. Electronically Signed: Cal Lau MD at 23:59 EDT , Service support , CC: DEREK Vega Director Of Nuclear Medicine: Signed Wendy Vega Work Phone: Start: 09-30-2018 End: 09-30-2018 Emergency Department Summary Comments: See Note; NOTES: [facility] Medical Records Department [address] [place] [address] Emergency Department Summary 09/30/18 1728 MR#: [id number] Acct: [id number] Name: TRACEY HATHAWAY Rep #: [id number] : 1970 47 From: Harriet Betancourt MD PCP: Wendy Vega NP Status: DEP ER - ER Visit Summary Date of Service: 09/30/18 Chief Complaint: Dizzy History of Present Illness: The patient is a 47 F with a history of peripheral vertigo. She states she started noting vertigo-like symptoms 8 days ago. Symptoms are worse by lying down and with head movement. She is also noted sinus pressure and some left ear pressure over the past couple of days. She has not had fever. Physical Examination: Vital signs are unremarkable. Patient sitting in a bedside chair. She is in no acute distress. Head neck examination reveals pupils to be equal and reactive. TMs are clear bilaterally. She does have reproducible tenderness of the frontal and maxillary sinuses bilaterally. Heart is regular rate and rhythm. Lung sounds are clear. Abdomen is soft nontender. Neuro exam reveals normal strength and sensation throughout. Test Results: [] Emergency Department Course and Treatment: Patient was given Antivert here. On repeat evaluation she does feel improved. We talked about the possibility of sinusitis contributing to her symptoms. We will write her a prescription for Zithromax, but she will wait 3 more days to see if her symptoms improve without requiring antibiotic. Treatment Plan: [] Disposition: Discharge Impression: 1. Benign positional vertigo 2. Sinusitis This note was generated with Cavium dictation software. It may contain incorrect words, spelling, and punctuation that were not noted in review of the chart prior to signing ED Disposition - Plan for ED Patient: Chief Complaint: Dizziness Referrals: Wendy Vega NP-C [Primary Care Provider] - What to do if you have Problems For any increased pain, shortness of breath, bleeding, nausea or vomiting, chest pain, or any unexpected problems, contact your Primary Care Provider. Call [facility] ([phone]) or report to the closest Emergency Room. Call 911 if necessary. 09/30/18 2200 <Electronically signed by Harriet Betancourt MD> Date Harriet Lugoigner Signature (If Indicated): Date CC: Wendy Vega Start: 09-30-2018 End: 09-30-2018 Discharge Instruction Comments: See Note; NOTES: [facility] Medical Records Department [address] [place] [address] Discharge Instruction 09/30/181746 MR#: [id number] Acct: [id number] Name: TRACEY HATHAWAY Rep #: [id number] : 1970 47 From: Harriet Betancourt MD PCP: Wendy Vega NP Status: REG ER ED Disposition - Plan for ED Patient: Disposition: Home or Assisted Living Chief Complaint: Dizziness Instructions: ED Sinusitis Abx Tx, ED Vertigo Unspecified Prescriptions: proMETHazine tablet [Phenergan] 25 mg PO Q6H PRN PRN #10 tab PRN Reason: Nausea Azithromycin [Zithromax Z-Pritesh] 250 mg PO UD #1 box Meclizine HCl [Antivert] 25 mg PO 4X/DAY PRN PRN #20 tablet PRN Reason: Dizziness Referrals: Wendy Vega, CLINICAL PSYCHOLOGIST LICENSED-C [Primary Care Provider] - 1 Week What to do if you have Problems For any increased pain, shortness of breath, bleeding, nausea or vomiting, chest pain, or any unexpected problems, contact your Primary Care Provider. Call [facility] ([phone]) or report to the closest Emergency Room. Call 911 if necessary. 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 HOUSE 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 Comment on above: Right Knee-eft Knee-08/2021 Plan of Treatment Date Care Activity Detail Author Start: 07-01-2022 Procedure Education Eprescribed prescriptions (G8553) [facility]; [facility] Work Phone: Start: 07-01-2022 Provider Instructions for Treatment [facility]; [facility] Work Phone: Start: 06-13-2022 Procedure Education Eprescribed prescriptions (G8553) [facility]; [facility] Work Phone: Start: 06-13-2022 Provider Instructions for Treatment [facility]; [facility] Work Phone: Start: 12-22-2021 Procedure Education Eprescribed prescriptions (G8553) [facility]; [facility] Work Phone: Start: 12-22-2021 Provider Instructions for Treatment Follow up in 1 week with [facility]; [facility] Work Phone: Start: 05-13-2021 Procedure Education Eprescribed prescriptions (G8553) [facility]; [facility] Work Phone: Start: 05-13-2021 Provider Instructions for Treatment [facility]; [facility] Work Phone: Start: 04-22-2021 Procedure Education Eprescribed prescriptions (G8553) [facility]; [facility] Work Phone: Start: 04-22-2021 Provider Instructions for Treatment [facility]; [facility] Work Phone: Start: 04-01-2021 Procedure Education Eprescribed prescriptions (G8553) [facility]; [facility] Work Phone: Start: 04-01-2021 Provider Instructions for Treatment [facility]; [facility] Work Phone: Start: 12-28-2020 Procedure Education Eprescribed prescriptions (G8553) [facility]; [facility] Work Phone: Start: 12-28-2020 Provider Instructions for Treatment [facility]; [facility] Work Phone: Start: 12-21-2020 Urine albumin quantitative MICROALBUMIN: CREATININE RATIO (51762) AND (18861) [facility]; [facility] Work Phone: Start: 12-21-2020 TSH Qn TSH (56232) [facility]; [facility] Work Phone: Start: 12-21-2020 Blood count complete auto&auto difrntl wbc CBC, Platelets & Auto Diff (09543) [facility]; [facility] Work Phone: Start: 12-21-2020 Comprehensive metabolic panel Metabolic Panel, [facility] (49231) [facility]; [facility] Work Phone: Start: 12-21-2020 Procedure Education Eprescribed prescriptions (G8553) [facility]; [facility] Work Phone: Start: 12-21-2020 Provider Instructions for Treatment COVID SCREENING FORM [facility]; [facility] Work Phone: Start: 08-04-2020 Procedure Education Eprescribed prescriptions (G8553) [facility] Work Phone: Start: 07-20-2020 Procedure Education Eprescribed prescriptions (G8553) [facility] Work Phone: Start: 07-08-2020 Culture bct isol&prsmptv id isolate ea urine URINE SILVIA CULTURE-IDENTIFICATN (99745) [facility] Work Phone: Start: 07-07-2020 Procedure Education Eprescribed prescriptions (G8553) [facility] Work Phone: Start: 07-07-2020 Antibody borrelia burgdorferi lyme disease Lyme Disease Antibody W/ Reflex (25820) [facility] Work Phone: Start: 07-07-2020 Urinalysis qual/semiquant except immunoassays URINALYSIS (01739) [facility] Work Phone: Start: 07-07-2020 Natriuretic peptide BNTP (53838) [facility] Work Phone: Start: 06-24-2020 TSH Qn TSH (56779) [facility] Work Phone: Start: 06-24-2020 Free T4 [Mass/Vol] T4, FREE (THYROXINE) (55662) [facility] Work Phone: Start: 06-24-2020 Free T3 [Mass/Vol] T3, FREE (TRIDOTHYRONINE) (53632) [facility] Work Phone: Start: 06-24-2020 Microsomal antibodies each Anti TPO Antibody (72634) [facility] Work Phone: Start: 06-24-2020 Procedure Education Eprescribed prescriptions (G8553) [facility] Work Phone: Start: 06-24-2020 Provider Instructions for Treatment Follow up in 3 months [facility] Work Phone: Start: 06-09-2020 Myoglobin [facility] Work Phone: Start: 06-09-2020 25 hydroxy includes fractions if performed CALCIFEDIOL (27234) [facility] Work Phone: Start: 06-09-2020 Assay of thyroid stimulating hormone tsh TSH (14257) [facility] Work Phone: Start: 06-09-2020 Blood count complete auto&auto difrntl wbc CBC, Platelets & Auto Diff (11689) [facility] Work Phone: Start: 06-09-2020 Comprehensive metabolic panel Metabolic Panel, [facility] (75826) [facility] Work Phone: Start: 06-09-2020 Procedure Education Eprescribed prescriptions (G8553) [facility] Work Phone: Start: 06-09-2020 Provider Instructions for Treatment [facility] Work Phone: Start: 11-20-2019 Procedure Education Eprescribed prescriptions (G8553) [facility] Work Phone: Start: 11-20-2019 Provider Instructions for Treatment Follow up after consult [facility] Work Phone: Start: 06-18-2019 Lipid panel LIPID PANEL (09461) [facility] Work Phone: Start: 06-18-2019 Gonadotropin follicle stimulating hormone FSH AND LH (28438) [facility] Work Phone: Start: 06-18-2019 Assay of thyroid stimulating hormone tsh TSH (THYROID STIMULATING HORMONE) (31260) [facility] Work Phone: Start: 06-18-2019 TSH Qn TSH (THYROID STIMULATING HORMONE) (85241) [facility] Work Phone: Start: 06-18-2019 Procedure Education Eprescribed prescriptions (G8553) [facility] Work Phone: Start: 06-18-2019 Provider Instructions for Treatment [facility] Work Phone: Start: 06-18-2019 Hpv, dna, amp probe HPV Auto Reflex PAP (74038) [facility] Work Phone: Start: 05-01-2017 End: 05-01-[address] [facility] Start: 05-01-2017 End: 05-01-2017 Mammogram, screening Mammogram, Screening, both breasts [facility] Start: 04-25-2017 Procedure Education Eprescribed prescriptions (G8553) [facility] Work Phone: Start: 02-15-2016 Procedure Education Eprescribed prescriptions (G8553) [facility] Work Phone: Start: 02-15-2016 Provider Instructions for Treatment Follow up if no improvement or if symptoms worsen [facility] Work Phone: Start: 06-11-2014 Blood count complete auto&auto difrntl wbc CBC, Platelets & Auto Diff (70763) [facility] Work Phone: Start: 06-11-2014 Comprehensive metabolic panel Metabolic Panel, Comprehensive (76974) [facility] Work Phone: Start: 06-11-2014 Procedure Education Eprescribed prescriptions (G8553) [facility] Work Phone: Start: 06-11-2014 Provider Instructions for Treatment Follow up in 3 weeks [facility] Work Phone: Start: 04-16-2013 Provider Instructions for Treatment Follow up in 6 months [facility] Work Phone: Start: 03-01-2012 25 hydroxy includes fractions if performed CALCIFEDIOL (89590) [facility] Work Phone: Start: 09-14-2011 25 hydroxy includes fractions if performed CALCIFEDIOL (37014) [facility] Work Phone: Start: 09-14-2011 Provider Instructions for Treatment [facility] Work Phone: Start: 09-09-2011 Assay of free thyroxine T4, FREE (THYROXINE) (24916) [facility] Work Phone: Start: 09-09-2011 Free T4 [Mass/Vol] T4, FREE (THYROXINE) (66394) [facility] Work Phone: Start: 09-09-2011 Assay of triiodothyronine t3 free T3, FREE (TRIDOTHYRONINE) (93876) [facility] Work Phone: Start: 09-09-2011 Free T3 [Mass/Vol] T3, FREE (TRIDOTHYRONINE) (64870) [facility] Work Phone: Start: 09-09-2011 25 hydroxy includes fractions if performed CALCIFIDIOL (87839) VIT D 25 [facility] Work Phone: Start: 09-09-2011 Assay of folic acid serum Folate (29061) [facility] Work Phone: Start: 09-09-2011 Cobalamin (Vitamin B12) [Mass/Vol] VITAMIN B-12 (CYANOCOBALAMIN) (89127) [facility] Work Phone: Start: 09-09-2011 Cyanocobalamin vitamin b-12 VITAMIN B-12 (CYANOCOBALAMIN) (73035) [facility] Work Phone: Start: 09-09-2011 C-reactive protein C-REACTIVE PROTEIN (23054) [facility] Work Phone: Start: 09-09-2011 Comprehensive metabolic panel METABOLIC PANEL, COMPREHENSIVE (05465) [facility] Work Phone: Start: 09-09-2011 CRP [Mass/Vol] C-REACTIVE PROTEIN (28270) [facility] Work Phone: Start: 09-09-2011 Rheumatoid factor quantitative RHEUMATOID FACTOR-QUANT (44689) [facility] Work Phone: Start: 09-09-2011 Sedimentation rate rbc non-automated SED RATE ERYTHROCYTE (76915) [facility] Work Phone: Start: 09-09-2011 Antinuclear antibodies john JOHN (ANTINUCLEAR ANTIBODY) (02376) [facility] Work Phone: Start: 09-09-2011 Nuclear Ab IF (S) [Titer] JOHN (ANTINUCLEAR ANTIBODY) (60858) [facility] Work Phone: Start: 09-09-2011 Microsomal antibodies each Anti-TPO Antibody (20491) [facility] Work Phone: Start: 09-09-2011 Assay of thyroid stimulating hormone tsh TSH (96022) [facility] Work Phone: Start: 09-09-2011 TSH Qn TSH (56805) [facility] Work Phone: Start: 09-09-2011 Provider Instructions for Treatment [facility] Work Phone: Start: 03-24-2008 Provider Instructions for Treatment [facility] Work Phone: Start: 03-13-2008 Urnls dip stick/tablet rgnt non-auto w/o micrscp Urinalysis, Office (34214) [facility] Work Phone: Start: 03-13-2008 Blood count manual cell count each CBC with manual diff (37425) [facility] Work Phone: Start: 03-13-2008 Comprehensive metabolic panel Metabolic Panel, Comprehensive (54742) [facility] Work Phone: Start: 03-13-2008 Lipid panel Lipid Panel (82540) [facility] Work Phone: Start: 03-13-2008 Provider Instructions for Treatment FOLLOW UP - MAKE APPT AFTER DIAGNOSTIC TESTS [facility] Work Phone: [facility] Work Phone: [facility] Work [facility]: [facility] Work [facility]: [facility] Work [facility]: [facility] Work [facility] Work Phone: [facility] Work [facility]: [facility] Work [facility]: [facility] Work [facility]: [facility] Work [facility]: [facility] Work Phone: [facility] Work Phone[facility] Work Phone[facility] Work Phone: [facility]; [facility] Work Phone: [facility]; [facility] Work Phone: [facility]; [facility] Work Phone[facility]; [facility] Work Phone: [facility]; [facility] Work Phone: [facility]; [facility] Work Phone: Immunizations Immunization Date Immunization Notes Care Provider Fa nino 06-04-2021 tetanus toxoid, redu nagi diphtheria toxoid, and acellular pertussis vaccine, adsorbed GHASSAN DEE MD [facility] Payers Date Payer Category Payer Self-pay [id number] Unknown [id number] 2016 Unknown [id number] 2009 Unknown [id number] 1970 Unknown [id number] 2.16.84 [id number] 1970 Unknown [id number] .16.8 [id number] 1970 Unknown [id number] .16.8 [id number] 1970 Unknown [id number] 2.16. [id number] 1970 Unknown [id number] 2.16. [id number] 1970 Unknown [id number] 2.16. [id number] Unknown Unknown [facility] [id number] Unknown 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 Work Phone: Start: 04-07-2020 Non-smoker [facility] Start: 1970 Sex Assigned At Female W [facility] Start: 01-16-2025 Sex Female (finding) [facility] Equipment Procedure Code Equipment Code Equipment Origin al Text Equipment Identifier Dates Laparoscopy with vaginal hysterectomy POOJA 3GRM HEMOSTAT ABS FDA Start: 04-14-2020 Laparoscopy with vaginal hysterectomy POOJA 3GRM HEMOSTAT ABS FDA Start: 04-14-2020 Laparoscopy with vaginal hysterectomy POOJA 3GRM HEMOSTAT ABS FDA Start: 04-14-2020 Laparoscopy with vaginal hysterectomy POOJA 3GRM HEMOSTAT ABS FDA Start: 04-14-2020 SLING, ALTIS VAGINAL FDA Start: 04-14-2020 SLING, ALTIS VAGINAL FDA Start: 04-14-2020 SLING, ALTIS VAGINAL FDA Start: 04-14-2020 SLING, ALTIS VAGINAL FDA Start: 04-14-2020 Functional Status Date Assessment Result Facility 12-30-2021 Functional Status [facility] 12-30-2021 Functional Status [facility] Mental Status Date Assessment Result Facility 12-30-2021 Mental Status [facility] 12-30-[address] [facility] Clinical Notes 04-20-2021 to 02-24-2025 Note Date & Type Note Facility 02-24-2025 Radiology Diagnostic study note [facility] [address] [place] [address] 13399 Abdomen W/WO IV Contrast MR#: [id number] Acct: [id number] Name: TRACEY HATHAWAY Rep #: [id number] : 1970 F 54 From: Neftali Branham MD PCP: Dr. Mali Jeffries, DO Status: RE G CLI Study:Abdomen W/WO IV Contrast Date of Exam: 02/19/25 Exam# [id number] Ordering Dr: Ilia thomas,Out o. PROCEDURE: ABDOMEN W/WO IV CONTRAST 02/19/2025 REASON FOR EXAM: LEFT ADRENAL GLAND NODULE TECHNIQUE: Abdomen CT with intravenous contrast. Multiplanar and multisequence images were obtained. One or more dose reduction techniques were used (e.g., Automated exposure control, adjustment of the mA and/or kV according to patient size, use of iterative reconstruction technique. PATIENT PREPARATION: Per protocol ORAL CONTRAST TYPE: None. CONTRAST: Isovue 350 VOLUME: 100 mL Gauge IV RADIATION DOSE SUMMARY: CTDlvol: 23.6 mGy DLP: 2139 mGycm COMPARISON: CT scan on 01/10/2025. FINDINGS: Technique: Axial CT scan images with intravenous contrast. Reformatted coronal and sagittal images. One or more dose reduction techniques were used (e.g., Automated exposure control, adjustment of the mA and/or kV according to patient size, use of iterative reconstruction technique. Findings: Prior cholecystectomy. Well-defined 2.3 cm left adrenal nodule. Precontrast density 9 Hounsfield units. Early postcontrast density 60 Hounsfield units. Delayed post contrast density 21 Hounsfield units. Absolute washout 76.5%. Relative washout 65%. Findings are suggestive of benign adenoma. Unchanged bilateral scattered pulmonary nodules with the largest measuring 4 mm. Mild diffuse spondylosis. Grade 1 anterolisthesis of L5 on S1. Fat containing umbilical hernia without incarceration. Normal liver. Normal extrahepatic biliary system. Normal spleen. Normal pancreas. Normal right adrenal glands. Normal size of the right kidney. There is no right renal mass. There are no right renal calculi. There is no right hydronephrosis. Normal visualized right ureter. Normal size of the left kidney. There is no left renal mass. There are no leftrenal calculi. There is no left hydronephrosis. Normal visualized left ureter. Normal visualized stomach. Normal small intestine. Normal colon. There is no demonstrated peritoneal fluid. Normal abdominal aorta. Normal inferior vena cava. Normal retroperitoneum. CT/Abdomen W/WO IV Contrast IMPRESSION: 1. Prior cholecystectomy. 2. Well-defined 2.3 cm left adrenal nodule. Precontrast density 9 Hounsfield units. Early postcontrast density 60 Hounsfield units. Delayed post contrast density 21 Hounsfield units. Absolute washout 76.5%. Relative washout 65%. Findings are suggestive of benign adenoma. 3. Unchanged bilateral scattered pulmonary nodules with the largest measuring 4 mm. 4. Mild diffuse spondylosis. 5. Grade 1 anterolisthesis of L5 on S1. 6. Fat containing umbilical hernia without incarceration. Reading [facility] CC: CALVIN KNOX; Dr. Mali Jeffries, DO ~ Director Of Nuclear Medicine: Signed [facility] 01-13-2025 Radiology Diagnostic study note [facility] [address] [place] [address] Lumbar Spine 2 or 3 Views MR#: [id number] Acct: [id number] Name: DOUGLASGERMÁN MOISENORMAN Lynn Rep #: [id number] : 1970 F 54 From: Lisa Reed DO PCP: Dr. Mali Jeffries DO Status: RE G CLI Study:Lumbar Spine 2 or 3 Views Date of Exam: 01/10/25 Exam# [id number] Ordering Dr: CALVIN KNOX PROCEDURE: LUMBAR SPINE 2 OR 3 VIEWS 01/10/2025 REASON FOR EXAM: CHRONIC LOWER BACK PAIN RIGHT SIDE TECHNIQUE: 3 view(s) of the lumbar spine COMPARISON: None FINDINGS: Vertebrae: Lumbar vertebral body heights are preserved. No acute fracture. Discs: Severe narrowing of L5-S1 intervertebral disc space. Suspected anterolisthesis of L5 on S1. Alignment: Unremarkable Other: RAD/Lumbar Spine 2 or 3 Views IMPRESSION: No acute fracture. Suspected anterolisthesis of L5 on S1. Severe narrowing of L5-S1 intervertebral disc space. MRI of the lumbar spine may be helpful for further characterization. Reading Location: [facility] CC: CALVIN KNOX; Dr. Mali Jeffries DO ~ Director Of Nuclear Medicine: Signed [facility] 01-10-2025 Radiology Diagnostic study note [facility] [address] [place], [place] [id number] Abdomen/Pelvis W IV Cont ONLY MR#: [id number] Acct: [id number] Name: TRACEY HATHAWAY Rep #: [id number] : 1970 F 54 From: Gloria Payne MD PCP: Dr. Mali Jeffries DO Status: RE G CLI Study:Abdomen/Pelvis W IV Cont ONLY Date of E xam: 01/10/25 Exam# [id number] Ordering Dr: Ruth LIMA PROCEDURE: ABDOMEN/PELVIS W IV CONT ONLY 01/10/2025 REASON FOR EXAM: ABDOMINAL PAIN TECHNIQUE: Abdomen and pelvis CT with intravenous contrast. Coronal and Sagittal reconstruction series were provided. PATIENT PREPARATION: Per protocol ORAL CONTRAST TYPE: None. AMOUNT: mL CONTRAST: Isovue-300 VOLUME: 98 mL One or more dose reduction techniques were used (e.g., Automated exposure control, adjustment of the mA and/or kV according to patient size, use of iterative reconstruction technique. RADIATION DOSE SUMMARY: CTDlvol: 9.97+ 12.10 mGy DLP: 602.07 mGycm COMPARISON: 11/11/2024 FINDINGS: Lung bases: 4 mm posterior subpleural LEFT lower lobe nodule. Additional 2 mm bilateral lower lobe nodules. Fissural intrapulmonary lymph node in the RIGHT lung base. Liver: Single surgical clip interposed between the anterior LEFT hepatic lobe and anterior abdominal wall. Spleen: Unremarkable. Gallbladder: Interval cholecystectomy. Trace ill-defined fluid and stranding inthe gallbladder fossa. No organized fluid collection. Pancreas: Unremarkable. Adrenals: Indeterminate 2.3 x 1.4 cm LEFT adrenal nodule.. Kidneys: Unremarkable. Bowel: Unremarkable. Normal caliber appendix. Lymph nodes: Unremarkable. Vasculature: Unremarkable. Peritoneum: As above. Bladder: Unremarkable. Reproductive Organs: Hysterectomy. Body Wall: Tiny fat containing umbilical hernia.. Bones: Bilateral L5 pars defects with mild grade [address]/Abdomen/Pelvis W IV Cont ONLY IMPRESSION: 1. Interval cholecystectomy with trace ill-defined fluid and stranding in the gallbladder fossa, nonspecific and potentially postoperative. Correlate for early surgical site infection. No organized fluidcollection. 2. Indeterminate 2.3 cm LEFT adrenal nodule. Recommend adrenal protocol CT per ACR recommendations. 3. Tiny bibasilar pulmonary nodules up to 4 mm, statistically benign and requiring no specific follow-up in a low risk patient. Otherwise, recommend follow-up CT chest in one year per the Fleischner society recommendations for pulmonary nodule follow-up, presuming no history of malignancy or known immunosuppression. 4. Additional description as above. Note comparison with any available outside imaging may be helpful to establish stability of indeterminate findings in #2-3 above. Reading Location: [id number] CC: RUDY LIMA; Dr. Mali Jeffries, DO ~ Director Of Nuclear Medicine: Signed [facility] 11-08-2024 Evaluation note Diagnosis Onset Date Resolution Pelvic pain acute October 1:47pm Recurrent UTI acute November 082024 1:47pm [facility] Work Phone: [phone] 616-931304-07-2022 Hospital Discharge instructions Patient Education 12/30/2021 11:00:35 Headache, Unspecified Headache, Unspecified A number of things can cause headaches. The cause of your headache isn t clear. But it doesn t seemto be a sign of any serious illness. Headache affects almost everyone at some time. It is the most common reason people miss days from work or school. You could have a tension headache or a migraine headache. Stress can cause a tension headache. This can happen if you tense the muscles of your shoulders, neck, and scalp without knowing it. If this stress lasts long enough, you may develop a tension headache. It is not clear why migraines occur, but certain things called triggers can raise the risk of having a migraine attack. Migraine triggers may include emotional stress or depression, or by hormone changes during the menstrual cycle. Other triggers include control pills and other medicines, alcohol or caffeine, foods with tyramine (such as aged cheese, wine), eyestrain, weather changes, missed meals, and lack of sleep or oversleeping. Other causes of headache include: Viral illness with high fever Head injury with concussion Sinus, ear, or throat infection Dental pain and jaw joint (TMJ) pain More serious but less common causes of headache include stroke, brain hemorrhage, brain tumor, meningitis, and encephalitis. Home care Follow these tips when taking care of yourself at home: Don t drive yourself home if you were given pain medicine for your headache. Instead, have someone else drive you home. Try to sleep when you get home. You should feel much better when you wake up. Apply heat to the back of your neck to ease a neck muscle spasm. Take care of a migraine headache by putting an ice pack on your forehead or at the base of your skull. If you have nausea or vomiting, eat a light diet until your headache eases. If you have a migraine headache, use sunglasses when in the daylight or around bright indoor lighting until your symptoms get better. Bright glaring light can make this type of headache worse. Follow-up care Follow up with your healthcare provider, or as advised. Talk with your provider if you have frequent headaches. He or she can help figure out a treatment plan. By knowing the earliest signs of headache, and starting treatment right away, you may be able to stop the pain yourself. When to seek medical advice Call your healthcare provider right away if any of these occur: Your head pain suddenly gets worse after sexual intercourse or strenuous activity Your head pain doesn t get better within 24 hours You aren t able to keep liquids down (repeated vomiting) Fever of 100.4 F (38 C) or higher, or as directed by your healthcare provider Stiff neck Extreme drowsiness, confusion, or fainting Dizziness or dizziness with spinning sensation (vertigo) Weakness in an arm or leg or one side of your face You have trouble talking or seeing [id number] [employer]. [address] [place] [address]. All rights reserved. This information is not intended as a substitute for professional medical care. Always follow yourhealthcare professional's instructions. Follow Up Care 12/30/2021 10:34:54 With:WENDY VEGA [facility] Address: [address] [place] [address] [address] [place] [address]- When:2-4 days Comments:Schedule appointment for close follow-up if your symptoms persist.Go home and sleep in a cool, dark, quiet room.Continue ibuprofen and Imitrex for recurrent headaches as needed.Use Zofran as prescribed for nausea and vomiting as needed.Return to the ED if symptoms worsen. [facility] 07-27-2021 NoteHNO ID: [id number] Author: Jerome Hawkins MD Service: ? Author Type: Physician Type: Progress Notes Filed: 04/20/2021 3:57 PM Note Text: Tracey Hathaway is a 50 year old female here for bilateral lower extremity leg swelling. HPI: This is a very pleasant 50-year-old female who presents with several years of bilateral lower extremity leg swelling. She states that she noticed that it began to get worse after she had her hysterectomy done a year or so ago. At this point in time the patient has complaints of bilateral lower extremity swelling with heaviness and occasional cramping in the lower extremities as well. She has no evidence of any significant varicosities but she does complain of discomfort and pain in the legs in general. She does have a lot of spider varicosities but none of these in particular painful is more the lower part of the leg but gets heavy and swollen and as she says feels like she is carrying around a ton of bricks. She has had no sores or ulcerations although she does state that the skin does get dry in the lower extremity and cracks. She does not really have any claudication symptoms. She has no other arterial insufficiency symptomatology such as rest pain or tissue loss. Primarily the patient's situation is one of bilateral lower extremity leg swelling with discomfort heaviness and pain. MEDICATIONS: Current Outpatient Medications Medication Sig Dispense Refill - Omeprazole 40 mg capsule - oxyCODONE-acetaminophen (PERCOCET) 5-325 mg tablet Take 1 tablet by mouth every 4 hours as needed. 45 tablet 0 - COMPOUNDED PRESCRIPTION 1 application by RECTAL route as directed. Nifedipine 2% in 60grams vaseline 1 Container 2 No current facility-administered medications for this visit. ALLERGIES Allergen Reactions - Amoxicillin Rash - Penicillins Rash Wt 165 lb (74.8kg) LMP 06/17/2015 PHYSICAL EXAM: Well-developed well-nourished female alert and oriented person place and time in no acute distress the time of the examination. Bilaterally her legs are mildly swollen at the level of the mid calf to ankle level. Above the mid calf by palpation there is minimal swelling of the tissues. She does have spider varicosities in the lower extremities bilaterally the worst being laterally in the left thigh. None of these in particular are tender or sore. She has palpable pulses in the lower extremities bilaterally that are 1+ and good capillary refill. On palpation of the superficial venous system medially in the thigh to the calf to the ankle there are no palpable cords or phlebitic veins. ASSESSMENT: I feel this lady has primary chronic venous insufficiency and at this point in time really do not feel the need for testing. The testing is going to be somewhat irrelevant in terms of the fact that if it is positive we will recommend the same therapy as it we will recommend if it is not positive. Overall she still shows evidence of bilateral chronic venous insufficiency and with the stigmata of swelling and spider varicosities it is most likely that this is the etiology for her problem. At this point in time I go through a discussion with her as to how to treat this stating that compression is the primary component of treatment and discussing other treatment modalities. PLAN: My plan for the patient is to have her get into knee-high [id number] compression. I would like to see if she will tolerate this first before ordering any type of prescription compression and if she does tolerate it well I tell her that she can call and we can prescribe her low level prescription stockings that might help even more. I need to get her into compression first and make sure that she will tolerate it before we give her a prescription for stockings that she may not tolerate. In addition to this we talked about the dryness of the skin that it can occur with this type of issue and I talk about a good moisturizing cream that she should use 1-2 times a day especially once after shower. We also talked about leg elevation and trying to do this a couple times a day to try to get the weight of gravity off of the lower legs so that she can decompress them. Finally we talked about exercise and walking being a great exercise for venous disease. We talked about the fact that she should do this in her compression stockings and that she should try to elevate the legs for about 5 minutes at the end of any type of walk. Overall these are the things that I tell the patient we can do for chronic venous insufficiency. I tell her I would be glad to see her back in the [place] office at any time if she thinks things are getting worse or thinks that she needs to be checked but at this point in time no routine follow-up is planned. FOLLOW UP: I will follow up with the patient on a as needed basis if things worsen or change This note was generated with [employer] (more content not included)...[facility] No data available for this section [facility] Evaluation noteNo assessment information available [facility] Work Phone: Instructions* Name Dates Details How to Access Health Informa tion Online using Patient [employer] and [employer] Apps Indication:Nonsmoker Start:01-Apr-2021 Instruction Type:Patient Education Patient Instructions Indication:Nonsmoker Start:01-Apr-2021 Instruction Type:Provider Instructions for Treatment Patient Instructions Indication:Nonsmoker Start:28-Dec-2020 Instruction Type:Provider Instructions for Treatment How to Access Health Informa tion Online using Patient Portal and [employer] Apps Indication:Nonsmoker Start:28-Dec-2020 Instruction Type:Patient Education Patient Instructions Indication:Other primary cardiomyopathies Start:21-Dec-2020 Instruction Type:Provider Instructions for Treatment How to Access Health Informa tion Online using Patient Portal and [employer] Apps Indication:Nonsmoker Start:21-Dec-2020 Instruction Type:Patient Education How to access health informa tion online Indication:Nonsmoker Start:04-Aug-2020 Instruction Type:Patient Education How to access health informa tion online - Detail Indication:Nonsmoker Start:04-Aug-2020 Instruction Type:Patient Education Patient Instructions Indication:Nonsmoker Start:04-Aug-2020 Instruction Type:Provider Instructions for Treatment How to access health informa tion online Indication:Tension headache Start:20-Jul-2020 Instruction Type:Patient Education How to access health informa tion online - Detail Indication:Tension headache Start:20-Jul-2020 Instruction Type:Patient Education Patient Instructions Indication:Tension headache Start:20-Jul-2020 Instruction Type:Provider Instructions for Treatment How to access health informa tion online Indication:Multiple thyroid nodules Start:07-Jul-2020 Instruction Type:Patient Education How to access health informa tion online - Detail Indication:Multiple thyroid nodules Start:07-Jul-2020 Instruction Type:Patient Education Patient Instructions Indication:Multiple thyroid nodules Start:07-Jul-2020 Instruction Type:Provider Instructions for Treatment How to access health informa tion online Indication:Nonsmoker Start:24-Jun-2020 Instruction Type:Patient Education How to access health informa tion online - Detail Indication:Nonsmoker Start:24-Jun-2020 Instruction Type:Patient Education Patient Instructions Indication:Nonsmoker Start:24-Jun-2020 Instruction Type:Provider Instructions for Treatment How to access health informa tion online Indication:Nonsmoker Start:09-Jun-2020 Instruction Type:Patient Education How to access health informa tion online - Detail Indication:Nonsmoker Start:09-Jun-2020 Instruction Type:Patient Education Patient Instructions Indication:Nonsmoker Start:09-Jun-2020 Instruction Type:Provider Instructions for Treatment How to access health informa tion online Indication:Nonsmoker Start:20-Nov-2019 Instruction Type:Patient Education How to access health informa tion online - Detail Indication:Nonsmoker Start:20-Nov-2019 Instruction Type:Patient Education Patient Instructions Indication:Nonsmoker Start:20-Nov-2019 Instruction Type:Provider Instructions for Treatment How to access health informa tion online Indication:Nonsmoker Start:18-Jun-2019 Instruction Type:Patient Education How to access health informa tion online - Detail Indication:Nonsmoker Start:18-Jun-2019 Instruction Type:Patient Education Patient Instructions Indication:BMI 32.0-32.9,adult Start:18-Jun-2019 Instruction Type:Provider Instructions for Treatment How to access health informa tion online Indication:Gerd Start:25-Apr-2017 Instruction Type:Patient Education How to access health informa tion online - Detail Indication:Gerd Start:25-Apr-2017 Instruction Type:Patient Education Patient Instructions Indication:Gerd Start:25-Apr-2017 Instruction Type:Provider Instructions for Treatment How to access health informa tion online Indication:Rash Start:15-Feb-2016 Instruction Type:Patient Education How to access health informa tion online - Detail Indication:Rash Start:15-Feb-2016 Instruction Type:Patient Education Patient Instructions Indication:Rash Start:15-Feb-2016 Instruction Type:Provider Instructions for Treatment Patient Instructions Indication:Migraine with aura and without status migrainosus, not intractable Start:11-Jun-2014 Instruction Type:Provider Instructions for Treatment [facility]; [facility] Work Phone: Instructions* Name Dates Details Patient Instructions Indication:BMI 29.0-29.9,adult Start:13-May-2021 Instruction Type:Provider Instructions for Treatment How to Access Health Informa tion Online using Patient Portal and [employer] Apps Indication:BMI 29.0-29.9,adult Start:13-May-2021 Instruction Type:Patient Education Patient Instructions Indication:BMI 31.0-31.9,adult Start:22-Apr-2021 Instruction Type:Provider Instructions for Treatment How to Access Health Informa tion Online using Patient Portal and [employer] Apps Indication:BMI 31.0-31.9,adult Start:22-Apr-2021 Instruction Type:Patient Education How to Access Health Informa tion Online using Patient Portal and [employer] Apps Indication:Nonsmoker Start:01-Apr-2021 Instruction Type:Patient Education Patient Instructions Indication:Nonsmoker Start:01-Apr-2021 Instruction Type:Provider Instructions for Treatment Patient Instructions Indication:Nonsmoker Start:28-Dec-2020 Instruction Type:Provider Instructions for Treatment How to Access Health Informa tion Online using Patient Portal and [employer] Apps Indication:Nonsmoker Start:28-Dec-2020 Instruction Type:Patient Education Patient Instructions Indication:Other primary cardiomyopathies Start:21-Dec-2020 Instruction Type:Provider Instructions for Treatment How to Access Health Informa tion Online using Patient Portal and [employer] Apps Indication:Nonsmoker Start:21-Dec-2020 Instruction Type:Patient Education How to access health informa tion online Indication:Nonsmoker Start:04-Aug-2020 Instruction Type:Patient Education How to access health informa tion online - Detail Indication:Nonsmoker Start:04-Aug-2020 Instruction Type:Patient Education Patient Instructions Indication:Nonsmoker Start:04-Aug-2020 Instruction Type:Provider Instructions for Treatment How to access health informa tion online Indication:Tension headache Start:20-Jul-2020 Instruction Type:Patient Education How to access health informa tion online - Detail Indication:Tension headache Start:20-Jul-2020 Instruction Type:Patient Education Patient Instructions Indication:Tension headache Start:20-Jul-2020 Instruction Type:Provider Instructions for Treatment How to access health informa tion online Indication:Multiple thyroid nodules Start:07-Jul-2020 Instruction Type:Patient Education How to access health informa tion online - Detail Indication:Multiple thyroid nodules Start:07-Jul-2020 Instruction Type:Patient Education Patient Instructions Indication:Multiple thyroid nodules Start:07-Jul-2020 Instruction Type:Provider Instructions for Treatment How to access health informa tion online Indication:Nonsmoker Start:24-Jun-2020 Instruction Type:Patient Education How to access health informa tion online - Detail Indication:Nonsmoker Start:24-Jun-2020 Instruction Type:Patient Education Patient Instructions Indication:Nonsmoker Start:24-Jun-2020 Instruction Type:Provider Instructions for Treatment How to access health informa tion online Indication:Nonsmoker Start:09-Jun-2020 Instruction Type:Patient Education How to access health informa tion online - Detail Indication:Nonsmoker Start:09-Jun-2020 Instruction Type:Patient Education Patient Instructions Indication:Nonsmoker Start:09-Jun-2020 Instruction Type:Provider Instructions for Treatment How to access health informa tion online Indication:Nonsmoker Start:20-Nov-2019 Instruction Type:Patient Education How to access health informa tion online - Detail Indication:Nonsmoker Start:20-Nov-2019 Instruction Type:Patient Education Patient Instructions Indication:Nonsmoker Start:20-Nov-2019 Instruction Type:Provider Instructions for Treatment How to access health informa tion online Indication:Nonsmoker Start:18-Jun-2019 Instruction Type:Patient Education How to access health informa tion online - Detail Indication:Nonsmoker Start:18-Jun-2019 Instruction Type:Patient Education Patient Instructions Indication:BMI 32.0-32.9,adult Start:18-Jun-2019 Instruction Type:Provider Instructions for Treatment How to access health informa tion online Indication:Gerd Start:25-Apr-2017 Instruction Type:Patient Education How to access health informa tion online - Detail Indication:Gerd Start:25-Apr-2017 Instruction Type:Patient Education Patient Instructions Indication:Gerd Start:25-Apr-2017 Instruction Type:Provider Instructions for Treatment How to access health informa tion online Indication:Rash Start:15-Feb-2016 Instruction Type:Patient Education How to access health informa tion online - Detail Indication:Rash Start:15-Feb-2016 Instruction Type:Patient Education Patient Instructions Indication:Rash Start:15-Feb-2016 Instruction Type:Provider Instructions for Treatment Patient Instructions Indication:Migraine with aura and without status migrainosus, not intractable Start:11-Jun-2014 Instruction Type:Provider Instructions for Treatment [facility]; [facility] Work Phone: Instructions* Name Dates Details How to access health informa tion online Indication:Nonsmoker Start:09-Jun-2020 Instruction Type:Patient Education How to access health informa tion online - Detail Indication:Nonsmoker Start:09-Jun-2020 Instruction Type:Patient Education Patient Instructions Indication:Nonsmoker Start:09-Jun-2020 Instruction Type:Provider Instructions for Treatment How to access health informa tion online Indication:Nonsmoker Start:20-Nov-2019 Instruction Type:Patient Education How to access health informa tion online - Detail Indication:Nonsmoker Start:20-Nov-2019 Instruction Type:Patient Education Patient Instructions Indication:Nonsmoker Start:20-Nov-2019 Instruction Type:Provider Instructions for Treatment How to access health informa tion online Indication:Nonsmoker Start:18-Jun-2019 Instruction Type:Patient Education How to access health informa tion online - Detail Indication:Nonsmoker Start:18-Jun-2019 Instruction Type:Patient Education Patient Instructions Indication:BMI 32.0-32.9,adult Start:18-Jun-2019 Instruction Type:Provider Instructions for Treatment How to access health informa tion online Indication:Gerd Start:25-Apr-2017 Instruction Type:Patient Education How to access health informa tion online - Detail Indication:Gerd Start:25-Apr-2017 Instruction Type:Patient Education Patient Instructions Indication:Gerd Start:25-Apr-2017 Instruction Type:Provider Instructions for Treatment How to access health informa tion online Indication:Rash Start:15-Feb-2016 Instruction Type:Patient Education How to access health informa tion online - Detail Indication:Rash Start:15-Feb-2016 Instruction Type:Patient Education Patient Instructions Indication:Rash Start:15-Feb-2016 Instruction Type:Provider Instructions for Treatment Patient Instructions Indication:Migraine with aura and without status migrainosus, not intractable Start:11-Jun-2014 Instruction Type:Provider Instructions for Treatment [facility] Work Phone: Instructions* Name Dates Details How to access health informa tion online Indication:Nonsmoker Start:09-Jun-2020 Instruction Type:Patient Education How to access health informa tion online - Detail Indication:Nonsmoker Start:09-Jun-2020 Instruction Type:Patient Education Patient Instructions Indication:Nonsmoker Start:09-Jun-2020 Instruction Type:Provider Instructions for Treatment How to access health informa tion online Indication:Nonsmoker Start:20-Nov-2019 Instruction Type:Patient Education How to access health informa tion online - Detail Indication:Nonsmoker Start:20-Nov-2019 Instruction Type:Patient Education Patient Instructions Indication:Nonsmoker Start:20-Nov-2019 Instruction Type:Provider Instructions for Treatment How to access health informa tion online Indication:Nonsmoker Start:18-Jun-2019 Instruction Type:Patient Education How to access health informa tion online - Detail Indication:Nonsmoker Start:18-Jun-2019 Instruction Type:Patient Education Patient Instructions Indication:BMI 32.0-32.9,adult Start:18-Jun-2019 Instruction Type:Provider Instructions for Treatment How to access health informa tion online Indication:Gerd Start:25-Apr-2017 Instruction Type:Patient Education How to access health informa tion online - Detail Indication:Gerd Start:25-Apr-2017 Instruction Type:Patient Education Patient Instructions Indication:Gerd Start:25-Apr-2017 Instruction Type:Provider Instructions for Treatment How to access health informa tion online Indication:Rash Start:15-Feb-2016 Instruction Type:Patient Education How to access health informa tion online - Detail Indication:Rash Start:15-Feb-2016 Instruction Type:Patient Education Patient Instructions Indication:Rash Start:15-Feb-2016 Instruction Type:Provider Instructions for Treatment Patient Instructions Indication:Migraine with aura and without status migrainosus, not intractable Start:11-Jun-2014 Instruction Type:Provider Instructions for Treatment [facility] Work Phone: Instructions* Name Dates Details Patient Instructions Indication:BMI 28.0-28.9,adult Start:22-Dec-2021 Instruction Type:Provider Instructions for Treatment How to Access Health Informa tion Online using Patient Portal and [employer] Apps Indication:BMI 28.0-28.9,adult Start:22-Dec-2021 Instruction Type:Patient Education Patient Instructions Indication:BMI 29.0-29.9,adult Start:13-May-2021 Instruction Type:Provider Instructions for Treatment How to Access Health Informa tion Online using Patient Portal and [employer] Apps Indication:BMI 29.0-29.9,adult Start:13-May-2021 Instruction Type:Patient Education Patient Instructions Indication:BMI 31.0-31.9,adult Start:22-Apr-2021 Instruction Type:Provider Instructions for Treatment How to Access Health Informa tion Online using Patient Portal and [employer] Apps Indication:BMI 31.0-31.9,adult Start:22-Apr-2021 Instruction Type:Patient Education How to Access Health Informa tion Online using Patient Portal and [employer] Apps Indication:Nonsmoker Start:01-Apr-2021 Instruction Type:Patient Education Patient Instructions Indication:Nonsmoker Start:01-Apr-2021 Instruction Type:Provider Instructions for Treatment Patient Instructions Indication:Nonsmoker Start:28-Dec-2020 Instruction Type:Provider Instructions for Treatment How to Access Health Informa tion Online using Patient Portal and [employer] Apps Indication:Nonsmoker Start:28-Dec-2020 Instruction Type:Patient Education Patient Instructions Indication:Other primary cardiomyopathies Start:21-Dec-2020 Instruction Type:Provider Instructions for Treatment How to Access Health Informa tion Online using Patient Portal and [employer] Apps Indication:Nonsmoker Start:21-Dec-2020 Instruction Type:Patient Education How to access health informa tion online Indication:Nonsmoker Start:04-Aug-2020 Instruction Type:Patient Education How to access health informa tion online - Detail Indication:Nonsmoker Start:04-Aug-2020 Instruction Type:Patient Education Patient Instructions Indication:Nonsmoker Start:04-Aug-2020 Instruction Type:Provider Instructions for Treatment How to access health informa tion online Indication:Tension headache Start:20-Jul-2020 Instruction Type:Patient Education How to access health informa tion online - Detail Indication:Tension headache Start:20-Jul-2020 Instruction Type:Patient Education Patient Instructions Indication:Tension headache Start:20-Jul-2020 Instruction Type:Provider Instructions for Treatment How to access health informa tion online Indication:Multiple thyroid nodules Start:07-Jul-2020 Instruction Type:Patient Education How to access health informa tion online - Detail Indication:Multiple thyroid nodules Start:07-Jul-2020 Instruction Type:Patient Education Patient Instructions Indication:Multiple thyroid nodules Start:07-Jul-2020 Instruction Type:Provider Instructions for Treatment How to access health informa tion online Indication:Nonsmoker Start:24-Jun-2020 Instruction Type:Patient Education How to access health informa tion online - Detail Indication:Nonsmoker Start:24-Jun-2020 Instruction Type:Patient Education Patient Instructions Indication:Nonsmoker Start:24-Jun-2020 Instruction Type:Provider Instructions for Treatment How to access health informa tion online Indication:Nonsmoker Start:09-Jun-2020 Instruction Type:Patient Education How to access health informa tion online - Detail Indication:Nonsmoker Start:09-Jun-2020 Instruction Type:Patient Education Patient Instructions Indication:Nonsmoker Start:09-Jun-2020 Instruction Type:Provider Instructions for Treatment How to access health informa tion online Indication:Nonsmoker Start:20-Nov-2019 Instruction Type:Patient Education How to access health informa tion online - Detail Indication:Nonsmoker Start:20-Nov-2019 Instruction Type:Patient Education Patient Instructions Indication:Nonsmoker Start:20-Nov-2019 Instruction Type:Provider Instructions for Treatment How to access health informa tion online Indication:Nonsmoker Start:18-Jun-2019 Instruction Type:Patient Education How to access health informa tion online - Detail Indication:Nonsmoker Start:18-Jun-2019 Instruction Type:Patient Education Patient Instructions Indication:BMI 32.0-32.9,adult Start:18-Jun-2019 Instruction Type:Provider Instructions for Treatment How to access health informa tion online Indication:Gerd Start:25-Apr-2017 Instruction Type:Patient Education How to access health informa tion online - Detail Indication:Gerd Start:25-Apr-2017 Instruction Type:Patient Education Patient Instructions Indication:Gerd Start:25-Apr-2017 Instruction Type:Provider Instructions for Treatment How to access health informa tion online Indication:Rash Start:15-Feb-2016 Instruction Type:Patient Education How to access health informa tion online - Detail Indication:Rash Start:15-Feb-2016 Instruction Type:Patient Education Patient Instructions Indication:Rash Start:15-Feb-2016 Instruction Type:Provider Instructions for Treatment Patient Instructions Indication:Migraine with aura and without status migrainosus, not intractable Start:11-Jun-2014 Instruction Type:Provider Instructions for Treatment [facility]; [facility] Work Phone: Instructions* Name Dates Details Patient Instructions Indication:BMI 31.0-31.9,adult Start:13-Jun-2022 Instruction Type:Provider Instructions for Treatment How to Access Health Informa tion Online using Patient Portal and [employer] Apps Indication:BMI 31.0-31.9,adult Start:13-Jun-2022 Instruction Type:Patient Education Patient Instructions Indication:BMI 28.0-28.9,adult Start:22-Dec-2021 Instruction Type:Provider Instructions for Treatment How to Access Health Informa tion Online using Patient Portal and [employer] Apps Indication:BMI 28.0-28.9,adult Start:22-Dec-2021 Instruction Type:Patient Education Patient Instructions Indication:BMI 29.0-29.9,adult Start:13-May-2021 Instruction Type:Provider Instructions for Treatment How to Access Health Informa tion Online using Patient Portal and [employer] Apps Indication:BMI 29.0-29.9,adult Start:13-May-2021 Instruction Type:Patient Education Patient Instructions Indication:BMI 31.0-31.9,adult Start:22-Apr-2021 Instruction Type:Provider Instructions for Treatment How to Access Health Informa tion Online using Patient Portal and [employer] Apps Indication:BMI 31.0-31.9,adult Start:22-Apr-2021 Instruction Type:Patient Education How to Access Health Informa tion Online using Patient Portal and [employer] Apps Indication:Nonsmoker Start:01-Apr-2021 Instruction Type:Patient Education Patient Instructions Indication:Nonsmoker Start:01-Apr-2021 Instruction Type:Provider Instructions for Treatment Patient Instructions Indication:Nonsmoker Start:28-Dec-2020 Instruction Type:Provider Instructions for Treatment How to Access Health Informa tion Online using Patient Portal and [employer] Apps Indication:Nonsmoker Start:28-Dec-2020 Instruction Type:Patient Education Patient Instructions Indication:Other primary cardiomyopathies Start:21-Dec-2020 Instruction Type:Provider Instructions for Treatment How to Access Health Informa tion Online using Patient Portal and [employer] Apps Indication:Nonsmoker Start:21-Dec-2020 Instruction Type:Patient Education How to access health informa tion online Indication:Nonsmoker Start:04-Aug-2020 Instruction Type:Patient Education How to access health informa tion online - Detail Indication:Nonsmoker Start:04-Aug-2020 Instruction Type:Patient Education Patient Instructions Indication:Nonsmoker Start:04-Aug-2020 Instruction Type:Provider Instructions for Treatment How to access health informa tion online Indication:Tension headache Start:20-Jul-2020 Instruction Type:Patient Education How to access health informa tion online - Detail Indication:Tension headache Start:20-Jul-2020 Instruction Type:Patient Education Patient Instructions Indication:Tension headache Start:20-Jul-2020 Instruction Type:Provider Instructions for Treatment How to access health informa tion online Indication:Multiple thyroid nodules Start:07-Jul-2020 Instruction Type:Patient Education How to access health informa tion online - Detail Indication:Multiple thyroid nodules Start:07-Jul-2020 Instruction Type:Patient Education Patient Instructions Indication:Multiple thyroid nodules Start:07-Jul-2020 Instruction Type:Provider Instructions for Treatment How to access health informa tion online Indication:Nonsmoker Start:24-Jun-2020 Instruction Type:Patient Education How to access health informa tion online - Detail Indication:Nonsmoker Start:24-Jun-2020 Instruction Type:Patient Education Patient Instructions Indication:Nonsmoker Start:24-Jun-2020 Instruction Type:Provider Instructions for Treatment How to access health informa tion online Indication:Nonsmoker Start:09-Jun-2020 Instruction Type:Patient Education How to access health informa tion online - Detail Indication:Nonsmoker Start:09-Jun-2020 Instruction Type:Patient Education Patient Instructions Indication:Nonsmoker Start:09-Jun-2020 Instruction Type:Provider Instructions for Treatment How to access health informa tion online Indication:Nonsmoker Start:20-Nov-2019 Instruction Type:Patient Education How to access health informa tion online - Detail Indication:Nonsmoker Start:20-Nov-2019 Instruction Type:Patient Education Patient Instructions Indication:Nonsmoker Start:20-Nov-2019 Instruction Type:Provider Instructions for Treatment How to access health informa tion online Indication:Nonsmoker Start:18-Jun-2019 Instruction Type:Patient Education How to access health informa tion online - Detail Indication:Nonsmoker Start:18-Jun-2019 Instruction Type:Patient Education Patient Instructions Indication:BMI 32.0-32.9,adult Start:18-Jun-2019 Instruction Type:Provider Instructions for Treatment How to access health informa tion online Indication:Gerd Start:25-Apr-2017 Instruction Type:Patient Education How to access health informa tion online - Detail Indication:Gerd Start:25-Apr-2017 Instruction Type:Patient Education Patient Instructions Indication:Gerd Start:25-Apr-2017 Instruction Type:Provider Instructions for Treatment How to access health informa tion online Indication:Rash Start:15-Feb-2016 Instruction Type:Patient Education How to access health informa tion online - Detail Indication:Rash Start:15-Feb-2016 Instruction Type:Patient Education Patient Instructions Indication:Rash Start:15-Feb-2016 Instruction Type:Provider Instructions for Treatment Patient Instructions Indication:Migraine with aura and without status migrainosus, not intractable Start:11-Jun-2014 Instruction Type:Provider Instructions for Treatment [facility]; [facility] Work Phone: Instructions* Name Dates Details Patient Instructions Indication:Non-smoker Start:01-Jul-2022 Instruction Type:Provider Instructions for Treatment How to Access Health Informa tion Online using Patient Portal and [employer] Apps Indication:Non-smoker Start:01-Jul-2022 Instruction Type:Patient Education Patient Instructions Indication:BMI 31.0-31.9,adult Start:13-Jun-2022 Instruction Type:Provider Instructions for Treatment How to Access Health Informa tion Online using Patient Portal and [employer] Apps Indication:BMI 31.0-31.9,adult Start:13-Jun-2022 Instruction Type:Patient Education Patient Instructions Indication:BMI 28.0-28.9,adult Start:22-Dec-2021 Instruction Type:Provider Instructions for Treatment How to Access Health Informa tion Online using Patient Portal and [employer] Apps Indication:BMI 28.0-28.9,adult Start:22-Dec-2021 Instruction Type:Patient Education Patient Instructions Indication:BMI 29.0-29.9,adult Start:13-May-2021 Instruction Type:Provider Instructions for Treatment How to Access Health Informa tion Online using Patient Portal and [employer] Apps Indication:BMI 29.0-29.9,adult Start:13-May-2021 Instruction Type:Patient Education Patient Instructions Indication:BMI 31.0-31.9,adult Start:22-Apr-2021 Instruction Type:Provider Instructions for Treatment How to Access Health Informa tion Online using Patient Portal and [employer] Apps Indication:BMI 31.0-31.9,adult Start:22-Apr-2021 Instruction Type:Patient Education How to Access Health Informa tion Online using Patient Portal and [employer] Apps Indication:Nonsmoker Start:01-Apr-2021 Instruction Type:Patient Education Patient Instructions Indication:Nonsmoker Start:01-Apr-2021 Instruction Type:Provider Instructions for Treatment Patient Instructions Indication:Nonsmoker Start:28-Dec-2020 Instruction Type:Provider Instructions for Treatment How to Access Health Informa tion Online using Patient Portal and [employer] Apps Indication:Nonsmoker Start:28-Dec-2020 Instruction Type:Patient Education Patient Instructions Indication:Other primary cardiomyopathies Start:21-Dec-2020 Instruction Type:Provider Instructions for Treatment How to Access Health Informa tion Online using Patient Portal and [employer] Apps Indication:Nonsmoker Start:21-Dec-2020 Instruction Type:Patient Education How to access health informa tion online Indication:Nonsmoker Start:04-Aug-2020 Instruction Type:Patient Education How to access health informa tion online - Detail Indication:Nonsmoker Start:04-Aug-2020 Instruction Type:Patient Education Patient Instructions Indication:Nonsmoker Start:04-Aug-2020 Instruction Type:Provider Instructions for Treatment How to access health informa tion online Indication:Tension headache Start:20-Jul-2020 Instruction Type:Patient Education How to access health informa tion online - Detail Indication:Tension headache Start:20-Jul-2020 Instruction Type:Patient Education Patient Instructions Indication:Tension headache Start:20-Jul-2020 Instruction Type:Provider Instructions for Treatment How to access health informa tion online Indication:Multiple thyroid nodules Start:07-Jul-2020 Instruction Type:Patient Education How to access health informa tion online - Detail Indication:Multiple thyroid nodules Start:07-Jul-2020 Instruction Type:Patient Education Patient Instructions Indication:Multiple thyroid nodules Start:07-Jul-2020 Instruction Type:Provider Instructions for Treatment How to access health informa tion online Indication:Nonsmoker Start:24-Jun-2020 Instruction Type:Patient Education How to access health informa tion online - Detail Indication:Nonsmoker Start:24-Jun-2020 Instruction Type:Patient Education Patient Instructions Indication:Nonsmoker Start:24-Jun-2020 Instruction Type:Provider Instructions for Treatment How to access health informa tion online Indication:Nonsmoker Start:09-Jun-2020 Instruction Type:Patient Education How to access health informa tion online - Detail Indication:Nonsmoker Start:09-Jun-2020 Instruction Type:Patient Education Patient Instructions Indication:Nonsmoker Start:09-Jun-2020 Instruction Type:Provider Instructions for Treatment How to access health informa tion online Indication:Nonsmoker Start:20-Nov-2019 Instruction Type:Patient Education How to access health informa tion online - Detail Indication:Nonsmoker Start:20-Nov-2019 Instruction Type:Patient Education Patient Instructions Indication:Nonsmoker Start:20-Nov-2019 Instruction Type:Provider Instructions for Treatment How to access health informa tion online Indication:Nonsmoker Start:18-Jun-2019 Instruction Type:Patient Education How to access health informa tion online - Detail Indication:Nonsmoker Start:18-Jun-2019 Instruction Type:Patient Education Patient Instructions Indication:BMI 32.0-32.9,adult Start:18-Jun-2019 Instruction Type:Provider Instructions for Treatment How to access health informa tion online Indication:Gerd Start:25-Apr-2017 Instruction Type:Patient Education How to access health informa tion online - Detail Indication:Gerd Start:25-Apr-2017 Instruction Type:Patient Education Patient Instructions Indication:Gerd Start:25-Apr-2017 Instruction Type:Provider Instructions for Treatment How to access health informa tion online Indication:Rash Start:15-Feb-2016 Instruction Type:Patient Education How to access health informa tion online - Detail Indication:Rash Start:15-Feb-2016 Instruction Type:Patient Education Patient Instructions Indication:Rash Start:15-Feb-2016 Instruction Type:Provider Instructions for Treatment Patient Instructions Indication:Migraine with aura and without status migrainosus, not intractable Start:11-Jun-2014 Instruction Type:Provider Instructions for Treatment [facility]; [facility] Work Phone: Instructions* Name Dates Details Patient Instructions Indication:Non-smoker Start:01-Jul-2022 Instruction Type:Provider Instructions for Treatment How to Access Health Informa tion Online using Patient Portal and [employer] Apps Indication:Non-smoker Start:01-Jul-2022 Instruction Type:Patient Education Patient Instructions Indication:BMI 31.0-31.9,adult Start:13-Jun-2022 Instruction Type:Provider Instructions for Treatment How to Access Health Informa tion Online using Patient Portal and [employer] Apps Indication:BMI 31.0-31.9,adult Start:13-Jun-2022 Instruction Type:Patient Education Patient Instructions Indication:BMI 28.0-28.9,adult Start:22-Dec-2021 Instruction Type:Provider Instructions for Treatment How to Access Health Informa tion Online using Patient Portal and [employer] Apps Indication:BMI 28.0-28.9,adult Start:22-Dec-2021 Instruction Type:Patient Education Patient Instructions Indication:BMI 29.0-29.9,adult Start:13-May-2021 Instruction Type:Provider Instructions for Treatment How to Access Health Informa tion Online using Patient Portal and [employer] Apps Indication:BMI 29.0-29.9,adult Start:13-May-2021 Instruction Type:Patient Education Patient Instructions Indication:BMI 31.0-31.9,adult Start:22-Apr-2021 Instruction Type:Provider Instructions for Treatment How to Access Health Informa tion Online using Patient Portal and [employer] Apps Indication:BMI 31.0-31.9,adult Start:22-Apr-2021 Instruction Type:Patient Education How to Access Health Informa tion Online using Patient Portal and [employer] Apps Indication:Nonsmoker Start:01-Apr-2021 Instruction Type:Patient Education Patient Instructions Indication:Nonsmoker Start:01-Apr-2021 Instruction Type:Provider Instructions for Treatment Patient Instructions Indication:Nonsmoker Start:28-Dec-2020 Instruction Type:Provider Instructions for Treatment How to Access Health Informa tion Online using Patient Portal and [employer] Apps Indication:Nonsmoker Start:28-Dec-2020 Instruction Type:Patient Education Patient Instructions Indication:Other primary cardiomyopathies Start:21-Dec-2020 Instruction Type:Provider Instructions for Treatment How to Access Health Informa tion Online using Patient Portal and [employer] Apps Indication:Nonsmoker Start:21-Dec-2020 Instruction Type:Patient Education How to access health informa tion online Indication:Nonsmoker Start:04-Aug-2020 Instruction Type:Patient Education How to access health informa tion online - Detail Indication:Nonsmoker Start:04-Aug-2020 Instruction Type:Patient Education Patient Instructions Indication:Nonsmoker Start:04-Aug-2020 Instruction Type:Provider Instructions for Treatment How to access health informa tion online Indication:Tension headache Start:20-Jul-2020 Instruction Type:Patient Education How to access health informa tion online - Detail Indication:Tension headache Start:20-Jul-2020 Instruction Type:Patient Education Patient Instructions Indication:Tension headache Start:20-Jul-2020 Instruction Type:Provider Instructions for Treatment How to access health informa tion online Indication:Multiple thyroid nodules Start:07-Jul-2020 Instruction Type:Patient Education How to access health informa tion online - Detail Indication:Multiple thyroid nodules Start:07-Jul-2020 Instruction Type:Patient Education Patient Instructions Indication:Multiple thyroid nodules Start:07-Jul-2020 Instruction Type:Provider Instructions for Treatment How to access health informa tion online Indication:Nonsmoker Start:24-Jun-2020 Instruction Type:Patient Education How to access health informa tion online - Detail Indication:Nonsmoker Start:24-Jun-2020 Instruction Type:Patient Education Patient Instructions Indication:Nonsmoker Start:24-Jun-2020 Instruction Type:Provider Instructions for Treatment How to access health informa tion online Indication:Nonsmoker Start:09-Jun-2020 Instruction Type:Patient Education How to access health informa tion online - Detail Indication:Nonsmoker Start:09-Jun-2020 Instruction Type:Patient Education Patient Instructions Indication:Nonsmoker Start:09-Jun-2020 Instruction Type:Provider Instructions for Treatment How to access health informa tion online Indication:Nonsmoker Start:20-Nov-2019 Instruction Type:Patient Education How to access health informa tion online - Detail Indication:Nonsmoker Start:20-Nov-2019 Instruction Type:Patient Education Patient Instructions Indication:Nonsmoker Start:20-Nov-2019 Instruction Type:Provider Instructions for Treatment How to access health informa tion online Indication:Nonsmoker Start:18-Jun-2019 Instruction Type:Patient Education How to access health informa tion online - Detail Indication:Nonsmoker Start:18-Jun-2019 Instruction Type:Patient Education Patient Instructions Indication:BMI 32.0-32.9,adult Start:18-Jun-2019 Instruction Type:Provider Instructions for Treatment How to access health informa tion online Indication:Gerd Start:25-Apr-2017 Instruction Type:Patient Education How to access health informa tion online - Detail Indication:Gerd Start:25-Apr-2017 Instruction Type:Patient Education Patient Instructions Indication:Gerd Start:25-Apr-2017 Instruction Type:Provider Instructions for Treatment How to access health informa tion online Indication:Rash Start:15-Feb-2016 Instruction Type:Patient Education How to access health informa tion online - Detail Indication:Rash Start:15-Feb-2016 Instruction Type:Patient Education Patient Instructions Indication:Rash Start:15-Feb-2016 Instruction Type:Provider Instructions for Treatment Patient Instructions Indication:Migraine with aura and without status migrainosus, not intractable Start:11-Jun-2014 Instruction Type:Provider Instructions for Treatment [facility] Work Phone: Instructions* Name Dates Details Patient Instructions Indication:Non-smoker Start:01-Jul-2022 Instruction Type:Provider Instructions for Treatment How to Access Health Informa tion Online using Patient Portal and [employer] Apps Indication:Non-smoker Start:01-Jul-2022 Instruction Type:Patient Education Patient Instructions Indication:BMI 31.0-31.9,adult Start:13-Jun-2022 Instruction Type:Provider Instructions for Treatment How to Access Health Informa tion Online using Patient Portal and [employer] Apps Indication:BMI 31.0-31.9,adult Start:13-Jun-2022 Instruction Type:Patient Education Patient Instructions Indication:BMI 28.0-28.9,adult Start:22-Dec-2021 Instruction Type:Provider Instructions for Treatment How to Access Health Informa tion Online using Patient Portal and [employer] Apps Indication:BMI 28.0-28.9,adult Start:22-Dec-2021 Instruction Type:Patient Education Patient Instructions Indication:BMI 29.0-29.9,adult Start:13-May-2021 Instruction Type:Provider Instructions for Treatment How to Access Health Informa tion Online using Patient Portal and [employer] Apps Indication:BMI 29.0-29.9,adult Start:13-May-2021 Instruction Type:Patient Education Patient Instructions Indication:BMI 31.0-31.9,adult Start:22-Apr-2021 Instruction Type:Provider Instructions for Treatment How to Access Health Informa tion Online using Patient Portal and [employer] Apps Indication:BMI 31.0-31.9,adult Start:22-Apr-2021 Instruction Type:Patient Education How to Access Health Informa tion Online using Patient Portal and [employer] Apps Indication:Nonsmoker Start:01-Apr-2021 Instruction Type:Patient Education Patient Instructions Indication:Nonsmoker Start:01-Apr-2021 Instruction Type:Provider Instructions for Treatment Patient Instructions Indication:Nonsmoker Start:28-Dec-2020 Instruction Type:Provider Instructions for Treatment How to Access Health Informa tion Online using Patient Portal and [employer] Apps Indication:Nonsmoker Start:28-Dec-2020 Instruction Type:Patient Education Patient Instructions Indication:Other primary cardiomyopathies Start:21-Dec-2020 Instruction Type:Provider Instructions for Treatment How to Access Health Informa tion Online using Patient Portal and [employer] Apps Indication:Nonsmoker Start:21-Dec-2020 Instruction Type:Patient Education How to access health informa tion online Indication:Nonsmoker Start:04-Aug-2020 Instruction Type:Patient Education How to access health informa tion online - Detail Indication:Nonsmoker Start:04-Aug-2020 Instruction Type:Patient Education Patient Instructions Indication:Nonsmoker Start:04-Aug-2020 Instruction Type:Provider Instructions for Treatment How to access health informa tion online Indication:Tension headache Start:20-Jul-2020 Instruction Type:Patient Education How to access health informa tion online - Detail Indication:Tension headache Start:20-Jul-2020 Instruction Type:Patient Education Patient Instructions Indication:Tension headache Start:20-Jul-2020 Instruction Type:Provider Instructions for Treatment How to access health informa tion online Indication:Multiple thyroid nodules Start:07-Jul-2020 Instruction Type:Patient Education How to access health informa tion online - Detail Indication:Multiple thyroid nodules Start:07-Jul-2020 Instruction Type:Patient Education Patient Instructions Indication:Multiple thyroid nodules Start:07-Jul-2020 Instruction Type:Provider Instructions for Treatment How to access health informa tion online Indication:Nonsmoker Start:24-Jun-2020 Instruction Type:Patient Education How to access health informa tion online - Detail Indication:Nonsmoker Start:24-Jun-2020 Instruction Type:Patient Education Patient Instructions Indication:Nonsmoker Start:24-Jun-2020 Instruction Type:Provider Instructions for Treatment How to access health informa tion online Indication:Nonsmoker Start:09-Jun-2020 Instruction Type:Patient Education How to access health informa tion online - Detail Indication:Nonsmoker Start:09-Jun-2020 Instruction Type:Patient Education Patient Instructions Indication:Nonsmoker Start:09-Jun-2020 Instruction Type:Provider Instructions for Treatment How to access health informa tion online Indication:Nonsmoker Start:20-Nov-2019 Instruction Type:Patient Education How to access health informa tion online - Detail Indication:Nonsmoker Start:20-Nov-2019 Instruction Type:Patient Education Patient Instructions Indication:Nonsmoker Start:20-Nov-2019 Instruction Type:Provider Instructions for Treatment How to access health informa tion online Indication:Nonsmoker Start:18-Jun-2019 Instruction Type:Patient Education How to access health informa tion online - Detail Indication:Nonsmoker Start:18-Jun-2019 Instruction Type:Patient Education Patient Instructions Indication:BMI 32.0-32.9,adult Start:18-Jun-2019 Instruction Type:Provider Instructions for Treatment How to access health informa tion online Indication:Gerd Start:25-Apr-2017 Instruction Type:Patient Education How to access health informa tion online - Detail Indication:Gerd Start:25-Apr-2017 Instruction Type:Patient Education Patient Instructions Indication:Gerd Start:25-Apr-2017 Instruction Type:Provider Instructions for Treatment How to access health informa tion online Indication:Rash Start:15-Feb-2016 Instruction Type:Patient Education How to access health informa tion online - Detail Indication:Rash Start:15-Feb-2016 Instruction Type:Patient Education Patient Instructions Indication:Rash Start:15-Feb-2016 Instruction Type:Provider Instructions for Treatment Patient Instructions Indication:Migraine with aura and without status migrainosus, not intractable Start:11-Jun-2014 Instruction Type:Provider Instructions for Treatment [facility] Work Phone: Instructions* Name Dates Details Patient Instructions Indication:Non-smoker Start:01-Jul-2022 Instruction Type:Provider Instructions for Treatment How to Access Health Informa tion Online using Patient Portal and [employer] Apps Indication:Non-smoker Start:01-Jul-2022 Instruction Type:Patient Education Patient Instructions Indication:BMI 31.0-31.9,adult Start:13-Jun-2022 Instruction Type:Provider Instructions for Treatment How to Access Health Informa tion Online using Patient Portal and [employer] Apps Indication:BMI 31.0-31.9,adult Start:13-Jun-2022 Instruction Type:Patient Education Patient Instructions Indication:BMI 28.0-28.9,adult Start:22-Dec-2021 Instruction Type:Provider Instructions for Treatment How to Access Health Informa tion Online using Patient Portal and [employer] Apps Indication:BMI 28.0-28.9,adult Start:22-Dec-2021 Instruction Type:Patient Education Patient Instructions Indication:BMI 29.0-29.9,adult Start:13-May-2021 Instruction Type:Provider Instructions for Treatment How to Access Health Informa tion Online using Patient Portal and [employer] Apps Indication:BMI 29.0-29.9,adult Start:13-May-2021 Instruction Type:Patient Education Patient Instructions Indication:BMI 31.0-31.9,adult Start:22-Apr-2021 Instruction Type:Provider Instructions for Treatment How to Access Health Informa tion Online using Patient Portal and [employer] Indication:BMI 31.0-31.9,adult Start:22-Apr-2021 Instruction Type:Patient Education How to Access Health Informa tion Online using Patient Portal and [employer] Apps Indication:Nonsmoker Start:01-Apr-2021 Instruction Type:Patient Education Patient Instructions Indication:Nonsmoker Start:01-Apr-2021 Instruction Type:Provider Instructions for Treatment Patient Instructions Indication:Nonsmoker Start:28-Dec-2020 Instruction Type:Provider Instructions for Treatment How to Access Health Informa tion Online using Patient Portal and [employer] Apps Indication:Nonsmoker Start:28-Dec-2020 Instruction Type:Patient Education Patient Instructions Indication:Other primary cardiomyopathies Start:21-Dec-2020 Instruction Type:Provider Instructions for Treatment How to Access Health Informa tion Online using Patient Portal and [employer] Apps Indication:Nonsmoker Start:21-Dec-2020 Instruction Type:Patient Education How to access health informa tion online Indication:Nonsmoker Start:04-Aug-2020 Instruction Type:Patient Education How to access health informa tion online - Detail Indication:Nonsmoker Start:04-Aug-2020 Instruction Type:Patient Education Patient Instructions Indication:Nonsmoker Start:04-Aug-2020 Instruction Type:Provider Instructions for Treatment How to access health informa tion online Indication:Tension headache Start:20-Jul-2020 Instruction Type:Patient Education How to access health informa tion online - Detail Indication:Tension headache Start:20-Jul-2020 Instruction Type:Patient Education Patient Instructions Indication:Tension headache Start:20-Jul-2020 Instruction Type:Provider Instructions for Treatment How to access health informa tion online Indication:Multiple thyroid nodules Start:07-Jul-2020 Instruction Type:Patient Education How to access health informa tion online - Detail Indication:Multiple thyroid nodules Start:07-Jul-2020 Instruction Type:Patient Education Patient Instructions Indication:Multiple thyroid nodules Start:07-Jul-2020 Instruction Type:Provider Instructions for Treatment How to access health informa tion online Indication:Nonsmoker Start:24-Jun-2020 Instruction Type:Patient Education How to access health informa tion online - Detail Indication:Nonsmoker Start:24-Jun-2020 Instruction Type:Patient Education Patient Instructions Indication:Nonsmoker Start:24-Jun-2020 Instruction Type:Provider Instructions for Treatment How to access health informa tion online Indication:Nonsmoker Start:09-Jun-2020 Instruction Type:Patient Education How to access health informa tion online - Detail Indication:Nonsmoker Start:09-Jun-2020 Instruction Type:Patient Education Patient Instructions Indication:Nonsmoker Start:09-Jun-2020 Instruction Type:Provider Instructions for Treatment How to access health informa tion online Indication:Nonsmoker Start:20-Nov-2019 Instruction Type:Patient Education How to access health informa tion online - Detail Indication:Nonsmoker Start:20-Nov-2019 Instruction Type:Patient Education Patient Instructions Indication:Nonsmoker Start:20-Nov-2019 Instruction Type:Provider Instructions for Treatment How to access health informa tion online Indication:Nonsmoker Start:18-Jun-2019 Instruction Type:Patient Education How to access health informa tion online - Detail Indication:Nonsmoker Start:18-Jun-2019 Instruction Type:Patient Education Patient Instructions Indication:BMI 32.0-32.9,adult Start:18-Jun-2019 Instruction Type:Provider Instructions for Treatment How to access health informa tion online Indication:Gerd Start:25-Apr-2017 Instruction Type:Patient Education How to access health informa tion online - Detail Indication:Gerd Start:25-Apr-2017 Instruction Type:Patient Education Patient Instructions Indication:Gerd Start:25-Apr-2017 Instruction Type:Provider Instructions for Treatment How to access health informa tion online Indication:Rash Start:15-Feb-2016 Instruction Type:Patient Education How to access health informa tion online - Detail Indication:Rash Start:15-Feb-2016 Instruction Type:Patient Education Patient Instructions Indication:Rash Start:15-Feb-2016 Instruction Type:Provider Instructions for Treatment Patient Instructions Indication:Migraine with aura and without status migrainosus, not intractable Start:11-Jun-2014 Instruction Type:Provider Instructions for Treatment [facility] Work Phone: progress note No data available for this section [facility] Reason for referral (narrative)No reason for referral information availableWKettering [facility] Work Phone: Family History No Family History Records FoundUnknown Family Member Name Dates Details Father Comments:hemophelia- , HTN Status:Active Maternal Grandfather Comments:colon [place] Status:Active Maternal Grandmother Status:Active Mother Comments:HTN, Cholesterol Status:Active Son 1 Comments:hemophelia Status:Active Unknown Family Member Name Dates Details Father Comments:hemophelia- , HTN Status:Active Maternal Grandfather Comments:colon [place] Status:Active Maternal Grandmother Status:Active Mother Comments:HTN, Cholesterol Status:Active Son 1 Comments:hemophelia Status:Active Unknown Family Member Name Dates Details Father Comments:hemophelia- , HTN Status:Active Maternal Grandfather Comments:colon [place] Status:Active Maternal Grandmother Status:Active Mother Comments:HTN, Cholesterol Status:Active Son 1 Comments:hemophelia Status:Active Unknown Family Member Name Dates Details Father Comments:hemophelia- , HTN Status:Active Maternal Grandfather Comments:colon [place] Status:Active Maternal Grandmother Status:Active Mother Comments:HTN, Cholesterol Status:Active Son 1 Comments:hemophelia Status:Active Unknown Family Member Name Dates Details Father Comments:hemophelia- , HTN Status:Active Maternal Grandfather Comments:colon [place] Status:Active Maternal Grandmother Status:Active Mother Comments:HTN, Cholesterol Status:Active Son 1 Comments:hemophelia Status:Active Unknown Family Member Name Dates Details Father Comments:hemophelia- , HTN Status:Active Maternal Grandfather Comments:colon [place] Status:Active Maternal Grandmother Status:Active Mother Comments:HTN, Cholesterol Status:Active Son 1 Comments:hemophelia Status:Active Unknown Family Member Name Dates Details Father Comments:hemophelia- , HTN Status:Active Maternal Grandfather Comments:colon [place] Status:Active Maternal Grandmother Status:Active Mother Comments:HTN, Cholesterol Status:Active Son 1 Comments:hemophelia Status:Active Unknown Family Member Name Dates Details Father Comments:hemophelia- , HTN Status:Active Maternal Grandfather Comments:colon [place] Status:Active Maternal Grandmother Status:Active Mother Comments:HTN, Cholesterol Status:Active Son 1 Comments:hemophelia Status:Active Unknown Family Member Name Dates Details Father Comments:hemophelia- , HTN Status:Active Maternal Grandfather Comments:colon [place] Status:Active Maternal Grandmother Status:Active Mother Comments:HTN, Cholesterol Status:Active Son 1 Comments:hemophelia Status:Active Unknown Family Member Name Dates Details Father Comments:hemophelia- , HTN Status:Active Maternal Grandfather Comments:colon [place] Status:Active Maternal Grandmother Status:Active Mother Comments:HTN, Cholesterol Status:Active Son 1 Comments:hemophelia Status:Active Unknown Family Member Name Dates Details Father Comments:hemophelia- , HTN Status:Active Maternal Grandfather Comments:colon [place] Status:Active Maternal Grandmother Status:Active Mother Comments:HTN, Cholesterol Status:Active Son 1 Comments:hemophelia Status:Active Unknown Family Member Name Dates Details Father Comments:hemophelia- , HTN Status:Active Maternal Grandfather Comments:colon [place] Status:Active Maternal Grandmother Status:Active Mother Comments:HTN, Cholesterol Status:Active Son 1 Comments:hemophelia Status:Active Unknown Family Member Name Dates Details Father Comments:hemophelia- , HTN Status:Active Maternal Grandfather Comments:colon [place] Status:Active Maternal Grandmother Status:Active Mother Comments:HTN, Cholesterol Status:Active Son 1 Comments:hemophelia Status:Active Unknown Family Member Name Dates Details Father Comments:hemophelia- , HTN Status:Active Maternal Grandfather Comments:colon [place] Status:Active Maternal Grandmother Status:Active Mother Comments:HTN, Cholesterol Status:Active Son 1 Comments:hemophelia Status:Active Unknown Family Member Name Dates Details Father Comments:hemophelia- , HTN Status:Active Maternal Grandfather Comments:colon [place] Status:Active Maternal Grandmother Status:Active Mother Comments:HTN, Cholesterol Status:Active Son 1 Comments:hemophelia Status:Active Unknown Family Member Name Dates Details Father Comments:hemophelia- , HTN Status:Active Maternal Grandfather Comments:colon [place] Status:Active Maternal Grandmother Status:Active Mother Comments:HTN, Cholesterol Status:Active Son 1 Comments:hemophelia Status:Active Unknown Family Member Name Dates Details Father Comments:hemophelia- , HTN Status:Active Maternal Grandfather Comments:colon [place] Status:Active Maternal Grandmother Status:Active Mother Comments:HTN, Cholesterol Status:Active Son 1 Comments:hemophelia Status:Active Unknown Family Member Name Dates Details Father Comments:hemophelia- , HTN Status:Active Maternal Grandfather Comments:colon [place] Status:Active Maternal Grandmother Status:Active Mother Comments:HTN, Cholesterol Status:Active Son 1 Comments:hemophelia Status:Active Unknown Family Member Name Dates Details Father Comments:hemophelia- , HTN Status:Active Maternal Grandfather Comments:colon [place] Status:Active Maternal Grandmother Status:Active Mother Comments:HTN, Cholesterol Status:Active Son 1 Comments:hemophelia Status:Active Unknown Family Member Name Dates Details Father Comments:hemophelia- , HTN Status:Active Maternal Grandfather Comments:colon [place] Status:Active Maternal Grandmother Status:Active Mother Comments:HTN, Cholesterol Status:Active Son 1 Comments:hemophelia Status:Active Unknown Family Member Name Dates Details Father Comments:hemophelia- , HTN Status:Active Maternal Grandfather Comments:colon [place] Status:Active Maternal Grandmother Status:Active Mother Comments:HTN, Cholesterol Status:Active Son 1 Comments:hemophelia Status:Active Unknown Family Member Name Dates Details Father Comments:hemophelia- , HTN Status:Active Maternal Grandfather Comments:colon [place] Status:Active Maternal Grandmother Status:Active Mother Comments:HTN, Cholesterol Status:Active Son 1 Comments:hemophelia Status:Active Unknown Family Member Name Dates Details Father Comments:hemophelia- , HTN Status:Active Maternal Grandfather Comments:colon [place] Status:Active Maternal Grandmother Status:Active Mother Comments:HTN, Cholesterol Status:Active Son 1 Comments:hemophelia Status:Active Unknown Family Member Name Dates Details Father Comments:hemophelia- , HTN Status:Active Maternal Grandfather Comments:colon [place] Status:Active Maternal Grandmother Status:Active Mother Comments:HTN, Cholesterol Status:Active Son 1 Comments:hemophelia Status:Active Unknown Family Member Name Dates Details Father Comments:hemophelia- , HTN Status:Active Maternal Grandfather Comments:colon [place] Status:Active Maternal Grandmother Status:Active Mother Comments:HTN, Cholesterol Status:Active Son 1 Comments:hemophelia Status:Active Unknown Family Member Name Dates Details Father Comments:hemophelia- , HTN Status:Active Maternal Grandfather Comments:colon [place] Status:Active Maternal Grandmother Status:Active Mother Comments:HTN, Cholesterol Status:Active Son 1 Comments:hemophelia Status:Active Unknown Family Member Name Dates Details Father Comments:hemophelia- , HTN Status:Active Maternal Grandfather Comments:colon [place] Status:Active Maternal Grandmother Status:Active Mother Comments:HTN, Cholesterol Status:Active Son 1 Comments:hemophelia Status:Active Unknown Family Member Name Dates Details Father Comments:hemophelia- , HTN Status:Active Maternal Grandfather Comments:colon [place] Status:Active Maternal Grandmother Status:Active Mother Comments:HTN, Cholesterol Status:Active Son 1 Comments:hemophelia Status:Active Relationship Condition Age at Onset Recorded Date/T malcolm father Malignant neoplasm Unknown Not Specified Diabetes mellitus Unknown Unknown Family Member Name Dates Details Father Comments:hemophelia- , HTN Status:Active Maternal Grandfather Comments:colon [place] Status:Active Maternal Grandmother Status:Active Mother Comments:HTN, Cholesterol Status:Active Son 1 Comments:hemophelia Status:Active Unknown Family Member Name Dates Details Father Comments:hemophelia- , HTN Status:Active Maternal Grandfather Comments:colon [place] Status:Active Maternal Grandmother Status:Active Mother Comments:HTN, Cholesterol Status:Active Son 1 Comments:hemophelia Status:Active Unknown Family Member Name Dates Details Father Comments:hemophelia- , HTN Status:Active Maternal Grandfather Comments:colon [place] Status:Active Maternal Grandmother Status:Active Mother Comments:HTN, Cholesterol Status:Active Son 1 Comments:hemophelia Status:Active Unknown Family Member Name Dates Details Father Comments:hemophelia- , HTN Status:Active Maternal Grandfather Comments:colon [place] Status:Active Maternal Grandmother Status:Active Mother Comments:HTN, Cholesterol Status:Active Son 1 Comments:hemophelia Status:Active Relationship Condition Age at Onset Recorded Date/T malcolm father Malignant neoplasm Unknown unrelated friend Diabetes mellitus Unknown Instructions Name Dates Details How to access health informa tion online Indication:Nonsmoker Start:18-Jun-2019 Instruction Type:Patient Education How to access health informa tion online - Detail Indication:Nonsmoker Start:18-Jun-2019 Instruction Type:Patient Education Patient Instructions Indication:Nonsmoker Start:18-Jun-2019 Instruction Type:Provider Instructions for Treatment How to access health informa tion online Indication:Gerd Start:25-Apr-2017 Instruction Type:Patient Education How to access health informa tion online - Detail Indication:Gerd Start:25-Apr-2017 Instruction Type:Patient Education Patient Instructions Indication:Gerd Start:25-Apr-2017 Instruction Type:Provider Instructions for Treatment How to access health informa tion online Indication:Rash Start:15-Feb-2016 Instruction Type:Patient Education How to access health informa tion online - Detail Indication:Rash Start:15-Feb-2016 Instruction Type:Patient Education Patient Instructions Indication:Rash Start:15-Feb-2016 Instruction Type:Provider Instructions for Treatment Patient Instructions Indication:Migraine with aura and without status migrainosus, not intractable Start:11-Jun-2014 Instruction Type:Provider Instructions for Treatment Name Dates Details How to access health informa tion online Indication:Nonsmoker Start:18-Jun-2019 Instruction Type:Patient Education How to access health informa tion online - Detail Indication:Nonsmoker Start:18-Jun-2019 Instruction Type:Patient Education Patient Instructions Indication:BMI 32.0-32.9,adult Start:18-Jun-2019 Instruction Type:Provider Instructions for Treatment How to access health informa tion online Indication:Gerd Start:25-Apr-2017 Instruction Type:Patient Education How to access health informa tion online - Detail Indication:Gerd Start:25-Apr-2017 Instruction Type:Patient Education Patient Instructions Indication:Gerd Start:25-Apr-2017 Instruction Type:Provider Instructions for Treatment How to access health informa tion online Indication:Rash Start:15-Feb-2016 Instruction Type:Patient Education How to access health informa tion online - Detail Indication:Rash Start:15-Feb-2016 Instruction Type:Patient Education Patient Instructions Indication:Rash Start:15-Feb-2016 Instruction Type:Provider Instructions for Treatment Patient Instructions Indication:Migraine with aura and without status migrainosus, not intractable Start:11-Jun-2014 Instruction Type:Provider Instructions for Treatment Name Dates Details How to access health informa tion online Indication:Nonsmoker Start:18-Jun-2019 Instruction Type:Patient Education How to access health informa tion online - Detail Indication:Nonsmoker Start:18-Jun-2019 Instruction Type:Patient Education Patient Instructions Indication:BMI 32.0-32.9,adult Start:18-Jun-2019 Instruction Type:Provider Instructions for Treatment How to access health informa tion online Indication:Gerd Start:25-Apr-2017 Instruction Type:Patient Education How to access health informa tion online - Detail Indication:Gerd Start:25-Apr-2017 Instruction Type:Patient Education Patient Instructions Indication:Gerd Start:25-Apr-2017 Instruction Type:Provider Instructions for Treatment How to access health informa tion online Indication:Rash Start:15-Feb-2016 Instruction Type:Patient Education How to access health informa tion online - Detail Indication:Rash Start:15-Feb-2016 Instruction Type:Patient Education Patient Instructions Indication:Rash Start:15-Feb-2016 Instruction Type:Provider Instructions for Treatment Patient Instructions Indication:Migraine with aura and without status migrainosus, not intractable Start:11-Jun-2014 Instruction Type:Provider Instructions for Treatment Name Dates Details How to access health informa tion online Indication:Nonsmoker Start:18-Jun-2019 Instruction Type:Patient Education How to access health informa tion online - Detail Indication:Nonsmoker Start:18-Jun-2019 Instruction Type:Patient Education Patient Instructions Indication:BMI 32.0-32.9,adult Start:18-Jun-2019 Instruction Type:Provider Instructions for Treatment How to access health informa tion online Indication:Gerd Start:25-Apr-2017 Instruction Type:Patient Education How to access health informa tion online - Detail Indication:Gerd Start:25-Apr-2017 Instruction Type:Patient Education Patient Instructions Indication:Gerd Start:25-Apr-2017 Instruction Type:Provider Instructions for Treatment How to access health informa tion online Indication:Rash Start:15-Feb-2016 Instruction Type:Patient Education How to access health informa tion online - Detail Indication:Rash Start:15-Feb-2016 Instruction Type:Patient Education Patient Instructions Indication:Rash Start:15-Feb-2016 Instruction Type:Provider Instructions for Treatment Patient Instructions Indication:Migraine with aura and without status migrainosus, not intractable Start:11-Jun-2014 Instruction Type:Provider Instructions for Treatment Name Dates Details How to access health informa tion online Indication:Nonsmoker Start:20-Nov-2019 Instruction Type:Patient Education How to access health informa tion online - Detail Indication:Nonsmoker Start:20-Nov-2019 Instruction Type:Patient Education Patient Instructions Indication:Nonsmoker Start:20-Nov-2019 Instruction Type:Provider Instructions for Treatment How to access health informa tion online Indication:Nonsmoker Start:18-Jun-2019 Instruction Type:Patient Education How to access health informa tion online - Detail Indication:Nonsmoker Start:18-Jun-2019 Instruction Type:Patient Education Patient Instructions Indication:BMI 32.0-32.9,adult Start:18-Jun-2019 Instruction Type:Provider Instructions for Treatment How to access health informa tion online Indication:Gerd Start:25-Apr-2017 Instruction Type:Patient Education How to access health informa tion online - Detail Indication:Gerd Start:25-Apr-2017 Instruction Type:Patient Education Patient Instructions Indication:Gerd Start:25-Apr-2017 Instruction Type:Provider Instructions for Treatment How to access health informa tion online Indication:Rash Start:15-Feb-2016 Instruction Type:Patient Education How to access health informa tion online - Detail Indication:Rash Start:15-Feb-2016 Instruction Type:Patient Education Patient Instructions Indication:Rash Start:15-Feb-2016 Instruction Type:Provider Instructions for Treatment Patient Instructions Indication:Migraine with aura and without status migrainosus, not intractable Start:11-Jun-2014 Instruction Type:Provider Instructions for Treatment Name Dates Details How to access health informa tion online Indication:Nonsmoker Start:20-Nov-2019 Instruction Type:Patient Education How to access health informa tion online - Detail Indication:Nonsmoker Start:20-Nov-2019 Instruction Type:Patient Education Patient Instructions Indication:Nonsmoker Start:20-Nov-2019 Instruction Type:Provider Instructions for Treatment How to access health informa tion online Indication:Nonsmoker Start:18-Jun-2019 Instruction Type:Patient Education How to access health informa tion online - Detail Indication:Nonsmoker Start:18-Jun-2019 Instruction Type:Patient Education Patient Instructions Indication:BMI 32.0-32.9,adult Start:18-Jun-2019 Instruction Type:Provider Instructions for Treatment How to access health informa tion online Indication:Gerd Start:25-Apr-2017 Instruction Type:Patient Education How to access health informa tion online - Detail Indication:Gerd Start:25-Apr-2017 Instruction Type:Patient Education Patient Instructions Indication:Gerd Start:25-Apr-2017 Instruction Type:Provider Instructions for Treatment How to access health informa tion online Indication:Rash Start:15-Feb-2016 Instruction Type:Patient Education How to access health informa tion online - Detail Indication:Rash Start:15-Feb-2016 Instruction Type:Patient Education Patient Instructions Indication:Rash Start:15-Feb-2016 Instruction Type:Provider Instructions for Treatment Patient Instructions Indication:Migraine with aura and without status migrainosus, not intractable Start:11-Jun-2014 Instruction Type:Provider Instructions for Treatment Name Dates Details How to access health informa tion online Indication:Nonsmoker Start:09-Jun-2020 Instruction Type:Patient Education How to access health informa tion online - Detail Indication:Nonsmoker Start:09-Jun-2020 Instruction Type:Patient Education Patient Instructions Indication:Nonsmoker Start:09-Jun-2020 Instruction Type:Provider Instructions for Treatment How to access health informa tion online Indication:Nonsmoker Start:20-Nov-2019 Instruction Type:Patient Education How to access health informa tion online - Detail Indication:Nonsmoker Start:20-Nov-2019 Instruction Type:Patient Education Patient Instructions Indication:Nonsmoker Start:20-Nov-2019 Instruction Type:Provider Instructions for Treatment How to access health informa tion online Indication:Nonsmoker Start:18-Jun-2019 Instruction Type:Patient Education How to access health informa tion online - Detail Indication:Nonsmoker Start:18-Jun-2019 Instruction Type:Patient Education Patient Instructions Indication:BMI 32.0-32.9,adult Start:18-Jun-2019 Instruction Type:Provider Instructions for Treatment How to access health informa tion online Indication:Gerd Start:25-Apr-2017 Instruction Type:Patient Education How to access health informa tion online - Detail Indication:Gerd Start:25-Apr-2017 Instruction Type:Patient Education Patient Instructions Indication:Gerd Start:25-Apr-2017 Instruction Type:Provider Instructions for Treatment How to access health informa tion online Indication:Rash Start:15-Feb-2016 Instruction Type:Patient Education How to access health informa tion online - Detail Indication:Rash Start:15-Feb-2016 Instruction Type:Patient Education Patient Instructions Indication:Rash Start:15-Feb-2016 Instruction Type:Provider Instructions for Treatment Patient Instructions Indication:Migraine with aura and without status migrainosus, not intractable Start:11-Jun-2014 Instruction Type:Provider Instructions for Treatment Name Dates Details How to access health informa tion online Indication:Nonsmoker Start:24-Jun-2020 Instruction Type:Patient Education How to access health informa tion online - Detail Indication:Nonsmoker Start:24-Jun-2020 Instruction Type:Patient Education Patient Instructions Indication:Nonsmoker Start:24-Jun-2020 Instruction Type:Provider Instructions for Treatment How to access health informa tion online Indication:Nonsmoker Start:09-Jun-2020 Instruction Type:Patient Education How to access health informa tion online - Detail Indication:Nonsmoker Start:09-Jun-2020 Instruction Type:Patient Education Patient Instructions Indication:Nonsmoker Start:09-Jun-2020 Instruction Type:Provider Instructions for Treatment How to access health informa tion online Indication:Nonsmoker Start:20-Nov-2019 Instruction Type:Patient Education How to access health informa tion online - Detail Indication:Nonsmoker Start:20-Nov-2019 Instruction Type:Patient Education Patient Instructions Indication:Nonsmoker Start:20-Nov-2019 Instruction Type:Provider Instructions for Treatment How to access health informa tion online Indication:Nonsmoker Start:18-Jun-2019 Instruction Type:Patient Education How to access health informa tion online - Detail Indication:Nonsmoker Start:18-Jun-2019 Instruction Type:Patient Education Patient Instructions Indication:BMI 32.0-32.9,adult Start:18-Jun-2019 Instruction Type:Provider Instructions for Treatment How to access health informa tion online Indication:Gerd Start:25-Apr-2017 Instruction Type:Patient Education How to access health informa tion online - Detail Indication:Gerd Start:25-Apr-2017 Instruction Type:Patient Education Patient Instructions Indication:Gerd Start:25-Apr-2017 Instruction Type:Provider Instructions for Treatment How to access health informa tion online Indication:Rash Start:15-Feb-2016 Instruction Type:Patient Education How to access health informa tion online - Detail Indication:Rash Start:15-Feb-2016 Instruction Type:Patient Education Patient Instructions Indication:Rash Start:15-Feb-2016 Instruction Type:Provider Instructions for Treatment Patient Instructions Indication:Migraine with aura and without status migrainosus, not intractable Start:11-Jun-2014 Instruction Type:Provider Instructions for Treatment Name Dates Details How to access health informa tion online Indication:Multiple thyroid nodules Start:07-Jul-2020 Instruction Type:Patient Education How to access health informa tion online - Detail Indication:Multiple thyroid nodules Start:07-Jul-2020 Instruction Type:Patient Education Patient Instructions Indication:Multiple thyroid nodules Start:07-Jul-2020 Instruction Type:Provider Instructions for Treatment How to access health informa tion online Indication:Nonsmoker Start:24-Jun-2020 Instruction Type:Patient Education How to access health informa tion online - Detail Indication:Nonsmoker Start:24-Jun-2020 Instruction Type:Patient Education Patient Instructions Indication:Nonsmoker Start:24-Jun-2020 Instruction Type:Provider Instructions for Treatment How to access health informa tion online Indication:Nonsmoker Start:09-Jun-2020 Instruction Type:Patient Education How to access health informa tion online - Detail Indication:Nonsmoker Start:09-Jun-2020 Instruction Type:Patient Education Patient Instructions Indication:Nonsmoker Start:09-Jun-2020 Instruction Type:Provider Instructions for Treatment How to access health informa tion online Indication:Nonsmoker Start:20-Nov-2019 Instruction Type:Patient Education How to access health informa tion online - Detail Indication:Nonsmoker Start:20-Nov-2019 Instruction Type:Patient Education Patient Instructions Indication:Nonsmoker Start:20-Nov-2019 Instruction Type:Provider Instructions for Treatment How to access health informa tion online Indication:Nonsmoker Start:18-Jun-2019 Instruction Type:Patient Education How to access health informa tion online - Detail Indication:Nonsmoker Start:18-Jun-2019 Instruction Type:Patient Education Patient Instructions Indication:BMI 32.0-32.9,adult Start:18-Jun-2019 Instruction Type:Provider Instructions for Treatment How to access health informa tion online Indication:Gerd Start:25-Apr-2017 Instruction Type:Patient Education How to access health informa tion online - Detail Indication:Gerd Start:25-Apr-2017 Instruction Type:Patient Education Patient Instructions Indication:Gerd Start:25-Apr-2017 Instruction Type:Provider Instructions for Treatment How to access health informa tion online Indication:Rash Start:15-Feb-2016 Instruction Type:Patient Education How to access health informa tion online - Detail Indication:Rash Start:15-Feb-2016 Instruction Type:Patient Education Patient Instructions Indication:Rash Start:15-Feb-2016 Instruction Type:Provider Instructions for Treatment Patient Instructions Indication:Migraine with aura and without status migrainosus, not intractable Start:11-Jun-2014 Instruction Type:Provider Instructions for Treatment Name Dates Details How to access health informa tion online Indication:Multiple thyroid nodules Start:07-Jul-2020 Instruction Type:Patient Education How to access health informa tion online - Detail Indication:Multiple thyroid nodules Start:07-Jul-2020 Instruction Type:Patient Education Patient Instructions Indication:Multiple thyroid nodules Start:07-Jul-2020 Instruction Type:Provider Instructions for Treatment How to access health informa tion online Indication:Nonsmoker Start:24-Jun-2020 Instruction Type:Patient Education How to access health informa tion online - Detail Indication:Nonsmoker Start:24-Jun-2020 Instruction Type:Patient Education Patient Instructions Indication:Nonsmoker Start:24-Jun-2020 Instruction Type:Provider Instructions for Treatment How to access health informa tion online Indication:Nonsmoker Start:09-Jun-2020 Instruction Type:Patient Education How to access health informa tion online - Detail Indication:Nonsmoker Start:09-Jun-2020 Instruction Type:Patient Education Patient Instructions Indication:Nonsmoker Start:09-Jun-2020 Instruction Type:Provider Instructions for Treatment How to access health informa tion online Indication:Nonsmoker Start:20-Nov-2019 Instruction Type:Patient Education How to access health informa tion online - Detail Indication:Nonsmoker Start:20-Nov-2019 Instruction Type:Patient Education Patient Instructions Indication:Nonsmoker Start:20-Nov-2019 Instruction Type:Provider Instructions for Treatment How to access health informa tion online Indication:Nonsmoker Start:18-Jun-2019 Instruction Type:Patient Education How to access health informa tion online - Detail Indication:Nonsmoker Start:18-Jun-2019 Instruction Type:Patient Education Patient Instructions Indication:BMI 32.0-32.9,adult Start:18-Jun-2019 Instruction Type:Provider Instructions for Treatment How to access health informa tion online Indication:Gerd Start:25-Apr-2017 Instruction Type:Patient Education How to access health informa tion online - Detail Indication:Gerd Start:25-Apr-2017 Instruction Type:Patient Education Patient Instructions Indication:Gerd Start:25-Apr-2017 Instruction Type:Provider Instructions for Treatment How to access health informa tion online Indication:Rash Start:15-Feb-2016 Instruction Type:Patient Education How to access health informa tion online - Detail Indication:Rash Start:15-Feb-2016 Instruction Type:Patient Education Patient Instructions Indication:Rash Start:15-Feb-2016 Instruction Type:Provider Instructions for Treatment Patient Instructions Indication:Migraine with aura and without status migrainosus, not intractable Start:11-Jun-2014 Instruction Type:Provider Instructions for Treatment Name Dates Details How to access health informa tion online Indication:Tension headache Start:20-Jul-2020 Instruction Type:Patient Education How to access health informa tion online - Detail Indication:Tension headache Start:20-Jul-2020 Instruction Type:Patient Education Patient Instructions Indication:Tension headache Start:20-Jul-2020 Instruction Type:Provider Instructions for Treatment How to access health informa tion online Indication:Multiple thyroid nodules Start:07-Jul-2020 Instruction Type:Patient Education How to access health informa tion online - Detail Indication:Multiple thyroid nodules Start:07-Jul-2020 Instruction Type:Patient Education Patient Instructions Indication:Multiple thyroid nodules Start:07-Jul-2020 Instruction Type:Provider Instructions for Treatment How to access health informa tion online Indication:Nonsmoker Start:24-Jun-2020 Instruction Type:Patient Education How to access health informa tion online - Detail Indication:Nonsmoker Start:24-Jun-2020 Instruction Type:Patient Education Patient Instructions Indication:Nonsmoker Start:24-Jun-2020 Instruction Type:Provider Instructions for Treatment How to access health informa tion online Indication:Nonsmoker Start:09-Jun-2020 Instruction Type:Patient Education How to access health informa tion online - Detail Indication:Nonsmoker Start:09-Jun-2020 Instruction Type:Patient Education Patient Instructions Indication:Nonsmoker Start:09-Jun-2020 Instruction Type:Provider Instructions for Treatment How to access health informa tion online Indication:Nonsmoker Start:20-Nov-2019 Instruction Type:Patient Education How to access health informa tion online - Detail Indication:Nonsmoker Start:20-Nov-2019 Instruction Type:Patient Education Patient Instructions Indication:Nonsmoker Start:20-Nov-2019 Instruction Type:Provider Instructions for Treatment How to access health informa tion online Indication:Nonsmoker Start:18-Jun-2019 Instruction Type:Patient Education How to access health informa tion online - Detail Indication:Nonsmoker Start:18-Jun-2019 Instruction Type:Patient Education Patient Instructions Indication:BMI 32.0-32.9,adult Start:18-Jun-2019 Instruction Type:Provider Instructions for Treatment How to access health informa tion online Indication:Gerd Start:25-Apr-2017 Instruction Type:Patient Education How to access health informa tion online - Detail Indication:Gerd Start:25-Apr-2017 Instruction Type:Patient Education Patient Instructions Indication:Gerd Start:25-Apr-2017 Instruction Type:Provider Instructions for Treatment How to access health informa tion online Indication:Rash Start:15-Feb-2016 Instruction Type:Patient Education How to access health informa tion online - Detail Indication:Rash Start:15-Feb-2016 Instruction Type:Patient Education Patient Instructions Indication:Rash Start:15-Feb-2016 Instruction Type:Provider Instructions for Treatment Patient Instructions Indication:Migraine with aura and without status migrainosus, not intractable Start:11-Jun-2014 Instruction Type:Provider Instructions for Treatment Name Dates Details How to access health informa tion online Indication:Nonsmoker Start:04-Aug-2020 Instruction Type:Patient Education How to access health informa tion online - Detail Indication:Nonsmoker Start:04-Aug-2020 Instruction Type:Patient Education Patient Instructions Indication:Nonsmoker Start:04-Aug-2020 Instruction Type:Provider Instructions for Treatment How to access health informa tion online Indication:Tension headache Start:20-Jul-2020 Instruction Type:Patient Education How to access health informa tion online - Detail Indication:Tension headache Start:20-Jul-2020 Instruction Type:Patient Education Patient Instructions Indication:Tension headache Start:20-Jul-2020 Instruction Type:Provider Instructions for Treatment How to access health informa tion online Indication:Multiple thyroid nodules Start:07-Jul-2020 Instruction Type:Patient Education How to access health informa tion online - Detail Indication:Multiple thyroid nodules Start:07-Jul-2020 Instruction Type:Patient Education Patient Instructions Indication:Multiple thyroid nodules Start:07-Jul-2020 Instruction Type:Provider Instructions for Treatment How to access health informa tion online Indication:Nonsmoker Start:24-Jun-2020 Instruction Type:Patient Education How to access health informa tion online - Detail Indication:Nonsmoker Start:24-Jun-2020 Instruction Type:Patient Education Patient Instructions Indication:Nonsmoker Start:24-Jun-2020 Instruction Type:Provider Instructions for Treatment How to access health informa tion online Indication:Nonsmoker Start:09-Jun-2020 Instruction Type:Patient Education How to access health informa tion online - Detail Indication:Nonsmoker Start:09-Jun-2020 Instruction Type:Patient Education Patient Instructions Indication:Nonsmoker Start:09-Jun-2020 Instruction Type:Provider Instructions for Treatment How to access health informa tion online Indication:Nonsmoker Start:20-Nov-2019 Instruction Type:Patient Education How to access health informa tion online - Detail Indication:Nonsmoker Start:20-Nov-2019 Instruction Type:Patient Education Patient Instructions Indication:Nonsmoker Start:20-Nov-2019 Instruction Type:Provider Instructions for Treatment How to access health informa tion online Indication:Nonsmoker Start:18-Jun-2019 Instruction Type:Patient Education How to access health informa tion online - Detail Indication:Nonsmoker Start:18-Jun-2019 Instruction Type:Patient Education Patient Instructions Indication:BMI 32.0-32.9,adult Start:18-Jun-2019 Instruction Type:Provider Instructions for Treatment How to access health informa tion online Indication:Gerd Start:25-Apr-2017 Instruction Type:Patient Education How to access health informa tion online - Detail Indication:Gerd Start:25-Apr-2017 Instruction Type:Patient Education Patient Instructions Indication:Gerd Start:25-Apr-2017 Instruction Type:Provider Instructions for Treatment How to access health informa tion online Indication:Rash Start:15-Feb-2016 Instruction Type:Patient Education How to access health informa tion online - Detail Indication:Rash Start:15-Feb-2016 Instruction Type:Patient Education Patient Instructions Indication:Rash Start:15-Feb-2016 Instruction Type:Provider Instructions for Treatment Patient Instructions Indication:Migraine with aura and without status migrainosus, not intractable Start:11-Jun-2014 Instruction Type:Provider Instructions for Treatment Name Dates Details How to access health informa tion online Indication:Nonsmoker Start:04-Aug-2020 Instruction Type:Patient Education How to access health informa tion online - Detail Indication:Nonsmoker Start:04-Aug-2020 Instruction Type:Patient Education Patient Instructions Indication:Nonsmoker Start:04-Aug-2020 Instruction Type:Provider Instructions for Treatment How to access health informa tion online Indication:Tension headache Start:20-Jul-2020 Instruction Type:Patient Education How to access health informa tion online - Detail Indication:Tension headache Start:20-Jul-2020 Instruction Type:Patient Education Patient Instructions Indication:Tension headache Start:20-Jul-2020 Instruction Type:Provider Instructions for Treatment How to access health informa tion online Indication:Multiple thyroid nodules Start:07-Jul-2020 Instruction Type:Patient Education How to access health informa tion online - Detail Indication:Multiple thyroid nodules Start:07-Jul-2020 Instruction Type:Patient Education Patient Instructions Indication:Multiple thyroid nodules Start:07-Jul-2020 Instruction Type:Provider Instructions for Treatment How to access health informa tion online Indication:Nonsmoker Start:24-Jun-2020 Instruction Type:Patient Education How to access health informa tion online - Detail Indication:Nonsmoker Start:24-Jun-2020 Instruction Type:Patient Education Patient Instructions Indication:Nonsmoker Start:24-Jun-2020 Instruction Type:Provider Instructions for Treatment How to access health informa tion online Indication:Nonsmoker Start:09-Jun-2020 Instruction Type:Patient Education How to access health informa tion online - Detail Indication:Nonsmoker Start:09-Jun-2020 Instruction Type:Patient Education Patient Instructions Indication:Nonsmoker Start:09-Jun-2020 Instruction Type:Provider Instructions for Treatment How to access health informa tion online Indication:Nonsmoker Start:20-Nov-2019 Instruction Type:Patient Education How to access health informa tion online - Detail Indication:Nonsmoker Start:20-Nov-2019 Instruction Type:Patient Education Patient Instructions Indication:Nonsmoker Start:20-Nov-2019 Instruction Type:Provider Instructions for Treatment How to access health informa tion online Indication:Nonsmoker Start:18-Jun-2019 Instruction Type:Patient Education How to access health informa tion online - Detail Indication:Nonsmoker Start:18-Jun-2019 Instruction Type:Patient Education Patient Instructions Indication:BMI 32.0-32.9,adult Start:18-Jun-2019 Instruction Type:Provider Instructions for Treatment How to access health informa tion online Indication:Gerd Start:25-Apr-2017 Instruction Type:Patient Education How to access health informa tion online - Detail Indication:Gerd Start:25-Apr-2017 Instruction Type:Patient Education Patient Instructions Indication:Gerd Start:25-Apr-2017 Instruction Type:Provider Instructions for Treatment How to access health informa tion online Indication:Rash Start:15-Feb-2016 Instruction Type:Patient Education How to access health informa tion online - Detail Indication:Rash Start:15-Feb-2016 Instruction Type:Patient Education Patient Instructions Indication:Rash Start:15-Feb-2016 Instruction Type:Provider Instructions for Treatment Patient Instructions Indication:Migraine with aura and without status migrainosus, not intractable Start:11-Jun-2014 Instruction Type:Provider Instructions for Treatment Name Dates Details How to access health informa tion online Indication:Nonsmoker Start:20-Nov-2019 Instruction Type:Patient Education How to access health informa tion online - Detail Indication:Nonsmoker Start:20-Nov-2019 Instruction Type:Patient Education Patient Instructions Indication:Nonsmoker Start:20-Nov-2019 Instruction Type:Provider Instructions for Treatment How to access health informa tion online Indication:Nonsmoker Start:18-Jun-2019 Instruction Type:Patient Education How to access health informa tion online - Detail Indication:Nonsmoker Start:18-Jun-2019 Instruction Type:Patient Education Patient Instructions Indication:BMI 32.0-32.9,adult Start:18-Jun-2019 Instruction Type:Provider Instructions for Treatment How to access health informa tion online Indication:Gerd Start:25-Apr-2017 Instruction Type:Patient Education How to access health informa tion online - Detail Indication:Gerd Start:25-Apr-2017 Instruction Type:Patient Education Patient Instructions Indication:Gerd Start:25-Apr-2017 Instruction Type:Provider Instructions for Treatment How to access health informa tion online Indication:Rash Start:15-Feb-2016 Instruction Type:Patient Education How to access health informa tion online - Detail Indication:Rash Start:15-Feb-2016 Instruction Type:Patient Education Patient Instructions Indication:Rash Start:15-Feb-2016 Instruction Type:Provider Instructions for Treatment Patient Instructions Indication:Migraine with aura and without status migrainosus, not intractable Start:11-Jun-2014 Instruction Type:Provider Instructions for Treatment Name Dates Details How to access health informa tion online Indication:Nonsmoker Start:04-Aug-2020 Instruction Type:Patient Education How to access health informa tion online - Detail Indication:Nonsmoker Start:04-Aug-2020 Instruction Type:Patient Education Patient Instructions Indication:Nonsmoker Start:04-Aug-2020 Instruction Type:Provider Instructions for Treatment How to access health informa tion online Indication:Tension headache Start:20-Jul-2020 Instruction Type:Patient Education How to access health informa tion online - Detail Indication:Tension headache Start:20-Jul-2020 Instruction Type:Patient Education Patient Instructions Indication:Tension headache Start:20-Jul-2020 Instruction Type:Provider Instructions for Treatment How to access health informa tion online Indication:Multiple thyroid nodules Start:07-Jul-2020 Instruction Type:Patient Education How to access health informa tion online - Detail Indication:Multiple thyroid nodules Start:07-Jul-2020 Instruction Type:Patient Education Patient Instructions Indication:Multiple thyroid nodules Start:07-Jul-2020 Instruction Type:Provider Instructions for Treatment How to access health informa tion online Indication:Nonsmoker Start:24-Jun-2020 Instruction Type:Patient Education How to access health informa tion online - Detail Indication:Nonsmoker Start:24-Jun-2020 Instruction Type:Patient Education Patient Instructions Indication:Nonsmoker Start:24-Jun-2020 Instruction Type:Provider Instructions for Treatment How to access health informa tion online Indication:Nonsmoker Start:09-Jun-2020 Instruction Type:Patient Education How to access health informa tion online - Detail Indication:Nonsmoker Start:09-Jun-2020 Instruction Type:Patient Education Patient Instructions Indication:Nonsmoker Start:09-Jun-2020 Instruction Type:Provider Instructions for Treatment How to access health informa tion online Indication:Nonsmoker Start:20-Nov-2019 Instruction Type:Patient Education How to access health informa tion online - Detail Indication:Nonsmoker Start:20-Nov-2019 Instruction Type:Patient Education Patient Instructions Indication:Nonsmoker Start:20-Nov-2019 Instruction Type:Provider Instructions for Treatment How to access health informa tion online Indication:Nonsmoker Start:18-Jun-2019 Instruction Type:Patient Education How to access health informa tion online - Detail Indication:Nonsmoker Start:18-Jun-2019 Instruction Type:Patient Education Patient Instructions Indication:BMI 32.0-32.9,adult Start:18-Jun-2019 Instruction Type:Provider Instructions for Treatment How to access health informa tion online Indication:Gerd Start:25-Apr-2017 Instruction Type:Patient Education How to access health informa tion online - Detail Indication:Gerd Start:25-Apr-2017 Instruction Type:Patient Education Patient Instructions Indication:Gerd Start:25-Apr-2017 Instruction Type:Provider Instructions for Treatment How to access health informa tion online Indication:Rash Start:15-Feb-2016 Instruction Type:Patient Education How to access health informa tion online - Detail Indication:Rash Start:15-Feb-2016 Instruction Type:Patient Education Patient Instructions Indication:Rash Start:15-Feb-2016 Instruction Type:Provider Instructions for Treatment Patient Instructions Indication:Migraine with aura and without status migrainosus, not intractable Start:11-Jun-2014 Instruction Type:Provider Instructions for Treatment Name Dates Details How to access health informa tion online Indication:Nonsmoker Start:18-Jun-2019 Instruction Type:Patient Education How to access health informa tion online - Detail Indication:Nonsmoker Start:18-Jun-2019 Instruction Type:Patient Education Patient Instructions Indication:BMI 32.0-32.9,adult Start:18-Jun-2019 Instruction Type:Provider Instructions for Treatment How to access health informa tion online Indication:Gerd Start:25-Apr-2017 Instruction Type:Patient Education How to access health informa tion online - Detail Indication:Gerd Start:25-Apr-2017 Instruction Type:Patient Education Patient Instructions Indication:Gerd Start:25-Apr-2017 Instruction Type:Provider Instructions for Treatment How to access health informa tion online Indication:Rash Start:15-Feb-2016 Instruction Type:Patient Education How to access health informa tion online - Detail Indication:Rash Start:15-Feb-2016 Instruction Type:Patient Education Patient Instructions Indication:Rash Start:15-Feb-2016 Instruction Type:Provider Instructions for Treatment Patient Instructions Indication:Migraine with aura and without status migrainosus, not intractable Start:11-Jun-2014 Instruction Type:Provider Instructions for Treatment Name Dates Details Patient Instructions Indication:Nonsmoker Start:21-Dec-2020 Instruction Type:Provider Instructions for Treatment How to Access Health Informa tion Online using Patient Portal and [employer] Apps Indication:Nonsmoker Start:21-Dec-2020 Instruction Type:Patient Education How to access health informa tion online Indication:Nonsmoker Start:04-Aug-2020 Instruction Type:Patient Education How to access health informa tion online - Detail Indication:Nonsmoker Start:04-Aug-2020 Instruction Type:Patient Education Patient Instructions Indication:Nonsmoker Start:04-Aug-2020 Instruction Type:Provider Instructions for Treatment How to access health informa tion online Indication:Tension headache Start:20-Jul-2020 Instruction Type:Patient Education How to access health informa tion online - Detail Indication:Tension headache Start:20-Jul-2020 Instruction Type:Patient Education Patient Instructions Indication:Tension headache Start:20-Jul-2020 Instruction Type:Provider Instructions for Treatment How to access health informa tion online Indication:Multiple thyroid nodules Start:07-Jul-2020 Instruction Type:Patient Education How to access health informa tion online - Detail Indication:Multiple thyroid nodules Start:07-Jul-2020 Instruction Type:Patient Education Patient Instructions Indication:Multiple thyroid nodules Start:07-Jul-2020 Instruction Type:Provider Instructions for Treatment How to access health informa tion online Indication:Nonsmoker Start:24-Jun-2020 Instruction Type:Patient Education How to access health informa tion online - Detail Indication:Nonsmoker Start:24-Jun-2020 Instruction Type:Patient Education Patient Instructions Indication:Nonsmoker Start:24-Jun-2020 Instruction Type:Provider Instructions for Treatment How to access health informa tion online Indication:Nonsmoker Start:09-Jun-2020 Instruction Type:Patient Education How to access health informa tion online - Detail Indication:Nonsmoker Start:09-Jun-2020 Instruction Type:Patient Education Patient Instructions Indication:Nonsmoker Start:09-Jun-2020 Instruction Type:Provider Instructions for Treatment How to access health informa tion online Indication:Nonsmoker Start:20-Nov-2019 Instruction Type:Patient Education How to access health informa tion online - Detail Indication:Nonsmoker Start:20-Nov-2019 Instruction Type:Patient Education Patient Instructions Indication:Nonsmoker Start:20-Nov-2019 Instruction Type:Provider Instructions for Treatment How to access health informa tion online Indication:Nonsmoker Start:18-Jun-2019 Instruction Type:Patient Education How to access health informa tion online - Detail Indication:Nonsmoker Start:18-Jun-2019 Instruction Type:Patient Education Patient Instructions Indication:BMI 32.0-32.9,adult Start:18-Jun-2019 Instruction Type:Provider Instructions for Treatment How to access health informa tion online Indication:Gerd Start:25-Apr-2017 Instruction Type:Patient Education How to access health informa tion online - Detail Indication:Gerd Start:25-Apr-2017 Instruction Type:Patient Education Patient Instructions Indication:Gerd Start:25-Apr-2017 Instruction Type:Provider Instructions for Treatment How to access health informa tion online Indication:Rash Start:15-Feb-2016 Instruction Type:Patient Education How to access health informa tion online - Detail Indication:Rash Start:15-Feb-2016 Instruction Type:Patient Education Patient Instructions Indication:Rash Start:15-Feb-2016 Instruction Type:Provider Instructions for Treatment Patient Instructions Indication:Migraine with aura and without status migrainosus, not intractable Start:11-Jun-2014 Instruction Type:Provider Instructions for Treatment Name Dates Details Patient Instructions Indication:Other primary cardiomyopathies Start:21-Dec-2020 Instruction Type:Provider Instructions for Treatment How to Access Health Informa tion Online using Patient Portal and [employer] Apps Indication:Nonsmoker Start:21-Dec-2020 Instruction Type:Patient Education How to access health informa tion online Indication:Nonsmoker Start:04-Aug-2020 Instruction Type:Patient Education How to access health informa tion online - Detail Indication:Nonsmoker Start:04-Aug-2020 Instruction Type:Patient Education Patient Instructions Indication:Nonsmoker Start:04-Aug-2020 Instruction Type:Provider Instructions for Treatment How to access health informa tion online Indication:Tension headache Start:20-Jul-2020 Instruction Type:Patient Education How to access health informa tion online - Detail Indication:Tension headache Start:20-Jul-2020 Instruction Type:Patient Education Patient Instructions Indication:Tension headache Start:20-Jul-2020 Instruction Type:Provider Instructions for Treatment How to access health informa tion online Indication:Multiple thyroid nodules Start:07-Jul-2020 Instruction Type:Patient Education How to access health informa tion online - Detail Indication:Multiple thyroid nodules Start:07-Jul-2020 Instruction Type:Patient Education Patient Instructions Indication:Multiple thyroid nodules Start:07-Jul-2020 Instruction Type:Provider Instructions for Treatment How to access health informa tion online Indication:Nonsmoker Start:24-Jun-2020 Instruction Type:Patient Education How to access health informa tion online - Detail Indication:Nonsmoker Start:24-Jun-2020 Instruction Type:Patient Education Patient Instructions Indication:Nonsmoker Start:24-Jun-2020 Instruction Type:Provider Instructions for Treatment How to access health informa tion online Indication:Nonsmoker Start:09-Jun-2020 Instruction Type:Patient Education How to access health informa tion online - Detail Indication:Nonsmoker Start:09-Jun-2020 Instruction Type:Patient Education Patient Instructions Indication:Nonsmoker Start:09-Jun-2020 Instruction Type:Provider Instructions for Treatment How to access health informa tion online Indication:Nonsmoker Start:20-Nov-2019 Instruction Type:Patient Education How to access health informa tion online - Detail Indication:Nonsmoker Start:20-Nov-2019 Instruction Type:Patient Education Patient Instructions Indication:Nonsmoker Start:20-Nov-2019 Instruction Type:Provider Instructions for Treatment How to access health informa tion online Indication:Nonsmoker Start:18-Jun-2019 Instruction Type:Patient Education How to access health informa tion online - Detail Indication:Nonsmoker Start:18-Jun-2019 Instruction Type:Patient Education Patient Instructions Indication:BMI 32.0-32.9,adult Start:18-Jun-2019 Instruction Type:Provider Instructions for Treatment How to access health informa tion online Indication:Gerd Start:25-Apr-2017 Instruction Type:Patient Education How to access health informa tion online - Detail Indication:Gerd Start:25-Apr-2017 Instruction Type:Patient Education Patient Instructions Indication:Gerd Start:25-Apr-2017 Instruction Type:Provider Instructions for Treatment How to access health informa tion online Indication:Rash Start:15-Feb-2016 Instruction Type:Patient Education How to access health informa tion online - Detail Indication:Rash Start:15-Feb-2016 Instruction Type:Patient Education Patient Instructions Indication:Rash Start:15-Feb-2016 Instruction Type:Provider Instructions for Treatment Patient Instructions Indication:Migraine with aura and without status migrainosus, not intractable Start:11-Jun-2014 Instruction Type:Provider Instructions for Treatment Name Dates Details Patient Instructions Indication:Other primary cardiomyopathies Start:21-Dec-2020 Instruction Type:Provider Instructions for Treatment How to Access Health Informa tion Online using Patient Portal and [employer] Apps Indication:Nonsmoker Start:21-Dec-2020 Instruction Type:Patient Education How to access health informa tion online Indication:Nonsmoker Start:04-Aug-2020 Instruction Type:Patient Education How to access health informa tion online - Detail Indication:Nonsmoker Start:04-Aug-2020 Instruction Type:Patient Education Patient Instructions Indication:Nonsmoker Start:04-Aug-2020 Instruction Type:Provider Instructions for Treatment How to access health informa tion online Indication:Tension headache Start:20-Jul-2020 Instruction Type:Patient Education How to access health informa tion online - Detail Indication:Tension headache Start:20-Jul-2020 Instruction Type:Patient Education Patient Instructions Indication:Tension headache Start:20-Jul-2020 Instruction Type:Provider Instructions for Treatment How to access health informa tion online Indication:Multiple thyroid nodules Start:07-Jul-2020 Instruction Type:Patient Education How to access health informa tion online - Detail Indication:Multiple thyroid nodules Start:07-Jul-2020 Instruction Type:Patient Education Patient Instructions Indication:Multiple thyroid nodules Start:07-Jul-2020 Instruction Type:Provider Instructions for Treatment How to access health informa tion online Indication:Nonsmoker Start:24-Jun-2020 Instruction Type:Patient Education How to access health informa tion online - Detail Indication:Nonsmoker Start:24-Jun-2020 Instruction Type:Patient Education Patient Instructions Indication:Nonsmoker Start:24-Jun-2020 Instruction Type:Provider Instructions for Treatment How to access health informa tion online Indication:Nonsmoker Start:09-Jun-2020 Instruction Type:Patient Education How to access health informa tion online - Detail Indication:Nonsmoker Start:09-Jun-2020 Instruction Type:Patient Education Patient Instructions Indication:Nonsmoker Start:09-Jun-2020 Instruction Type:Provider Instructions for Treatment How to access health informa tion online Indication:Nonsmoker Start:20-Nov-2019 Instruction Type:Patient Education How to access health informa tion online - Detail Indication:Nonsmoker Start:20-Nov-2019 Instruction Type:Patient Education Patient Instructions Indication:Nonsmoker Start:20-Nov-2019 Instruction Type:Provider Instructions for Treatment How to access health informa tion online Indication:Nonsmoker Start:18-Jun-2019 Instruction Type:Patient Education How to access health informa tion online - Detail Indication:Nonsmoker Start:18-Jun-2019 Instruction Type:Patient Education Patient Instructions Indication:BMI 32.0-32.9,adult Start:18-Jun-2019 Instruction Type:Provider Instructions for Treatment How to access health informa tion online Indication:Gerd Start:25-Apr-2017 Instruction Type:Patient Education How to access health informa tion online - Detail Indication:Gerd Start:25-Apr-2017 Instruction Type:Patient Education Patient Instructions Indication:Gerd Start:25-Apr-2017 Instruction Type:Provider Instructions for Treatment How to access health informa tion online Indication:Rash Start:15-Feb-2016 Instruction Type:Patient Education How to access health informa tion online - Detail Indication:Rash Start:15-Feb-2016 Instruction Type:Patient Education Patient Instructions Indication:Rash Start:15-Feb-2016 Instruction Type:Provider Instructions for Treatment Patient Instructions Indication:Migraine with aura and without status migrainosus, not intractable Start:11-Jun-2014 Instruction Type:Provider Instructions for Treatment Name Dates Details Patient Instructions Indication:Nonsmoker Start:28-Dec-2020 Instruction Type:Provider Instructions for Treatment How to Access Health Informa tion Online using Patient Portal and [employer] Apps Indication:Nonsmoker Start:28-Dec-2020 Instruction Type:Patient Education Patient Instructions Indication:Other primary cardiomyopathies Start:21-Dec-2020 Instruction Type:Provider Instructions for Treatment How to Access Health Informa tion Online using Patient Portal and [employer] Apps Indication:Nonsmoker Start:21-Dec-2020 Instruction Type:Patient Education How to access health informa tion online Indication:Nonsmoker Start:04-Aug-2020 Instruction Type:Patient Education How to access health informa tion online - Detail Indication:Nonsmoker Start:04-Aug-2020 Instruction Type:Patient Education Patient Instructions Indication:Nonsmoker Start:04-Aug-2020 Instruction Type:Provider Instructions for Treatment How to access health informa tion online Indication:Tension headache Start:20-Jul-2020 Instruction Type:Patient Education How to access health informa tion online - Detail Indication:Tension headache Start:20-Jul-2020 Instruction Type:Patient Education Patient Instructions Indication:Tension headache Start:20-Jul-2020 Instruction Type:Provider Instructions for Treatment How to access health informa tion online Indication:Multiple thyroid nodules Start:07-Jul-2020 Instruction Type:Patient Education How to access health informa tion online - Detail Indication:Multiple thyroid nodules Start:07-Jul-2020 Instruction Type:Patient Education Patient Instructions Indication:Multiple thyroid nodules Start:07-Jul-2020 Instruction Type:Provider Instructions for Treatment How to access health informa tion online Indication:Nonsmoker Start:24-Jun-2020 Instruction Type:Patient Education How to access health informa tion online - Detail Indication:Nonsmoker Start:24-Jun-2020 Instruction Type:Patient Education Patient Instructions Indication:Nonsmoker Start:24-Jun-2020 Instruction Type:Provider Instructions for Treatment How to access health informa tion online Indication:Nonsmoker Start:09-Jun-2020 Instruction Type:Patient Education How to access health informa tion online - Detail Indication:Nonsmoker Start:09-Jun-2020 Instruction Type:Patient Education Patient Instructions Indication:Nonsmoker Start:09-Jun-2020 Instruction Type:Provider Instructions for Treatment How to access health informa tion online Indication:Nonsmoker Start:20-Nov-2019 Instruction Type:Patient Education How to access health informa tion online - Detail Indication:Nonsmoker Start:20-Nov-2019 Instruction Type:Patient Education Patient Instructions Indication:Nonsmoker Start:20-Nov-2019 Instruction Type:Provider Instructions for Treatment How to access health informa tion online Indication:Nonsmoker Start:18-Jun-2019 Instruction Type:Patient Education How to access health informa tion online - Detail Indication:Nonsmoker Start:18-Jun-2019 Instruction Type:Patient Education Patient Instructions Indication:BMI 32.0-32.9,adult Start:18-Jun-2019 Instruction Type:Provider Instructions for Treatment How to access health informa tion online Indication:Gerd Start:25-Apr-2017 Instruction Type:Patient Education How to access health informa tion online - Detail Indication:Gerd Start:25-Apr-2017 Instruction Type:Patient Education Patient Instructions Indication:Gerd Start:25-Apr-2017 Instruction Type:Provider Instructions for Treatment How to access health informa tion online Indication:Rash Start:15-Feb-2016 Instruction Type:Patient Education How to access health informa tion online - Detail Indication:Rash Start:15-Feb-2016 Instruction Type:Patient Education Patient Instructions Indication:Rash Start:15-Feb-2016 Instruction Type:Provider Instructions for Treatment Patient Instructions Indication:Migraine with aura and without status migrainosus, not intractable Start:11-Jun-2014 Instruction Type:Provider Instructions for Treatment Name Dates Details Patient Instructions Indication:Nonsmoker Start:28-Dec-2020 Instruction Type:Provider Instructions for Treatment How to Access Health Informa tion Online using Patient Portal and [employer] Apps Indication:Nonsmoker Start:28-Dec-2020 Instruction Type:Patient Education Patient Instructions Indication:Other primary cardiomyopathies Start:21-Dec-2020 Instruction Type:Provider Instructions for Treatment How to Access Health Informa tion Online using Patient Portal and [employer] Apps Indication:Nonsmoker Start:21-Dec-2020 Instruction Type:Patient Education How to access health informa tion online Indication:Nonsmoker Start:04-Aug-2020 Instruction Type:Patient Education How to access health informa tion online - Detail Indication:Nonsmoker Start:04-Aug-2020 Instruction Type:Patient Education Patient Instructions Indication:Nonsmoker Start:04-Aug-2020 Instruction Type:Provider Instructions for Treatment How to access health informa tion online Indication:Tension headache Start:20-Jul-2020 Instruction Type:Patient Education How to access health informa tion online - Detail Indication:Tension headache Start:20-Jul-2020 Instruction Type:Patient Education Patient Instructions Indication:Tension headache Start:20-Jul-2020 Instruction Type:Provider Instructions for Treatment How to access health informa tion online Indication:Multiple thyroid nodules Start:07-Jul-2020 Instruction Type:Patient Education How to access health informa tion online - Detail Indication:Multiple thyroid nodules Start:07-Jul-2020 Instruction Type:Patient Education Patient Instructions Indication:Multiple thyroid nodules Start:07-Jul-2020 Instruction Type:Provider Instructions for Treatment How to access health informa tion online Indication:Nonsmoker Start:24-Jun-2020 Instruction Type:Patient Education How to access health informa tion online - Detail Indication:Nonsmoker Start:24-Jun-2020 Instruction Type:Patient Education Patient Instructions Indication:Nonsmoker Start:24-Jun-2020 Instruction Type:Provider Instructions for Treatment How to access health informa tion online Indication:Nonsmoker Start:09-Jun-2020 Instruction Type:Patient Education How to access health informa tion online - Detail Indication:Nonsmoker Start:09-Jun-2020 Instruction Type:Patient Education Patient Instructions Indication:Nonsmoker Start:09-Jun-2020 Instruction Type:Provider Instructions for Treatment How to access health informa tion online Indication:Nonsmoker Start:20-Nov-2019 Instruction Type:Patient Education How to access health informa tion online - Detail Indication:Nonsmoker Start:20-Nov-2019 Instruction Type:Patient Education Patient Instructions Indication:Nonsmoker Start:20-Nov-2019 Instruction Type:Provider Instructions for Treatment How to access health informa tion online Indication:Nonsmoker Start:18-Jun-2019 Instruction Type:Patient Education How to access health informa tion online - Detail Indication:Nonsmoker Start:18-Jun-2019 Instruction Type:Patient Education Patient Instructions Indication:BMI 32.0-32.9,adult Start:18-Jun-2019 Instruction Type:Provider Instructions for Treatment How to access health informa tion online Indication:Gerd Start:25-Apr-2017 Instruction Type:Patient Education How to access health informa tion online - Detail Indication:Gerd Start:25-Apr-2017 Instruction Type:Patient Education Patient Instructions Indication:Gerd Start:25-Apr-2017 Instruction Type:Provider Instructions for Treatment How to access health informa tion online Indication:Rash Start:15-Feb-2016 Instruction Type:Patient Education How to access health informa tion online - Detail Indication:Rash Start:15-Feb-2016 Instruction Type:Patient Education Patient Instructions Indication:Rash Start:15-Feb-2016 Instruction Type:Provider Instructions for Treatment Patient Instructions Indication:Migraine with aura and without status migrainosus, not intractable Start:11-Jun-2014 Instruction Type:Provider Instructions for Treatment Summary Purpose Advance Directives No Advanced Directives Records Found Advance Directive Response Recorded Date/ Time Living Will Yes April 14, 2020 4:47pm 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 No April 14 4:47pm Chief Complaint and Reason for Visit Chief Complaint X-Rays SCREENING Chief Complaint Admit Date ABN BLOATING AND CRAMPING November 08, 2024 1:47pm RUQ PAIN November 11, 2024 9:05am ABD PAIN January 10, 2025 3:0 5pm Reason for Visit Admit Date Pelvic pain November 08, 2024 1:47pm Recurrent UTI November 08, 2024 1:47pm Chief Complaint Admit Date ABN BLOATING AND CRAMPING November 08, 2024 1:47pm RUQ PAIN November 11, 2024 9:05am ABD PAIN January 10, 2025 3:0 5pm LEFT ADRENAL GLAND NODULE February 19, 2025 5:53pm Chief Complaint Admit Date LEFT ADRENAL GLAND NODULE February 19, 2025 5:53pm Sleep disorder, unspecified May 21, 2025 8:14pm Additional Source Comments INFORMATION SOURCE (unrecogn ized section and content) DATE CREATED AUTHOR 04/03/2021 [facility] DATE CREATED AUTHOR AUTHOR'S ORGANIZ ATION 04/21/2021 [facility] DATE CREATED AUTHOR AUTHOR'S ORGANIZ ATION 01/22/2022 [facility] ([place] DATE CREATED AUTHOR AUTHOR[facility]S [facility] AT[facility] DATE CREATED AUTHOR AUTHOR'S ORGANIZ ATION 12/24/2024 [facility] DATE CREATED AUTHOR AUTHOR'S ORGANIZ ATION 01/23/2025 [facility] DATE CREATED AUTHOR AUTHOR'S ORGANIZ ATION 06/03/2025 [facility] Care Team (unrecognized sect ion and content) Team Status: Active Member Role Status Dates Dr. Mali Jeffries DO Primary Care Provider Active Team Status: Inactive Member Role Status Dates Dr. Mail Jeffries DO Primary Care Provider Active Start: November 08, 2024 End: November 08, 2024 Dr. Mali Jeffries DO Referring Provider Active Start: November 08, 2024 End: November 08, 2024 Tonya Becerra CNM Attending Provider Active S tart: November 08, 2024 End: November 08, 2024 Team Status: Inactive Member Role Status Dates Dr. Mali Jeffries DO Primary Care Provider Active Start: November 11, 2024 End: November 11, 2024 Dr. Mali Jeffries DO Attending Provider Active Start: November 11, 2024 End: November 11, 2024 Dr. Mali Jeffries DO Referring Provider Active Start: November 11, 2024 End: November 11, 2024 Team Status: Inactive Member Role Status Dates Dr. Mali Jeffries DO Primary Care Provider Active Start: January 10, 2025 End: January 10, 2025 CLARENCE CONDON Attending Provider Active Start: A [id number] End: January 10, 2025 CLARENCE CONDON Referring Provider Active Start: A pril 2024 End: January 10, 2025 Team Status: Inactive Member Role Status Dates Dr. Mali Jeffries DO Primary Care Provider Active Start: February 19, 2025 End: February 19, 2025 LISETTE SIMPSON Attending Provider Active Start: Fausto 2024 End: February 19, 2025 LISETTE SIMPSON Referring Provider Active Start: Fausto howell 2024 End: February 19, 2025 Team Status: Active Member Role/Relationship Status Dates Dr. Mali Jeffries DO Primary Care Provider Active Team Status: Inactive Member Role/Relationship Status Dates Dr. Mali Jeffries DO Primary Care Provider Active Start: February 19, 2025 End: February 19, 2025 LISETTE SIMPSON Attending Provider Active Start: Fausto 2024 End: February 19, 2025 LISETTE SIMPSON Referring Provider Active Start: Fausto 2024 End: February 19, 2025 Team Status: Inactive Member Role/Relationship Status Dates Dr. Mali Jeffries DO Primary Care Provider Active Start: May 21, 2025 End: May 21, 2025 LISETTE SIMPSON Attending Provider Active Start: [place] kay 2024 End: May 21, 2025 LISETTE SIMPSON Referring Provider Active Start: [place] kay 2024 End: May 21, 2025 Goals (unrecognized section and content) Goals may be documented in a n alternate section FOR RECORDS PERTAINING TO PATIENTS WHO ARE OR HAVE BEEN ENROLLED IN A CHEMICAL DEPENDENCY/SUBSTANCEABUSE PROGRAM, SOME INFORMATION MAY BE OMITTED. This clinical summary was aggregated from multiple sources. Caution should be exercised in using it in the provision of clinical care. This summary normalizes information from multiple sources, and as a consequence, information in this document may materially change the coding, format and clinical context of patient data. In addition, data may be omitted in some cases. CLINICAL DECISIONS SHOULD BE BASED ON THE PRIMARY CLINICAL RECORDS. [facility] [employer] [facility] provides no warranty or guarantee of the accuracy or completeness of information in this document.
== END | disposition home or self-care (01) ==
PROVIDERS: PCP Internal Medicine; Referring Provider Internal Medicine Pulmonary Disease; Visit Provider Internal Medicine Pulmonary Disease
DX: G47.10 Hypersomnia, unspecified (principal)
CPT/HCPCS: 80307